=== PATIENT | female | born 1980 | race American Indian/Alaskan Native ===

== ENCOUNTER 2016-09-18 23:09 | Emergency (ER) | payer SELFPAY ==
[2016-09-18 23:27] VITALS: BP 120/79
[2016-09-19 00:17] LABS: Basophils % (Auto) 0.5 % (0.0-1.8); Eosinophils % (Auto) 2.7 % (0.0-4.3); Mean Corpuscular HGB Conc 29 % (30-34); Platelet Count 272 K/mm3 (140-440); Red Blood Count 4.44 M/mm3 (3.65-5.03); White Blood Count 8.2 K/mm3 (4.5-11.0)
[2016-09-19 00:38] LABS: Alanine Aminotransferase 6 units/L (7-56); Albumin 3.7 g/dL (3.9-5); Albumin/Globulin Ratio 0.9 %; Alkaline Phosphatase 82 units/L (35-129); Anion Gap 20 mmol/L; Bilirubin,Total 0.4 mg/dL (0.1-1.2); Blood Urea Nitrogen 6 mg/dL (7-17); Calcium 8.6 mg/dL (8.4-10.2); Carbon Dioxide 20 mmol/L (22-30); Chloride 103.7 mmol/L (98-107); Glucose 98 mg/dL (65-100); Lipase 44 units/L (13-60); Potassium 4.2 mmol/L (3.6-5.0); Sodium 139 mmol/L (137-145); Total Protein 7.6 g/dL (6.3-8.2)
[2016-09-19 00:52] LABS: Hematocrit 29.8 % (30.3-42.9); Hemoglobin 8.8 gm/dl (10.1-14.3); Mean Corpuscular Hemoglobin 20 pg (28-32); Mean Corpuscular Volume 67 fl (79-97)
--- NOTE | 2016-09-19 15:09 | ED Elopement Review ---
ED Pt Elopement review - Results review Lab results: Laboratory Tests 09/18/16 09/18/16 23:51 23:51 WBC 8.2 RBC 4.44 Hgb 8.8 L Hct 29.8 L MCV 67 L MCH 20 L MCHC 29 L RDW 22.0 H Plt Count 272 Lymph % (Auto) 22.0 [place] % (Auto) 5.9 Eos % (Auto) 2.7 Baso % (Auto) 0.5 Lymph # 1.8 [place] # 0.5 Eos # 0.2 Baso # 0.0 Seg Neutrophils % 68.9 Seg Neutrophils # 5.6 Sodium 139 Potassium 4.2 Chloride 103.7 Carbon Dioxide 20 L Anion Gap 20 BUN 6 L Creatinine 0.5 L Estimated GFR > 60 BUN/Creatinine Ratio 12.00 Glucose 98 Calcium 8.6 Total Bilirubin 0.4 AST 14 ALT 6 L Alkaline Phosphatase 82 Total Protein 7.6 Albumin 3.7 L Albumin/Globulin Ratio 0.9 Lipase 44 - Call Back decision Pt Call Back Decision: No action required
== END 2016-09-19 01:58 | disposition left against medical advice (07) ==
LOC: ED 23:09
DX: R10.11 Right upper quadrant pain (principal); R11.0 Nausea; Z53.21 Procedure and treatment not carried out due to patient leaving prior to being seen by health care provider
CPT/HCPCS: 36415; 80053; 83690; 85025

== ENCOUNTER 2016-12-12 06:14 | Emergency (ER) | payer SELFPAY ==
[2016-12-12 07:08] LABS: Alanine Aminotransferase 7 units/L (7-56); Albumin 4.1 g/dL (3.9-5); Albumin/Globulin Ratio 1.2 %; Alkaline Phosphatase 69 units/L (35-129); Anion Gap 17 mmol/L; Blood Urea Nitrogen 5 mg/dL (7-17); Calcium 8.7 mg/dL (8.4-10.2); Carbon Dioxide 22 mmol/L (22-30); Chloride 103.3 mmol/L (98-107); Glucose 126 mg/dL (65-100); Potassium 3.8 mmol/L (3.6-5.0); Sodium 138 mmol/L (137-145); Total Protein 7.4 g/dL (6.3-8.2)
[2016-12-12 07:18] LABS: Basophils % (Auto) 0.2 % (0.0-1.8); Eosinophils % (Auto) 4.2 % (0.0-4.3); Hematocrit 27.7 % (30.3-42.9); Hemoglobin 8.3 gm/dl (10.1-14.3); Mean Corpuscular HGB Conc 30 % (30-34); Platelet Count 232 K/mm3 (140-440); Red Blood Count 4.28 M/mm3 (3.65-5.03); Red Cell Distribution Width 19.2 % (13.2-15.2); White Blood Count 8.5 K/mm3 (4.5-11.0)
[2016-12-12 07:20] LABS: Mean Corpuscular Hemoglobin 20 pg (28-32); Mean Corpuscular Volume 65 fl (79-97)
[2016-12-12 07:57] LABS: Lipase 580 units/L (13-60)
[2016-12-12 08:30] LABS: Bacteria,Urine 1+ /HPF (Negative); Bilirubin,Urine NEG (Negative); Blood,Urine LG (Negative); Ketones,Urine NEG (Negative); Leukocyte Esterase,Urine SM (Negative); Mucus,Urine FEW /HPF; Nitrite,Urine NEG (Negative); Urobilinogen,Urine < 2.0 mg/dL (<2.0)
[2016-12-12 12:16] VITALS: BP 142/82
[2016-12-12] MEDS ORDERED: ZOFRAN IV ONE (13:43)
[2016-12-12] MEDS ORDERED: DILAUDID IV ONE (13:43)
[2016-12-12] MEDS ORDERED: PEPCID IV ONE (13:43)
[2016-12-12] MEDS ORDERED: BENTYL IM ONE (13:43)
--- NOTE | 2016-12-12 13:44 | Emergency Department Report ---
ED Abdominal Pain HPI - General Chief Complaint: Abdominal Pain Stated Complaint: ABD PAIN Time Seen by Provider: 12/12/16 13:34 Source: patient, RN notes reviewed Mode of arrival: Stretcher Limitations: No Limitations - History of Present Illness Initial Comments: This is a 36-year-old female. She is previously unknown to me. She reports a medical history of pancreatitis. Nursing documentation indicates that patient' s pancreatitis is secondary to alcohol use. The patient denies alcohol use to me. She presents to the ER with epigastric pain that radiates around to the back. She reports mild nausea. She reports this is similar to prior episodes of pancreatitis. No fevers. No chills. No chest pain. Shortness of breath. Irritative or obstructive urinary symptoms. Patient reports her symptoms typically are associated with her menstruation. Pain typically improves with pain medication such as morphine or hydromorphone. MD Complaint: abdominal pain -: Gradual Location: RUQ, epigastric Radiation: back Severity scale (0 -10): 10 Quality: cramping, aching Consistency: constant Improves With: medication Worsens With: movement Associated Symptoms: nausea, vomiting, anorexia. denies: dysuria - Related Data Allergies Allergy/AdvReac Type Severity Reaction Status Date / Time No Known Allergies Allergy Unverified 09/18/16 23:27 ED Review of Systems ROS: Stated complaint: ABD PAIN Other details as noted in HPI Constitutional: malaise. denies: fever Eyes: denies: vision change ENT: denies: epistaxis Respiratory: denies: cough Cardiovascular: denies: chest pain Gastrointestinal: abdominal pain Genitourinary: denies: urgency, dysuria Musculoskeletal: back pain Skin: denies: lesions Neurological: weakness ED Past Medical Hx - Past Medical History Previous Medical History?: Yes Additional medical history: PANCREATITIS (ETOH) - Surgical History Past Surgical History?: No - Social History Smoking Status: Current Every Day Smoker Substance Use Type: None ED Physical Exam - General Limitations: No Limitations General appearance: alert, in no apparent distress - Head Head exam: Present: atraumatic, normocephalic - Eye Eye exam: Present: normal appearance, EOMI. Absent: nystagmus - ENT ENT exam: Present: normal exam, normal orophraynx, mucous membranes moist, normal external ear exam - Neck Neck exam: Present: normal inspection, full ROM. Absent: tenderness, meningismus - Respiratory Respiratory exam: Present: normal lung sounds bilaterally. Absent: respiratory distress, wheezes, rales, rhonchi, stridor, chest wall tenderness, accessory muscle use, decreased breath sounds - Cardiovascular Cardiovascular Exam: Present: regular rate, normal rhythm, normal heart sounds. Absent: bradycardia, tachycardia, irregular rhythm, systolic murmur, diastolic murmur, rubs, gallop - GI/Abdominal GI/Abdominal exam: Present: soft, tenderness, normal bowel sounds. Absent: distended, pulsatile mass - Extremities Exam Extremities exam: Present: normal inspection, full ROM, normal capillary refill. Absent: pedal edema, joint swelling, calf tenderness - Back Exam Back exam: Present: normal inspection, full ROM. Absent: tenderness, CVA tenderness (R), CVA tenderness (L), muscle spasm, paraspinal tenderness, vertebral tenderness - Neurological Exam Neurological exam: Present: alert, oriented X3, other (Extraocular movements intact. Tongue midline. No facial droop. Facial sensation intact to light touch in the V1, V2, V3 distribution bilaterally. 5 and 5 strength in 4 extremities.. Sensation is intact to light touch in 4 extremities.). Absent: motor sensory deficit - Psychiatric Psychiatric exam: Present: normal affect, normal mood - Skin Skin exam: Present: warm, dry, intact, normal color. Absent: rash ED Course Vital Signs 12/12/16 12/12/16 06:20 12:15 Temperature 98.4 F Pulse Rate 76 68 Respiratory 18 18 Rate Blood Pressure 118/80 Blood Pressure 142/82 [Left] O2 Sat by Pulse 100 100 Oximetry ED Medical Decision Making - Lab Data Result diagrams: 12/12/16 06:36 12/12/16 06:36 Vital Signs 12/12/16 12/12/16 06:20 12:15 Temperature 98.4 F Pulse Rate 76 68 Respiratory 18 18 Rate Blood Pressure 118/80 Blood Pressure 142/82 [Left] O2 Sat by Pulse 100 100 Oximetry Lab Results 12/12/16 12/12/16 12/12/16 Range/Units 06:36 06:36 06:36 WBC 8.5 (4.5-11.0) K/mm3 RBC 4.28 (3.65-5.03) M/mm3 Hgb 8.3 L (10.1-14.3) gm/dl Hct 27.7 L (30.3-42.9) % MCV 65 L (79-97) fl MCH 20 L (28-32) pg MCHC 30 (30-34) % RDW 19.2 H (13.2-15.2) % Plt Count 232 (140-440) K/mm3 Lymph % (Auto) 10.0 L (13.4-35.0) % [place] % (Auto) 4.3 (0.0-7.3) % Eos % (Auto) 4.2 (0.0-4.3) % Baso % (Auto) 0.2 (0.0-1.8) % Lymph # 0.9 L (1.2-5.4) K/mm3 [place] # 0.4 (0.0-0.8) K/mm3 Eos # 0.4 (0.0-0.4) K/mm3 Baso # 0.0 (0.0-0.1) K/mm3 Seg Neutrophils % 81.3 H (40.0-70.0) % Seg Neutrophils # 6.9 (1.8-7.7) K/mm3 Potassium 3.8 (3.6-5.0) mmol/L Chloride 103.3 (98-107) mmol/L Carbon Dioxide 22 (22-30) mmol/L Anion Gap 17 mmol/L BUN 5 L (7-17) mg/dL Creatinine 0.5 L (0.7-1.2) mg/dL Estimated GFR > 60 ml/min BUN/Creatinine Ratio 10.00 % Glucose 126 H (65-100) mg/dL Calcium 8.7 (8.4-10.2) mg/dL Total Bilirubin 0.70 (0.1-1.2) mg/dL AST 13 (5-40) units/L ALT 7 (7-56) units/L Alkaline Phosphatase 69 (35-129) units/L Total Protein 7.4 (6.3-8.2) g/dL Albumin 4.1 (3.9-5) g/dL Albumin/Globulin Ratio 1.2 % Lipase 580 H (13-60) units/L HCG, Qual Negative (Negative) Urine Color (Yellow) Urine Turbidity (Clear) Urine pH (5.0-7.0) Ur Specific [place] (1.003-1.030) Urine Protein (Negative) mg/dL Urine Glucose (UA) (Negative) mg/dL Urine Ketones (Negative) mg/dL Urine Blood (Negative) Urine Nitrite (Negative) Urine Bilirubin (Negative) Urine Urobilinogen (<2.0) mg/dL Ur Leukocyte Esterase (Negative) Urine WBC (Auto) (0.0-6.0) /HPF Urine RBC (Auto) (0.0-6.0) /HPF U Epithel Cells (Auto) (0-13.0) /HPF Urine Bacteria (Auto) (Negative) /HPF Urine Mucus /HPF 12/12/16 Range/Units 08:06 WBC (4.5-11.0) K/mm3 RBC (3.65-5.03) M/mm3 Hgb (10.1-14.3) gm/dl Hct (30.3-42.9) % MCV (79-97) fl MCH (28-32) pg MCHC (30-34) % RDW (13.2-15.2) % Plt Count (140-440) K/mm3 Lymph % (Auto) (13.4-35.0) % [place] % (Auto) (0.0-7.3) % Eos % (Auto) (0.0-4.3) % Baso % (Auto) (0.0-1.8) % Lymph # (1.2-5.4) K/mm3 [place] # (0.0-0.8) K/mm3 Eos # (0.0-0.4) K/mm3 Baso # (0.0-0.1) K/mm3 Seg Neutrophils % (40.0-70.0) % Seg Neutrophils # (1.8-7.7) K/mm3 Potassium (3.6-5.0) mmol/L Chloride (98-107) mmol/L Carbon Dioxide (22-30) mmol/L Anion Gap mmol/L BUN (7-17) mg/dL Creatinine (0.7-1.2) mg/dL Estimated GFR ml/min BUN/Creatinine Ratio % Glucose (65-100) mg/dL Calcium (8.4-10.2) mg/dL Total Bilirubin (0.1-1.2) mg/dL AST (5-40) units/L ALT (7-56) units/L Alkaline Phosphatase (35-129) units/L Total Protein (6.3-8.2) g/dL Albumin (3.9-5) g/dL Albumin/Globulin Ratio % Lipase (13-60) units/L HCG, Qual (Negative) Urine Color Yellow (Yellow) Urine Turbidity Slightly-cloudy (Clear) Urine pH 5.0 (5.0-7.0) Ur Specific [place] 1.024 (1.003-1.030) Urine Protein 30 mg/dl (Negative) mg/dL Urine Glucose (UA) Neg (Negative) mg/dL Urine Ketones Neg (Negative) mg/dL Urine Blood Lg (Negative) Urine Nitrite Neg (Negative) Urine Bilirubin Neg (Negative) Urine Urobilinogen < 2.0 (<2.0) mg/dL Ur Leukocyte Esterase Sm (Negative) Urine WBC (Auto) 9.0 H (0.0-6.0) /HPF Urine RBC (Auto) 8.0 (0.0-6.0) /HPF U Epithel Cells (Auto) 8.0 (0-13.0) /HPF Urine Bacteria (Auto) 1+ (Negative) /HPF Urine Mucus Few /HPF - Medical Decision Making Differential diagnosis: GERD, gastritis, pancreatitis Assessment and plan: 36-year-old female with reported history of multiple episodes of pancreatitis, with a clinical history and laboratory studies that suggest pancreatitis. She is afebrile, with epigastric tenderness. She is given pain medication, nausea medication and IV fluids. She is clinically sober at this time, with a GCS of 15, NIH score of 0, does not require 1013. Given her elevated lipase, abdominal pain, the patient will be admitted for presumed pancreatitis. Given her young age, and reported history of multiple CT scans in the past, I do not believe it is in the patient's best interest to exposure to additional ionizing radiation, given the increased risk of cancer. The case is presented to the Hospital physician, Dr. Doty, who graciously accept the patient to his service for pancreatitis. Critical care attestation.: If time is entered above; I have spent that time in minutes in the direct care of this critically ill patient, excluding procedure time. ED Disposition Clinical Impression: Pancreatitis Disposition: OP ADMIT IP TO THIS HOSP Is pt being admited?: Yes Condition: Good Instructions: Abdominal Pain (ED) Referrals: PRIMARY CARE, [Primary Care Provider] - 3-5 Days
[2016-12-12] MEDS ORDERED: NACL 0.9% 1000 ML 2,000 ML IV ONE (13:47)
--- NOTE | 2016-12-12 13:55 | Admit Criteria Form ---
Admission Criteria Documentation: PANCREATITIS Clinical Indications for Admission to Inpatient Care (Place 'X' for any and all applicable criteria): Admission is indicated for 1 or more of the following (1)(2)(3)(4): [X]I. Acute pancreatitis[A] as indicated by 2 or MORE of the following: [X]a) Abdominal pain (eg, epigastric, left upper quadrant) [X]b) Serum amylase or serum lipase greater than 3 times the upper limit of normal [ ]c) Characteristic findings from abdominal imaging (eg, pancreatic inflammation, pancreatic necrosis, peripancreatic fluid collection)[B] [ ]II. Pancreatitis (acute or chronic ) requiring inpatient care as indicated by 1 or more of the following [ ]a) Inability to maintain oral hydration Hypoxemia [ ]b) Evidence of infection (eg, fever, peripancreatic abscess) [ ]c) Severe pain requiring acute inpatient management [ ]d) Hemodynamic instability [ ]e) Hypoxemia [ ]f) Acute renal failure [ ]g) Severe electrolyte abnormalities Extended stay beyond goal length of stay may be needed for (1)(11) [ ]a) Severe acute pancreatitis (10)(19) [ ]b) Persistent symptoms, ascites, or pleural effusion [ ]c) Abdominal compartment syndrome (10) [ ]d) Late complications [ ]e) Gallstones in gallbladder [ ]f) Acute renal failure (27) The original [employer] content created by [employer] has been revised. The portions of the content which have been revised are identified through the use of italic text or in bold,and [facility] has neither reviewed nor approved the modified material.All other unmodified content is copyright [employer] [facility]. Please see references footnoted in the original [employer] [facility] edition 2016 Admission Criteria Met: Yes
[2016-12-12] MEDS ORDERED: D5/0.45NS 1,000 ML IV SCH (14:00)
[2016-12-12] MEDS ORDERED: PERCOCET 5/325 ONE (18:52)
[2016-12-12] MEDS ORDERED: PERCOCET 5/325 PO ONE (18:56)
== END 2016-12-12 19:06 | disposition admitted as inpatient to this hospital (09) ==
LOC: ED 06:14
DX: K85.90 Acute pancreatitis without necrosis or infection, unspecified (principal); F17.200 Nicotine dependence, unspecified, uncomplicated
CPT/HCPCS: 36415; 80053; 81001; 83690; 84703; 85025; 96361; 96372; 96374; 96375; 99285; G0480; J0500; J1170; J2405; J7030; 80320

== ENCOUNTER 2019-07-15 10:32 | Emergency (ER) | payer SELFPAY ==
--- NOTE | 2019-07-15 11:35 | Emergency Department Report ---
ED Abdominal Pain HPI - General Chief Complaint: Abdominal Pain Stated Complaint: CHEST PAIN, SOB ABD PAIN Time Seen by Provider: 07/15/19 11:32 Source: patient Mode of arrival: Ambulatory Limitations: No Limitations - History of Present Illness Initial Comments: This is a 39-year-old female with a history of recurrent pancreatitis. She denies recent alcohol use. She states that she has been having right upper quadrant epigastric abdominal pain which radiates to the back and worsens on the supine position. Despite this being fairly typical for pancreatitis she states it feels different than her prior episodes of pancreatitis but cannot really el aborate why. She's had some discomfort in her chest as well. She denies fever or chills signs of GI bleeding or recent vomiting. She states that she has been moving her bowels. As per her last hospitalization for pancreatitis: Hospitalization Condition: Stable Hospital course: 39-year-old woman Presents to the hospital right-sided abdominal pain radiating to her lower back. The patient has a history of chronic pancreatitis, from a alcohol abuser. She also has a history of pancreatic insufficiency and used to be on Creon. The patient also complained of nausea or vomiting. CT abdomen and pelvis; diffuse pancreatitis with moderate adjacent fluid/inflammation, fatty liver Acute on chronic pancreatitis Continue pain medications IV fluids. Clear liquid diet, advanced as tolerated. Patient was seen by gastroenterology who agreed with the plan of care. She was advised on alcohol cessation/avoidance. Advised to advance her diet at home as slowly as tolerated Type 2 diabetes Optimize insulins MD Complaint: abdominal pain -: Gradual, days(s) Location: periumbilical, RUQ, epigastric Radiation: back Migration to: no migration Severity: moderate Quality: aching Consistency: constant Improves With: nothing Worsens With: nothing Associated Symptoms: denies other symptoms - Related Data Home Medications Medication Instructions Recorded Confirmed Last Taken Ferrous Sulfate [Feosol 325 MG tab] 325 mg PO TID 12/12/16 03/10/19 Unknown Folic Acid [Folvite] 1 mg PO QDAY 12/12/16 03/10/19 Unknown Lipase/Protease/Amylase [Creon Dr 1 cap PO QAC 12/12/16 03/10/19 Unknown 12,000 Units] Previous Rx's Medication Instructions Recorded Last Taken Type Oxycodone HCl/Acetaminophen 1 each PO Q6HR PRN #30 tablet 03/11/19 Unknown Rx [Percocet 10/325 mg] Allergies Allergy/AdvReac Type Severity Reaction Status Date / Time No Known Allergies Allergy Unverified 09/18/16 23:27 ED Review of Systems ROS: Stated complaint: CHEST PAIN, SOB ABD PAIN Other details as noted in HPI Constitutional: denies: chills, fever Eyes: denies: eye pain, eye discharge, vision change ENT: denies: ear pain, throat pain Respiratory: denies: cough, shortness of breath, wheezing Cardiovascular: denies: chest pain, palpitations Endocrine: no symptoms reported Gastrointestinal: abdominal pain. denies: nausea, vomiting, diarrhea Genitourinary: denies: urgency, dysuria, discharge Musculoskeletal: denies: back pain, joint swelling, arthralgia Skin: denies: rash, lesions Neurological: denies: headache, weakness, paresthesias Psychiatric: denies: anxiety, depression Hematological/Lymphatic: denies: easy bleeding, easy bruising ED Past Medical Hx - Past Medical History Previous Medical History?: Yes Hx Congestive Heart Failure: No Hx Diabetes: No Hx Asthma: No Hx COPD: No Hx HIV: No Additional medical history: PANCREATITIS (ETOH) - Surgical History Past Surgical History?: No - Social History Smoking Status: Never Smoker Substance Use Type: None - Medications Home Medications: Home Medications Medication Instructions Recorded Confirmed Last Taken Type Ferrous Sulfate [Feosol 325 MG tab] 325 mg PO TID 12/12/16 03/10/19 Unknown History Folic Acid [Folvite] 1 mg PO QDAY 12/12/16 03/10/19 Unknown History Lipase/Protease/Amylase [Robinson Arndt 1 cap PO QAC 12/12/16 03/10/19 Unknown History 12,000 Units] Oxycodone HCl/Acetaminophen 1 each PO Q6HR PRN #30 tablet 03/11/19 Unknown Rx [Percocet 10/325 mg] ED Physical Exam - General Limitations: No Limitations General appearance: alert, in no apparent distress - Head Head exam: Present: atraumatic, normocephalic - Eye Eye exam: Present: normal appearance. Absent: scleral icterus - ENT ENT exam: Present: mucous membranes moist - Neck Neck exam: Present: normal inspection - Respiratory Respiratory exam: Present: normal lung sounds bilaterally. Absent: respiratory distress - Cardiovascular Cardiovascular Exam: Present: regular rate, normal rhythm. Absent: systolic murmur, diastolic murmur, rubs, gallop - GI/Abdominal GI/Abdominal exam: Present: soft, tenderness (some epigastric discomfort to palp ation), normal bowel sounds. Absent: distended, guarding, rebound, rigid, organomegaly, mass, bruit, pulsatile mass, hernia - Extremities Exam Extremities exam: Present: normal inspection - Back Exam Back exam: Present: normal inspection - Neurological Exam Neurological exam: Present: alert, oriented X3, CN II-XII intact. Absent: motor sensory deficit - Psychiatric Psychiatric exam: Present: normal affect, normal mood - Skin Skin exam: Present: warm, dry, intact, normal color. Absent: rash ED Course Vital Signs 07/15/19 07/15/19 07/15/19 10:57 11:48 11:50 Temperature 98.1 F Pulse Rate 124 H 92 H 96 H Respiratory 16 16 18 Rate Blood Pressure 143/92 Blood Pressure 129/87 [Left] O2 Sat by Pulse 100 100 Oximetry 07/15/19 07/15/19 07/15/19 11:53 12:00 12:15 Temperature Pulse Rate 92 H 94 H Respiratory 18 18 14 Rate Blood Pressure 129/87 146/98 Blood Pressure [Left] O2 Sat by Pulse 100 100 98 Oximetry 07/15/19 07/15/19 12:30 12:45 Temperature Pulse Rate 79 82 Respiratory 13 13 Rate Blood Pressure 122/81 127/79 Blood Pressure [Left] O2 Sat by Pulse 100 Oximetry - Reevaluation(s) Reevaluation #1: Please refer to the hospitalist for consideration of admission. 07/15/19 13:51 ED Medical Decision Making - Lab Data Result diagrams: 07/15/19 11:43 07/15/19 11:43 Laboratory Results - last 24 hr 07/15/19 07/15/19 07/15/19 11:43 11:43 Unknown WBC 7.9 RBC 5.08 H Hgb 10.1 Hct 33.8 MCV 67 L MCH 20 L MCHC 30 RDW 19.8 H Plt Count 211 Lymph % (Auto) 15.0 [place] % (Auto) 7.1 Eos % (Auto) 0.5 Baso % (Auto) 0.1 Lymph # 1.2 [place] # 0.6 Eos # 0.0 Baso # 0.0 Seg Neutrophils % 77.3 H Seg Neutrophils # 6.1 Sodium 137 Potassium 4.0 Chloride 96.2 L Carbon Dioxide 22 Anion Gap 23 BUN 5 L Creatinine 0.5 L Estimated GFR > 60 BUN/Creatinine Ratio 10 Glucose 307 H Calcium 9.6 Total Bilirubin 0.80 AST 20 ALT 23 Alkaline Phosphatase 97 Troponin T < 0.010 Total Protein 8.1 Albumin 4.4 Albumin/Globulin Ratio 1.2 Urine Color Yellow Urine Turbidity Slightly-cloudy Urine pH 5.0 Ur Specific [place] 1.023 Urine Protein 30 mg/dl Urine Glucose (UA) >=500 Urine Ketones 80 Urine Blood Neg Urine Nitrite Neg Urine Bilirubin Neg Urine Urobilinogen 4.0 Ur Leukocyte Esterase Mod Urine WBC (Auto) 34.0 H Urine RBC (Auto) 6.0 U Epithel Cells (Auto) 19.0 H Urine Bacteria (Auto) 1+ Urine Mucus 3+ Laboratory Results - last 24 hr 07/15/19 07/15/19 07/15/19 11:43 11:43 11:49 WBC 7.9 RBC 5.08 H Hgb 10.1 Hct 33.8 MCV 67 L MCH 20 L MCHC 30 RDW 19.8 H Plt Count 211 Lymph % (Auto) 15.0 [place] % (Auto) 7.1 Eos % (Auto) 0.5 Baso % (Auto) 0.1 Lymph # 1.2 [place] # 0.6 Eos # 0.0 Baso # 0.0 Seg Neutrophils % 77.3 H Seg Neutrophils # 6.1 Sodium 137 Potassium 4.0 Chloride 96.2 L Carbon Dioxide 22 Anion Gap 23 BUN 5 L Creatinine 0.5 L Estimated GFR > 60 BUN/Creatinine Ratio 10 Glucose 307 H Calcium 9.6 Total Bilirubin 0.80 AST 20 ALT 23 Alkaline Phosphatase 97 Troponin T < 0.010 Total Protein 8.1 Albumin 4.4 Albumin/Globulin Ratio 1.2 HCG, Qual Negative Urine Color Urine Turbidity Urine pH Ur Specific [place] Urine Protein Urine Glucose (UA) Urine Ketones Urine Blood Urine Nitrite Urine Bilirubin Urine Urobilinogen Ur Leukocyte Esterase Urine WBC (Auto) Urine RBC (Auto) U Epithel Cells (Auto) Urine Bacteria (Auto) Urine Mucus 07/15/19 Unknown WBC RBC Hgb Hct MCV MCH MCHC RDW Plt Count Lymph % (Auto) [place] % (Auto) Eos % (Auto) Baso % (Auto) Lymph # [place] # Eos # Baso # Seg Neutrophils % Seg Neutrophils # Sodium Potassium Chloride Carbon Dioxide Anion Gap BUN Creatinine Estimated GFR BUN/Creatinine Ratio Glucose Calcium Total Bilirubin AST ALT Alkaline Phosphatase Troponin T Total Protein Albumin Albumin/Globulin Ratio HCG, Qual Urine Color Yellow Urine Turbidity Slightly-cloudy Urine pH 5.0 Ur Specific [place] 1.023 Urine Protein 30 mg/dl Urine Glucose (UA) >=500 Urine Ketones 80 Urine Blood Neg Urine Nitrite Neg Urine Bilirubin Neg Urine Urobilinogen 4.0 Ur Leukocyte Esterase Mod Urine WBC (Auto) 34.0 H Urine RBC (Auto) 6.0 U Epithel Cells (Auto) 19.0 H Urine Bacteria (Auto) 1+ Urine Mucus 3+ Laboratory Results - last 24 hr 07/15/19 07/15/19 07/15/19 11:43 11:43 11:49 WBC 7.9 RBC 5.08 H Hgb 10.1 Hct 33.8 MCV 67 L MCH 20 L MCHC 30 RDW 19.8 H Plt Count 211 Lymph % (Auto) 15.0 [place] % (Auto) 7.1 Eos % (Auto) 0.5 Baso % (Auto) 0.1 Lymph # 1.2 [place] # 0.6 Eos # 0.0 Baso # 0.0 Seg Neutrophils % 77.3 H Seg Neutrophils # 6.1 Sodium 137 Potassium 4.0 Chloride 96.2 L Carbon Dioxide 22 Anion Gap 23 BUN 5 L Creatinine 0.5 L Estimated GFR > 60 BUN/Creatinine Ratio 10 Glucose 307 H Calcium 9.6 Total Bilirubin 0.80 AST 20 ALT 23 Alkaline Phosphatase 97 Troponin T < 0.010 Total Protein 8.1 Albumin 4.4 Albumin/Globulin Ratio 1.2 Lipase 470 H HCG, Qual Negative Urine Color Urine Turbidity Urine pH Ur Specific [place] Urine Protein Urine Glucose (UA) Urine Ketones Urine Blood Urine Nitrite Urine Bilirubin Urine Urobilinogen Ur Leukocyte Esterase Urine WBC (Auto) Urine RBC (Auto) U Epithel Cells (Auto) Urine Bacteria (Auto) Urine Mucus 07/15/19 Unknown WBC RBC Hgb Hct MCV MCH MCHC RDW Plt Count Lymph % (Auto) [place] % (Auto) Eos % (Auto) Baso % (Auto) Lymph # [place] # Eos # Baso # Seg Neutrophils % Seg Neutrophils # Sodium Potassium Chloride Carbon Dioxide Anion Gap BUN Creatinine Estimated GFR BUN/Creatinine Ratio Glucose Calcium Total Bilirubin AST ALT Alkaline Phosphatase Troponin T Total Protein Albumin Albumin/Globulin Ratio Lipase HCG, Qual Urine Color Yellow Urine Turbidity Slightly-cloudy Urine pH 5.0 Ur Specific [place] 1.023 Urine Protein 30 mg/dl Urine Glucose (UA) >=500 Urine Ketones 80 Urine Blood Neg Urine Nitrite Neg Urine Bilirubin Neg Urine Urobilinogen 4.0 Ur Leukocyte Esterase Mod Urine WBC (Auto) 34.0 H Urine RBC (Auto) 6.0 U Epithel Cells (Auto) 19.0 H Urine Bacteria (Auto) 1+ Urine Mucus 3+ - EKG Data -: EKG Interpreted by Ne EKG shows normal: sinus rhythm, axis, intervals, QRS complexes, ST-T waves Rate: normal - EKG Data Interpretation: no acute changes - Radiology Data Radiology results: report reviewed (normal chest per radiologist) Critical care attestation.: If time is entered above; I have spent that time in minutes in the direct care of this critically ill patient, excluding procedure time. ED Disposition Clinical Impression: Acute pancreatitis Qualifiers: Pancreatitis type: unspecified pancreatitis type Acute pancreatitis complication: unspecified Qualified Code(s): K85.90 - Acute pancreatitis without necrosis or infection, unspecified UTI (urinary tract infection) Qualifiers: Urinary tract infection type: site unspecified Hematuria presence: without hematuria Qualified Code(s): N39.0 - Urinary tract infection, site not specified Disposition: 09 OP ADMIT IP TO THIS HOSP Is pt being admited?: Yes Does the pt Need Aspirin: No Condition: Stable Instructions: Abdominal Pain (ED) Referrals: PRIMARY CARE, [Primary Care Provider] - 3-5 Days Time of Disposition: 13:51
[2019-07-15] MEDS ORDERED: HYDROmorphone 1 MG/1 ML INJ IV ONE ×2 (11:40→15:08)
[2019-07-15] MEDS ORDERED: SODIUM CHLORIDE 0.9% 1000 ML 1,000 ML IV ONE (11:40)
[2019-07-15] MEDS ORDERED: diphenhydrAMINE 50 MG/ML VIAL IV ONE (11:40)
[2019-07-15] MEDS ORDERED: ONDANSETRON 4 MG/2 ML INJ IV ONE ×2 (11:40→14:06)
[2019-07-15] MEDS ORDERED: PANTOPRAZOLE 40 MG INJ IV ONE (11:40)
--- NOTE | 2019-07-15 11:40 | XRay Report ---
CHEST 1 VIEW INDICATION: Chest Pain. COMPARISON: None. FINDINGS: Support devices: None. Heart: Within normal limits. Pulmonary vasculature: Normal. Lungs/Pleura: No acute air space or interstitial disease. Additional findings: None. IMPRESSION: 1. Normal chest. Signer Name: Ronnie Brown MD Signed: 07/15/2019 11:35 AM Workstation Name: [id number]
[2019-07-15 11:57] LABS: Bacteria,Urine 1+ /HPF (Negative); Bilirubin,Urine NEG (Negative); Blood,Urine NEG (Negative); Color,Urine Yellow (Yellow); Mucus,Urine 3+ /HPF
[2019-07-15 12:05] LABS: Basophils % (Auto) 0.1 % (0.0-1.8); Eosinophils % (Auto) 0.5 % (0.0-4.3); Hematocrit 33.8 % (30.3-42.9); Hemoglobin 10.1 gm/dl (10.1-14.3); Lymphocytes # (Auto) 1.2 K/mm3 (1.2-5.4); Mean Corpuscular HGB Conc 30 % (30-34); Monocytes # (Auto) 0.6 K/mm3 (0.0-0.8); Monocytes % (Auto) 7.1 % (0.0-7.3); Platelet Count 211 K/mm3 (140-440); Red Blood Count 5.08 M/mm3 (3.65-5.03); Red Cell Distribution Width 19.8 % (13.2-15.2)
[2019-07-15 12:06] LABS: Mean Corpuscular Volume 67 fl (79-97)
[2019-07-15 12:43] LABS: Alanine Aminotransferase 23 units/L (7-56); Albumin 4.4 g/dL (3.9-5); BUN/Creatinine Ratio 10; Blood Urea Nitrogen 5 mg/dL (7-17); Calcium 9.6 mg/dL (8.4-10.2); Hemolysis Index 0
[2019-07-15] MEDS ORDERED: cefTRIAXone/NS 1 GM/50 ML 1 GM/50 ML BAG IV ONE (13:04)
[2019-07-15] MEDS ORDERED: INSULIN REGULAR, HUMAN 100 UNITS/1 ML IV ONE (13:41)
[2019-07-15] MEDS ORDERED: SODIUM CHLORIDE 0.9% 1000 ML 1,000 ML IV SCH (14:15)
--- NOTE | 2019-07-15 15:48 | Event Note ---
Date: 07/15/19 39-year-old female with chronic pancreatitis, EtOH dependence, medication noncompliance presents to ED for evaluation. Patient states that she has experienced abdominal pain over the past 1 week. Patient seen and evaluated in the emergency department and found to have chronic alcoholic pancreatitis secondary to noncompliance and continued alcohol use as well as UTI. Patient treated with IV fluid resuscitation therapy and supportive care. Patient medically optimized tolerating diet and subsequently discharged home. Patient instructed to follow-up with primary care physician within 3 to 5 days, as well as GI PRN. Patient also instructed to follow-up with Alcoholics Anonymous upon discharge. Patient counseled regarding alcohol cessation. ED Physical Exam - General Limitations: No Limitations General appearance: alert, in no apparent distress - Head Head exam: Present: atraumatic, normocephalic - Eye Eye exam: Present: normal appearance. Absent: scleral icterus - ENT ENT exam: Present: mucous membranes moist - Neck Neck exam: Present: normal inspection - Respiratory Respiratory exam: Present: normal lung sounds bilaterally. Absent: respiratory distress - Cardiovascular Cardiovascular Exam: Present: regular rate, normal rhythm. Absent: systolic murmur, diastolic murmur, rubs, gallop - GI/Abdominal GI/Abdominal exam: Present: soft, nondistended, nontender, no rebound, no guarding, no flank discoloration. Absent: distended, guarding, rebound, rigid, organomegaly, mass, bruit, pulsatile mass, hernia - Extremities Exam Extremities exam: Present: normal inspection - Back Exam Back exam: Present: normal inspection - Neurological Exam Neurological exam: Present: alert, oriented X3, CN II-XII intact. Absent: motor sensory deficit - Psychiatric Psychiatric exam: Present: normal affect, normal mood - Skin Skin exam: Present: warm, dry, intact, normal color. Absent: rash
[2019-07-15 19:51] VITALS: BP 140/84
== END 2019-07-15 19:51 | disposition admitted as inpatient to this hospital (09) ==
LOC: ED 10:32
DX: K85.90 Acute pancreatitis without necrosis or infection, unspecified (principal); N39.0 Urinary tract infection, site not specified; Z79.899 Other long term (current) drug therapy
CPT/HCPCS: 36415; 71045; 80053; 81001; 83690; 84484; 84703; 85025; 87076; 87086; 87186; 93005; 93010; 96361; 96365; 96375; 96376; 99284; C9113; J0696; J1170; J1200; J2405; J7030; J1815

== ENCOUNTER 2019-07-16 07:12 | Emergency (ER) | payer SELFPAY ==
[2019-07-16] MEDS ORDERED: FAMOTIDINE 20 MG/2 ML INJ IV ONE (08:15)
[2019-07-16] MEDS ORDERED: METOCLOPRAMIDE 10 MG/2 ML INJ IV ONE (08:15)
[2019-07-16] MEDS ORDERED: MORPHINE 2 MG/1 ML INJ IV ONE ×2 (08:15→11:16)
--- NOTE | 2019-07-16 08:20 | Emergency Department Report ---
ED Abdominal Pain HPI - General Chief Complaint: Abdominal Pain Stated Complaint: ABD PAIN Time Seen by Provider: 07/16/19 07:47 Source: patient Mode of arrival: Ambulatory Limitations: No Limitations - History of Present Illness Initial Comments: Is a 39-year-old female with a history of chronic pancreatitis who returns to the ED after being evaluated here and discharged. Patient states that she is having worsening abdominal pain with no relief. Patient states that she has not had any alcohol ingestion. Patient describes pain as colicky which is radiating from right upper quadrant to left and generalized. - Related Data Home Medications Medication Instructions Recorded Confirmed Last Taken Ferrous Sulfate [Feosol 325 MG tab] 325 mg PO TID 12/12/16 07/16/19 Unknown Folic Acid [Folvite] 1 mg PO QDAY 12/12/16 07/16/19 Unknown Previous Rx's Medication Instructions Recorded Last Taken Type Ciprofloxacin HCl [Ciprofloxacin 500 mg PO Q12HR #12 tab 07/15/19 Unknown Rx TAB] Lipase/Protease/Amylase [Creon Dr 1 cap PO QAC #60 cap 07/15/19 Unknown Rx 12,000 Units] Ondansetron [Zofran Odt] 4 mg PO Q8HR #15 tab.rapdis 07/15/19 Unknown Rx Apixaban [Eliquis starter pack] 5 mg PO BID #60 tab.ds.pk 07/16/19 Unknown Rx Oxycodone HCl/Acetaminophen 1 each PO Q6HR PRN #15 tablet 07/16/19 Unknown Rx [Percocet 10/325 mg] Allergies Allergy/AdvReac Type Severity Reaction Status Date / Time No Known Allergies Allergy Unverified 09/18/16 23:27 ED Review of Systems ROS: Stated complaint: ABD PAIN Other details as noted in HPI Comment: All other systems reviewed and negative ED Past Medical Hx - Past Medical History Hx Congestive Heart Failure: No Hx Diabetes: No Hx Asthma: No Hx COPD: No Hx HIV: No Additional medical history: PANCREATITIS (ETOH) - Social History Smoking Status: Current Every Day Smoker - Medications Home Medications: Home Medications Medication Instructions Recorded Confirmed Last Taken Type Ferrous Sulfate [Feosol 325 MG tab] 325 mg PO TID 12/12/16 07/16/19 Unknown History Folic Acid [Folvite] 1 mg PO QDAY 12/12/16 07/16/19 Unknown History Ciprofloxacin HCl [Ciprofloxacin 500 mg PO Q12HR #12 tab 07/15/19 07/16/19 Unknown Rx TAB] Lipase/Protease/Amylase [Robinson Dr 1 cap PO QAC #60 cap 07/15/19 07/16/19 Unknown Rx 12,000 Units] Ondansetron [Zofran Odt] 4 mg PO Q8HR #15 tab.rapdis 07/15/19 07/16/19 Unknown Rx Apixaban [Eliquis starter pack] 5 mg PO BID #60 tab.ds.pk 07/16/19 Unknown Rx Oxycodone HCl/Acetaminophen 1 each PO Q6HR PRN #15 tablet 07/16/19 Unknown Rx [Percocet 10/325 mg] ED Physical Exam - General Limitations: No Limitations General appearance: alert, in no apparent distress - Head Head exam: Present: atraumatic, normocephalic - Eye Eye exam: Present: normal appearance - ENT ENT exam: Present: mucous membranes moist - Neck Neck exam: Present: normal inspection - Respiratory Respiratory exam: Present: normal lung sounds bilaterally. Absent: respiratory distress - Cardiovascular Cardiovascular Exam: Present: regular rate, normal rhythm. Absent: systolic murmur, diastolic murmur, rubs, gallop - GI/Abdominal GI/Abdominal exam: Present: soft, tenderness, guarding, rebound, normal bowel sounds. Absent: mass - Extremities Exam Extremities exam: Present: normal inspection - Back Exam Back exam: Present: normal inspection - Neurological Exam Neurological exam: Present: alert, oriented X3 - Psychiatric Psychiatric exam: Present: normal affect, normal mood - Skin Skin exam: Present: warm, dry, intact, normal color. Absent: rash ED Course Vital Signs 07/16/19 07/16/19 07/16/19 07:16 11:20 15:34 Temperature 98.4 F 98.4 F 98.2 F Pulse Rate 105 H 88 90 Respiratory 16 16 16 Rate Blood Pressure 127/89 132/84 Blood Pressure 140/82 [Left] O2 Sat by Pulse 100 100 100 Oximetry - Reevaluation(s) Reevaluation #1: 07/16/19 12:06 Patient is still complaining of abdominal pain. 2 mg of morphine ordered. Patient stated that the vascular surgeon Dr. AREVALO just came in to evaluate her. [place] still awaiting Reevaluation #2: Vascular surgeon order was placed for Doppler study at [facility]. Pending results, pending return of page from vascular surgeon 07/16/19 12:21 - Consultations Consultation #1: Doctor Akash vascular surgeon paged. 07/16/19 12:21 Consultation #2: 07/16/19 14:[address] Lombardi attending physician who recommended for a free to evaluate patient and for admit to observation. Dr. Doty will calm and evaluated the patient and Dispo ED Medical Decision Making - Lab Data Result diagrams: 07/16/19 08:30 07/16/19 08:30 Laboratory Results - last 24 hr 07/16/19 07/16/19 08:30 08:30 WBC 6.1 RBC 5.08 H Hgb 10.2 Hct 34.3 MCV 68 L MCH 20 L MCHC 30 RDW 19.8 H Plt Count 198 Lymph % (Auto) 18.9 [place] % (Auto) 6.6 Eos % (Auto) 1.8 Baso % (Auto) 0.5 Lymph # 1.2 [place] # 0.4 Eos # 0.1 Baso # 0.0 Seg Neutrophils % 72.2 H Seg Neutrophils # 4.4 Sodium 139 Potassium 4.5 Chloride 102.6 Carbon Dioxide 22 Anion Gap 19 BUN 3 L Creatinine 0.4 L Estimated GFR > 60 BUN/Creatinine Ratio 8 Glucose 263 H Calcium 9.6 Total Bilirubin 0.60 AST 31 ALT 22 Alkaline Phosphatase 88 Total Protein 8.2 Albumin 4.1 Albumin/Globulin Ratio 1.0 Amylase 91 Lipase 230 H - Radiology Data Radiology results: report reviewed, image reviewed CT abdomen pelvis w con INDICATION: abd pain x 2 weeks. TECHNIQUE: All CT scans at this location are performed using the following dose modulation technique: Automated exposure control. CONTRAST: Omnipaque 350, 100 cc IV injection. COMPARISON: CT abdomen and pelvis 03/08/2019. CT ABDOMEN: Evaluation the parenchymal organs demonstrates moderate tic containing of the pancreas with mild adjacent inflammation. The remaining parenchymal organs are unremarkable other than fatty infiltration of the liver. Negative for abdominal mass, fluid or inflammation. A small amount of thrombus is seen within the inferior aspect of the IVC extending into the right common iliac vein. This is best seen on series #601, image 48 CT PELVIS: Negative for pelvic mass, fluid collection or inflammation. The endometrial stripe is prominent. The appendix is normal. IMPRESSION: 1. Mild/moderate acute pancreatitis. 2. Thrombus within the inferior aspect of the IVC extending into the right common iliac vein. This is new from the February study but has a more chronic appearance. 3. Thickened endometrial stripe. This is a new finding and may be cycle related. Signer Name: Enrique Matta MD Signed: 07/16/2019 10:10 AM Workstation Name: [id number] Transcribed By: SALOME Dictated By: Enrique Matta MD Electronically Authenticated By: Enrique Matta MD Signed Date/Time: 07/16/19 1010 DUPLEX DOPPLER LOWER EXTREMITY VEINS, BILATERAL INDICATION: IVC thrombus. TECHNIQUE: Duplex doppler imaging was performed through the veins of both lower extremities using venous compression and other maneuvers. COMPARISON: None available. FINDINGS: Right Common femoral vein: Negative. Right Superficial femoral vein: Negative. Right Popliteal vein: Negative. Right Calf veins: Negative. Left Common femoral vein: Negative. Left Superficial femoral vein: Negative. Left Popliteal vein: Negative. Left Calf veins: Negative. Additional findings: None. IMPRESSION: Negative for DVT. Signer Name: Enrique Matta MD Signed: 07/16/2019 1:45 PM Workstation Name: [id number] Transcribed By: SALOME Dictated By: Enrique Matta MD Electronically Authenticated By: Enrique Matta MD Signed Date/Time: 07/16/19 1345 - Medical Decision Making 39-year-old female with a history of pancreatitis presents with abdominal pain Patient was evaluated by Dr. Lombardi and recommended admission. Per Hospitalist note Soren after evaluating the patient was sent home with medication. Patient returned today and abdominal pain stating that it is worse Due to patient's level of discomfort, CT scan was ordered. CT scan shows acute pancreatitis as well as a thrombolysis in the IVC extending to the iliac vein. All labs are within normal limits no signs of leukocytosis, BUN/creatinine were little depleted and lipase elevated consistent with a history of pancreatitis. Patient received medication in ed, IV fluid resuscitation . Vascular consult was placed after CT scan was resulted. Vascular attending evaluated the patient. Discussed this with Dr. Lombardi who recommended admission for observation. Hospitalist made aware of the patient. Hospitalist will evaluate the patient and decide on Dispo. Patient is still having moderate abdominal pain. 2 mg of morphine ordered. [place] resting comfortably ED bed awaiting. Discussed the patient liquid diet for the next 2 days for pancreatitis. Patient awaiting a hospitalist evaluation. She was discharged after hospitalist evaluation by hospitalist Critical care attestation.: If time is entered above; I have spent that time in minutes in the direct care of this critically ill patient, excluding procedure time. ED Disposition Clinical Impression: Acute pancreatitis, Inferior vena cava thromboembolism Disposition: - TO HOME OR SELFCARE Is pt being admited?: No Does the pt Need Aspirin: No Condition: Stable Instructions: Pancreatitis (ED), Abdominal Pain (ED) Additional Instructions: Make sure to follow up with the primary care physician as discussed. Take all your medications as you've been prescribed. If you have any worsening symptoms or develop new symptoms please return to ED immediately. Prescriptions: Apixaban [Eliquis starter pack] 5 mg PO BID #60 tab.ds.pk Oxycodone HCl/Acetaminophen [Percocet 10/325 mg] 1 each PO Q6HR PRN #15 tablet PRN Reason: Pain Referrals: [facility] [Provider Group] - 3-5 Days [facility] [Outside] - 3-5 Days [facility] [Outside] - 3-5 Days [facility] [Outside] - 3-5 Days PRIMARY CARE, [Primary Care Provider] - 3-5 Days [facility] [Provider Group] - 3-5 Days Forms: Work/School Release Form(ED) Time of Disposition: 14:55
[2019-07-16] MEDS ORDERED: SODIUM CHLORIDE 0.9% 1000 ML 1,000 ML ONE (08:32)
[2019-07-16] MEDS ORDERED: SODIUM CHLORIDE 0.9% 1000 ML 1,000 ML IV ONE (08:36)
[2019-07-16 08:44] LABS: Basophils % (Auto) 0.5 % (0.0-1.8); Eosinophils # (Auto) 0.1 K/mm3 (0.0-0.4); Eosinophils % (Auto) 1.8 % (0.0-4.3); Lymphocytes # (Auto) 1.2 K/mm3 (1.2-5.4); Lymphocytes % (Auto) 18.9 % (13.4-35.0); Mean Corpuscular HGB Conc 30 % (30-34); Monocytes # (Auto) 0.4 K/mm3 (0.0-0.8); Monocytes % (Auto) 6.6 % (0.0-7.3); Platelet Count 198 K/mm3 (140-440); Red Blood Count 5.08 M/mm3 (3.65-5.03); Red Cell Distribution Width 19.8 % (13.2-15.2)
[2019-07-16 08:45] LABS: Hematocrit 34.3 % (30.3-42.9); Hemoglobin 10.2 gm/dl (10.1-14.3)
[2019-07-16 08:46] LABS: Mean Corpuscular Volume 68 fl (79-97)
[2019-07-16 09:00] LABS: Alanine Aminotransferase 22 units/L (7-56); Albumin 4.1 g/dL (3.9-5); BUN/Creatinine Ratio 8; Blood Urea Nitrogen 3 mg/dL (7-17); Calcium 9.6 mg/dL (8.4-10.2); Hemolysis Index 1
--- NOTE | 2019-07-16 10:14 | Cat Scan Report ---
CT abdomen pelvis w con INDICATION: abd pain x 2 weeks. TECHNIQUE: All CT scans at this location are performed using the following dose modulation technique: Automated exposure control. CONTRAST: Omnipaque 350, 100 cc IV injection. COMPARISON: CT abdomen and pelvis 03/08/2019. CT ABDOMEN: Evaluation the parenchymal organs demonstrates moderate tic containing of the pancreas wi th mild adjacent inflammation. The remaining parenchymal organs are unremarkable other than fatty inf iltration of the liver. Negative for abdominal mass, fluid or inflammation. A small amount of thrombus is seen within the inferior aspect of the IVC extending into the right com mon iliac vein. This is best seen on series #601, image 48 CT PELVIS: Negative for pelvic mass, fluid collection or inflammation. The endometrial stripe is prom inent. The appendix is normal. IMPRESSION: 1. Mild/moderate acute pancreatitis. 2. Thrombus within the inferior aspect of the IVC extending into the right common iliac vein. This is new from the February study but has a more chronic appearance. 3. Thickened endometrial stripe. This is a new finding and may be cycle related. Signer Name: Enrique Matta MD Signed: 07/16/2019 10:10 AM Workstation Name: [id number]
--- NOTE | 2019-07-16 12:02 | Consultation ---
History of Present Illness - Reason for Consult Consult date: 07/16/19 IVC thrombus - History of Present Illness HPI: 39yo female with history of chronic pancreatitis 2/2 to ETOH abuse presents to the ED with acute abdominal pain. The patient had a CT scan performed which demonstrated an incidental finding of an non-occluding IVS thrombus extending into the right common iliac vein. The patient states last week she had an episode of pain and swelling in the right foot that lasted less than 24 hours. She denies prior history of lower extremity DVT. She smokes 1 pack per week since the age of 23. Patient denies chest pain or shortness of breath. ROS: as per HPI Plan: NAD, A&Ox3 non-labored respirations RRR trace edema to the right foot palpable pedal pulses bilat CT scan reviewed Plan: Patient with incidental finding of IVC thrombus extending into the right iliac vein thrombus could be related to pancreatitis flare-up Patient with no symptoms related to DVT no surgical intervention required patient to require oral anticoagulation for 3 to 6 months and work-up by Andrés liriano as an outpatient will obtain lower extremity venous duplex Medications and Allergies Allergies Allergy/AdvReac Type Severity Reaction Status Date / Time No Known Allergies Allergy Unverified 09/18/16 23:27 Home Medications Medication Instructions Recorded Confirmed Last Taken Type Ferrous Sulfate [Feosol 325 MG tab] 325 mg PO TID 12/12/16 03/10/19 Unknown History Folic Acid [Folvite] 1 mg PO QDAY 12/12/16 03/10/19 Unknown History Oxycodone HCl/Acetaminophen 1 each PO Q6HR PRN #30 tablet 03/11/19 Unknown Rx [Percocet 10/325 mg] Ciprofloxacin HCl [Ciprofloxacin 500 mg PO Q12HR #12 tab 07/15/19 Unknown Rx TAB] Lipase/Protease/Amylase [Robinson Dr 1 cap PO QAC #60 cap 07/15/19 Unknown Rx 12,000 Units] Ondansetron [Zofran Odt] 4 mg PO Q8HR #15 tab.rapdis 07/15/19 Unknown Rx Famotidine [Pepcid] 20 mg PO BID #40 tablet 07/16/19 Unknown Rx HYDROcodone/APAP 5-325 [[place] 1 each PO Q6HR PRN #12 tablet 07/16/19 Unknown Rx 5/325] Exam - Constitutional Vitals: Temp Pulse Resp BP Pulse Ox 98.4 F 105 H 16 127/89 100 07/16/19 07:16 07/16/19 07:16 07/16/19 07:16 07/16/19 07:16 07/16/19 07:16 Results - Labs CBC & Chem 7: 07/16/19 08:30 07/16/19 08:30 Labs: Abnormal lab results 07/16/19 07/16/19 Range/Units 08:30 08:30 RBC 5.08 H (3.65-5.03) M/mm3 MCV 68 L (79-97) fl MCH 20 L (28-32) pg RDW 19.8 H (13.2-15.2) % Seg Neutrophils % 72.2 H (40.0-70.0) % BUN 3 L (7-17) mg/dL Creatinine 0.4 L (0.7-1.2) mg/dL Glucose 263 H (65-100) mg/dL Lipase 230 H (13-60) units/L
--- NOTE | 2019-07-16 13:49 | Vascular Lab Report ---
DUPLEX DOPPLER LOWER EXTREMITY VEINS, BILATERAL INDICATION: IVC thrombus. TECHNIQUE: Duplex doppler imaging was performed through the veins of both lower extremities using venous zunilda annie and other maneuvers. COMPARISON: None available. FINDINGS: Right Common femoral vein: Negative. Right Superficial femoral vein: Negative. Right Popliteal vein: Negative. Right Calf veins: Negative. Left Common femoral vein: Negative. Left Superficial femoral vein: Negative. Left Popliteal vein: Negative. Left Calf veins: Negative. Additional findings: None. IMPRESSION: Negative for DVT. Signer Name: Enrique Matta MD Signed: 07/16/2019 1:45 PM Workstation Name: [id number]
[2019-07-16] MEDS ORDERED: APIXABAN 5 MG TAB PO SCH (14:34)
[2019-07-16] MEDS ORDERED: oxyCODONE /ACETAMINOPHEN 5-325MG TAB PO ONE (15:29)
[2019-07-16 15:38] VITALS: BP 140/82
== END 2019-07-16 17:46 | disposition home or self-care (01) ==
LOC: ED 07:12
DX: K85.90 Acute pancreatitis without necrosis or infection, unspecified (principal); I82.211 Chronic embolism and thrombosis of superior vena cava; F17.200 Nicotine dependence, unspecified, uncomplicated
CPT/HCPCS: 36415; 74177; 80053; 82140; 82150; 83690; 85025; 93970; 96374; 96375; 96376; 99284; J2270; J2765; J7030; Q9967

== ENCOUNTER 2019-07-16 21:29 | Inpatient (IN) | payer OTHER ==
--- NOTE | 2019-07-16 21:32 | History and Physical Report ---
History of Present Illness Chief complaint: My stomach hurts History of present illness: 39-year-old female with alcoholic pancreatitis who presents to the ED for evaluation of abdominal pain. Patient seen and evaluated and discharged home with conservative management however patient was found by interventional radio logy to have an arterial thrombus. Patient was called by me on her personal cellular phone and instructed to return to the hospital for direct admission for further care and evaluation. Patient denies fever, chills, chest pain, palpitations, bright red blood per rectum, skin rash, recent ill contacts, individual/family history of DVT/PE/bleeding/blood clotting disorders. Patient admitted to telemetry for further care and evaluation due to high risk for decompensation. Interventional radiology consulted. Cardiology team consulted. Patient initiated on therapeutic anticoagulation therapy. Past History Past Medical History: other (See HPI) Past Surgical History: No surgical history, Other (Reviewed) Social history: single, lives with family. denies: smoking, alcohol abuse Family history: hypertension Medications and Allergies Allergies Allergy/AdvReac Type Severity Reaction Status Date / Time No Known Allergies Allergy Unverified 09/18/16 23:27 Home Medications Medication Instructions Recorded Confirmed Last Taken Type Ferrous Sulfate [Feosol 325 MG tab] 325 mg PO TID 12/12/16 07/16/19 Unknown History Folic Acid [Folvite] 1 mg PO QDAY 12/12/16 07/16/19 Unknown History Ciprofloxacin HCl [Ciprofloxacin 500 mg PO Q12HR #12 tab 07/15/19 07/16/19 Unknown Rx TAB] Lipase/Protease/Amylase [Creon Dr 1 cap PO QAC #60 cap 07/15/19 07/16/19 Unknown Rx 12,000 Units] Ondansetron [Zofran Odt] 4 mg PO Q8HR #15 tab.rapdis 07/15/19 07/16/19 Unknown Rx Apixaban [Eliquis starter pack] 5 mg PO BID #60 tab.ds.pk 07/16/19 Unknown Rx Oxycodone HCl/Acetaminophen 1 each PO Q6HR PRN #15 tablet 07/16/19 Unknown Rx [Percocet 10/325 mg] Review of Systems Constitutional: no weight loss, no weight gain, no fever, no chills Ears, nose, mouth and throat: no ear pain, no ear discharge, no tinnitis, no decreased hearing, no nasal congestion Breasts: no change in shape, no swelling, no mass Cardiovascular: no chest pain, no orthopnea, no palpitations Respiratory: no cough, no cough with sputum, no excessive sputum, no shortness of breath Gastrointestinal: abdominal pain, nausea, no vomiting, no diarrhea, no constipation, no hematemesis Genitourinary Female: no pelvic pain, no flank pain, no menorrhagia, no urinary frequency, no stress incontinence Rectal: no pain, no incontinence Musculoskeletal: no neck stiffness, no neck pain, no shooting arm pain, no arm numbness/tingling Integumentary: no rash, no pruritis, no redness, no sores, no wounds Neurological: no head injury, no transient paralysis, no weakness, no numbness, no seizures, no syncope, no ataxia Psychiatric: no anxiety, no memory loss, no sleep disturbances, no insomnia, no change in appetite, no disorientation Endocrine: no cold intolerance, no heat intolerance, no polyphagia, no excessive thirst, no nocturia, no weight change Hematologic/Lymphatic: no easy bruising, no easy bleeding, no lymphadenopathy Allergic/Immunologic: no urticaria, no angioedema Exam - Constitutional General appearance: Present: no acute distress, well-nourished - EENT Eyes: Present: PERRL ENT: hearing intact, clear oral mucosa - Neck Neck: Present: supple, normal ROM - Respiratory Respiratory effort: normal Respiratory: bilateral: CTA - Cardiovascular Heart Sounds: Present: S1 & S2. Absent: rub, click - Extremities Extremities: pulses symmetrical, No edema Peripheral Pulses: within normal limits - Abdominal General gastrointestinal: Present: soft, non-tender, non-distended, normal bowel sounds Female genitourinary: Present: normal - Integumentary Integumentary: Present: clear, warm, dry - Musculoskeletal Musculoskeletal: gait normal, strength equal bilaterally - Psychiatric Psychiatric: appropriate mood/affect, intact judgment & insight - Neurologic Neurologic: CNII-XII intact, moves all extremities Assessment and Plan - Patient Problems (1) Arterial thrombosis Status: Acute Plan to address problem: Therapeutic anticoagulation, telemetry monitoring, interventional radiology consulted, cardiology consulted, echo, angiogram as per interventional radiology. (2) Chronic alcoholic pancreatitis Status: Acute Plan to address problem: IV fluid resuscitation therapy, CIWA protocol, lipase in a.m., Pancrease, supportive care. (3) DVT prophylaxis Status: Acute Plan to address problem: SCD to bilateral lower extremities while in bed, supportive care.
[2019-07-16] MEDS ORDERED: ACETAMINOPHEN 325 MG TAB PO PRN (21:33)
[2019-07-16] MEDS ORDERED: ONDANSETRON 4 MG/2 ML INJ IV PRN (21:33)
--- NOTE | 2019-07-16 21:46 | Event Note ---
Date: 07/16/[address] scan. There is a focal thrombus (embolic) in the distal aorta extending into the right common iliac artery. According to Dr. Bustos's note, no significant symptomatology of the legs with intact motor and sensory function. Recommend anticoagulation (heparin drip). Recommend cardiology consult to assess for cardiac source of thrombus/emboli, will need echo, possibly holter monitor based on cardiology recommendations. Recommend CT angiogram of the chest to assess for atherosclerotic origin from the aortic arch. May get over the next few days given recent contrast bolus. Recommend hematology/oncology consult for hyper-coagulopathy workup. Recommend arterial duplex of the lower extremities.
[2019-07-16] MEDS ORDERED: APIXABAN 5 MG TAB PO SCH (23:00)
[2019-07-17] MEDS: HEPARIN/ 0.45% NACL DRIP 25,000 UNIT/500 ML BAG IV SCH ×3 (00:32→22:07)
[2019-07-17] MEDS: ONDANSETRON 4 MG ODT TAB PO SCH ×5 (00:47→20:39)
[2019-07-17] MEDS: oxyCODONE /ACETAMINOPHEN 5-325MG TAB PO PRN ×4 (00:48→20:38)
[2019-07-17 01:16] LABS: Hematocrit 30.8 % (30.3-42.9); Hemoglobin 9.3 gm/dl (10.1-14.3)
[2019-07-17 01:24] LABS: INR 1.24 (0.87-1.13); Partial Thromboplastin Time 30.4 Sec. (24.2-36.6)
[2019-07-17 07:35] LABS: Basophils % (Auto) 0.6 % (0.0-1.8); Eosinophils # (Auto) 0.1 K/mm3 (0.0-0.4); Eosinophils % (Auto) 1.8 % (0.0-4.3); Hematocrit 28.6 % (30.3-42.9); Hemoglobin 8.7 gm/dl (10.1-14.3); Lymphocytes # (Auto) 1.4 K/mm3 (1.2-5.4); Mean Corpuscular HGB Conc 30 % (30-34); Monocytes # (Auto) 0.5 K/mm3 (0.0-0.8); Monocytes % (Auto) 7.8 % (0.0-7.3); Platelet Count 185 K/mm3 (140-440); Red Blood Count 4.26 M/mm3 (3.65-5.03)
[2019-07-17 07:39] LABS: Mean Corpuscular Volume 67 fl (79-97); Red Cell Distribution Width 20.1 % (13.2-15.2)
[2019-07-17 07:48] LABS: BUN/Creatinine Ratio 7; Blood Urea Nitrogen 2 mg/dL (7-17); Calcium 8.8 mg/dL (8.4-10.2); Hemolysis Index 48
[2019-07-17] MEDS: LIPASE 12,000/PROTEASE 38,000/AMYLASE 60,000 (UNITS) DR CAP PO SCH ×3 (08:00→17:04)
--- NOTE | 2019-07-17 10:25 | Progress Note ---
Assessment and Plan Assessment and plan: 39-year-old woman with history of alcoholic pancreatitis who presented to the ER with abdominal pain. She was discharged home with conservative management. However she was later called back into the hospital by interventional radiologist for arterial thrombus., She was therefore directly admitted. -She had no symptoms in her lower extremities with intact motor and sensory function. Focal arterial thrombosis in the distal aorta extending into the right common iliac artery IR input appreciated, heparin drip, cardiology consult to assess for cardiac source of thrombus/emboli, echo, possible Holter monitor -Hematology consult for hypercoagulability work-up Arterial duplex of lower extremities. Chronic alcoholic pancreatitis -Avoid hepatotoxins Counseled on continued alcohol abstinence Preventative health counseling performed for 17 minutes DVT prophylaxis; fully anticoagulated History Interval history: Review of systems Constitutional: No fevers, no malaise, no joint pains CVS: No chest pain, no orthopnea, no pedal edema GI: No abdominal pain, no diarrhea, no vomiting, no constipation Respiratory: , no wheezing, no coughing Hospitalist Physical - Physical exam Narrative exam: General.: Appears well, no distress, nontoxic HEENT: Moist mucous membranes, extraocular muscles intact, no lymphadenopathy Neck: supple Cardiac: S1-S2 heard Lungs: clear to auscultation bilaterally Abdomen: soft , nontender, nondistended, bowel sounds positive Extremities: no edema clubbing or cyanosis Skin: no rash or lesions Neurologic: no gross focal deficits Psych: calm, and cooperative - Constitutional Vitals: Temp Pulse Resp BP Pulse Ox 98.5 F 87 18 125/84 99 07/17/19 08:07 07/17/19 08:07 07/17/19 08:07 07/17/19 08:07 07/17/19 08:07 General appearance: Present: no acute distress, well-nourished Results - Labs CBC & Chem 7: 07/17/19 07:16 07/17/19 07:16 Labs: Laboratory Last Values WBC 6.1 K/mm3 (4.5-11.0) 07/17/19 07:16 RBC 4.26 M/mm3 (3.65-5.03) 07/17/19 07:16 Hgb 8.7 gm/dl (10.1-14.3) L 07/17/19 07:16 Hct 28.6 % (30.3-42.9) L 07/17/19 07:16 MCV 67 fl (79-97) L 07/17/19 07:16 MCH 20 pg (28-32) L 07/17/19 07:16 MCHC 30 % (30-34) 07/17/19 07:16 RDW 20.1 % (13.2-15.2) H 07/17/19 07:16 Plt Count 185 K/mm3 (140-440) 07/17/19 07:16 Lymph % (Auto) 23.0 % (13.4-35.0) 07/17/19 07:16 [place] % (Auto) 7.8 % (0.0-7.3) H 07/17/19 07:16 Eos % (Auto) 1.8 % (0.0-4.3) 07/17/19 07:16 Baso % (Auto) 0.6 % (0.0-1.8) 07/17/19 07:16 Lymph # 1.4 K/mm3 (1.2-5.4) 07/17/19 07:16 [place] # 0.5 K/mm3 (0.0-0.8) 07/17/19 07:16 Eos # 0.1 K/mm3 (0.0-0.4) 07/17/19 07:16 Baso # 0.0 K/mm3 (0.0-0.1) 07/17/19 07:16 Seg Neutrophils % 66.8 % (40.0-70.0) 07/17/19 07:16 Seg Neutrophils # 4.0 K/mm3 (1.8-7.7) 07/17/19 07:16 PT 15.8 Sec. (12.2-14.9) H 07/17/19 01:01 INR 1.24 (0.87-1.13) H 07/17/19 01:01 APTT 30.4 Sec. (24.2-36.6) 07/17/19 01:01 Heparin Anti-Xa Level 0.77 U.I./ml (0.3-0.7) H 07/17/19 07:16 Sodium 134 mmol/L (137-145) L 07/17/19 07:16 Potassium 3.9 mmol/L (3.6-5.0) 07/17/19 07:16 Chloride 98.0 mmol/L (98-107) 07/17/19 07:16 Carbon Dioxide 24 mmol/L (22-30) 07/17/19 07:16 Anion Gap 16 mmol/L 07/17/19 07:16 BUN 2 mg/dL (7-17) L 07/17/19 07:16 Creatinine 0.3 mg/dL (0.7-1.2) L 07/17/19 07:16 Estimated GFR > 60 ml/min 07/17/19 07:16 BUN/Creatinine Ratio 7 % 07/17/19 07:16 Glucose 250 mg/dL (65-100) H 07/17/19 07:16 Calcium 8.8 mg/dL (8.4-10.2) 07/17/19 07:16 Active Medications - Current Medications Current Medications: Generic Name Dose Route Start Last Admin Trade Name Freq PRN Reason Stop Dose Admin Acetaminophen 650 mg 07/16/19 21:33 Tylenol PO Q4H PRN Pain MILD(1-3)/Fever >100.5/TORRE Lipase/Protease/Amylase 1 each 07/17/19 07:[address] 12,000 Units PO QAC FARHAN Folic Acid 1 mg 07/17/19 10:00 Folvite PO QDAY FARHAN Heparin Sodium/Sodium Chloride 25,000 unit in 500 mls @ 24 mls/hr 07/16/19 23:45 07/17/19 00:32 Heparin/ 0.45% Nacl-25,000 Unit/500 Ml IV 1,200 units/hr TITR FARHAN 24 mls/hr Administration Protocol 1,200 UNITS/HR Ondansetron HCl 4 mg 07/16/19 21:33 Zofran IV Q8H PRN Nausea And Vomiting Ondansetron HCl 4 mg 07/16/19 22:00 07/17/19 06:06 Zofran Odt PO 4 mg Q8H FARHAN Administration Oxycodone HCl 5 mg 07/16/19 22:28 Roxicodone PO Q6H PRN Pain, Moderate (4-6) Oxycodone/Acetaminophen 1 tab 07/16/19 21:33 07/17/19 06:06 Percocet 5/325 PO 1 tab Q6H PRN Administration Pain, Moderate (4-6) Sodium Chloride 10 ml 07/16/19 22:00 07/17/19 00:48 Sodium Chloride Flush Syringe 10 Ml IV 10 ml BID FARHAN Administration Sodium Chloride 10 ml 07/16/19 21:33 Sodium Chloride Flush Syringe 10 Ml IV PRN PRN LINE FLUSH
[2019-07-17] MEDS: FOLIC ACID 1 MG TAB PO SCH (11:21)
--- NOTE | 2019-07-17 11:22 | Consultation ---
History of Present Illness Consult date: 07/17/19 Consult reason: other History of present illness: 39-year-old woman with history of alcoholic pancreatitis who presented to the ER with abdominal pain. She was found to have focal thrombus (embolic) in the distal aorta extending into the right common iliac artery based on CT. Cardiology has been consulted to evaluate for possible cardiac source for thrombo-embolic origin. ECG reveals sinus rhythm with left atrial enlargement. Past History Past Medical History: other (See HPI) Past Surgical History: No surgical history, Other (Reviewed) Social history: single, lives with family. denies: smoking, alcohol abuse Family history: hypertension Medications and Allergies Allergies Allergy/AdvReac Type Severity Reaction Status Date / Time No Known Allergies Allergy Unverified 09/18/16 23:27 Home Medications Medication Instructions Recorded Confirmed Last Taken Type Ferrous Sulfate [Feosol 325 MG tab] 325 mg PO TID 12/12/16 07/17/19 1 Day Ago History ~07/16/19 Folic Acid [Folvite] 1 mg PO QDAY 12/12/16 07/17/19 1 Day Ago History ~07/16/19 Ciprofloxacin HCl [Ciprofloxacin 500 mg PO Q12HR #12 tab 07/15/19 07/17/19 1 Day Ago Rx TAB] ~07/16/19 Lipase/Protease/Amylase [Robinson Arndt 1 cap PO QAC #60 cap 07/15/19 07/17/19 1 Day Ago Rx 12,000 Units] ~07/16/19 Ondansetron [Zofran Odt] 4 mg PO Q8HR #15 tab.rapdis 07/15/19 07/17/19 1 Day Ago Rx ~07/16/19 Apixaban [Eliquis starter pack] 5 mg PO BID #60 tab.ds.pk 07/16/19 07/17/19 1 Day Ago Rx ~07/16/19 Oxycodone HCl/Acetaminophen 1 each PO Q6HR PRN #15 tablet 07/16/19 07/17/19 1 Day Ago Rx [Percocet 10/325 mg] ~07/16/19 Active Meds: Active Medications Acetaminophen (Tylenol) 650 mg PO Q4H PRN PRN Reason: Pain MILD(1-3)/Fever >100.5/TORRE Lipase/Protease/Amylase (Robinson Arndt 12,000 Units) 1 each PO QAC FARHAN Folic Acid (Folvite) 1 mg PO QDAY [facility] Heparin Sodium/Sodium Chloride (Heparin/ 0.45% Nacl-25,000 Unit/500 Ml) 25,000 unit in 500 mls @ 24 mls/hr IV TITR [facility]; Protocol Last Admin: 07/17/19 00:32 Dose: 1,200 units/hr, 24 mls/hr Documented by: Ondansetron HCl (Zofran) 4 mg IV Q8H PRN PRN Reason: Nausea And Vomiting Ondansetron HCl (Zofran Odt) 4 mg PO Q8H [facility] Last Admin: 07/17/19 06:06 Dose: 4 mg Documented by: Oxycodone HCl (Roxicodone) 5 mg PO Q6H PRN PRN Reason: Pain, Moderate (4-6) Oxycodone/Acetaminophen (Percocet 5/325) 1 tab PO Q6H PRN PRN Reason: Pain, Moderate (4-6) Last Admin: 07/17/19 06:06 Dose: 1 tab Documented by: Sodium Chloride (Sodium Chloride Flush Syringe 10 Ml) 10 ml IV BID [facility] Last Admin: 07/17/19 00:48 Dose: 10 ml Documented by: Sodium Chloride (Sodium Chloride Flush Syringe 10 Ml) 10 ml IV PRN PRN PRN Reason: LINE FLUSH Review of Systems All systems: negative (per hpi) Physical Examination Vital Signs Temp Pulse Resp BP Pulse Ox 97.9 F 89 20 118/75 100 07/16/19 23:01 07/16/19 23:01 07/16/19 23:01 07/16/19 23:01 07/16/19 23:01 General appearance: no acute distress HEENT: Positive: PERRL, Pallor Neck: Positive: neck supple Cardiac: Positive: Reg Rate and Rhythm. Negative: Audible Murmur Lungs: Positive: clear to auscultation Abdomen: Positive: Soft, Active Bowel Sounds Extremities: Absent: edema Results 07/17/19 07:16 07/17/19 07:16 Coagulation 07/17/19 Range/Units 01: PT 15.8 H (12.2-14.9) Sec. INR 1.24 H (0.87-1.13) APTT 30.4 (24.2-36.6) Sec. CBC 07/17/19 07/17/19 Range/Units 01:01 07:16 WBC 6.1 (4.5-11.0) K/mm3 RBC 4.26 (3.65-5.03) M/mm3 Hgb 9.3 L 8.7 L (10.1-14.3) gm/dl Hct 30.8 28.6 L (30.3-42.9) % Plt Count 190 185 (140-440) K/mm3 Lymph # 1.4 (1.2-5.4) K/mm3 [place] # 0.5 (0.0-0.8) K/mm3 Eos # 0.1 (0.0-0.4) K/mm3 Baso # 0.0 (0.0-0.1) K/mm3 Comprehensive Metabolic Panel 07/17/19 Range/Units 07:16 Sodium 134 L (137-145) mmol/L Potassium 3.9 (3.6-5.0) mmol/L Chloride 98.0 (98-107) mmol/L Carbon Dioxide 24 (22-30) mmol/L BUN 2 L (7-17) mg/dL Creatinine 0.3 L (0.7-1.2) mg/dL Glucose 250 H (65-100) mg/dL Calcium 8.8 (8.4-10.2) mg/dL Assessment and Plan Arterial thrombus Pancreatitis Recommend: 1. Check Echocardiogram 2. Outpatient event monitor to screen for atrial fibrillation 3. continue systemic anticoagulation
[2019-07-17] MEDS: oxyCODONE 5 MG TAB PO PRN ×2 (12:52→20:38)
--- NOTE | 2019-07-17 15:39 | Progress Note ---
Assessment and Plan 39-year-old female with thromboembolic embolization to the right distal aorta and into the right common iliac artery. Patient's right lower extremity is warm and well-perfused. No indication for thrombectomy at this time. Recommend anticoagulation (heparin drip). Recommend warfarin. Since etiology is unclear and may be due to antiphospholipid antibody syndrome, will need to use Coumadin/warfarin this time. If excluded, then may be converted to Eliquis in the future. Recommend cardiology consult to assess for cardiac source of thrombus/emboli, will need echo, possibly holter monitor based on cardiology recommendations. Recommend CT angiogram of the chest,abdomen, and pelvis to assess for atherosclerotic origin from the aortic arch. Recommend hematology/oncology consult for hyper-coagulopathy workup. Recommend arterial duplex of the lower extremities. Pancreatitis management per hospitalist service. Subjective Date of service: 07/17/19 Principal diagnosis: arterial embolism the right lower extremity Interval history: Nonpalpable right pedal pulses with palpable left pedal pulses. Patient is obese and her femoral pulses are not easily palpable in either groin. Intact motor and sensory function. No complaints of claudication. No rest pain. No foot discoloration or mottling. Objective - Constitutional Vitals: Vital Signs - 12hr 07/17/19 07/17/19 07/17/19 04:47 08:00 08:01 Temperature 98.3 F Pulse Rate 86 93 H Respiratory 20 Rate Blood Pressure 114/75 O2 Sat by Pulse 100 100 Oximetry 07/17/19 07/17/19 08:07 11:22 Temperature 98.5 F 98.6 F Pulse Rate 87 91 H Respiratory 18 18 Rate Blood Pressure 125/84 123/83 O2 Sat by Pulse 99 100 Oximetry General appearance: Present: no acute distress - EENT Eyes: EOM intact ENT: hearing intact - Respiratory Respiratory effort: normal Extremities: normal temperature, normal color - Psychiatric Psychiatric: appropriate mood/affect, cooperative - Labs CBC & Chem 7: 07/17/19 07:16 07/17/19 07:16 Labs: Abnormal lab results 07/17/19 07/17/19 07/17/19 Range/Units 01:01 01:01 07:16 Hgb 9.3 L 8.7 L (10.1-14.3) gm/dl Hct 28.6 L (30.3-42.9) % MCV 67 L (79-97) fl MCH 20 L (28-32) pg RDW 20.1 H (13.2-15.2) % [place] % (Auto) 7.8 H (0.0-7.3) % PT 15.8 H (12.2-14.9) Sec. INR 1.24 H (0.87-1.13) Heparin Anti-Xa Level (0.3-0.7) U.I./ml Sodium (137-145) mmol/L BUN (7-17) mg/dL Creatinine (0.7-1.2) mg/dL Glucose (65-100) mg/dL 07/17/19 07/17/19 Range/Units 07:16 07:16 Hgb (10.1-14.3) gm/dl Hct (30.3-42.9) % MCV (79-97) fl MCH (28-32) pg RDW (13.2-15.2) % [place] % (Auto) (0.0-7.3) % PT (12.2-14.9) Sec. INR (0.87-1.13) Heparin Anti-Xa Level 0.77 H (0.3-0.7) U.I./ml Sodium 134 L (137-145) mmol/L BUN 2 L (7-17) mg/dL Creatinine 0.3 L (0.7-1.2) mg/dL Glucose 250 H (65-100) mg/dL Medications & Allergies - Medications Allergies/Adverse Reactions: Allergies No Known Allergies Allergy (Unverified 09/18/16 23:27) Home Medications: Home Medications Medication Instructions Recorded Confirmed Last Taken Type Ferrous Sulfate [Feosol 325 MG tab] 325 mg PO TID 12/12/16 07/17/19 1 Day Ago History ~07/16/19 Folic Acid [Folvite] 1 mg PO QDAY 12/12/16 07/17/19 1 Day Ago History ~07/16/19 Ciprofloxacin HCl [Ciprofloxacin 500 mg PO Q12HR #12 tab 07/15/19 07/17/19 1 Day Ago Rx TAB] ~07/16/19 Lipase/Protease/Amylase [Robinson Arndt 1 cap PO QAC #60 cap 07/15/19 07/17/19 1 Day Ago Rx 12,000 Units] ~07/16/19 Ondansetron [Zofran Odt] 4 mg PO Q8HR #15 tab.rapdis 07/15/19 07/17/19 1 Day Ago Rx ~07/16/19 Apixaban [Eliquis starter pack] 5 mg PO BID #60 tab.ds.pk 07/16/19 07/17/19 1 Day Ago Rx ~07/16/19 Oxycodone HCl/Acetaminophen 1 each PO Q6HR PRN #15 tablet 07/16/19 07/17/19 1 Day Ago Rx [Percocet 10/325 mg] ~07/16/19 Active Medications: Generic Name Dose Route Start Last Admin Trade Name Freq PRN Reason Stop Dose Admin Acetaminophen 650 mg 07/16/19 21:33 Tylenol PO Q4H PRN Pain MILD(1-3)/Fever >100.5/TORRE Lipase/Protease/Amylase 1 each 07/17/19 07:30 07/17/19 11:[address] 12,000 Units PO 1 each QA FARHAN Administration Folic Acid 1 mg 07/17/19 10:00 07/17/19 11:21 Folvite PO 1 mg QDAY FARHAN Administration Heparin Sodium/Sodium Chloride 25,000 unit in 500 mls @ 24 mls/hr 07/16/19 23:45 07/17/19 00:32 Heparin/ 0.45% Nacl-25,000 Unit/500 Ml IV 1,200 units/hr TITR FARHAN 24 mls/hr Administration Protocol 1,200 UNITS/HR Ondansetron HCl 4 mg 07/16/19 21:33 Zofran IV Q8H PRN Nausea And Vomiting Ondansetron HCl 4 mg 07/16/19 22:00 07/17/19 13:50 Zofran Odt PO 4 mg Q8H FARHAN Administration Oxycodone HCl 5 mg 07/16/19 22:28 07/17/19 12:52 Roxicodone PO 5 mg Q6H PRN Administration Pain, Moderate (4-6) Oxycodone/Acetaminophen 1 tab 07/16/19 21:33 07/17/19 12:52 Percocet 5/325 PO 1 tab Q6H PRN Administration Pain, Moderate (4-6) Sodium Chloride 10 ml 07/16/19 22:00 07/17/19 11:22 Sodium Chloride Flush Syringe 10 Ml IV 10 ml BID FARHAN Administration Sodium Chloride 10 ml 07/16/19 21:33 Sodium Chloride Flush Syringe 10 Ml IV PRN PRN LINE FLUSH Warfarin Sodium 7.5 mg 07/17/19 17:00 Coumadin PO DAILY@1700 [facility]
[2019-07-17] MEDS: WARFARIN 7.5 MG TAB PO SCH (17:03)
--- NOTE | 2019-07-17 17:34 | Cat Scan Report ---
CTA CHEST, ABDOMEN, AND PELVIS WITH IV CONTRAST INDICATION: Pancreatitis, inferior vena cava and right common iliac vein thrombosis, possible aortic embolus CONTRAST: 100 cc Omnipaque 350 IV COMPARISON: CT abdomen and pelvis 07/16/2019 Three-plane MIP reconstructions were produced. All CT scans at this location are performed using CT d ose reduction for ALARA by means of automated exposure control. FINDINGS: No significant axillary or chest wall abnormalities are seen. No mediastinal or hilar sky s are noted. No pleural effusions are seen. Minimal bibasilar atelectatic changes are noted. No areas of consolidation are seen. No pulmonary nodules or masses are noted. No obvious endobronchial lesion s are seen. No pneumothorax or pneumomediastinum are noted. The thoracic aorta and major branches show no abnormalities. No evidence of thrombosis, dissection, s tenosis, or aneurysmal dilatation. Pulmonary arterial system was not the target of this examination but is moderately well opacified wit h no obvious evidence of pulmonary thromboembolism. No significant abdominal wall herniation is seen with only a minimal fatty umbilical hernia. No pneum operitoneum is noted. Fatty infiltration of the liver is again seen without definite focal mass. Slud ge is seen in the gallbladder without obvious calculi or wall thickening. No biliary dilatation is se en. The pancreatic inflammation seen on study yesterday appears improved. There is continued mild pro minence of the pancreatic duct without change. No pancreatic mass is noted. No calculi are seen. No u rinary obstructive changes are noted. Tiny cortical right renal cyst is seen. Patchy appearance of th e spleen is thought due to the phase of contrast. No evidence of bowel obstruction is noted. A small collapsed left ovarian cyst is again seen. No free fluid is noted. Appendix appears within normal alas its. The abdominal aorta shows no abnormalities. No thrombosis, dissection, stenosis, or aneurysmal dilata tion are seen. Major branches opacify well with no obvious proximal stenoses seen. Dual bilateral talia al arteries are noted. Beginning in the origin of the right common iliac artery, a short segment thrombus is seen within the lumen with a length of 1.3 cm. No other arterial thrombosis is noted. This is unchanged from yesterd ay study. Good opacification of the remainder of the iliac arterial system is seen without abnormalit y. The venous thrombosis reported yesterday in the lower inferior vena cava and right common iliac vein cannot be evaluated due to lack of opacification on current arterial study. IMPRESSION: 1. A small area of intraluminal thrombosis is seen in the proximal portion of the right common iliac artery. No other arterial thrombosis is noted. No obstructive change is seen with good flow distally. No other significant arterial abnormality is noted. 2. The venous thrombosis reported yesterday is not evaluated on this study 3. Improvement in appearance of the acute pancreatitis Signer Name: Jose Simmons MD Signed: 07/17/2019 5:30 PM Workstation Name: [id number]
[2019-07-18] MEDS: oxyCODONE /ACETAMINOPHEN 5-325MG TAB PO PRN ×4 (03:05→18:18)
[2019-07-18] MEDS: oxyCODONE 5 MG TAB PO PRN ×4 (03:06→18:19)
[2019-07-18] MEDS: ONDANSETRON 4 MG ODT TAB PO SCH ×4 (03:12→21:16)
--- NOTE | 2019-07-18 08:14 | Event Note ---
Date: 07/18/19 arterial thrombus ? venous ?? iv heparin will follow [id number]
[2019-07-18 08:39] LABS: INR 1.04 (0.87-1.13)
[2019-07-18 08:48] LABS: Hematocrit 28.2 % (30.3-42.9); Hemoglobin 8.4 gm/dl (10.1-14.3)
[2019-07-18] MEDS: LIPASE 12,000/PROTEASE 38,000/AMYLASE 60,000 (UNITS) DR CAP PO SCH ×3 (09:07→16:26)
[2019-07-18] MEDS: FOLIC ACID 1 MG TAB PO SCH (10:49)
--- NOTE | 2019-07-18 11:42 | Progress Note ---
Assessment and Plan Arterial thrombus Pancreatitis Recommend: 1. Check Echocardiogram 2. Outpatient event monitor to screen for atrial fibrillation 3. continue systemic anticoagulation Subjective Date of service: 07/18/19 Principal diagnosis: arterial embolism the right lower extremity Interval history: No cardiac complaints Objective Vital Signs Temp Pulse Resp BP Pulse Ox 07/18/19 09:19 100 07/18/19 08:09 83 07/18/19 08:07 98.9 F 83 18 115/78 100 07/18/19 06:02 98.3 F 78 20 102/61 100 07/18/19 00:17 98.9 F 80 20 100/55 98 07/17/19 20:38 98.6 F 85 20 116/72 99 07/17/19 16:44 85 18 131/83 100 - Physical Examination HEENT: Positive: PERRL, Pallor Neck: Positive: neck supple, thyromegaly Lungs: Positive: clear to auscultation Abdomen: Positive: Soft, Active Bowel Sounds Extremities: Absent: edema - Labs and Meds Coagulation 07/18/19 Range/Units 07:38 PT 13.7 (12.2-14.9) Sec. INR 1.04 (0.87-1.13) CBC 07/18/19 Range/Units 07:38 Hgb 8.4 L (10.1-14.3) gm/dl Hct 28.2 L (30.3-42.9) % Plt Count 183 (140-440) K/mm3
[2019-07-18] MEDS: HYDROmorphone 1 MG/1 ML INJ IV PRN ×2 (12:19→15:34)
--- NOTE | 2019-07-18 14:03 | Vascular Lab Report ---
DUPLEX DOPPLER UPPER EXTREMITY ARTERIAL, BILATERAL INDICATION / CLINICAL INFORMATION: UE pain, and swelling. TECHNIQUE: Arterial duplex examination of both upper extremities performed using B-mode, color flow and spectral Doppler assessment. FINDINGS: RIGHT: Axillary: PSV 78 cm/sec. Triphasic waveform. Brachial: PSV 94 cm/sec. Triphasic waveform. Radial: PSV 47 cm/sec. Triphasic waveform. Ulnar: PSV 60 cm/sec. Triphasic waveform. LEFT: Axillary: PSV 57 cm/sec. Triphasic waveform. Brachial: PSV 93 cm/sec. Triphasic waveform. Radial: PSV 54 cm/sec. Triphasic waveform. Ulnar: PSV 54 cm/sec. Triphasic waveform. Complex fluid collection with internal debris/hemorrhage within the left distal arm measures 3.1 x 4. 7 x 2.4 cm without increased color Doppler flow to suggest pseudoaneurysm or soft tissue mass is anay acteristic for hematoma. Right VERA: Not performed. Left VERA: Not performed. IMPRESSION: 1. No significant upper extremity peripheral artery disease. 2. 4.7 cm hematoma left distal arm. Ankle-Brachial Index (VERA): - Calcified arteries > 1.4 - Normal = 0.9-1.4 - Mild PAD = 0.7-0.89 - Moderate PAD = 0.51-0.69 - Severe PAD < 0.5 Doppler Waveform: - Triphasic is normal. - Biphasic is abnormal if clear transition from triphasic signal along vascular tree. - Monophasic is abnormal. Signer Name: Roni Champion MD Signed: 07/18/2019 1:58 PM Workstation Name: [email or web address]
--- NOTE | 2019-07-18 14:04 | Vascular Lab Report ---
DUPLEX DOPPLER UPPER EXTREMITY VENOUS, BILATERAL INDICATION: UE pain, and swelling. TECHNIQUE: Duplex doppler imaging was performed through the veins of the right and left upper extremity using ve nous compression and other maneuvers. COMPARISON: None available. FINDINGS: Right Internal Jugular vein: Negative. Right Subclavian vein: Negative. Right Axillary vein: Negative. Right Brachial vein: Negative. Right Forearm veins: Negative. Right Basilic vein (superficial): Negative. Left Internal Jugular vein: Negative. Left Subclavian vein: Negative. Left Axillary vein: Negative. Left Brachial vein: Negative. Left Forearm veins: Negative. Left Basilic vein (superficial): Negative. Additional findings: Soft tissue hematoma with dependent hemorrhage/fluid level measures 2.7 x 2.6 x 4.9 cm within the left distal arm. No increased color Doppler flow to suggest pseudoaneurysm or mass. IMPRESSION: 1. No sonographic evidence for DVT in the right or left upper extremity. 2. 4.9 cm hematoma left distal arm Signer Name: Roni Champion MD Signed: 07/18/2019 2:00 PM Workstation Name: [id number]
--- NOTE | 2019-07-18 14:31 | Progress Note ---
Assessment and Plan Assessment and plan: 39-year-old woman with history of alcoholic pancreatitis who presented to the ER with abdominal pain. She was discharged home with conservative management. However she was later called back into the hospital by interventional radiologist for arterial thrombus., She was therefore directly admitted. -She had no symptoms in her lower extremities with intact motor and sensory function. CTA chest; A small area of intraluminal thrombosis is seen in the proximal portion of the right common iliac artery. No other arterial thrombosis is noted. No obstructive change is seen with good flow distally. No other significant arterial abnormality is noted. 2. The venous thrombosis reported yesterday is not evaluated on this study. 3. Improvement in appearance of the acute pancreatitis VL US UE 4.7 cm hematoma in distal left arm Focal arterial thrombosis in the distal aorta extending into the right common iliac artery IR input appreciated, heparin drip, cardiology consult to assess for cardiac source of thrombus/emboli, echo, possible Holter monitor -Hematology consult for hypercoagulability work-up Arterial duplex of lower extremities still pending Distal Left UE hematoma was likely due in heparin from IV infiltrating into her forearm supportive care, ice packs, elevate UE, expected to resolve Chronic alcoholic pancreatitis -Avoid hepatotoxins Counseled on continued alcohol abstinence Preventative health counseling performed for 17 minutes DVT prophylaxis; fully anticoagulated History Interval history: c/o pain and swelling in L forearm Review of systems Constitutional: No fevers, no malaise, no joint pains CVS: No chest pain, no orthopnea, no pedal edema GI: No abdominal pain, no diarrhea, no vomiting, no constipation Respiratory: , no wheezing, no coughing Hospitalist Physical - Physical exam Narrative exam: General.: Appears well, no distress, nontoxic HEENT: Moist mucous membranes, extraocular muscles intact, no lymphadenopathy Neck: supple Cardiac: S1-S2 heard Lungs: clear to auscultation bilaterally Abdomen: soft , nontender, nondistended, bowel sounds positive Extremities: LUE swelling and tenderness in forearm Skin: no rash or lesions Neurologic: no gross focal deficits Psych: calm, and cooperative - Constitutional Vitals: Temp Pulse Resp BP Pulse Ox 98.2 F 96 H 18 127/84 99 07/18/19 11:42 07/18/19 11:42 07/18/19 11:42 07/18/19 11:42 07/18/19 11:42 General appearance: Present: no acute distress, well-nourished Results - Labs CBC & Chem 7: 07/18/19 07:38 07/17/19 07:16 Labs: Laboratory Last Values WBC 6.1 K/mm3 (4.5-11.0) 07/17/19 07:16 RBC 4.26 M/mm3 (3.65-5.03) 07/17/19 07:16 Hgb 8.4 gm/dl (10.1-14.3) L 07/18/19 07:38 Hct 28.2 % (30.3-42.9) L 07/18/19 07:38 MCV 67 fl (79-97) L 07/17/19 07:16 MCH 20 pg (28-32) L 07/17/19 07:16 MCHC 30 % (30-34) 07/17/19 07:16 RDW 20.1 % (13.2-15.2) H 07/17/19 07:16 Plt Count 183 K/mm3 (140-440) 07/18/19 07:38 Lymph % (Auto) 23.0 % (13.4-35.0) 07/17/19 07:16 [place] % (Auto) 7.8 % (0.0-7.3) H 07/17/19 07:16 Eos % (Auto) 1.8 % (0.0-4.3) 07/17/19 07:16 Baso % (Auto) 0.6 % (0.0-1.8) 07/17/19 07:16 Lymph # 1.4 K/mm3 (1.2-5.4) 07/17/19 07:16 [place] # 0.5 K/mm3 (0.0-0.8) 07/17/19 07:16 Eos # 0.1 K/mm3 (0.0-0.4) 07/17/19 07:16 Baso # 0.0 K/mm3 (0.0-0.1) 07/17/19 07:16 Seg Neutrophils % 66.8 % (40.0-70.0) 07/17/19 07:16 Seg Neutrophils # 4.0 K/mm3 (1.8-7.7) 07/17/19 07:16 PT 13.7 Sec. (12.2-14.9) 07/18/19 07:38 INR 1.04 (0.87-1.13) 07/18/19 07:38 APTT 30.4 Sec. (24.2-36.6) 07/17/19 01:01 Heparin Anti-Xa Level 0.65 U.I./ml (0.3-0.7) 07/17/19 14:30 Sodium 134 mmol/L (137-145) L 07/17/19 07:16 Potassium 3.9 mmol/L (3.6-5.0) 07/17/19 07:16 Chloride 98.0 mmol/L (98-107) 07/17/19 07:16 Carbon Dioxide 24 mmol/L (22-30) 07/17/19 07:16 Anion Gap 16 mmol/L 07/17/19 07:16 BUN 2 mg/dL (7-17) L 07/17/19 07:16 Creatinine 0.3 mg/dL (0.7-1.2) L 07/17/19 07:16 Estimated GFR > 60 ml/min 07/17/19 07:16 BUN/Creatinine Ratio 7 % 07/17/19 07:16 Glucose 250 mg/dL (65-100) H 07/17/19 07:16 Calcium 8.8 mg/dL (8.4-10.2) 07/17/19 07:16 Active Medications - Current Medications Current Medications: Generic Name Dose Route Start Last Admin Trade Name Freq PRN Reason Stop Dose Admin Acetaminophen 650 mg 07/16/19 21:33 Tylenol PO Q4H PRN Pain MILD(1-3)/Fever >100.5/TORRE Lipase/Protease/Amylase 1 each 07/17/19 07:30 07/18/19 12:20 Robinson Arndt 12,000 Units PO 1 each QAC FARHAN Administration Folic Acid 1 mg 07/17/19 10:00 07/18/19 10:49 Folvite PO 1 mg QDAY FARHAN Administration Hydromorphone HCl 0.5 mg 07/18/19 11:58 07/18/19 12:19 Dilaudid IV 0.5 mg Q3H PRN Administration Pain , Severe (7-10) Heparin Sodium/Sodium Chloride 25,000 unit in 500 mls @ 24 mls/hr 07/16/19 23:45 07/17/19 22:07 Heparin/ 0.45% Nacl-25,000 Unit/500 Ml IV 1,100 units/hr TITR FARHAN 22 mls/hr Administration Protocol 1,200 UNITS/HR Ondansetron HCl 4 mg 07/16/19 21:33 Zofran IV Q8H PRN Nausea And Vomiting Ondansetron HCl 4 mg 07/16/19 22:00 07/18/19 06:51 Zofran Odt PO 4 mg Q8H FARHAN Administration Oxycodone HCl 5 mg 07/16/19 22:28 07/18/19 09:08 Roxicodone PO 5 mg Q6H PRN Administration Pain, Moderate (4-6) Oxycodone/Acetaminophen 1 tab 07/16/19 21:33 07/18/19 09:07 Percocet 5/325 PO 1 tab Q6H PRN Administration Pain, Moderate (4-6) Sodium Chloride 10 ml 07/16/19 22:00 07/18/19 10:49 Sodium Chloride Flush Syringe 10 Ml IV 10 ml BID FARHAN Administration Sodium Chloride 10 ml 07/16/19 21:33 Sodium Chloride Flush Syringe 10 Ml IV PRN PRN LINE FLUSH Warfarin Sodium 7.5 mg 07/17/19 17:00 07/17/19 17:03 Coumadin PO 7.5 mg DAILY@1700 [facility] Administration
[2019-07-18] MEDS: WARFARIN 7.5 MG TAB PO SCH (16:26)
--- NOTE | 2019-07-18 18:20 | Progress Note ---
Assessment and Plan 39-year-old female with thromboembolic embolization to the right distal aorta and into the right common iliac artery. Patient's right lower extremity is warm and well-perfused. No indication for thrombectomy at this time. Recommend anticoagulation (heparin drip). Recommend warfarin. Since etiology is unclear and may be due to antiphospholipid antibody syndrome, will need to use Coumadin/warfarin this time. If excluded, then may be converted to Eliquis in the future. Agree with cardiology. Event monitor as an outpatient to follow heart rhythm and echocardiogram was performed which was negative. CT scan demonstrates no evidence of further thromboembolic or atherosclerotic disease. Agree with hematology/oncology consult for hyper-coagulopathy workup. Awaiting arterial duplex of the lower extremities. The upper extremity hematoma. Recommend conservative care with warm or cold compresses, 15 minutes on, 15 minutes off, as needed for pain relief. Intact sensory and motor function of the left upper extremity. Pancreatitis management per hospitalist service. Subjective Date of service: 07/18/19 Principal diagnosis: arterial embolism the right lower extremity Interval history: Nonpalpable right pedal pulses with palpable left pedal pulses. Patient is obese and her femoral pulses are not easily palpable in either groin. Intact motor and sensory function. No complaints of claudication. No rest pain. No foot discoloration or mottling. Complaining of left antecubital fossa pain. Ultrasound demonstrated hematoma without pseudoaneurysm with palpable left radial and ulnar pulse. Left upper extremity motor and sensory function is intact. Objective - Constitutional Vitals: Vital Signs - 12hr 07/18/19 07/18/19 07/18/19 08:07 08:09 09:19 Temperature 98.9 F Pulse Rate 83 83 Respiratory 18 Rate Blood Pressure 115/78 O2 Sat by Pulse 100 100 Oximetry 07/18/19 11:42 Temperature 98.2 F Pulse Rate 96 H Respiratory 18 Rate Blood Pressure 127/84 O2 Sat by Pulse 99 Oximetry General appearance: Present: no acute distress - EENT Eyes: EOM intact ENT: hearing intact Extremities: normal temperature, normal color, abnormal (see subjective) - Psychiatric Psychiatric: appropriate mood/affect, cooperative - Labs CBC & Chem 7: 07/18/19 07:38 07/17/19 07:16 Labs: Abnormal lab results 07/18/19 Range/Units 07:38 Hgb 8.4 L (10.1-14.3) gm/dl Hct 28.2 L (30.3-42.9) % Medications & Allergies - Medications Allergies/Adverse Reactions: Allergies No Known Allergies Allergy (Unverified 09/18/16 23:27) Home Medications: Home Medications Medication Instructions Recorded Confirmed Last Taken Type Ferrous Sulfate [Feosol 325 MG tab] 325 mg PO TID 12/12/16 07/17/19 1 Day Ago History ~07/16/19 Folic Acid [Folvite] 1 mg PO QDAY 12/12/16 07/17/19 1 Day Ago History ~07/16/19 Ciprofloxacin HCl [Ciprofloxacin 500 mg PO Q12HR #12 tab 07/15/19 07/17/19 1 Day Ago Rx TAB] ~07/16/19 Lipase/Protease/Amylase [Robinson Arndt 1 cap PO QAC #60 cap 07/15/19 07/17/19 1 Day Ago Rx 12,000 Units] ~07/16/19 Ondansetron [Zofran Odt] 4 mg PO Q8HR #15 tab.rapdis 07/15/19 07/17/19 1 Day Ago Rx ~07/16/19 Apixaban [Eliquis starter pack] 5 mg PO BID #60 tab.ds.pk 07/16/19 07/17/19 1 Day Ago Rx ~07/16/19 Oxycodone HCl/Acetaminophen 1 each PO Q6HR PRN #15 tablet 07/16/19 07/17/19 1 Day Ago Rx [Percocet 10/325 mg] ~07/16/19 Active Medications: Generic Name Dose Route Start Last Admin Trade Name Freq PRN Reason Stop Dose Admin Acetaminophen 650 mg 07/16/19 21:33 Tylenol PO Q4H PRN Pain MILD(1-3)/Fever >100.5/TORRE Lipase/Protease/Amylase 1 each 07/17/19 07:30 07/18/19 16:26 Robinson Arndt 12,000 Units PO 1 each QAC FARHAN Administration Folic Acid 1 mg 07/17/19 10:00 07/18/19 10:49 Folvite PO 1 mg QDAY FARHAN Administration Hydromorphone HCl 0.5 mg 07/18/19 11:58 07/18/19 15:34 Dilaudid IV 0.5 mg Q3H PRN Administration Pain , Severe (7-10) Heparin Sodium/Sodium Chloride 25,000 unit in 500 mls @ 24 mls/hr 07/16/19 23:45 07/18/19 17:32 Heparin/ 0.45% Nacl-25,000 Unit/500 Ml IV 1,100 units/hr TITR FARHAN 22 mls/hr Titration Protocol 1,200 UNITS/HR Ondansetron HCl 4 mg 07/16/19 21:33 Zofran IV Q8H PRN Nausea And Vomiting Ondansetron HCl 4 mg 07/16/19 22:00 07/18/19 15:34 Zofran Odt PO 4 mg Q8H FARHAN Administration Oxycodone HCl 5 mg 07/16/19 22:28 07/18/19 13:30 Roxicodone PO 5 mg Q6H PRN Administration Pain, Moderate (4-6) Oxycodone/Acetaminophen 1 tab 07/16/19 21:33 07/18/19 13:30 Percocet 5/325 PO 1 tab Q6H PRN Administration Pain, Moderate (4-6) Sodium Chloride 10 ml 07/16/19 22:00 07/18/19 10:49 Sodium Chloride Flush Syringe 10 Ml IV 10 ml BID FARHAN Administration Sodium Chloride 10 ml 07/16/19 21:33 Sodium Chloride Flush Syringe 10 Ml IV PRN PRN LINE FLUSH Warfarin Sodium 7.5 mg 07/17/19 17:00 07/18/19 16:26 Coumadin PO 7.5 mg DAILY@1700 [facility] Administration
[2019-07-18] MEDS: HEPARIN/ 0.45% NACL DRIP 25,000 UNIT/500 ML BAG IV SCH (21:18)
[2019-07-19] MEDS: oxyCODONE /ACETAMINOPHEN 5-325MG TAB PO PRN ×4 (01:12→19:53)
[2019-07-19] MEDS: oxyCODONE 5 MG TAB PO PRN ×4 (01:13→19:54)
[2019-07-19] MEDS: ONDANSETRON 4 MG ODT TAB PO SCH ×3 (07:02→22:31)
[2019-07-19 08:22] LABS: INR 1.22 (0.87-1.13)
--- NOTE | 2019-07-19 08:22 | Hem/Onc Progress Note ---
Assessment and Plan 1. Right common iliac artery thrombus, [place] is being looked into, Interventional Radiology has been consulted. Her pancreas inflammation has a role in the thrombosis. pt is asymptomatic. 2. History of alcoholic pancreatitis, on supportive care. adv to quit 3. Left upper extremity hematoma, ? due to heparin. Ice pack is being given. I will follow the patient during inpatient stay and then in the clinic setting d/w pt reg insurance issues - she said - she will get the same from her work - Patient Problems (1) Arterial thrombosis Current Visit: No Status: Acute Subjective Date of service: 07/19/19 Principal diagnosis: arterial thrombus lower leg artery Interval history: no abdo or leg pain Objective - Exam Narrative Exam: Pain - left arm General appearance - no acute distress Performance status dependent Eyes - no icterus ENT - no bleeding LNs cervical not palpable Neck - no LN Respiratory Normal - on o2 Breath sounds - CTA CVS S1 S2 + Extremities no leg edema General GI Soft Rectal deferred female - deferred Skin warm Musculoskeletal - moves limbs Neurologically awake - Constitutional Vitals: Last Vital Signs Temp 98.1 F 07/19/19 03:51 Pulse 82 07/19/19 03:51 Resp 16 07/19/19 03:51 BP 112/76 07/19/19 03:51 Pulse Ox 100 07/19/19 03:51 - Labs Lab Results: Laboratory Results - last 24 hr 07/18/19 07/18/19 07/18/19 07:38 07:38 16:33 Hgb 8.4 L Hct 28.2 L Plt Count 183 PT 13.7 INR 1.04 Heparin Anti-Xa Level 0.62 Medications & Allergies - Medications Allergies/Adverse Reactions: Allergies No Known Allergies Allergy (Unverified 09/18/16 23:27) Home Medications: Home Medications Medication Instructions Recorded Confirmed Last Taken Type Ferrous Sulfate [Feosol 325 MG tab] 325 mg PO TID 12/12/16 07/17/19 1 Day Ago History ~07/16/19 Folic Acid [Folvite] 1 mg PO QDAY 12/12/16 07/17/19 1 Day Ago History ~07/16/19 Ciprofloxacin HCl [Ciprofloxacin 500 mg PO Q12HR #12 tab 07/15/19 07/17/19 1 Day Ago Rx TAB] ~07/16/19 Lipase/Protease/Amylase [Robinson Dr 1 cap PO QAC #60 cap 07/15/19 07/17/19 1 Day Ago Rx 12,000 Units] ~07/16/19 Ondansetron [Zofran Odt] 4 mg PO Q8HR #15 tab.rapdis 07/15/19 07/17/19 1 Day Ago Rx ~07/16/19 Apixaban [Eliquis starter pack] 5 mg PO BID #60 tab.ds.pk 07/16/19 07/17/19 1 Day Ago Rx ~07/16/19 Oxycodone HCl/Acetaminophen 1 each PO Q6HR PRN #15 tablet 07/16/19 07/17/19 1 Day Ago Rx [Percocet 10/325 mg] ~07/16/19 Active Medications: Generic Name Dose Route Start Last Admin Trade Name Freq PRN Reason Stop Dose Admin Acetaminophen 650 mg 07/16/19 21:33 Tylenol PO Q4H PRN Pain MILD(1-3)/Fever >100.5/TORRE Lipase/Protease/Amylase 1 each 07/17/19 07:30 07/18/19 16:26 Robinson Arndt 12,000 Units PO 1 each QAC FARHAN Administration Folic Acid 1 mg 07/17/19 10:00 07/18/19 10:49 Folvite PO 1 mg QDAY FARHAN Administration Hydromorphone HCl 0.5 mg 07/18/19 11:58 07/18/19 15:34 Dilaudid IV 0.5 mg Q3H PRN Administration Pain , Severe (7-10) Heparin Sodium/Sodium Chloride 25,000 unit in 500 mls @ 24 mls/hr 07/16/19 23:45 07/18/19 21:18 Heparin/ 0.45% Nacl-25,000 Unit/500 Ml IV 1,100 units/hr TITR FARHAN 22 mls/hr Administration Protocol 1,200 UNITS/HR Ondansetron HCl 4 mg 07/16/19 21:33 Zofran IV Q8H PRN Nausea And Vomiting Ondansetron HCl 4 mg 07/16/19 22:00 07/19/19 07:02 Zofran Odt PO 4 mg Q8H FARHAN Administration Oxycodone HCl 5 mg 07/16/19 22:28 07/19/19 07:02 Roxicodone PO 5 mg Q6H PRN Administration Pain, Moderate (4-6) Oxycodone/Acetaminophen 1 tab 07/16/19 21:33 07/19/19 07:01 Percocet 5/325 PO 1 tab Q6H PRN Administration Pain, Moderate (4-6) Sodium Chloride 10 ml 07/16/19 22:00 07/18/19 21:17 Sodium Chloride Flush Syringe 10 Ml IV 10 ml BID FARHAN Administration Sodium Chloride 10 ml 07/16/19 21:33 Sodium Chloride Flush Syringe 10 Ml IV PRN PRN LINE FLUSH Warfarin Sodium 7.5 mg 07/17/19 17:00 07/18/19 16:26 Coumadin PO 7.5 mg DAILY@1700 [facility] Administration
[2019-07-19 08:30] LABS: BUN/Creatinine Ratio 5; Blood Urea Nitrogen 2 mg/dL (7-17); Calcium 8.9 mg/dL (8.4-10.2); Hemolysis Index 2
--- NOTE | 2019-07-19 08:30 | Consultation ---
REFERRED BY: Dr. Simmons. REASON FOR CONSULTATION: Arterial thrombus. HISTORY OF PRESENT ILLNESS: I saw the patient, a 39-year-old female in the medical floor. The patient has history of alcoholic pancreatitis. She came to the hospital because of abdominal pain. She came to the ED recently for abdominal pain and was discharged. She was called back because Radiology showed an arterial thrombus. No fever, no chills, no chest pain, no palpitations. No history of rectal bleed. No previous history or family history of DVT, PE. No other bleeding issues. Radiology team was consulted. Anticoagulation was started. PAST MEDICAL HISTORY: As above. PAST SURGICAL HISTORY: Nil. SOCIAL HISTORY: She lives with family members. No history of tobacco usage, history of alcohol usage in the past. FAMILY HISTORY: Hypertension. ALLERGIES: None. HOME MEDICATIONS: Include ferrous sulfate, folic acid. During this admission, Eliquis has been started. PHYSICAL EXAMINATION: VITAL SIGNS: Temperature 98, pulse 89, respirations 18, BP 100/69. HEENT: Mild pallor, no icterus. NECK: No neck lymph nodes. HEART: S1, S2. LUNGS: Clear to auscultation. ABDOMEN: Soft. EXTREMITIES: No calf tenderness. LABORATORY DATA: White cell 6, hemoglobin 8.4, MCV 67, platelet 183, potassium 3.9, creatinine 0.3, calcium 8.8, bilirubin 0.6. RADIOLOGY: No DVT in the upper extremity, hematoma in the left arm, lower extremity studies. Then after that CTA chest was done, intraluminal thrombus in the right common iliac artery. ASSESSMENT: 1. Right common iliac artery thrombus, Eliquis is being looked into, Interventional Radiology has been consulted. Her pancreas inflammation has a role in the thrombosis. 2. History of alcoholic pancreatitis, on supportive care. 3. Left upper extremity hematoma, likely due to heparin. Ice pack is being given. I will follow the patient during inpatient stay and then in the clinic setting. JOB# [id number] ALBERTINA/BARBARA
[2019-07-19] MEDS: LIPASE 12,000/PROTEASE 38,000/AMYLASE 60,000 (UNITS) DR CAP PO SCH ×3 (10:48→16:45)
[2019-07-19] MEDS: FOLIC ACID 1 MG TAB PO SCH (10:48)
--- NOTE | 2019-07-19 14:00 | Progress Note ---
Assessment and Plan Arterial thrombus initiated on warfarin for oral anticoagulation. Hx of Pancreatitis Recommend: Outpatient event monitor to screen for atrial fibrillation. Once discharged, patient will follow up with [facility] Jul.28 at 320 pm. Subjective Date of service: 07/19/19 Principal diagnosis: arterial embolism the right lower extremity Interval history: Patient is sitting up in bed. She has no cardiac complaints. No reported events on telemetry. Objective Vital Signs Temp Pulse Resp BP Pulse Ox 07/19/19 10:00 100 07/19/19 08:14 98.4 F 85 18 115/71 100 07/19/19 03:51 98.1 F 82 16 112/76 100 07/18/19 23:16 98.8 F 84 16 109/70 99 07/18/19 21:00 74 07/18/19 20:01 98.6 F 89 18 100/69 99 - Physical Examination HEENT: Positive: PERRL Neck: Positive: trachea midline Cardiac: Positive: Reg Rate and Rhythm Lungs: Positive: Decreased Breath Sounds Neuro: Positive: Grossly Intact Abdomen: Positive: Soft, Active Bowel Sounds Extremities: Absent: edema - Labs and Meds Coagulation 07/19/19 Range/Units 06:41 PT 15.6 H (12.2-14.9) Sec. INR 1.22 H (0.87-1.13) Comprehensive Metabolic Panel 07/19/19 Range/Units 06:41 Sodium 138 (137-145) mmol/L Potassium 3.7 (3.6-5.0) mmol/L Chloride 102.9 (98-107) mmol/L Carbon Dioxide 21 L (22-30) mmol/L BUN 2 L (7-17) mg/dL Creatinine 0.4 L (0.7-1.2) mg/dL Glucose 169 H (65-100) mg/dL Calcium 8.9 (8.4-10.2) mg/dL
--- NOTE | 2019-07-19 14:28 | Progress Note ---
Assessment and Plan 39-year-old female with thromboembolic embolization to the right distal aorta and into the right common iliac artery. Patient's right lower extremity is warm and well-perfused. No indication for thrombectomy at this time. Recommend anticoagulation (heparin drip). Recommend warfarin. Since etiology is unclear and may be due to antiphospholipid antibody syndrome, will need to use Coumadin/warfarin this time. If excluded, then may be converted to Eliquis in the future. Agree with cardiology. Event monitor as an outpatient to follow heart rhythm and echocardiogram was performed which was negative. CT scan demonstrates no evidence of further thromboembolic or atherosclerotic disease. Agree with hematology/oncology consult for hyper-coagulopathy workup. Arterial duplex demonstrates bilateral triphasic flow and ABIs preserved. Suspect exercise VERA would demonstrate the iliac nonocclusive lesion better, but is unnecessary. The upper extremity hematoma. Recommend conservative care with warm or cold compresses, 15 minutes on, 15 minutes off, as needed for pain relief. Intact sensory and motor function of the left upper extremity. Pancreatitis management per hospitalist service. Subjective Date of service: 07/19/19 Principal diagnosis: arterial embolism the right lower extremity Interval history: Nonpalpable right pedal pulses with palpable left pedal pulses. Patient is obese and her femoral pulses are not easily palpable in either groin. Intact motor and sensory function. No complaints of claudication. No rest pain. No foot discoloration or mottling. Complaining of left antecubital fossa pain. Ultrasound demonstrated hematoma without pseudoaneurysm with palpable left radial and ulnar pulse. Left upper extremity motor and sensory function is intact. Having pain at site of hematoma. May reimage hematoma tomorrow if there is still pain. Objective - Constitutional Vitals: Vital Signs - 12hr 07/19/19 07/19/19 07/19/19 03:51 08:14 10:00 Temperature 98.1 F 98.4 F Pulse Rate 82 85 Respiratory 16 18 Rate Blood Pressure 112/76 115/71 O2 Sat by Pulse 100 100 100 Oximetry - Labs CBC & Chem 7: 07/18/19 07:38 07/19/19 06:41 Labs: Abnormal lab results 07/19/19 07/19/19 Range/Units 06:41 06:41 PT 15.6 H (12.2-14.9) Sec. INR 1.22 H (0.87-1.13) Carbon Dioxide 21 L (22-30) mmol/L BUN 2 L (7-17) mg/dL Creatinine 0.4 L (0.7-1.2) mg/dL Glucose 169 H (65-100) mg/dL Medications & Allergies - Medications Allergies/Adverse Reactions: Allergies No Known Allergies Allergy (Unverified 09/18/16 23:27) Home Medications: Home Medications Medication Instructions Recorded Confirmed Last Taken Type Ferrous Sulfate [Feosol 325 MG tab] 325 mg PO TID 12/12/16 07/17/19 1 Day Ago History ~07/16/19 Folic Acid [Folvite] 1 mg PO QDAY 12/12/16 07/17/19 1 Day Ago History ~07/16/19 Ciprofloxacin HCl [Ciprofloxacin 500 mg PO Q12HR #12 tab 07/15/19 07/17/19 1 Day Ago Rx TAB] ~07/16/19 Lipase/Protease/Amylase [Robinson Arndt 1 cap PO QAC #60 cap 07/15/19 07/17/19 1 Day Ago Rx 12,000 Units] ~07/16/19 Ondansetron [Zofran Odt] 4 mg PO Q8HR #15 tab.rapdis 07/15/19 07/17/19 1 Day Ago Rx ~07/16/19 Apixaban [Eliquis starter pack] 5 mg PO BID #60 tab.ds.pk 07/16/19 07/17/19 1 Day Ago Rx ~07/16/19 Oxycodone HCl/Acetaminophen 1 each PO Q6HR PRN #15 tablet 07/16/19 07/17/19 1 Day Ago Rx [Percocet 10/325 mg] ~07/16/19 Active Medications: Generic Name Dose Route Start Last Admin Trade Name Freq PRN Reason Stop Dose Admin Acetaminophen 650 mg 07/16/19 21:33 Tylenol PO Q4H PRN Pain MILD(1-3)/Fever >100.5/TORRE Lipase/Protease/Amylase 1 each 07/17/19 07:30 07/19/19 10:48 Robinson Arndt 12,000 Units PO 1 each QAC FARHAN Administration Folic Acid 1 mg 07/17/19 10:00 07/19/19 10:48 Folvite PO 1 mg QDAY FARHAN Administration Hydromorphone HCl 0.5 mg 07/18/19 11:58 07/18/19 15:34 Dilaudid IV 0.5 mg Q3H PRN Administration Pain , Severe (7-10) Heparin Sodium/Sodium Chloride 25,000 unit in 500 mls @ 24 mls/hr 07/16/19 23:45 07/19/19 10:50 Heparin/ 0.45% Nacl-25,000 Unit/500 Ml IV 1,100 units/hr TITR FARHAN 22 mls/hr Titration Protocol 1,200 UNITS/HR Ondansetron HCl 4 mg 07/16/19 21:33 Zofran IV Q8H PRN Nausea And Vomiting Ondansetron HCl 4 mg 07/16/19 22:00 07/19/19 13:16 Zofran Odt PO Not Given Q8H [facility] Oxycodone HCl 5 mg 07/16/19 22:28 07/19/19 13:15 Roxicodone PO 5 mg Q6H PRN Administration Pain, Moderate (4-6) Oxycodone/Acetaminophen 1 tab 07/16/19 21:33 07/19/19 13:15 Percocet 5/325 PO 1 tab Q6H PRN Administration Pain, Moderate (4-6) Sodium Chloride 10 ml 07/16/19 22:00 07/19/19 10:49 Sodium Chloride Flush Syringe 10 Ml IV 10 ml BID FARHAN Administration Sodium Chloride 10 ml 07/16/19 21:33 Sodium Chloride Flush Syringe 10 Ml IV PRN PRN LINE FLUSH Warfarin Sodium 7.5 mg 07/17/19 17:00 07/18/19 16:26 Coumadin PO 7.5 mg DAILY@1700 [facility] Administration
--- NOTE | 2019-07-19 14:44 | Progress Note ---
Assessment and Plan Assessment and plan: 39-year-old woman with history of alcoholic pancreatitis who presented to the ER with abdominal pain. She was discharged home with conservative management. However she was later called back into the hospital by interventional radiologist for arterial thrombus., She was therefore directly admitted. -She had no symptoms in her lower extremities with intact motor and sensory function. CTA chest; A small area of intraluminal thrombosis is seen in the proximal portion of the right common iliac artery. No other arterial thrombosis is noted. No obstructive change is seen with good flow distally. No other significant arterial abnormality is noted. 2. The venous thrombosis reported yesterday is not evaluated on this study. 3. Improvement in appearance of the acute pancreatitis VL US UE 4.7 cm hematoma in distal left arm Focal arterial thrombosis in the distal aorta extending into the right common iliac artery IR input appreciated, heparin drip, echo unremarkable, outpatient Holter monitor -Hematology consult for hypercoagulability work-up, to be done as op Arterial duplex of lower extremities unremarkable per Dr. Pelayo -On Heparin drip, warfarin is yet to be therapeutic Distal Left UE hematoma was likely due in heparin from IV infiltrating into her forearm supportive care, ice packs, elevate UE, expected to resolve Chronic alcoholic pancreatitis -Avoid hepatotoxins Counseled on continued alcohol abstinence Preventative health counseling performed for 17 minutes DVT prophylaxis; fully anticoagulated Disposition; home when INR therapeutic History Interval history: c/o pain and swelling in L forearm Review of systems Constitutional: No fevers, no malaise, no joint pains CVS: No chest pain, no orthopnea, no pedal edema GI: No abdominal pain, no diarrhea, no vomiting, no constipation Respiratory: , no wheezing, no coughing Hospitalist Physical - Physical exam Narrative exam: General.: Appears well, no distress, nontoxic HEENT: Moist mucous membranes, extraocular muscles intact, no lymphadenopathy Neck: supple Cardiac: S1-S2 heard Lungs: clear to auscultation bilaterally Abdomen: soft , nontender, nondistended, bowel sounds positive Extremities: LUE swelling and tenderness in forearm Skin: no rash or lesions Neurologic: no gross focal deficits Psych: calm, and cooperative - Constitutional Vitals: Temp Pulse Resp BP Pulse Ox 98.4 F 85 18 115/71 100 07/19/19 08:14 07/19/19 08:14 07/19/19 08:14 07/19/19 08:14 07/19/19 10:00 General appearance: Present: no acute distress Results - Labs CBC & Chem 7: 07/18/19 07:38 07/19/19 06:41 Labs: Laboratory Last Values WBC 6.1 K/mm3 (4.5-11.0) 07/17/19 07:16 RBC 4.26 M/mm3 (3.65-5.03) 07/17/19 07:16 Hgb 8.4 gm/dl (10.1-14.3) L 07/18/19 07:38 Hct 28.2 % (30.3-42.9) L 07/18/19 07:38 MCV 67 fl (79-97) L 07/17/19 07:16 MCH 20 pg (28-32) L 07/17/19 07:16 MCHC 30 % (30-34) 07/17/19 07:16 RDW 20.1 % (13.2-15.2) H 07/17/19 07:16 Plt Count 183 K/mm3 (140-440) 07/18/19 07:38 Lymph % (Auto) 23.0 % (13.4-35.0) 07/17/19 07:16 [place] % (Auto) 7.8 % (0.0-7.3) H 07/17/19 07:16 Eos % (Auto) 1.8 % (0.0-4.3) 07/17/19 07:16 Baso % (Auto) 0.6 % (0.0-1.8) 07/17/19 07:16 Lymph # 1.4 K/mm3 (1.2-5.4) 07/17/19 07:16 [place] # 0.5 K/mm3 (0.0-0.8) 07/17/19 07:16 Eos # 0.1 K/mm3 (0.0-0.4) 07/17/19 07:16 Baso # 0.0 K/mm3 (0.0-0.1) 07/17/19 07:16 Seg Neutrophils % 66.8 % (40.0-70.0) 07/17/19 07:16 Seg Neutrophils # 4.0 K/mm3 (1.8-7.7) 07/17/19 07:16 PT 15.6 Sec. (12.2-14.9) H 07/19/19 06:41 INR 1.22 (0.87-1.13) H 07/19/19 06:41 APTT 30.4 Sec. (24.2-36.6) 07/17/19 01:01 Heparin Anti-Xa Level 0.62 U.I./ml (0.3-0.7) 07/19/19 06:41 Sodium 138 mmol/L (137-145) 07/19/19 06:41 Potassium 3.7 mmol/L (3.6-5.0) 07/19/19 06:41 Chloride 102.9 mmol/L (98-107) 07/19/19 06:41 Carbon Dioxide 21 mmol/L (22-30) L 07/19/19 06:41 Anion Gap 18 mmol/L 07/19/19 06:41 BUN 2 mg/dL (7-17) L 07/19/19 06:41 Creatinine 0.4 mg/dL (0.7-1.2) L 07/19/19 06:41 Estimated GFR > 60 ml/min 07/19/19 06:41 BUN/Creatinine Ratio 5 % 07/19/19 06:41 Glucose 169 mg/dL (65-100) H 07/19/19 06:41 Calcium 8.9 mg/dL (8.4-10.2) 07/19/19 06:41 Active Medications - Current Medications Current Medications: Generic Name Dose Route Start Last Admin Trade Name Freq PRN Reason Stop Dose Admin Acetaminophen 650 mg 07/16/19 21:33 Tylenol PO Q4H PRN Pain MILD(1-3)/Fever >100.5/TORRE Lipase/Protease/Amylase 1 each 07/17/19 07:30 07/19/19 10:[address] 12,000 Units PO 1 each QAC FARHAN Administration Folic Acid 1 mg 07/17/19 10:00 07/19/19 10:48 Folvite PO 1 mg QDAY FARHAN Administration Hydromorphone HCl 0.5 mg 07/18/19 11:58 07/18/19 15:34 Dilaudid IV 0.5 mg Q3H PRN Administration Pain , Severe (7-10) Heparin Sodium/Sodium Chloride 25,000 unit in 500 mls @ 24 mls/hr 07/16/19 23 :45 07/19/19 10:50 Heparin/ 0.45% Nacl-25,000 Unit/500 Ml IV 1,100 units/hr TITR FARHAN 22 mls/hr Titration Protocol 1,200 UNITS/HR Ondansetron HCl 4 mg 07/16/19 21:33 Zofran IV Q8H PRN Nausea And Vomiting Ondansetron HCl 4 mg 07/16/19 22:00 07/19/19 13:16 Zofran Odt PO Not Given Q8H [facility] Oxycodone HCl 5 mg 07/16/19 22:28 07/19/19 13:15 Roxicodone PO 5 mg Q6H PRN Administration Pain, Moderate (4-6) Oxycodone/Acetaminophen 1 tab 07/16/19 21:33 07/19/19 13:15 Percocet 5/325 PO 1 tab Q6H PRN Administration Pain, Moderate (4-6) Sodium Chloride 10 ml 07/16/19 22:00 07/19/19 10:49 Sodium Chloride Flush Syringe 10 Ml IV 10 ml BID FARHAN Administration Sodium Chloride 10 ml 07/16/19 21:33 Sodium Chloride Flush Syringe 10 Ml IV PRN PRN LINE FLUSH Warfarin Sodium 7.5 mg 07/17/19 17:00 07/18/19 16:26 Coumadin PO 7.5 mg DAILY@1700 FARHAN Administration
--- NOTE | 2019-07-19 15:07 | Vascular Lab Report ---
DUPLEX DOPPLER LOWER EXTREMITY ARTERIAL, BILATERAL INDICATION: R iliac artery embolism. TECHNIQUE: Arterial duplex examination of both lower extremities performed using B-mode, color flow and spectral Doppler assessment. FINDINGS: RIGHT: Common Femoral Artery: PSV 164 cm/sec. Triphasic waveform. Proximal SFA: PSV 89 cm/sec. Triphasic waveform. Mid SFA: PSV 118 cm/sec. Triphasic waveform. Distal SFA: PSV 90 cm/sec. Triphasic waveform. Popliteal artery: PSV 67 cm/sec. Triphasic waveform. Posterior tibial artery: PSV 72 cm/sec. Triphasic waveform. Dorsalis Pedis Artery: PSV 25 cm/sec. Biphasic waveform. LEFT: Common Femoral Artery: PSV 140 cm/sec. Triphasic waveform. Proximal SFA: PSV 107 cm/sec. Triphasic waveform. Mid SFA: PSV 109 cm/sec. Triphasic waveform. Distal SFA: PSV 104 cm/sec. Triphasic waveform. Popliteal artery: PSV 78 cm/sec. Triphasic waveform. Posterior tibial artery: PSV 80 cm/sec. Triphasic waveform. Dorsalis Pedis Artery: PSV 72 cm/sec. Triphasic waveform. Right VERA: 1.1. Left VERA: 1.1. IMPRESSION: 1. Biphasic waveform in the right DPA suggesting upstream stenosis. Otherwise unremarkable exam. Ankle-Brachial Index (VERA): * Calcified arteries > 1.4 * Normal = 0.9-1.4 * Mild PAD = 0.7-0.89 * Moderate PAD = 0.51-0.69 * Severe PAD < 0.5 Doppler Waveform: * Triphasic is normal. * Biphasic is abnormal if clear transition from triphasic signal along vascular tree. * Monophasic is abnormal. Signer Name: Oscar Jones MD Signed: 07/19/2019 3:03 PM Workstation Name: [id number]
[2019-07-19] MEDS: WARFARIN 7.5 MG TAB PO SCH (16:45)
[2019-07-19] MEDS: HEPARIN/ 0.45% NACL DRIP 25,000 UNIT/500 ML BAG IV SCH (16:46)
[2019-07-19] MEDS: HYDROmorphone 1 MG/1 ML INJ IV PRN (18:09)
[2019-07-20] MEDS: oxyCODONE /ACETAMINOPHEN 5-325MG TAB PO PRN ×4 (02:24→21:25)
[2019-07-20] MEDS: oxyCODONE 5 MG TAB PO PRN ×4 (02:26→21:25)
[2019-07-20] MEDS: ONDANSETRON 4 MG ODT TAB PO SCH ×3 (06:57→22:57)
[2019-07-20 07:47] LABS: Hematocrit 26.3 % (30.3-42.9); Hemoglobin 7.8 gm/dl (10.1-14.3)
[2019-07-20 07:58] LABS: BUN/Creatinine Ratio 10; Blood Urea Nitrogen 3 mg/dL (7-17); Calcium 8.8 mg/dL (8.4-10.2); Hemolysis Index 1
[2019-07-20 07:59] LABS: INR 1.47 (0.87-1.13)
--- NOTE | 2019-07-20 08:09 | Hem/Onc Progress Note ---
Assessment and Plan 1. Right common iliac artery thrombus, [place] is being looked into, Interventional Radiology has been consulted. Her pancreas inflammation has a role in the thrombosis. pt is asymptomatic. 2. History of alcoholic pancreatitis, on supportive care. adv to quit 3. Left upper extremity hematoma, ? due to heparin. Ice pack is being given. I will follow the patient during inpatient stay and then in the clinic setting d/w pt reg insurance issues - she said - she will get the same from her work - Patient Problems (1) Arterial thrombosis Current Visit: No Status: Acute Subjective Date of service: 07/20/19 Principal diagnosis: arterial thrombus Interval history: no bleeding Objective - Exam Narrative Exam: Pain - left arm General appearance - no acute distress Performance status dependent Eyes - no icterus ENT - no bleeding LNs cervical not palpable Neck - no LN Respiratory Normal - on o2 Breath sounds - CTA CVS S1 S2 + Extremities no leg edema General GI Soft Rectal deferred female - deferred Skin warm Musculoskeletal - moves limbs Neurologically awake - Constitutional Vitals: Last Vital Signs Temp 98.8 F 07/20/19 03:29 Pulse 80 07/20/19 03:29 Resp 16 07/20/19 03:29 BP 112/64 07/20/19 03:29 Pulse Ox 100 07/20/19 03:29 - Labs Lab Results: Laboratory Results - last 24 hr 07/19/19 07/19/19 07/20/19 06:41 06:41 07:04 Hgb 7.8 L Hct 26.3 L Plt Count 192 PT 15.6 H INR 1.22 H Heparin Anti-Xa Level 0.62 Sodium 138 Potassium 3.7 Chloride 102.9 Carbon Dioxide 21 L Anion Gap 18 BUN 2 L Creatinine 0.4 L Estimated GFR > 60 BUN/Creatinine Ratio 5 Glucose 169 H Calcium 8.9 07/20/19 07/20/19 07:04 07:04 Hgb Hct Plt Count PT 18.1 H INR 1.47 H Heparin Anti-Xa Level 0.54 Sodium 136 L Potassium 3.7 Chloride 102.5 Carbon Dioxide 21 L Anion Gap 16 BUN 3 L Creatinine 0.3 L Estimated GFR > 60 BUN/Creatinine Ratio 10 Glucose 228 H Calcium 8.8 Medications & Allergies - Medications Allergies/Adverse Reactions: Allergies No Known Allergies Allergy (Unverified 09/18/16 23:27) Home Medications: Home Medications Medication Instructions Recorded Confirmed Last Taken Type Ferrous Sulfate [Feosol 325 MG tab] 325 mg PO TID 12/12/16 07/17/19 1 Day Ago History ~07/16/19 Folic Acid [Folvite] 1 mg PO QDAY 12/12/16 07/17/19 1 Day Ago History ~07/16/19 Ciprofloxacin HCl [Ciprofloxacin 500 mg PO Q12HR #12 tab 07/15/19 07/17/19 1 Day Ago Rx TAB] ~07/16/19 Lipase/Protease/Amylase [Robinson Arndt 1 cap PO QAC #60 cap 07/15/19 07/17/19 1 Day Ago Rx 12,000 Units] ~07/16/19 Ondansetron [Zofran Odt] 4 mg PO Q8HR #15 tab.rapdis 07/15/19 07/17/19 1 Day Ago Rx ~07/16/19 Apixaban [Eliquis starter pack] 5 mg PO BID #60 tab.ds.pk 07/16/19 07/17/19 1 Day Ago Rx ~07/16/19 Oxycodone HCl/Acetaminophen 1 each PO Q6HR PRN #15 tablet 07/16/19 07/17/19 1 Day Ago Rx [Percocet 10/325 mg] ~07/16/19 Active Medications: Generic Name Dose Route Start Last Admin Trade Name Freq PRN Reason Stop Dose Admin Acetaminophen 650 mg 07/16/19 21:33 Tylenol PO Q4H PRN Pain MILD(1-3)/Fever >100.5/TORRE Lipase/Protease/Amylase 1 each 07/17/19 07:30 07/19/19 16:45 Robinson Arndt 12,000 Units PO 1 each QAC FARHAN Administration Folic Acid 1 mg 07/17/19 10:00 07/19/19 10:48 Folvite PO 1 mg QDAY FARHAN Administration Hydromorphone HCl 0.5 mg 07/18/19 11:58 07/19/19 18:09 Dilaudid IV 0.5 mg Q3H PRN Administration Pain , Severe (7-10) Heparin Sodium/Sodium Chloride 25,000 unit in 500 mls @ 24 mls/hr 07/16/19 23:45 07/19/19 16:46 Heparin/ 0.45% Nacl-25,000 Unit/500 Ml IV 1,100 units/hr TITR FARHAN 22 mls/hr Administration Protocol 1,200 UNITS/HR Ondansetron HCl 4 mg 07/16/19 21:33 07/19/19 22:28 Zofran IV 4 mg Q8H PRN Administration Nausea And Vomiting Ondansetron HCl 4 mg 07/16/19 22:00 07/20/19 06:57 Zofran Odt PO 4 mg Q8H FARHAN Administration Oxycodone HCl 5 mg 07/16/19 22:28 07/20/19 02:26 Roxicodone PO 5 mg Q6H PRN Administration Pain, Moderate (4-6) Oxycodone/Acetaminophen 1 tab 07/16/19 21:33 07/20/19 02:24 Percocet 5/325 PO 1 tab Q6H PRN Administration Pain, Moderate (4-6) Sodium Chloride 10 ml 07/16/19 22:00 07/19/19 22:29 Sodium Chloride Flush Syringe 10 Ml IV 10 ml BID FARHAN Administration Sodium Chloride 10 ml 07/16/19 21:33 Sodium Chloride Flush Syringe 10 Ml IV PRN PRN LINE FLUSH Warfarin Sodium 7.5 mg 07/17/19 17:00 07/19/19 16:45 Coumadin PO 7.5 mg DAILY@1700 FARHAN Administration
[2019-07-20] MEDS: LIPASE 12,000/PROTEASE 38,000/AMYLASE 60,000 (UNITS) DR CAP PO SCH ×3 (08:49→18:19)
[2019-07-20] MEDS: FOLIC ACID 1 MG TAB PO SCH (09:35)
[2019-07-20] MEDS: HEPARIN/ 0.45% NACL DRIP 25,000 UNIT/500 ML BAG IV SCH ×2 (09:35→15:01)
--- NOTE | 2019-07-20 11:19 | Progress Note ---
Assessment and Plan Arterial thrombus initiated on warfarin for oral anticoagulation. Hx of Pancreatitis Recommend: We will follow intermittently. Outpatient event monitor to screen for atrial fibrillation. Once discharged, patient will follow up with [facility] Jul.28 at 320 pm. Subjective Date of service: 07/20/19 Principal diagnosis: arterial thrombus lower leg artery Interval history: No events on telemetry. Awaits therapeutic INR. Today's INR is 1.47. Objective Vital Signs Temp Pulse Resp BP Pulse Ox 07/20/19 09:00 81 07/20/19 08:29 98.9 F 82 20 116/81 100 07/20/19 08:19 100 07/20/19 03:29 98.8 F 80 16 112/64 100 07/19/19 23:17 98.6 F 82 18 109/71 99 07/19/19 22:56 100 07/19/19 19:19 98.8 F 86 16 108/71 98 07/19/19 18:25 85 115/73 100 - Physical Examination General: No Apparent Distress HEENT: Positive: PERRL Neck: Positive: trachea midline Cardiac: Positive: Reg Rate and Rhythm Lungs: Positive: Decreased Breath Sounds Neuro: Positive: Grossly Intact Abdomen: Positive: Soft, Active Bowel Sounds Extremities: Absent: edema - Labs and Meds Coagulation 07/20/19 Range/Units 07:04 PT 18.1 H (12.2-14.9) Sec. INR 1.47 H (0.87-1.13) CBC 07/20/19 Range/Units 07:04 Hgb 7.8 L (10.1-14.3) gm/dl Hct 26.3 L (30.3-42.9) % Plt Count 192 (140-440) K/mm3 Comprehensive Metabolic Panel 07/20/19 Range/Units 07:04 Sodium 136 L (137-145) mmol/L Potassium 3.7 (3.6-5.0) mmol/L Chloride 102.5 (98-107) mmol/L Carbon Dioxide 21 L (22-30) mmol/L BUN 3 L (7-17) mg/dL Creatinine 0.3 L (0.7-1.2) mg/dL Glucose 228 H (65-100) mg/dL Calcium 8.8 (8.4-10.2) mg/dL
[2019-07-20] MEDS: HYDROmorphone 1 MG/1 ML INJ IV PRN (12:00)
--- NOTE | 2019-07-20 14:10 | Progress Note ---
Assessment and Plan 39-year-old female with thromboembolic embolization to the right distal aorta and into the right common iliac artery. Patient's right lower extremity is warm and well-perfused. No indication for thrombectomy at this time. Recommend anticoagulation. Since etiology is unclear and may be due to antiphospholipid antibody syndrome, will need to use Coumadin/warfarin this time. If excluded, then may be converted to Eliquis in the future. Agree with cardiology. Event monitor as an outpatient to follow heart rhythm and echocardiogram was performed which was negative. The left upper extremity hematoma from IV team. Intact sensory and motor function of the left hand. Having some local pain and some paresthesias now ra diating to the shoulder and hand. Repeated ultrasound which showed no pseudoaneurysm. If no improvement by tomorrow, may consult general surgery for I&D. Pancreatitis management per hospitalist service. Subjective Date of service: 07/20/19 Principal diagnosis: arterial thrombus lower leg artery Interval history: Nonpalpable right pedal pulses with palpable left pedal pulses. Patient is obes e and her femoral pulses are not easily palpable in either groin. Intact motor and sensory function. No complaints of claudication. No rest pain. No foot discoloration or mottling. Still having left antecubital fossa pain. Ultrasound demonstrated hematoma without pseudoaneurysm with palpable left radial and ulnar pulse. Left upper extremity hand motor and sensory function is intact. Having pain at site of hematoma. Starting to complain of surrounding paresthesias. May need decompression if no improvement tomorrow. Objective - Constitutional Vitals: Vital Signs - 12hr 07/20/19 07/20/19 07/20/19 03:29 08:19 08:29 Temperature 98.8 F 98.9 F Pulse Rate 80 82 Respiratory 16 20 Rate Blood Pressure 112/64 116/81 O2 Sat by Pulse 100 100 100 Oximetry 07/20/19 07/20/19 09:00 13:12 Temperature 98.6 F Pulse Rate 81 81 Respiratory 20 Rate Blood Pressure 116/79 O2 Sat by Pulse 100 Oximetry General appearance: Present: mild distress (LUE pain) - EENT Eyes: EOM intact ENT: hearing intact - Respiratory Respiratory effort: normal Extremities: abnormal (see subjective) - Gastrointestinal General gastrointestinal: Present: soft, non-tender - Psychiatric Psychiatric: appropriate mood/affect, cooperative - Labs CBC & Chem 7: 07/20/19 07:04 07/20/19 07:04 Labs: Abnormal lab results 07/20/19 07/20/19 07/20/19 Range/Units 07:04 07:04 07:04 Hgb 7.8 L (10.1-14.3) gm/dl Hct 26.3 L (30.3-42.9) % PT 18.1 H (12.2-14.9) Sec. INR 1.47 H (0.87-1.13) Sodium 136 L (137-145) mmol/L Carbon Dioxide 21 L (22-30) mmol/L BUN 3 L (7-17) mg/dL Creatinine 0.3 L (0.7-1.2) mg/dL Glucose 228 H (65-100) mg/dL Medications & Allergies - Medications Allergies/Adverse Reactions: Allergies No Known Allergies Allergy (Unverified 09/18/16 23:27) Home Medications: Home Medications Medication Instructions Recorded Confirmed Last Taken Type Ferrous Sulfate [Feosol 325 MG tab] 325 mg PO TID 12/12/16 07/17/19 1 Day Ago History ~07/16/19 Folic Acid [Folvite] 1 mg PO QDAY 12/12/16 07/17/19 1 Day Ago History ~07/16/19 Ciprofloxacin HCl [Ciprofloxacin 500 mg PO Q12HR #12 tab 07/15/19 07/17/19 1 Day Ago Rx TAB] ~07/16/19 Lipase/Protease/Amylase [Robinson Dr 1 cap PO QAC #60 cap 07/15/19 07/17/19 1 Day Ago Rx 12,000 Units] ~07/16/19 Ondansetron [Zofran Odt] 4 mg PO Q8HR #15 tab.rapdis 07/15/19 07/17/19 1 Day Ago Rx ~07/16/19 Apixaban [Eliquis starter pack] 5 mg PO BID #60 tab.ds.pk 07/16/19 07/17/19 1 Day Ago Rx ~07/16/19 Oxycodone HCl/Acetaminophen 1 each PO Q6HR PRN #15 tablet 07/16/19 07/17/19 1 Day Ago Rx [Percocet 10/325 mg] ~07/16/19 Active Medications: Generic Name Dose Route Start Last Admin Trade Name Freq PRN Reason Stop Dose Admin Acetaminophen 650 mg 07/16/19 21:33 Tylenol PO Q4H PRN Pain MILD(1-3)/Fever >100.5/TORRE Lipase/Protease/Amylase 1 each 07/17/19 07:30 07/20/19 13:[address] 12,000 Units PO 1 each QAC FARHAN Administration Folic Acid 1 mg 07/17/19 10:00 07/20/19 09:35 Folvite PO 1 mg QDAY FARHAN Administration Hydromorphone HCl 0.5 mg 07/18/19 11:58 07/20/19 12:00 Dilaudid IV 0.5 mg Q3H PRN Administration Pain , Severe (7-10) Heparin Sodium/Sodium Chloride 25,000 unit in 500 mls @ 24 mls/hr 07/16/19 23:45 07/20/19 09:35 Heparin/ 0.45% Nacl-25,000 Unit/500 Ml IV 1,100 units/hr TITR FARHAN 22 mls/hr Administration Protocol 1,200 UNITS/HR Ondansetron HCl 4 mg 07/16/19 21:33 07/19/19 22:28 Zofran IV 4 mg Q8H PRN Administration Nausea And Vomiting Ondansetron HCl 4 mg 07/16/19 22:00 07/20/19 13:15 Zofran Odt PO 4 mg Q8H FARHAN Administration Oxycodone HCl 5 mg 07/16/19 22:28 07/20/19 08:48 Roxicodone PO 5 mg Q6H PRN Administration Pain, Moderate (4-6) Oxycodone/Acetaminophen 1 tab 07/16/19 21:33 07/20/19 08:48 Percocet 5/325 PO 1 tab Q6H PRN Administration Pain, Moderate (4-6) Sodium Chloride 10 ml 07/16/19 22:00 07/20/19 09:35 Sodium Chloride Flush Syringe 10 Ml IV 10 ml BID FARHAN Administration Sodium Chloride 10 ml 07/16/19 21:33 Sodium Chloride Flush Syringe 10 Ml IV PRN PRN LINE FLUSH Warfarin Sodium 7.5 mg 07/17/19 17:00 07/19/19 16:45 Coumadin PO 7.5 mg DAILY@1700 FARHAN Administration
--- NOTE | 2019-07-20 14:34 | Vascular Lab Report ---
Limited left upper extremity arterial Ultrasound HISTORY: exclude pseudo in hematoma. TECHNIQUE: Grayscale and color Doppler imaging performed. COMPARISON: Left upper extremity arterial ultrasound from 2 days prior. FINDINGS: Proximal subclavian artery: PSV 91 cm/s, triphasic waveform Distal subclavian artery: PSV 99 cm/s, triphasic waveform Axillary artery: PSV 71 cm/s, triphasic waveform Proximal brachial artery: PSV 95 cm/s, triphasic waveform MID brachial artery: PSV 102 cm/s, triphasic waveform Distal brachial artery: PSV 78 cm/s, triphasic waveform Ulnar artery: PSV 69 cm/s, triphasic waveform Radial artery: PSV 80 cm/s, triphasic waveform There is a complex collection with fluid fluid level measuring 4.3 cm in maximal dimension likely rep resenting a hematoma with layering blood products. No evidence of active hemorrhage to suggest a pseu doaneurysm. A couple linear echogenic foci are seen within the region of the hematoma along the dista l biceps. IMPRESSION: 1. No evidence of pseudoaneurysm within the hematoma in the region of the distal biceps. 2 linear ech ogenic foci as above are indeterminate. Correlate for any potential foreign body in this region. 2. Normal artery waveforms. Signer Name: Oscar Jones MD Signed: 07/20/2019 2:29 PM Workstation Name: [id number]
--- NOTE | 2019-07-20 15:24 | XRay Report ---
LEFT ELBOW INDICATION / CLINICAL INFORMATION: foreign body COMPARISON: None available. FINDINGS: BONES / JOINT(S): No acute fracture or subluxation. No significant arthritis. SOFT TISSUES: No significant abnormality. No radiopaque foreign body. ADDITIONAL FINDINGS: None. IMPRESSION: Unremarkable radiographs of the left elbow without evidence of acute osseous injury or radiopaque for eign body. Signer Name: Aram Anderson MD Signed: 07/20/2019 3:20 PM Workstation Name: [id number]
--- NOTE | 2019-07-20 15:42 | XRay Report ---
LEFT HUMERUS INDICATION / CLINICAL INFORMATION: foreign body COMPARISON: None available. FINDINGS: BONES / JOINT(S): No acute fracture or subluxation. No significant arthritis. SOFT TISSUES: No significant abnormality. A radiopaque foreign body. ADDITIONAL FINDINGS: None. IMPRESSION: No acute osseous injury. No evidence of radiopaque foreign body. Signer Name: Aram Anderson MD Signed: 07/20/2019 3:37 PM Workstation Name: [id number]
[2019-07-20] MEDS: WARFARIN 7.5 MG TAB PO SCH (18:18)
--- NOTE | 2019-07-20 20:51 | Progress Note ---
Assessment and Plan Assessment and plan: 39-year-old woman with history of alcoholic pancreatitis who presented to the ER with abdominal pain. She was discharged home with conservative management. However she was later called back into the hospital by interventional radiologist for arterial thrombus., She was therefore directly admitted. -She had no symptoms in her lower extremities with intact motor and sensory function. CTA chest; A small area of intraluminal thrombosis is seen in the proximal portion of the right common iliac artery. No other arterial thrombosis is noted. No obstructive change is seen with good flow distally. No other significant arterial abnormality is noted. 2. The venous thrombosis reported yesterday is not evaluated on this study. 3. 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 Pelayo -On Heparin drip, warfarin is yet to be therapeutic Distal Left UE hematoma was likely due in heparin from IV infiltrating into her forearm supportive care, ice packs, elevate UE, expected to resolve Chronic alcoholic pancreatitis -Avoid hepatotoxins Counseled on continued alcohol abstinence Preventative health counseling performed for 17 minutes DVT prophylaxis; fully anticoagulated Disposition; home when INR therapeutic History Interval history: Patient seen and examined medical records reviewed Patient feels slightly better vital signs stable Hospitalist Physical - Constitutional Vitals: Temp Pulse Resp BP Pulse Ox 97.8 F 80 16 111/72 100 07/20/19 19:38 07/20/19 19:38 07/20/19 19:38 07/20/19 19:38 07/20/19 19:38 General appearance: Present: mild distress (LUE pain), well-nourished, obese - EENT Eyes: Present: PERRL - Neck Neck: Present: supple, normal ROM - Respiratory Respiratory effort: normal Respiratory: bilateral: diminished, negative: rales, rhonchi, wheezing - Cardiovascular Rhythm: regular Heart Sounds: Present: S1 & S2 - Extremities Extremities: no ischemia, No edema - Abdominal General gastrointestinal: soft, non-tender, non-distended, normal bowel sounds - Integumentary Integumentary: Present: clear, warm - Psychiatric Psychiatric: appropriate mood/affect, cooperative - Neurologic Neurologic: CNII-XII intact, moves all extremities Results - Labs CBC & Chem 7: 07/25/19 07:22 07/25/19 07:22 Labs: Laboratory Last Values WBC 6.1 K/mm3 (4.5-11.0) 07/17/19 07:16 RBC 4.26 M/mm3 (3.65-5.03) 07/17/19 07:16 Hgb 7.8 gm/dl (10.1-14.3) L 07/20/19 07:04 Hct 26.3 % (30.3-42.9) L 07/20/19 07:04 MCV 67 fl (79-97) L 07/17/19 07:16 MCH 20 pg (28-32) L 07/17/19 07:16 MCHC 30 % (30-34) 07/17/19 07:16 RDW 20.1 % (13.2-15.2) H 07/17/19 07:16 Plt Count 192 K/mm3 (140-440) 07/20/19 07:04 Lymph % (Auto) 23.0 % (13.4-35.0) 07/17/19 07:16 [place] % (Auto) 7.8 % (0.0-7.3) H 07/17/19 07:16 Eos % (Auto) 1.8 % (0.0-4.3) 07/17/19 07:16 Baso % (Auto) 0.6 % (0.0-1.8) 07/17/19 07:16 Lymph # 1.4 K/mm3 (1.2-5.4) 07/17/19 07:16 [place] # 0.5 K/mm3 (0.0-0.8) 07/17/19 07:16 Eos # 0.1 K/mm3 (0.0-0.4) 07/17/19 07:16 Baso # 0.0 K/mm3 (0.0-0.1) 07/17/19 07:16 Seg Neutrophils % 66.8 % (40.0-70.0) 07/17/19 07:16 Seg Neutrophils # 4.0 K/mm3 (1.8-7.7) 07/17/19 07:16 PT 18.1 Sec. (12.2-14.9) H 07/20/19 07:04 INR 1.47 (0.87-1.13) H 07/20/19 07:04 APTT 30.4 Sec. (24.2-36.6) 07/17/19 01:01 Heparin Anti-Xa Level 0.54 U.I./ml (0.3-0.7) 07/20/19 07:04 Sodium 136 mmol/L (137-145) L 07/20/19 07:04 Potassium 3.7 mmol/L (3.6-5.0) 07/20/19 07:04 Chloride 102.5 mmol/L (98-107) 07/20/19 07:04 Carbon Dioxide 21 mmol/L (22-30) L 07/20/19 07:04 Anion Gap 16 mmol/L 07/20/19 07:04 BUN 3 mg/dL (7-17) L 07/20/19 07:04 Creatinine 0.3 mg/dL (0.7-1.2) L 07/20/19 07:04 Estimated GFR > 60 ml/min 07/20/19 07:04 BUN/Creatinine Ratio 10 % 07/20/19 07:04 Glucose 228 mg/dL (65-100) H 07/20/19 07:04 Calcium 8.8 mg/dL (8.4-10.2) 07/20/19 07:04 Active Medications - Current Medications Current Medications: Generic Name Dose Route Start Last Admin Trade Name Freq PRN Reason Stop Dose Admin Acetaminophen 650 mg 07/16/19 21:33 Tylenol PO Q4H PRN Pain MILD(1-3)/Fever >100.5/TORRE Lipase/Protease/Amylase 1 each 07/17/19 07:30 07/20/19 18:19 Creraymond Arndt 12,000 Units PO 1 each QAC FARHAN Administration Folic Acid 1 mg 07/17/19 10:00 07/20/19 09:35 Folvite PO 1 mg QDAY FARHAN Administration Hydromorphone HCl 0.5 mg 07/18/19 11:58 07/20/19 12:00 Dilaudid IV 0.5 mg Q3H PRN Administration Pain , Severe (7-10) Heparin Sodium/Sodium Chloride 25,000 unit in 500 mls @ 24 mls/hr 07/16/19 23:45 07/20/19 15:01 Heparin/ 0.45% Nacl-25,000 Unit/500 Ml IV 1,100 units/hr TITR FARHAN 22 mls/hr Administration Protocol 1,200 UNITS/HR Ondansetron HCl 4 mg 07/16/19 21:33 07/19/19 22:28 Zofran IV 4 mg Q8H PRN Administration Nausea And Vomiting Ondansetron HCl 4 mg 07/16/19 22:00 07/20/19 13:15 Zofran Odt PO 4 mg Q8H FARHAN Administration Oxycodone HCl 5 mg 07/16/19 22:28 07/20/19 15:00 Roxicodone PO 5 mg Q6H PRN Administration Pain, Moderate (4-6) Oxycodone/Acetaminophen 1 tab 07/16/19 21:33 07/20/19 15:01 Percocet 5/325 PO 1 tab Q6H PRN Administration Pain, Moderate (4-6) Sodium Chloride 10 ml 07/16/19 22:00 07/20/19 09:35 Sodium Chloride Flush Syringe 10 Ml IV 10 ml BID FARHAN Administration Sodium Chloride 10 ml 07/16/19 21:33 Sodium Chloride Flush Syringe 10 Ml IV PRN PRN LINE FLUSH Warfarin Sodium 7.5 mg 07/17/19 17:00 07/20/19 18:18 Coumadin PO 7.5 mg DAILY@1700 FARHAN Administration
[2019-07-21] MEDS: oxyCODONE /ACETAMINOPHEN 5-325MG TAB PO PRN ×4 (05:17→23:13)
[2019-07-21] MEDS: oxyCODONE 5 MG TAB PO PRN ×4 (05:18→23:14)
[2019-07-21] MEDS: ONDANSETRON 4 MG ODT TAB PO SCH ×3 (05:18→23:13)
--- NOTE | 2019-07-21 07:35 | Hem/Onc Progress Note ---
Assessment and Plan 1. Right common iliac artery thrombus, [place] is being looked into, Interventional Radiology has been consulted. Her pancreas inflammation has a role in the thrombosis. pt is asymptomatic. 2. History of alcoholic pancreatitis, on supportive care. adv to quit 3. Left upper extremity hematoma, ? due to heparin. Ice pack is being given. I will follow the patient during inpatient stay and then in the clinic setting d/w pt reg insurance issues - she said - she will get the same from her work doppler - left arm - no DVT - Patient Problems (1) Arterial thrombosis Current Visit: No Status: Acute Subjective Date of service: 07/21/19 Principal diagnosis: arterial thrombus Interval history: left arm pain Objective - Exam Narrative Exam: Pain - left arm General appearance - no acute distress Performance status dependent Eyes - no icterus ENT - no bleeding LNs cervical not palpable Neck - no LN Respiratory Normal - on o2 Breath sounds - CTA CVS S1 S2 + Extremities no leg edema General GI Soft Rectal deferred female - deferred Skin warm Musculoskeletal - moves limbs Neurologically awake - Constitutional Vitals: Last Vital Signs Temp 98.6 F 07/21/19 03:52 Pulse 82 07/21/19 03:52 Resp 16 07/21/19 03:52 BP 91/61 07/21/19 03:52 Pulse Ox 100 07/21/19 03:52 - Labs Lab Results: Laboratory Results - last 24 hr 07/20/19 07/20/19 07/20/19 07:04 07:04 07:04 Hgb 7.8 L Hct 26.3 L Plt Count 192 PT 18.1 H INR 1.47 H Heparin Anti-Xa Level 0.54 Sodium 136 L Potassium 3.7 Chloride 102.5 Carbon Dioxide 21 L Anion Gap 16 BUN 3 L Creatinine 0.3 L Estimated GFR > 60 BUN/Creatinine Ratio 10 Glucose 228 H Calcium 8.8 Medications & Allergies - Medications Allergies/Adverse Reactions: Allergies No Known Allergies Allergy (Unverified 09/18/16 23:27) Home Medications: Home Medications Medication Instructions Recorded Confirmed Last Taken Type Ferrous Sulfate [Feosol 325 MG tab] 325 mg PO TID 12/12/16 07/17/19 1 Day Ago History ~07/16/19 Folic Acid [Folvite] 1 mg PO QDAY 12/12/16 07/17/19 1 Day Ago History ~07/16/19 Ciprofloxacin HCl [Ciprofloxacin 500 mg PO Q12HR #12 tab 07/15/19 07/17/19 1 Day Ago Rx TAB] ~07/16/19 Lipase/Protease/Amylase [Robinson Arndt 1 cap PO QAC #60 cap 07/15/19 07/17/19 1 Day Ago Rx 12,000 Units] ~07/16/19 Ondansetron [Zofran Odt] 4 mg PO Q8HR #15 tab.rapdis 07/15/19 07/17/19 1 Day Ago Rx ~07/16/19 Apixaban [Eliquis starter pack] 5 mg PO BID #60 tab.ds.pk 07/16/19 07/17/19 1 Day Ago Rx ~07/16/19 Oxycodone HCl/Acetaminophen 1 each PO Q6HR PRN #15 tablet 07/16/19 07/17/19 1 Day Ago Rx [Percocet 10/325 mg] ~07/16/19 Active Medications: Generic Name Dose Route Start Last Admin Trade Name Freq PRN Reason Stop Dose Admin Acetaminophen 650 mg 07/16/19 21:33 Tylenol PO Q4H PRN Pain MILD(1-3)/Fever >100.5/TORRE Lipase/Protease/Amylase 1 each 07/17/19 07:30 07/20/19 18:19 Robinson Arndt 12,000 Units PO 1 each QAC FARHAN Administration Folic Acid 1 mg 07/17/19 10:00 07/20/19 09:35 Folvite PO 1 mg QDAY FARHAN Administration Hydromorphone HCl 0.5 mg 07/18/19 11:58 07/20/19 12:00 Dilaudid IV 0.5 mg Q3H PRN Administration Pain , Severe (7-10) Heparin Sodium/Sodium Chloride 25,000 unit in 500 mls @ 24 mls/hr 07/16/19 23:45 07/20/19 15:01 Heparin/ 0.45% Nacl-25,000 Unit/500 Ml IV 1,100 units/hr TITR FARHAN 22 mls/hr Administration Protocol 1,200 UNITS/HR Ondansetron HCl 4 mg 07/16/19 21:33 07/19/19 22:28 Zofran IV 4 mg Q8H PRN Administration Nausea And Vomiting Ondansetron HCl 4 mg 07/16/19 22:00 07/21/19 05:18 Zofran Odt PO 4 mg Q8H FARHAN Administration Oxycodone HCl 5 mg 07/16/19 22:28 07/21/19 05:18 Roxicodone PO 5 mg Q6H PRN Administration Pain, Moderate (4-6) Oxycodone/Acetaminophen 1 tab 07/16/19 21:33 07/21/19 05:17 Percocet 5/325 PO 1 tab Q6H PRN Administration Pain, Moderate (4-6) Sodium Chloride 10 ml 07/16/19 22:00 07/20/19 22:57 Sodium Chloride Flush Syringe 10 Ml IV 10 ml BID FARHAN Administration Sodium Chloride 10 ml 07/16/19 21:33 Sodium Chloride Flush Syringe 10 Ml IV PRN PRN LINE FLUSH Warfarin Sodium 7.5 mg 07/17/19 17:00 07/20/19 18:18 Coumadin PO 7.5 mg DAILY@1700 FARHAN Administration
[2019-07-21] MEDS: LIPASE 12,000/PROTEASE 38,000/AMYLASE 60,000 (UNITS) DR CAP PO SCH ×3 (08:27→17:10)
[2019-07-21 08:42] LABS: INR 1.62 (0.87-1.13)
[2019-07-21 08:50] LABS: BUN/Creatinine Ratio 5; Blood Urea Nitrogen 2 mg/dL (7-17); Hemolysis Index 3
[2019-07-21] MEDS: FOLIC ACID 1 MG TAB PO SCH (10:04)
[2019-07-21] MEDS: HYDROmorphone 1 MG/1 ML INJ IV PRN ×3 (12:39→19:50)
[2019-07-21] MEDS: HEPARIN/ 0.45% NACL DRIP 25,000 UNIT/500 ML BAG IV SCH (13:32)
[2019-07-21] MEDS: WARFARIN 7.5 MG TAB PO SCH (17:10)
--- NOTE | 2019-07-21 17:58 | Progress Note ---
Assessment and Plan Right foot well perfused Left arm with likely infiltration from i.v. after CT scan Would continue to use warm compress and pain control. No surgical intervention recommended. Subjective Date of service: 07/21/19 Principal diagnosis: arterial thrombus Interval history: Patient complaining of left arm pain. No additional complaints. Objective - Constitutional Vitals: Vital Signs - 12hr 07/21/19 07/21/19 07/21/19 08:11 08:51 12:33 Temperature 98.1 F 97.5 F L Pulse Rate 85 Respiratory 18 18 Rate Blood Pressure 116/77 135/99 Extremities: no ischemia, pulses intact (left radial artery), normal temperature (right foot) - Labs CBC & Chem 7: 07/20/19 07:04 07/21/19 07:55 Labs: Abnormal lab results 07/21/19 07/21/19 Range/Units 07:55 07:55 PT 19.5 H (12.2-14.9) Sec. INR 1.62 H (0.87-1.13) Sodium 134 L (137-145) mmol/L Carbon Dioxide 21 L (22-30) mmol/L BUN 2 L (7-17) mg/dL Creatinine 0.4 L (0.7-1.2) mg/dL Glucose 204 H (65-100) mg/dL Medications & Allergies - Medications Allergies/Adverse Reactions: Allergies No Known Allergies Allergy (Unverified 09/18/16 23:27) Home Medications: Home Medications Medication Instructions Recorded Confirmed Last Taken Type Ferrous Sulfate [Feosol 325 MG tab] 325 mg PO TID 12/12/16 07/17/19 1 Day Ago History ~07/16/19 Folic Acid [Folvite] 1 mg PO QDAY 12/12/16 07/17/19 1 Day Ago History ~07/16/19 Ciprofloxacin HCl [Ciprofloxacin 500 mg PO Q12HR #12 tab 07/15/19 07/17/19 1 Day Ago Rx TAB] ~07/16/19 Lipase/Protease/Amylase [Robinson Arndt 1 cap PO QAC #60 cap 07/15/19 07/17/19 1 Day Ago Rx 12,000 Units] ~07/16/19 Ondansetron [Zofran Odt] 4 mg PO Q8HR #15 tab.rapdis 07/15/19 07/17/19 1 Day Ago Rx ~07/16/19 Apixaban [Eliquis starter pack] 5 mg PO BID #60 tab.ds.pk 07/16/19 07/17/19 1 Day Ago Rx ~07/16/19 Oxycodone HCl/Acetaminophen 1 each PO Q6HR PRN #15 tablet 07/16/19 07/17/19 1 Day Ago Rx [Percocet 10/325 mg] ~07/16/19 Active Medications: Generic Name Dose Route Start Last Admin Trade Name Freq PRN Reason Stop Dose Admin Acetaminophen 650 mg 07/16/19 21:33 Tylenol PO Q4H PRN Pain MILD(1-3)/Fever >100.5/TORRE Lipase/Protease/Amylase 1 each 07/17/19 07:30 07/21/19 17:10 Robinson Arndt 12,000 Units PO 1 each QAC FARHAN Administration Folic Acid 1 mg 07/17/19 10:00 07/21/19 10:04 Folvite PO 1 mg QDAY FARHAN Administration Hydromorphone HCl 0.5 mg 07/18/19 11:58 07/21/19 14:59 Dilaudid IV 0.5 mg Q3H PRN Administration Pain , Severe (7-10) Heparin Sodium/Sodium Chloride 25,000 unit in 500 mls @ 24 mls/hr 07/16/19 23:45 07/21/19 13:32 Heparin/ 0.45% Nacl-25,000 Unit/500 Ml IV 1,100 units/hr TITR FARHAN 22 mls/hr Administration Protocol 1,200 UNITS/HR Ondansetron HCl 4 mg 07/16/19 21:33 07/19/19 22:28 Zofran IV 4 mg Q8H PRN Administration Nausea And Vomiting Ondansetron HCl 4 mg 07/16/19 22:00 07/21/19 14:17 Zofran Odt PO 4 mg Q8H FARHAN Administration Oxycodone HCl 5 mg 07/16/19 22:28 07/21/19 17:10 Roxicodone PO 5 mg Q6H PRN Administration Pain, Moderate (4-6) Oxycodone/Acetaminophen 1 tab 07/16/19 21:33 07/21/19 11:07 Percocet 5/325 PO 1 tab Q6H PRN Administration Pain, Moderate (4-6) Sodium Chloride 10 ml 07/16/19 22:00 07/21/19 10:05 Sodium Chloride Flush Syringe 10 Ml IV 10 ml BID FARHAN Administration Sodium Chloride 10 ml 07/16/19 21:33 Sodium Chloride Flush Syringe 10 Ml IV PRN PRN LINE FLUSH Warfarin Sodium 7.5 mg 07/17/19 17:00 07/21/19 17:10 Coumadin PO 7.5 mg DAILY@1700 FARHAN Administration
--- NOTE | 2019-07-21 20:48 | Progress Note ---
Assessment and Plan Assessment and plan: 39-year-old woman with history of alcoholic pancreatitis who presented to the ER with abdominal pain. She was discharged home with conservative management. However she was later called back into the hospital by interventional radiologist for arterial thrombus., She was therefore directly admitted. -She had no symptoms in her lower extremities with intact motor and sensory function. 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 Pelayo -On Heparin drip, warfarin i, INR 1.7 today Distal Left UE hematoma; Mild improvement ,was likely due in heparin from IV infiltrating into her forearm supportive care, ice packs, elevate UE, expected to resolve Vascular status and hematology following Chronic alcoholic pancreatitis -Avoid hepatotoxins Counseled on continued alcohol abstinence Preventative health counseling performed for 17 minutes Obesity; BMI 31.2 Weight reduction when medically stable DVT prophylaxis; on heparin drip Disposition; home when INR therapeutic Consults and recommendations noted and appreciated Plan of care reviewed with the patient and her nurse Also discussed with casing running machine tender Dr. Bernal History Interval history: Patient seen and examined this morning medical records reviewed Complaints of left arm swelling and tenderness Patient is on heparin drip Denies chest pain or shortness of breath Denies headache or dizziness Vital signs reviewed Hospitalist Physical - Constitutional Vitals: Temp Pulse Resp BP Pulse Ox 98.2 F 87 18 109/73 100 07/21/19 20:04 07/21/19 20:04 07/21/19 20:04 07/21/19 20:04 07/21/19 20:04 General appearance: Present: mild distress (LUE pain), well-nourished, obese - EENT Eyes: Present: PERRL, EOM intact - Neck Neck: Present: supple, normal ROM - Respiratory Respiratory effort: normal Respiratory: bilateral: diminished, negative: rales, rhonchi, wheezing - Cardiovascular Rhythm: regular Heart Sounds: Present: S1 & S2 - Extremities Extremities: abnormal (left upper extremity swelling and tenderness) - Abdominal General gastrointestinal: soft, non-tender, non-distended, normal bowel sounds - Integumentary Integumentary: Present: clear, warm - Psychiatric Psychiatric: appropriate mood/affect, cooperative - Neurologic Neurologic: CNII-XII intact, moves all extremities Results - Labs CBC & Chem 7: 07/22/19 05:10 07/22/19 05:10 Labs: Laboratory Last Values WBC 6.1 K/mm3 (4.5-11.0) 07/17/19 07:16 RBC 4.26 M/mm3 (3.65-5.03) 07/17/19 07:16 Hgb 7.8 gm/dl (10.1-14.3) L 07/20/19 07:04 Hct 26.3 % (30.3-42.9) L 07/20/19 07:04 MCV 67 fl (79-97) L 07/17/19 07:16 MCH 20 pg (28-32) L 07/17/19 07:16 MCHC 30 % (30-34) 07/17/19 07:16 RDW 20.1 % (13.2-15.2) H 07/17/19 07:16 Plt Count 192 K/mm3 (140-440) 07/20/19 07:04 Lymph % (Auto) 23.0 % (13.4-35.0) 07/17/19 07:16 [place] % (Auto) 7.8 % (0.0-7.3) H 07/17/19 07:16 Eos % (Auto) 1.8 % (0.0-4.3) 07/17/19 07:16 Baso % (Auto) 0.6 % (0.0-1.8) 07/17/19 07:16 Lymph # 1.4 K/mm3 (1.2-5.4) 07/17/19 07:16 [place] # 0.5 K/mm3 (0.0-0.8) 07/17/19 07:16 Eos # 0.1 K/mm3 (0.0-0.4) 07/17/19 07:16 Baso # 0.0 K/mm3 (0.0-0.1) 07/17/19 07:16 Seg Neutrophils % 66.8 % (40.0-70.0) 07/17/19 07:16 Seg Neutrophils # 4.0 K/mm3 (1.8-7.7) 07/17/19 07:16 PT 19.5 Sec. (12.2-14.9) H 07/21/19 07:55 INR 1.62 (0.87-1.13) H 07/21/19 07:55 APTT 30.4 Sec. (24.2-36.6) 07/17/19 01:01 Heparin Anti-Xa Level 0.43 U.I./ml (0.3-0.7) 07/21/19 07:55 Sodium 134 mmol/L (137-145) L 07/21/19 07:55 Potassium 3.9 mmol/L (3.6-5.0) 07/21/19 07:55 Chloride 101.0 mmol/L (98-107) 07/21/19 07:55 Carbon Dioxide 21 mmol/L (22-30) L 07/21/19 07:55 Anion Gap 16 mmol/L 07/21/19 07:55 BUN 2 mg/dL (7-17) L 07/21/19 07:55 Creatinine 0.4 mg/dL (0.7-1.2) L 07/21/19 07:55 Estimated GFR > 60 ml/min 07/21/19 07:55 BUN/Creatinine Ratio 5 % 07/21/19 07:55 Glucose 204 mg/dL (65-100) H 07/21/19 07:55 Calcium 9.0 mg/dL (8.4-10.2) 07/21/19 07:55 Active Medications - Current Medications Current Medications: Generic Name Dose Route Start Last Admin Trade Name Freq PRN Reason Stop Dose Admin Acetaminophen 650 mg 07/16/19 21:33 Tylenol PO Q4H PRN Pain MILD(1-3)/Fever >100.5/TORER Lipase/Protease/Amylase 1 each 07/17/19 07:30 07/21/19 17:10 Robinson Arndt 12,000 Units PO 1 each QAC FARHAN Administration Folic Acid 1 mg 07/17/19 10:00 07/21/19 10:04 Folvite PO 1 mg QDAY FARHAN Administration Hydromorphone HCl 0.5 mg 07/18/19 11:58 07/21/19 19:50 Dilaudid IV 0.5 mg Q3H PRN Administration Pain , Severe (7-10) Heparin Sodium/Sodium Chloride 25,000 unit in 500 mls @ 24 mls/hr 07/16/19 23:45 07/21/19 13:32 Heparin/ 0.45% Nacl-25,000 Unit/500 Ml IV 1,100 units/hr TITR FARHAN 22 mls/hr Administration Protocol 1,200 UNITS/HR Ondansetron HCl 4 mg 07/16/19 21:33 07/19/19 22:28 Zofran IV 4 mg Q8H PRN Administration Nausea And Vomiting Ondansetron HCl 4 mg 07/16/19 22:00 07/21/19 14:17 Zofran Odt PO 4 mg Q8H FARHAN Administration Oxycodone HCl 5 mg 07/16/19 22:28 07/21/19 17:10 Roxicodone PO 5 mg Q6H PRN Administration Pain, Moderate (4-6) Oxycodone/Acetaminophen 1 tab 07/16/19 21:33 07/21/19 17:10 Percocet 5/325 PO 1 tab Q6H PRN Administration Pain, Moderate (4-6) Sodium Chloride 10 ml 07/16/19 22:00 07/21/19 10:05 Sodium Chloride Flush Syringe 10 Ml IV 10 ml BID FARHAN Administration Sodium Chloride 10 ml 07/16/19 21:33 Sodium Chloride Flush Syringe 10 Ml IV PRN PRN LINE FLUSH Warfarin Sodium 7.5 mg 07/17/19 17:00 07/21/19 17:10 Coumadin PO 7.5 mg DAILY@1700 FARHAN Administration
[2019-07-22] MEDS: ONDANSETRON 4 MG ODT TAB PO SCH ×3 (05:17→23:05)
[2019-07-22] MEDS: oxyCODONE /ACETAMINOPHEN 5-325MG TAB PO PRN ×3 (05:17→21:40)
[2019-07-22] MEDS: oxyCODONE 5 MG TAB PO PRN ×3 (05:18→21:42)
[2019-07-22 05:29] LABS: Hematocrit 26.4 % (30.3-42.9); Hemoglobin 8.1 gm/dl (10.1-14.3)
[2019-07-22 05:38] LABS: INR 1.7 (0.87-1.13)
[2019-07-22 05:50] LABS: BUN/Creatinine Ratio 6; Blood Urea Nitrogen 3 mg/dL (7-17); Calcium 9.2 mg/dL (8.4-10.2); Hemolysis Index 0
--- NOTE | 2019-07-22 07:45 | Hem/Onc Progress Note ---
Assessment and Plan 1. Right common iliac artery thrombus, Eliquis was being looked into, Interventional Radiology has been consulted. Her pancreas inflammation has a role in the thrombosis. pt is asymptomatic. 2. History of alcoholic pancreatitis, on supportive care. adv to quit 3. Left upper extremity hematoma, Ice pack is being used -adv elevation. I will follow the patient during inpatient stay and then in the clinic setting d/w pt reg insurance issues - she said - she will get the same from her work doppler - left arm - no DVT pt on heparin - coumadin eliquis an option her main issue now is left arm pain and edema - elevation suggested 07/22- d/w dr brantley - Patient Problems (1) Arterial thrombosis Current Visit: No Status: Acute Subjective Date of service: 07/22/19 Principal diagnosis: arterial thrombus Interval history: left arm edema pt has been adv elevation of left arm - but it was not elevated - d/w pt reg same Objective - Exam Narrative Exam: Pain - left arm General appearance - no acute distress Performance status dependent Eyes - no icterus ENT - no bleeding LNs cervical not palpable Neck - no LN Respiratory Normal - on o2 Breath sounds - CTA CVS S1 S2 + Extremities no leg edema - left arm edema+ General GI Soft Rectal deferred female - deferred Skin warm Musculoskeletal - moves limbs Neurologically awake - Constitutional Vitals: Last Vital Signs Temp 98.5 F 07/21/19 23:37 Pulse 94 H 07/21/19 23:37 Resp 18 07/21/19 23:37 BP 112/73 07/21/19 23:37 Pulse Ox 100 07/21/19 23:37 - Labs Lab Results: Laboratory Results - last 24 hr 07/21/19 07/21/19 07/22/19 07:55 07:55 05:10 Hgb 8.1 L Hct 26.4 L Plt Count 262 PT 19.5 H INR 1.62 H Heparin Anti-Xa Level 0.43 Sodium 134 L Potassium 3.9 Chloride 101.0 Carbon Dioxide 21 L Anion Gap 16 BUN 2 L Creatinine 0.4 L Estimated GFR > 60 BUN/Creatinine Ratio 5 Glucose 204 H Calcium 9.0 07/22/19 07/22/19 05:10 05:10 Hgb Hct Plt Count PT 20.3 H INR 1.70 H Heparin Anti-Xa Level Sodium 139 Potassium 4.0 Chloride 102.7 Carbon Dioxide 25 Anion Gap 15 BUN 3 L Creatinine 0.5 L Estimated GFR > 60 BUN/Creatinine Ratio 6 Glucose 237 H Calcium 9.2 Medications & Allergies - Medications Allergies/Adverse Reactions: Allergies No Known Allergies Allergy (Unverified 09/18/16 23:27) Home Medications: Home Medications Medication Instructions Recorded Confirmed Last Taken Type Ferrous Sulfate [Feosol 325 MG tab] 325 mg PO TID 12/12/16 07/17/19 1 Day Ago History ~07/16/19 Folic Acid [Folvite] 1 mg PO QDAY 12/12/16 07/17/19 1 Day Ago History ~07/16/19 Ciprofloxacin HCl [Ciprofloxacin 500 mg PO Q12HR #12 tab 07/15/19 07/17/19 1 Day Ago Rx TAB] ~07/16/19 Lipase/Protease/Amylase [Robinson Arndt 1 cap PO QAC #60 cap 07/15/19 07/17/19 1 Day Ago Rx 12,000 Units] ~07/16/19 Ondansetron [Zofran Odt] 4 mg PO Q8HR #15 tab.rapdis 07/15/19 07/17/19 1 Day Ago Rx ~07/16/19 Apixaban [Eliquis starter pack] 5 mg PO BID #60 tab.ds.pk 07/16/19 07/17/19 1 Day Ago Rx ~07/16/19 Oxycodone HCl/Acetaminophen 1 each PO Q6HR PRN #15 tablet 07/16/19 07/17/19 1 Day Ago Rx [Percocet 10/325 mg] ~07/16/19 Active Medications: Generic Name Dose Route Start Last Admin Trade Name Freq PRN Reason Stop Dose Admin Acetaminophen 650 mg 07/16/19 21:33 Tylenol PO Q4H PRN Pain MILD(1-3)/Fever >100.5/TORRE Lipase/Protease/Amylase 1 each 07/17/19 07:30 07/21/19 17:10 Robinson Arndt 12,000 Units PO 1 each QAC FARHAN Administration Folic Acid 1 mg 07/17/19 10:00 07/21/19 10:04 Folvite PO 1 mg QDAY FARHAN Administration Hydromorphone HCl 0.5 mg 07/18/19 11:58 07/21/19 19:50 Dilaudid IV 0.5 mg Q3H PRN Administration Pain , Severe (7-10) Heparin Sodium/Sodium Chloride 25,000 unit in 500 mls @ 24 mls/hr 07/16/19 23:45 07/21/19 13:32 Heparin/ 0.45% Nacl-25,000 Unit/500 Ml IV 1,100 units/hr TITR FARHAN 22 mls/hr Administration Protocol 1,200 UNITS/HR Ondansetron HCl 4 mg 07/16/19 21:33 07/19/19 22:28 Zofran IV 4 mg Q8H PRN Administration Nausea And Vomiting Ondansetron HCl 4 mg 07/16/19 22:00 07/22/19 05:17 Zofran Odt PO 4 mg Q8H FARHAN Administration Oxycodone HCl 5 mg 07/16/19 22:28 07/22/19 05:18 Roxicodone PO 5 mg Q6H PRN Administration Pain, Moderate (4-6) Oxycodone/Acetaminophen 1 tab 07/16/19 21:33 07/22/19 05:17 Percocet 5/325 PO 1 tab Q6H PRN Administration Pain, Moderate (4-6) Sodium Chloride 10 ml 07/16/19 22:00 07/21/19 23:12 Sodium Chloride Flush Syringe 10 Ml IV 10 ml BID FARHAN Administration Sodium Chloride 10 ml 07/16/19 21:33 Sodium Chloride Flush Syringe 10 Ml IV PRN PRN LINE FLUSH Warfarin Sodium 7.5 mg 07/17/19 17:00 07/21/19 17:10 Coumadin PO 7.5 mg DAILY@1700 FARHAN Administration
[2019-07-22] MEDS: FOLIC ACID 1 MG TAB PO SCH (09:02)
[2019-07-22] MEDS: LIPASE 12,000/PROTEASE 38,000/AMYLASE 60,000 (UNITS) DR CAP PO SCH ×3 (09:04→17:35)
[2019-07-22] MEDS: HYDROmorphone 1 MG/1 ML INJ IV PRN ×2 (11:02→17:32)
[2019-07-22] MEDS: HEPARIN/ 0.45% NACL DRIP 25,000 UNIT/500 ML BAG IV SCH (12:43)
[2019-07-22] MEDS: WARFARIN 10 MG TAB PO SCH (17:31)
--- NOTE | 2019-07-22 20:19 | Progress Note ---
Assessment and Plan Assessment and plan: 39-year-old woman with history of alcoholic pancreatitis who presented to the ER with abdominal pain. She was discharged home with conservative management. However she was later called back into the hospital by interventional radiologist for arterial thrombus. Patient was therefore directly admitted. She had no symptoms in her lower extremities with intact motor and sensory function. 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 Pelayo -On Heparin drip, warfarin i, INR 1.7 today Left UE hematoma; Mild improvement ,was likely due in heparin from IV infiltrating into her forearm supportive care, ice packs, elevate UE, expected to resolve Management per vascular ,hematology following Chronic alcoholic pancreatitis -Avoid hepatotoxins Counseled on continued alcohol abstinence Preventative health counseling performed for 17 minutes Obesity; BMI 31.2 Weight reduction when medically stable DVT prophylaxis; on heparin drip Physical therapy Plan of care reviewed with the patient and her nurse Also discussed with sound effects person Dr. Barney Disposition; home when INR therapeutic Consults and recommendations noted and appreciated History Interval history: Patient seen and examined this morning Patient's left upper extremity swelling slightly improved however patient complains of severe pain and discomfort Alert and awake and responding appropriately Vital signs reviewed Hospitalist Physical - Constitutional Vitals: Temp Pulse Resp BP Pulse Ox 98.2 F 99 H 18 117/79 100 07/22/19 04:38 07/22/19 09:01 07/22/19 09:01 07/22/19 09:01 07/22/19 09:01 General appearance: Present: mild distress (LUE pain), well-nourished, obese - EENT Eyes: Present: PERRL, EOM intact - Neck Neck: Present: supple, normal ROM - Respiratory Respiratory effort: normal Respiratory: bilateral: diminished, negative: rales, rhonchi, wheezing - Cardiovascular Rhythm: regular Heart Sounds: Present: S1 & S2 - Extremities Extremities: no ischemia, No edema, abnormal (left upper extremity swelling tenderness) - Abdominal General gastrointestinal: soft, non-tender, non-distended, normal bowel sounds - Integumentary Integumentary: Present: clear, warm - Psychiatric Psychiatric: appropriate mood/affect, cooperative - Neurologic Neurologic: CNII-XII intact, moves all extremities Results - Labs CBC & Chem 7: 07/22/19 05:10 07/23/19 05:25 Labs: Laboratory Last Values WBC 6.1 K/mm3 (4.5-11.0) 07/17/19 07:16 RBC 4.26 M/mm3 (3.65-5.03) 07/17/19 07:16 Hgb 8.1 gm/dl (10.1-14.3) L 07/22/19 05:10 Hct 26.4 % (30.3-42.9) L 07/22/19 05:10 MCV 67 fl (79-97) L 07/17/19 07:16 MCH 20 pg (28-32) L 07/17/19 07:16 MCHC 30 % (30-34) 07/17/19 07:16 RDW 20.1 % (13.2-15.2) H 07/17/19 07:16 Plt Count 262 K/mm3 (140-440) 07/22/19 05:10 Lymph % (Auto) 23.0 % (13.4-35.0) 07/17/19 07:16 [place] % (Auto) 7.8 % (0.0-7.3) H 07/17/19 07:16 Eos % (Auto) 1.8 % (0.0-4.3) 07/17/19 07:16 Baso % (Auto) 0.6 % (0.0-1.8) 07/17/19 07:16 Lymph # 1.4 K/mm3 (1.2-5.4) 07/17/19 07:16 [place] # 0.5 K/mm3 (0.0-0.8) 07/17/19 07:16 Eos # 0.1 K/mm3 (0.0-0.4) 07/17/19 07:16 Baso # 0.0 K/mm3 (0.0-0.1) 07/17/19 07:16 Seg Neutrophils % 66.8 % (40.0-70.0) 07/17/19 07:16 Seg Neutrophils # 4.0 K/mm3 (1.8-7.7) 07/17/19 07:16 PT 20.3 Sec. (12.2-14.9) H 07/22/19 05:10 INR 1.70 (0.87-1.13) H 07/22/19 05:10 APTT 30.4 Sec. (24.2-36.6) 07/17/19 01:01 Heparin Anti-Xa Level 0.31 U.I./ml (0.3-0.7) 07/22/19 08:42 Sodium 139 mmol/L (137-145) 07/22/19 05:10 Potassium 4.0 mmol/L (3.6-5.0) 07/22/19 05:10 Chloride 102.7 mmol/L (98-107) 07/22/19 05:10 Carbon Dioxide 25 mmol/L (22-30) 07/22/19 05:10 Anion Gap 15 mmol/L 07/22/19 05:10 BUN 3 mg/dL (7-17) L 07/22/19 05:10 Creatinine 0.5 mg/dL (0.7-1.2) L 07/22/19 05:10 Estimated GFR > 60 ml/min 07/22/19 05:10 BUN/Creatinine Ratio 6 % 07/22/19 05:10 Glucose 237 mg/dL (65-100) H 07/22/19 05:10 Calcium 9.2 mg/dL (8.4-10.2) 07/22/19 05:10 Active Medications - Current Medications Current Medications: Generic Name Dose Route Start Last Admin Trade Name Freq PRN Reason Stop Dose Admin Acetaminophen 650 mg 07/16/19 21:33 Tylenol PO Q4H PRN Pain MILD(1-3)/Fever >100.5/TORRE Lipase/Protease/Amylase 1 each 07/17/19 07:30 07/22/19 17:35 Robinson Arndt 12,000 Units PO Not Given QAC FARHAN Folic Acid 1 mg 07/17/19 10:00 07/22/19 09:02 Folvite PO 1 mg QDAY FARHAN Administration Hydromorphone HCl 0.5 mg 07/18/19 11:58 07/22/19 17:32 Dilaudid IV 0.5 mg Q3H PRN Administration Pain , Severe (7-10) Heparin Sodium/Sodium Chloride 25,000 unit in 500 mls @ 24 mls/hr 07/16/19 23:45 07/22/19 12:43 Heparin/ 0.45% Nacl-25,000 Unit/500 Ml IV 1,100 units/hr TITR FARHAN 22 mls/hr Administration Protocol 1,200 UNITS/HR Ondansetron HCl 4 mg 07/16/19 21:33 07/19/19 22:28 Zofran IV 4 mg Q8H PRN Administration Nausea And Vomiting Ondansetron HCl 4 mg 07/16/19 22:00 07/22/19 13:42 Zofran Odt PO 4 mg Q8H FARHAN Administration Oxycodone HCl 5 mg 07/16/19 22:28 07/22/19 12:43 Roxicodone PO 5 mg Q6H PRN Administration Pain, Moderate (4-6) Oxycodone/Acetaminophen 1 tab 07/16/19 21:33 07/22/19 12:44 Percocet 5/325 PO 1 tab Q6H PRN Administration Pain, Moderate (4-6) Sodium Chloride 10 ml 07/16/19 22:00 07/22/19 09:04 Sodium Chloride Flush Syringe 10 Ml IV 10 ml BID FARHAN Administration Sodium Chloride 10 ml 07/16/19 21:33 Sodium Chloride Flush Syringe 10 Ml IV PRN PRN LINE FLUSH Warfarin Sodium 10 mg 07/22/19 17:00 07/22/19 17:31 Coumadin PO 10 mg DAILY@1700 FARHAN Administration
[2019-07-23] MEDS: ONDANSETRON 4 MG ODT TAB PO SCH ×3 (05:35→21:19)
[2019-07-23] MEDS: oxyCODONE /ACETAMINOPHEN 5-325MG TAB PO PRN ×3 (05:35→19:12)
[2019-07-23] MEDS: oxyCODONE 5 MG TAB PO PRN ×3 (05:42→19:12)
[2019-07-23 06:39] LABS: INR 2.02 (0.87-1.13)
[2019-07-23 06:58] LABS: BUN/Creatinine Ratio 8; Blood Urea Nitrogen 3 mg/dL (7-17); Calcium 9.3 mg/dL (8.4-10.2); Hemolysis Index 0
--- NOTE | 2019-07-23 07:08 | Hem/Onc Progress Note ---
Assessment and Plan 1. Right common iliac artery thrombus, Eliquis was being looked into, Interventional Radiology has been consulted. Her pancreas inflammation has a role in the thrombosis. pt is asymptomatic. 2. History of alcoholic pancreatitis, on supportive care. adv to quit 3. Left upper extremity hematoma, Ice pack is being used -adv elevation. I will follow the patient during inpatient stay and then in the clinic setting d/w pt reg insurance issues - she said - she will get the same from her work doppler - left arm - no DVT pt on heparin - coumadin eliquis an option her main issue now is left arm pain and edema - elevation suggested 07/23 - d/w dr brantley as pt had arterial thrombus - vascular is waiting for LA testing OP IX for other causes - Patient Problems (1) Arterial thrombosis Current Visit: No Status: Acute Subjective Date of service: 07/23/19 Principal diagnosis: arterial thrombus Interval history: wants to go home Objective - Exam Narrative Exam: Pain - left arm General appearance - no acute distress Performance status dependent Eyes - no icterus ENT - no bleeding LNs cervical not palpable Neck - no LN Respiratory Normal - on o2 Breath sounds - CTA CVS S1 S2 + Extremities no leg edema - left arm edema+ General GI Soft Rectal deferred female - deferred Skin warm Musculoskeletal - moves limbs Neurologically awake - Constitutional Vitals: Last Vital Signs Temp 98.2 F 07/22/19 23:46 Pulse 87 07/22/19 23:46 Resp 18 07/22/19 23:46 BP 122/73 07/22/19 23:46 Pulse Ox 99 07/22/19 23:46 - Labs Lab Results: Laboratory Results - last 24 hr 07/22/19 07/23/19 07/23/19 08:42 05:25 05:25 PT 23.2 H INR 2.02 H Heparin Anti-Xa Level 0.31 Sodium 139 Potassium 4.0 Chloride 102.2 Carbon Dioxide 26 Anion Gap 15 BUN 3 L Creatinine 0.4 L Estimated GFR > 60 BUN/Creatinine Ratio 8 Glucose 210 H Calcium 9.3 Medications & Allergies - Medications Allergies/Adverse Reactions: Allergies No Known Allergies Allergy (Unverified 09/18/16 23:27) Home Medications: Home Medications Medication Instructions Recorded Confirmed Last Taken Type Ferrous Sulfate [Feosol 325 MG tab] 325 mg PO TID 12/12/16 07/17/19 1 Day Ago History ~07/16/19 Folic Acid [Folvite] 1 mg PO QDAY 12/12/16 07/17/19 1 Day Ago History ~07/16/19 Ciprofloxacin HCl [Ciprofloxacin 500 mg PO Q12HR #12 tab 07/15/19 07/17/19 1 Day Ago Rx TAB] ~07/16/19 Lipase/Protease/Amylase [Robinson Arndt 1 cap PO QAC #60 cap 07/15/19 07/17/19 1 Day Ago Rx 12,000 Units] ~07/16/19 Ondansetron [Zofran Odt] 4 mg PO Q8HR #15 tab.rapdis 07/15/19 07/17/19 1 Day Ago Rx ~07/16/19 Apixaban [Eliquis starter pack] 5 mg PO BID #60 tab.ds.pk 07/16/19 07/17/19 1 Day Ago Rx ~07/16/19 Oxycodone HCl/Acetaminophen 1 each PO Q6HR PRN #15 tablet 07/16/19 07/17/19 1 Day Ago Rx [Percocet 10/325 mg] ~07/16/19 Active Medications: Generic Name Dose Route Start Last Admin Trade Name Freq PRN Reason Stop Dose Admin Acetaminophen 650 mg 07/16/19 21:33 Tylenol PO Q4H PRN Pain MILD(1-3)/Fever >100.5/TORRE Lipase/Protease/Amylase 1 each 07/17/19 07:30 07/22/19 17:35 Robinson Arndt 12,000 Units PO Not Given QA FARHAN Folic Acid 1 mg 07/17/19 10:00 07/22/19 09:02 Folvite PO 1 mg QDAY FARHAN Administration Hydromorphone HCl 0.5 mg 07/18/19 11:58 07/22/19 17:32 Dilaudid IV 0.5 mg Q3H PRN Administration Pain , Severe (7-10) Heparin Sodium/Sodium Chloride 25,000 unit in 500 mls @ 24 mls/hr 07/16/19 23:45 07/22/19 12:43 Heparin/ 0.45% Nacl-25,000 Unit/500 Ml IV 1,100 units/hr TITR FARHAN 22 mls/hr Administration Protocol 1,200 UNITS/HR Ondansetron HCl 4 mg 07/16/19 21:33 07/19/19 22:28 Zofran IV 4 mg Q8H PRN Administration Nausea And Vomiting Ondansetron HCl 4 mg 07/16/19 22:00 07/23/19 05:35 Zofran Odt PO 4 mg Q8H FARHAN Administration Oxycodone HCl 5 mg 07/16/19 22:28 07/23/19 05:42 Roxicodone PO 5 mg Q6H PRN Administration Pain, Moderate (4-6) Oxycodone/Acetaminophen 1 tab 07/16/19 21:33 07/23/19 05:35 Percocet 5/325 PO 1 tab Q6H PRN Administration Pain, Moderate (4-6) Sodium Chloride 10 ml 07/16/19 22:00 07/22/19 23:05 Sodium Chloride Flush Syringe 10 Ml IV 10 ml BID FARHAN Administration Sodium Chloride 10 ml 07/16/19 21:33 Sodium Chloride Flush Syringe 10 Ml IV PRN PRN LINE FLUSH Warfarin Sodium 10 mg 07/22/19 17:00 07/22/19 17:31 Coumadin PO 10 mg DAILY@1700 FARHAN Administration
--- NOTE | 2019-07-23 08:57 | Progress Note ---
Assessment and Plan The patient will need to be discharged on oral anticoagulation given her arterial thrombus. She will need repeat arterial imaging which can be arranged as an outpatient. She will need to follow up in our clinic in 2 weeks following her discharge. We'll order an ultrasound of her left upper arm to ensure that there is no vascular involvement with her infiltration. If her ultrasound appears unremarkable, okay to discharge the patient home today from a vascular standpoint. Subjective Date of service: 07/23/19 Principal diagnosis: arterial thrombus Interval history: Patient is doing well. She has palpable pulses in the right leg and her right leg is warm and well-perfused. Patient has persistent swelling in her left upper arm secondary to IV infiltration with extensive bruising on both upper and lower arm. Very tender to palpation. Objective - Constitutional Vitals: Vital Signs - 12hr 07/22/19 07/22/19 07/22/19 21:40 21:42 23:00 Temperature Pulse Rate 90 Respiratory 22 22 Rate Blood Pressure O2 Sat by Pulse Oximetry 07/22/19 07/23/19 23:46 08:48 Temperature 98.2 F 97.9 F Pulse Rate 87 104 H Respiratory 18 18 Rate Blood Pressure 122/73 113/69 O2 Sat by Pulse 99 99 Oximetry General appearance: Present: no acute distress - EENT Eyes: EOM intact ENT: hearing intact - Neck Neck: supple, normal ROM - Respiratory Respiratory effort: normal - Breasts Breasts: deferred Extremities: abnormal Extremity abnormal: edema, erythema - Gastrointestinal General gastrointestinal: Present: deferred Rectal Exam: deferred - Genitourinary Female genitourinary: deferred - Psychiatric Psychiatric: appropriate mood/affect, cooperative - Labs CBC & Chem 7: 07/22/19 05:10 07/23/19 05:25 Labs: Abnormal lab results 07/23/19 07/23/19 Range/Units 05:25 05:25 PT 23.2 H (12.2-14.9) Sec. INR 2.02 H (0.87-1.13) BUN 3 L (7-17) mg/dL Creatinine 0.4 L (0.7-1.2) mg/dL Glucose 210 H (65-100) mg/dL Medications & Allergies - Medications Allergies/Adverse Reactions: Allergies No Known Allergies Allergy (Unverified 09/18/16 23:27) Home Medications: Home Medications Medication Instructions Recorded Confirmed Last Taken Type Ferrous Sulfate [Feosol 325 MG tab] 325 mg PO TID 12/12/16 07/17/19 1 Day Ago History ~07/16/19 Folic Acid [Folvite] 1 mg PO QDAY 12/12/16 07/17/19 1 Day Ago History ~07/16/19 Ciprofloxacin HCl [Ciprofloxacin 500 mg PO Q12HR #12 tab 07/15/19 07/17/19 1 Day Ago Rx TAB] ~07/16/19 Lipase/Protease/Amylase [Robinson Arndt 1 cap PO QAC #60 cap 07/15/19 07/17/19 1 Day Ago Rx 12,000 Units] ~07/16/19 Ondansetron [Zofran Odt] 4 mg PO Q8HR #15 tab.rapdis 07/15/19 07/17/19 1 Day Ago Rx ~07/16/19 Apixaban [Eliquis starter pack] 5 mg PO BID #60 tab.ds.pk 07/16/19 07/17/19 1 Day Ago Rx ~07/16/19 Oxycodone HCl/Acetaminophen 1 each PO Q6HR PRN #15 tablet 07/16/19 07/17/19 1 Day Ago Rx [Percocet 10/325 mg] ~07/16/19 Active Medications: Generic Name Dose Route Start Last Admin Trade Name Freq PRN Reason Stop Dose Admin Acetaminophen 650 mg 07/16/19 21:33 Tylenol PO Q4H PRN Pain MILD(1-3)/Fever >100.5/TORRE Lipase/Protease/Amylase 1 each 07/17/19 07:30 07/22/19 17:35 Robinson Arndt 12,000 Units PO Not Given QAC FARHAN Folic Acid 1 mg 07/17/19 10:00 07/22/19 09:02 Folvite PO 1 mg QDAY FARHAN Administration Hydromorphone HCl 0.5 mg 07/18/19 11:58 07/22/19 17:32 Dilaudid IV 0.5 mg Q3H PRN Administration Pain , Severe (7-10) Heparin Sodium/Sodium Chloride 25,000 unit in 500 mls @ 24 mls/hr 07/16/19 23:45 07/22/19 12:43 Heparin/ 0.45% Nacl-25,000 Unit/500 Ml IV 1,100 units/hr TITR FARHAN 22 mls/hr Administration Protocol 1,200 UNITS/HR Ondansetron HCl 4 mg 07/16/19 21:33 07/19/19 22:28 Zofran IV 4 mg Q8H PRN Administration Nausea And Vomiting Ondansetron HCl 4 mg 07/16/19 22:00 07/23/19 05:35 Zofran Odt PO 4 mg Q8H FARHAN Administration Oxycodone HCl 5 mg 07/16/19 22:28 07/23/19 05:42 Roxicodone PO 5 mg Q6H PRN Administration Pain, Moderate (4-6) Oxycodone/Acetaminophen 1 tab 07/16/19 21:33 07/23/19 05:35 Percocet 5/325 PO 1 tab Q6H PRN Administration Pain, Moderate (4-6) Sodium Chloride 10 ml 07/16/19 22:00 07/22/19 23:05 Sodium Chloride Flush Syringe 10 Ml IV 10 ml BID FARHAN Administration Sodium Chloride 10 ml 07/16/19 21:33 Sodium Chloride Flush Syringe 10 Ml IV PRN PRN LINE FLUSH Warfarin Sodium 10 mg 07/22/19 17:00 07/22/19 17:31 Coumadin PO 10 mg DAILY@1700 FARHAN Administration
[2019-07-23] MEDS: LIPASE 12,000/PROTEASE 38,000/AMYLASE 60,000 (UNITS) DR CAP PO SCH ×3 (09:56→19:12)
[2019-07-23] MEDS: FOLIC ACID 1 MG TAB PO SCH (09:56)
[2019-07-23] MEDS: HEPARIN/ 0.45% NACL DRIP 25,000 UNIT/500 ML BAG IV SCH (14:46)
[2019-07-23] MEDS: HYDROmorphone 1 MG/1 ML INJ IV PRN ×2 (15:29→23:19)
--- NOTE | 2019-07-23 17:42 | Progress Note ---
Assessment and Plan Assessment and plan: Arterial thrombosis in the distal aorta extending into the right common iliac artery IR input appreciated, heparin drip, echo unremarkable, outpatient Holter monitor Hematology following. Hypercoagulability work-up, to be done as op Arterial duplex of lower extremities unremarkable per Dr. Pelayo -On Heparin drip, warfarin INR therapeutic 2.02 Continue heparin, follow INR tomorrow if remains therapeutic DC heparin Discharge on Coumadin Left UE hematoma; Mild improvement ,was likely due to IV infiltrating into her arm supportive care, ice packs, elevate UE, mild improvement Patient has significant discomfort and pain Follow arterial Doppler per vascular H/O Chronic alcoholic pancreatitis -Avoid hepatotoxins Counseled on continued alcohol abstinence Preventative health counseling performed Obesity; BMI 31.2 Weight reduction when medically stable DVT prophylaxis; on heparin drip Physical therapy Plan of care reviewed with the patient and her nurse Also discussed with supervisor laboratory animal facility Dr. Barney Disposition; home tomorrow if INR therapeutic Plan to discharge on Coumadin, follow up with vascular and hematology Plan of care reviewed with the patient and her nurse I also discussed with supervisor laboratory animal facility and vascular History Interval history: Patient seen and examined , the patient's chart and medications reviewed Patient continues to have left upper arm swelling Mild improvement, complaints of severe pain left upper extremity On heparin and Coumadin, INR is therapeutic today Vital signs reviewed Hospitalist Physical - Constitutional Vitals: Temp Pulse Resp BP Pulse Ox 99.0 F 88 18 107/76 100 07/23/19 17:22 07/23/19 17:22 07/23/19 17:22 07/23/19 17:22 07/23/19 17:22 General appearance: Present: mild distress (LUE pain), well-nourished, obese - EENT Eyes: Present: PERRL, EOM intact - Neck Neck: Present: supple, normal ROM - Respiratory Respiratory effort: normal Respiratory: negative: rales, rhonchi, wheezing - Cardiovascular Rhythm: regular Heart Sounds: Present: S1 & S2 - Extremities Extremities: abnormal (left) Results - Labs CBC & Chem 7: 07/25/19 07:22 07/25/19 07:22 Labs: Laboratory Last Values WBC 6.1 K/mm3 (4.5-11.0) 07/17/19 07:16 RBC 4.26 M/mm3 (3.65-5.03) 07/17/19 07:16 Hgb 8.1 gm/dl (10.1-14.3) L 07/22/19 05:10 Hct 26.4 % (30.3-42.9) L 07/22/19 05:10 MCV 67 fl (79-97) L 07/17/19 07:16 MCH 20 pg (28-32) L 07/17/19 07:16 MCHC 30 % (30-34) 07/17/19 07:16 RDW 20.1 % (13.2-15.2) H 07/17/19 07:16 Plt Count 262 K/mm3 (140-440) 07/22/19 05:10 Lymph % (Auto) 23.0 % (13.4-35.0) 07/17/19 07:16 [place] % (Auto) 7.8 % (0.0-7.3) H 07/17/19 07:16 Eos % (Auto) 1.8 % (0.0-4.3) 07/17/19 07:16 Baso % (Auto) 0.6 % (0.0-1.8) 07/17/19 07:16 Lymph # 1.4 K/mm3 (1.2-5.4) 07/17/19 07:16 [place] # 0.5 K/mm3 (0.0-0.8) 07/17/19 07:16 Eos # 0.1 K/mm3 (0.0-0.4) 07/17/19 07:16 Baso # 0.0 K/mm3 (0.0-0.1) 07/17/19 07:16 Seg Neutrophils % 66.8 % (40.0-70.0) 07/17/19 07:16 Seg Neutrophils # 4.0 K/mm3 (1.8-7.7) 07/17/19 07:16 PT 23.2 Sec. (12.2-14.9) H 07/23/19 05:25 INR 2.02 (0.87-1.13) H 07/23/19 05:25 APTT 30.4 Sec. (24.2-36.6) 07/17/19 01:01 Heparin Anti-Xa Level 0.46 U.I./ml (0.3-0.7) 07/23/19 08:38 Sodium 139 mmol/L (137-145) 07/23/19 05:25 Potassium 4.0 mmol/L (3.6-5.0) 07/23/19 05:25 Chloride 102.2 mmol/L (98-107) 07/23/19 05:25 Carbon Dioxide 26 mmol/L (22-30) 07/23/19 05:25 Anion Gap 15 mmol/L 07/23/19 05:25 BUN 3 mg/dL (7-17) L 07/23/19 05:25 Creatinine 0.4 mg/dL (0.7-1.2) L 07/23/19 05:25 Estimated GFR > 60 ml/min 07/23/19 05:25 BUN/Creatinine Ratio 8 % 07/23/19 05:25 Glucose 210 mg/dL (65-100) H 07/23/19 05:25 Calcium 9.3 mg/dL (8.4-10.2) 07/23/19 05:25 Active Medications - Current Medications Current Medications: Generic Name Dose Route Start Last Admin Trade Name Freq PRN Reason Stop Dose Admin Acetaminophen 650 mg 07/16/19 21:33 Tylenol PO Q4H PRN Pain MILD(1-3)/Fever >100.5/TORRE Lipase/Protease/Amylase 1 each 07/17/19 07:30 07/23/19 14:43 Robinson Arndt 12,000 Units PO Not Given [facility] Folic Acid 1 mg 07/17/19 10:00 07/23/19 09:56 Folvite PO 1 mg QDAY FARHAN Administration Hydromorphone HCl 0.5 mg 07/18/19 11:58 07/23/19 15:29 Dilaudid IV 0.5 mg Q3H PRN Administration Pain , Severe (7-10) Heparin Sodium/Sodium Chloride 25,000 unit in 500 mls @ 24 mls/hr 07/16/19 23:45 07/23/19 14:46 Heparin/ 0.45% Nacl-25,000 Unit/500 Ml IV 1,100 units/hr TITR FARHAN 22 mls/hr Administration Protocol 1,200 UNITS/HR Ondansetron HCl 4 mg 07/16/19 21:33 07/19/19 22:28 Zofran IV 4 mg Q8H PRN Administration Nausea And Vomiting Ondansetron HCl 4 mg 07/16/19 22:00 07/23/19 14:46 Zofran Odt PO 4 mg Q8H FARHAN Administration Oxycodone HCl 5 mg 07/16/19 22:28 07/23/19 09:56 Roxicodone PO 5 mg Q6H PRN Administration Pain, Moderate (4-6) Oxycodone/Acetaminophen 1 tab 07/16/19 21:33 07/23/19 09:56 Percocet 5/325 PO 1 tab Q6H PRN Administration Pain, Moderate (4-6) Sodium Chloride 10 ml 07/16/19 22:00 07/23/19 09:57 Sodium Chloride Flush Syringe 10 Ml IV 10 ml BID FARHAN Administration Sodium Chloride 10 ml 07/16/19 21:33 Sodium Chloride Flush Syringe 10 Ml IV PRN PRN LINE FLUSH Warfarin Sodium 10 mg 07/22/19 17:00 07/22/19 17:31 Coumadin PO 10 mg DAILY@1700 FARHAN Administration Nutrition/Malnutrition Assess - Dietary Evaluation Nutrition/Malnutrition Findings: Nutrition Notes Start: 07/23/19 11:36 Freq: Status: Active Protocol: Document 07/23/19 11:36 AP (Rec: 07/23/19 11:53 AP [id number]) Co-Sign 07/23/19 11:36 LP Nutrition Notes Need for Assessment generated from: LOS,Education Initial or Follow up Assessment Other Pertinent Diagnosis ETOH pancreatitis, rectal bleeding, arterial thrombosis Current Diet Regular Labs/Tests BG 210 Pertinent Medications Oxycodone Dilaudid Coumadin Height 5 ft 5 in Weight 85 kg Usual Body Weight 86 kg [place] Body Weight (kg) 56.81 BMI 31.1 Intake Prior to Admission Fair Weight change and time frame 10% in on month per pt statement Weight Status Obese Subjective/Other Information LOS. Pt states she used to weigh 86 kg but has lost 9 kg in a month. However pt EHR states pt weighs 85kg. Pt is in a lot of pain and on multiple narcotics, this could be the reason for irregularities in her weight recollection. No wasting noted . Pt consumed 75% of bfast. States poor appetite at home r /t pt boyfriend got locked up so she is under a lot of stress. Also discussed Vitamin K and coumadin DNI. Burn Absent Trauma Absent GI Symptoms None Current % PO Fair (50-74%) Minimum of two criteria No physical signs of malnutrition #2 Nutrition Diagnosis Food-medication interacti Etiology Vit K and medicines interaction As Evidenced by Signs and Symptoms Pt on coumadin #1 Nutrition Diagnosis Predicted suboptimal energy intake Etiology stressful conditions at home As Evidenced by Signs and Symptoms pt reports not eating much at home and having a poor appetite Is patient on ventilator? No Is Patient Ambulatory and/or Out of Bed Yes REE-([place]-St. Jeor-ambulatory/OOB) [ 1970.644 [id number]] Kcal/Kg value to use for calculation 20 Approximate Energy Requirements Using 1700 kcal/Kg Calculation Used for Recommendations Kcal/kg Additional Notes PRO: 56-70g/day (0.8-1g/kg 70 kg AdBW) Fluid: 1ml/kcal or per MD Nutrition Intervention Change Diet Order: Continue Regular Teaching Recipient Patient Learning Readiness Fair Teaching Methods Discussion,Handout Response to Teaching Verbalize understanding Education Handouts Provided Vit K and medicine interactions Barriers to Learning No Barriers Patient aware of follow up options Yes Goal #1 Pt meet >80% kcal/PRO needs Anticipated Discharge Needs: Regular diet Follow-Up By: 07/30/19 Additional Comments F/U for stable PO intakes
--- NOTE | 2019-07-23 19:49 | Vascular Lab Report ---
Limited left upper extremity arterial Doppler ultrasound INDICATION / CLINICAL INFORMATION: left arm swelling. TECHNIQUE: Arterial duplex examination of both upper extremities performed using B-mode, color flow and spectral Doppler assessment. COMPARISON: Left upper shoulder any arterial Doppler from 07/20/2019 FINDINGS: RIGHT: Axillary: PSV 109 cm/sec. Triphasic waveform. Brachial: PSV 106 cm/sec. Triphasic waveform. Radial: PSV 90 cm/sec. Triphasic waveform. Again seen, complex fluid collection at the level of the mid upper arm in the vicinity of the biceps currently measures 4.6 x 5.6 cm compared to 4.3 x 4.1 cm when measured in similar fashion on the prev ious scan, slightly increased in size. Its contents demonstrate increased complexity, and an internal fluid fluid level is again seen. Color Doppler images show areas suggestive of moving blood within t he collection. . IMPRESSION: Small increase in size and complexity of the hematoma. Although there is some color flow within the c ollection, significant active extravasation is felt unlikely given the relatively modest increase in size over the intervening 3 days. Serial physical examination is recommended to monitor for rapid exp ansion. Signer Name: Tavares Jaime MD Signed: 07/23/2019 7:44 PM Workstation Name: [id number]
[2019-07-24] MEDS: oxyCODONE 5 MG TAB PO PRN ×4 (01:44→21:26)
[2019-07-24] MEDS: oxyCODONE /ACETAMINOPHEN 5-325MG TAB PO PRN ×4 (01:45→21:28)
[2019-07-24] MEDS: ONDANSETRON 4 MG ODT TAB PO SCH ×3 (06:09→21:29)
[2019-07-24 07:04] LABS: Hematocrit 25.3 % (30.3-42.9); Hemoglobin 7.5 gm/dl (10.1-14.3)
[2019-07-24 07:07] LABS: INR 1.84 (0.87-1.13)
[2019-07-24 07:15] LABS: BUN/Creatinine Ratio 10; Blood Urea Nitrogen 5 mg/dL (7-17); Calcium 9.2 mg/dL (8.4-10.2); Hemolysis Index 0
[2019-07-24] MEDS: LIPASE 12,000/PROTEASE 38,000/AMYLASE 60,000 (UNITS) DR CAP PO SCH ×3 (08:19→16:30)
[2019-07-24] MEDS: HYDROmorphone 1 MG/1 ML INJ IV PRN ×2 (08:20→19:58)
[2019-07-24] MEDS: FOLIC ACID 1 MG TAB PO SCH (09:08)
--- NOTE | 2019-07-24 10:54 | Progress Note ---
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 Hypercoagulability work-up, to be done as op Arterial duplex of lower extremities unremarkable per Dr. Pelayo -On Heparin drip, warfarin INR therapeutic 2.02 , today 1.84 Continue heparin, adjust Coumadin dose[pharmacy] Left UE hematoma; Probably due to IV infiltrating into her arm Follow Left upper extremity arterial Doppler; Small increase in size and complexity of the hematoma. Management per vascular supportive care, ice packs, elevate UE, mild improvement Patient has significant discomfort and pain H/O Chronic alcoholic pancreatitis -Supportive care Obesity; BMI 31.2 Weight reduction when medically stable DVT prophylaxis; on heparin drip Physical therapy Plan of care reviewed with the patient and her nurse Also discussed with small engine specialist Dr. Barney Disposition; follow vascular recommendations regarding left upper extremity hematoma Possible discharge when medically stable History Interval history: Since seen and examined medical records reviewed Patient continues to have pain left upper extremity Swelling slightly increased since yesterday, noted hard and tender INR remained subtherapeutic Patient is really concerned Vital signs noted Hospitalist Physical - Constitutional Vitals: Temp Pulse Resp BP Pulse Ox 98.7 F 88 18 106/68 100 07/24/19 09:01 07/24/19 09:01 07/24/19 09:01 07/24/19 09:01 07/24/19 09:01 General appearance: Present: mild distress (LUE pain), well-nourished, obese - EENT Eyes: Present: PERRL, EOM intact - Neck Neck: Present: supple, normal ROM - Respiratory Respiratory effort: normal Respiratory: bilateral: diminished, negative: rales, rhonchi, wheezing - Cardiovascular Rhythm: regular Heart Sounds: Present: S1 & S2 - Extremities Extremities: abnormal (swelling erythema tenderness) Extremity abnormal: edema - Abdominal General gastrointestinal: soft, non-tender, non-distended, normal bowel sounds - Integumentary Integumentary: Present: clear, warm - Psychiatric Psychiatric: appropriate mood/affect, cooperative - Neurologic Neurologic: moves all extremities Results - Labs CBC & Chem 7: 07/25/19 07:22 07/25/19 07:22 Labs: Laboratory Last Values WBC 6.1 K/mm3 (4.5-11.0) 07/17/19 07:16 RBC 4.26 M/mm3 (3.65-5.03) 07/17/19 07:16 Hgb 7.5 gm/dl (10.1-14.3) L 07/24/19 06:06 Hct 25.3 % (30.3-42.9) L 07/24/19 06:06 MCV 67 fl (79-97) L 07/17/19 07:16 MCH 20 pg (28-32) L 07/17/19 07:16 MCHC 30 % (30-34) 07/17/19 07:16 RDW 20.1 % (13.2-15.2) H 07/17/19 07:16 Plt Count 293 K/mm3 (140-440) 07/24/19 06:06 Lymph % (Auto) 23.0 % (13.4-35.0) 07/17/19 07:16 Power % (Auto) 7.8 % (0.0-7.3) H 07/17/19 07:16 Eos % (Auto) 1.8 % (0.0-4.3) 07/17/19 07:16 Baso % (Auto) 0.6 % (0.0-1.8) 07/17/19 07:16 Lymph # 1.4 K/mm3 (1.2-5.4) 07/17/19 07:16 Power # 0.5 K/mm3 (0.0-0.8) 07/17/19 07:16 Eos # 0.1 K/mm3 (0.0-0.4) 07/17/19 07:16 Baso # 0.0 K/mm3 (0.0-0.1) 07/17/19 07:16 Seg Neutrophils % 66.8 % (40.0-70.0) 07/17/19 07:16 Seg Neutrophils # 4.0 K/mm3 (1.8-7.7) 07/17/19 07:16 PT 21.6 Sec. (12.2-14.9) H 07/24/19 06:06 INR 1.84 (0.87-1.13) H 07/24/19 06:06 APTT 30.4 Sec. (24.2-36.6) 07/17/19 01:01 Heparin Anti-Xa Level 0.46 U.I./ml (0.3-0.7) 07/23/19 08:38 Sodium 136 mmol/L (137-145) L 07/24/19 06:06 Potassium 4.3 mmol/L (3.6-5.0) 07/24/19 06:06 Chloride 100.4 mmol/L (98-107) 07/24/19 06:06 Carbon Dioxide 24 mmol/L (22-30) 07/24/19 06:06 Anion Gap 16 mmol/L 07/24/19 06:06 BUN 5 mg/dL (7-17) L 07/24/19 06:06 Creatinine 0.5 mg/dL (0.7-1.2) L 07/24/19 06:06 Estimated GFR > 60 ml/min 07/24/19 06:06 BUN/Creatinine Ratio 10 % 07/24/19 06:06 Glucose 255 mg/dL (65-100) H 07/24/19 06:06 Calcium 9.2 mg/dL (8.4-10.2) 07/24/19 06:06 Active Medications - Current Medications Current Medications: Generic Name Dose Route Start Last Admin Trade Name Freq PRN Reason Stop Dose Admin Acetaminophen 650 mg 07/16/19 21:33 Tylenol PO Q4H PRN Pain MILD(1-3)/Fever >100.5/TORRE Lipase/Protease/Amylase 1 each 07/17/19 07:30 07/24/19 08:19 Robinson Arndt 12,000 Units PO 1 each [facility] Administration Folic Acid 1 mg 07/17/19 10:00 07/24/19 09:08 Folvite PO 1 mg QDAY [facility] Administration Hydromorphone HCl 0.5 mg 07/18/19 11:58 07/23/19 23:19 Dilaudid IV 0.5 mg Q3H PRN Administration Pain , Severe (7-10) Heparin Sodium/Sodium Chloride 25,000 unit in 500 mls @ 24 mls/hr 07/16/19 23:45 07/23/19 14:46 Heparin/ 0.45% Nacl-25,000 Unit/500 Ml IV 1,100 units/hr TITR FARHAN 22 mls/hr Administration Protocol 1,200 UNITS/HR Ondansetron HCl 4 mg 07/16/19 21:33 07/19/19 22:28 Zofran IV 4 mg Q8H PRN Administration Nausea And Vomiting Ondansetron HCl 4 mg 07/16/19 22:00 07/24/19 06:09 Zofran Odt PO Not Given Q8H [facility] Oxycodone HCl 5 mg 07/16/19 22:28 07/24/19 08:27 Roxicodone PO 5 mg Q6H PRN Administration Pain, Moderate (4-6) Oxycodone/Acetaminophen 1 tab 07/16/19 21:33 07/24/19 08:28 Percocet 5/325 PO 1 tab Q6H PRN Administration Pain, Moderate (4-6) Sodium Chloride 10 ml 07/16/19 22:00 07/23/19 21:19 Sodium Chloride Flush Syringe 10 Ml IV Not Given BID FAR[facility]AN Sodium Chloride 10 ml 07/16/19 21:33 Sodium Chloride Flush Syringe 10 Ml IV PRN PRN LINE FLUSH Warfarin Sodium 10 mg 07/22/19 17:00 07/22/19 17:31 Coumadin PO 10 mg DAILY@1700 [facility] Administration Nutrition/Malnutrition Assess - Dietary Evaluation Nutrition/Malnutrition Findings: Nutrition Notes Start: 07/23/19 11:36 Freq: Status: Active Protocol: Document 07/23/19 11:36 AP (Rec: 07/23/19 11:53 AP [id number]) Co-Sign 07/23/19 11:36 LP Nutrition Notes Need for Assessment generated from: LOS,Education Initial or Follow up Assessment Other Pertinent Diagnosis ETOH pancreatitis, rectal bleeding, arterial thrombosis Current Diet Regular Labs/Tests BG 210 Pertinent Medications Oxycodone Dilaudid Coumadin Height 5 ft 5 in Weight 85 kg Usual Body Weight 86 kg [place] Body Weight (kg) 56.81 BMI 31.1 Intake Prior to Admission Fair Weight change and time frame 10% in on month per pt statement Weight Status Obese Subjective/Other Information LOS. Pt states she used to weigh 86 kg but has lost 9 kg in a month. However pt EHR states pt weighs 85kg. Pt is in a lot of pain and on multiple narcotics, this could be the reason for irregularities in her weight recollection. No wasting noted . Pt consumed 75% of bfast. States poor appetite at home r /t pt boyfriend got locked up so she is under a lot of stress. Also discussed Vitamin K and coumadin DNI. Burn Absent Trauma Absent GI Symptoms None Current % PO Fair (50-74%) Minimum of two criteria No physical signs of malnutrition #2 Nutrition Diagnosis Food-medication interacti Etiology Vit K and medicines interaction As Evidenced by Signs and Symptoms Pt on coumadin #1 Nutrition Diagnosis Predicted suboptimal energy intake Etiology stressful conditions at home As Evidenced by Signs and Symptoms pt reports not eating much at home and having a poor appetite Is patient on ventilator? No Is Patient Ambulatory and/or Out of Bed Yes REE-([place] or-ambulatory/OOB) [ 1970.644 NUTR.[id number]] Kcal/Kg value to use for calculation 20 Approximate Energy Requirements Using 1700 kcal/Kg Calculation Used for Recommendations Kcal/kg Additional Notes PRO: 56-70g/day (0.8-1g/kg 70 kg AdBW) Fluid: 1ml/kcal or per MD Nutrition Intervention Change Diet Order: Continue Regular Teaching Recipient Patient Learning Readiness Fair Teaching Methods Discussion,Handout Response to Teaching Verbalize understanding Education Handouts Provided Vit K and medicine interactions Barriers to Learning No Barriers Patient aware of follow up options Yes Goal #1 Pt meet >80% kcal/PRO needs Anticipated Discharge Needs: Regular diet Follow-Up By: 07/30/19 Additional Comments F/U for stable PO intakes
--- NOTE | 2019-07-24 13:51 | Progress Note ---
Assessment and Plan The patient stated that the i.v. insertion was painful and that the i.v. hurt while it was in. She stated that she asked fir it to be removed immediately after the CT scan was performed. After the i.v. was removed she describes her arm beginning to swell rapidly and having and increasing amount of pain. Her arterial duplex reveals an increase in the size of the mass with flow within the mass. 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 Given the continued expansion and the significant amount of discomfort the patient is having, i have offered her an exploration of the artery with excision of the pseudoaneursym and repair of the brachial artery. I explained the risk, benefits, and alternative procedures. The patient expressed having some anxiety about surgery however she stated she understood and wishes to proceed. Will plan for tomorrow morning at 08:00 because the patient at lunch today. Subjective Date of service: 07/24/19 Principal diagnosis: arterial thrombus Interval history: Patient with continued complaints of pain in her left arm and spasm of the hand. No additional complaints. Objective - Constitutional Vitals: Vital Signs - 12hr 07/24/19 07/24/19 07/24/19 06:01 08:00 08:27 Temperature 98.1 F Pulse Rate 89 85 Respiratory 20 20 Rate Blood Pressure Blood Pressure 90/58 [Right] O2 Sat by Pulse 99 Oximetry 07/24/19 07/24/19 07/24/19 08:28 09:01 10:00 Temperature 98.7 F Pulse Rate 88 Respiratory 20 18 20 Rate Blood Pressure 106/68 Blood Pressure [Right] O2 Sat by Pulse 100 100 Oximetry 07/24/19 11:22 Temperature 98.4 F Pulse Rate 82 Respiratory 18 Rate Blood Pressure 104/65 Blood Pressure [Right] O2 Sat by Pulse 99 Oximetry General appearance: Present: no acute distress Extremities: abnormal (Left radial pulse intact. Palpable mass left medial bicep, tender to palpation. Unable to determine if its pulsatile) - Labs CBC & Chem 7: 07/24/19 06:06 07/24/19 06:06 Labs: Abnormal lab results 07/24/19 07/24/19 07/24/19 Range/Units 06:06 06:06 06:06 Hgb 7.5 L (10.1-14.3) gm/dl Hct 25.3 L (30.3-42.9) % PT 21.6 H (12.2-14.9) Sec. INR 1.84 H (0.87-1.13) Sodium 136 L (137-145) mmol/L BUN 5 L (7-17) mg/dL Creatinine 0.5 L (0.7-1.2) mg/dL Glucose 255 H (65-100) mg/dL Medications & Allergies - Medications Allergies/Adverse Reactions: Allergies No Known Allergies Allergy (Unverified 09/18/16 23:27) Home Medications: Home Medications Medication Instructions Recorded Confirmed Last Taken Type Ferrous Sulfate [Feosol 325 MG tab] 325 mg PO TID 12/12/16 07/17/19 1 Day Ago History ~07/16/19 Folic Acid [Folvite] 1 mg PO QDAY 12/12/16 07/17/19 1 Day Ago History ~07/16/19 Ciprofloxacin HCl [Ciprofloxacin 500 mg PO Q12HR #12 tab 07/15/19 07/17/19 1 Day Ago Rx TAB] ~07/16/19 Lipase/Protease/Amylase [Robinson Arndt 1 cap PO QAC #60 cap 07/15/19 07/17/19 1 Day Ago Rx 12,000 Units] ~07/16/19 Ondansetron [Zofran Odt] 4 mg PO Q8HR #15 tab.rapdis 07/15/19 07/17/19 1 Day Ago Rx ~07/16/19 Apixaban [Eliquis starter pack] 5 mg PO BID #60 tab.ds.pk 07/16/19 07/17/19 1 Day Ago Rx ~07/16/19 Oxycodone HCl/Acetaminophen 1 each PO Q6HR PRN #15 tablet 07/16/19 07/17/19 1 Day Ago Rx [Percocet 10/325 mg] ~07/16/19 Active Medications: Generic Name Dose Route Start Last Admin Trade Name Freq PRN Reason Stop Dose Admin Acetaminophen 650 mg 07/16/19 21:33 Tylenol PO Q4H PRN Pain MILD(1-3)/Fever >100.5/TORRE Lipase/Protease/Amylase 1 each 07/17/19 07:30 07/24/19 12:53 Robinson Arndt 12,000 Units PO 1 each QAC [facility] Administration Folic Acid 1 mg 07/17/19 10:00 07/24/19 09:08 Folvite PO 1 mg QDAY [facility] Administration Hydromorphone HCl 0.5 mg 07/18/19 11:58 07/23/19 23:19 Dilaudid IV 0.5 mg Q3H PRN Administration Pain , Severe (7-10) Heparin Sodium/Sodium Chloride 25,000 unit in 500 mls @ 24 mls/hr 07/16/19 23:45 07/24/19 12:18 Heparin/ 0.45% Nacl-25,000 Unit/500 Ml IV 1,100 units/hr TITR FARHAN 22 mls/hr Titration Protocol 1,200 UNITS/HR Ondansetron HCl 4 mg 07/16/19 21:33 07/19/19 22:28 Zofran IV 4 mg Q8H PRN Administration Nausea And Vomiting Ondansetron HCl 4 mg 07/16/19 22:00 07/24/19 06:09 Zofran Odt PO Not Given Q8H [facility] Oxycodone HCl 5 mg 07/16/19 22:28 07/24/19 08:27 Roxicodone PO 5 mg Q6H PRN Administration Pain, Moderate (4-6) Oxycodone/Acetaminophen 1 tab 07/16/19 21:33 07/24/19 08:28 Percocet 5/325 PO 1 tab Q6H PRN Administration Pain, Moderate (4-6) Sodium Chloride 10 ml 07/16/19 22:00 07/24/19 10:00 Sodium Chloride Flush Syringe 10 Ml IV 10 ml BID [facility] Administration Sodium Chloride 10 ml 07/16/19 21:33 Sodium Chloride Flush Syringe 10 Ml IV PRN PRN LINE FLUSH Warfarin Sodium 10 mg 07/22/19 17:00 07/22/19 17:31 Coumadin PO 10 mg DAILY@1700 [facility] Administration
--- NOTE | 2019-07-24 13:57 | Anesthesia Consultation ---
Anesthesia Consult and Med Hx Date of service: 07/24/19 - Airway Anesthetic Teeth Evaluation: Poor, Chipped (top incisor) ROM Head & Neck: Adequate Mental/Hyoid Distance: Adequate Mallampati Class: Class III Intubation Access Assessment: Possibly Difficult - Pulmonary Exam CTA: Yes - Cardiac Exam Cardiac Exam: RRR - Pre-Operative Health Status ASA Pre-Surgery Classification: ASA3 Proposed Anesthetic Plan: General - Pulmonary Hx Smoking: Yes (<1/2PPD) Hx Respiratory Symptoms: No - Cardiovascular System Hx Hypertension: No Hx Heart Attack/AMI: No Hx Percutaneous Transluminal Coronary Angioplasty (PTCA): No Hx Cardia Arrhythmia: No (enlarged atrium on TTE; cardiology recs outpatient a- fib screening) - Central Nervous System Hx Seizures: No CVA: No Hx Psychiatric Problems: No - Gastrointestinal Hx Gastroesophageal Reflux Disease: No - Endocrine Hx Renal Disease: No Hx Liver Disease: No Hx Insulin Dependent Diabetes: No Hx Non-Insulin Dependent Diabetes: No Hx Thyroid Disease: No - Hematic Hx Anemia: Yes - Other Systems Hx Alcohol Use: Yes (chronic EtOH pancreatitis; last drink 3 wks ago. No hx withdrawal symptoms) Hx Obesity: Yes (BMI 32) - Additional Comments Anesthesia Medical History Comments: No hx anesthetic complications. PMH smoking, chronic EtOH pancreatitis, distal aortic thrombus on heparin gtt and coumadin scheduled for left brachial artery pseudoanuerysm repair. Current cardiology notes and studies reviewed. Gave verbal consent for blood transfusion if required.
[2019-07-24] MEDS ORDERED: SODIUM CHLORIDE 0.9% 500 ML 500 ML IV ONE ×2 (14:00→22:30)
[2019-07-24] MEDS: WARFARIN 10 MG TAB PO SCH ×2 (17:10→17:12)
[2019-07-25] MEDS: HYDROmorphone 1 MG/1 ML INJ IV PRN ×3 (00:50→23:43)
[2019-07-25] MEDS ORDERED: SODIUM CHLORIDE 0.9% 500 ML 500 ML ONE ×2 (03:49→08:13)
[2019-07-25] MEDS: oxyCODONE 5 MG TAB PO PRN ×2 (04:03→16:58)
[2019-07-25] MEDS: oxyCODONE /ACETAMINOPHEN 5-325MG TAB PO PRN ×2 (04:04→16:58)
[2019-07-25] MEDS: ONDANSETRON 4 MG ODT TAB PO SCH ×3 (05:52→23:45)
[2019-07-25] MEDS: LIPASE 12,000/PROTEASE 38,000/AMYLASE 60,000 (UNITS) DR CAP PO SCH ×3 (07:30→16:57)
[2019-07-25 07:48] LABS: Hematocrit 30.7 % (30.3-42.9); Hemoglobin 9.6 gm/dl (10.1-14.3); Mean Corpuscular HGB Conc 31 % (30-34); Mean Corpuscular Volume 72 fl (79-97); Platelet Count 314 K/mm3 (140-440); Red Blood Count 4.27 M/mm3 (3.65-5.03)
[2019-07-25 07:51] LABS: Red Cell Distribution Width 23.5 % (13.2-15.2)
[2019-07-25 07:52] LABS: INR 1.77 (0.87-1.13)
[2019-07-25 07:53] LABS: Partial Thromboplastin Time 33.2 Sec. (24.2-36.6)
[2019-07-25] MEDS ORDERED: LIDOCAINE MPF (2%) 20 MG/1 ML VIAL 5 ML ONE (07:59)
[2019-07-25] MEDS ORDERED: PROPOFOL 200 MG/20 ML VIAL IV ONE (07:59)
[2019-07-25] MEDS ORDERED: fentaNYL 100 MCG/2 ML INJ ONE ×2 (07:59→09:05)
[2019-07-25] MEDS ORDERED: ceFAZolin/Water 2 GM/20 ML 2 GM/20 ML SYRINGE IV NR (08:00)
[2019-07-25 08:04] LABS: BUN/Creatinine Ratio 13; Blood Urea Nitrogen 5 mg/dL (7-17); Calcium 10.1 mg/dL (8.4-10.2); Hemolysis Index 3
[2019-07-25] MEDS ORDERED: HEPARIN 10,000 UNITS/10 ML VIAL ONE (08:13)
[2019-07-25] MEDS ORDERED: rifAMPin 600 MG VIAL ONE (08:13)
[2019-07-25] MEDS ORDERED: PROTAMINE SULFATE 50 MG/5 ML INJ ONE (08:13)
[2019-07-25] MEDS ORDERED: BUPIVACAINE/PF (0.5%) 5 MG/1 ML 30 ML VIAL INFILTRATI ONE ×3 (08:13→09:50)
[2019-07-25] MEDS ORDERED: SODIUM CHLORIDE P/F VIAL 10 ML 0 ML ONE (08:14)
[2019-07-25] MEDS ORDERED: MIDAZOLAM 2 MG/2 ML INJ ONE ×2 (08:35→08:36)
[2019-07-25] MEDS ORDERED: HYDROmorphone 1 MG/1 ML INJ IV PRN (09:03)
--- NOTE | 2019-07-25 09:03 | Anesthesia Day of Surgery ---
Anesthesia Day of Surgery - Day of Surgery Patient Examined: Yes Patient H&P Reviewed: Yes Patient is NPO: Yes
[2019-07-25] MEDS ORDERED: KETOROLAC 30 MG/1 ML INJ ONE (09:16)
[2019-07-25] MEDS ORDERED: ONDANSETRON 4 MG/2 ML INJ ONE (09:16)
[2019-07-25] MEDS ORDERED: dexAMETHasone 20 MG/5 ML VIAL ONE (09:16)
[2019-07-25] MEDS ORDERED: HEPARIN 10,000 UNITS/10 ML VIAL IR ONE (09:33)
[2019-07-25] MEDS ORDERED: SODIUM CHLORIDE 0.9% 500 ML IVPB IRRIGATION ONE (09:33)
[2019-07-25] MEDS ORDERED: METOPROLOL TARTRATE 5 MG/5 ML INJ IV ONE (09:35)
--- NOTE | 2019-07-25 10:31 | Operative Report ---
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 Excision of Left Arm Pseudoaneurysm with Exploration of Left Brachial Artery Surgeon: Chad Brunson M.D. Radio Intelligence Operator: Bernabe Anesthesia: Gen. Endotracheal Anesthesia EBL: Minimal Counts: Correct Complications: None Condition: Stable Findings: Large pseudoaneurysm contained within the left bicep extending throughout the entire bicep. The pseudoaneurysm was thrombosed by the time of the operation and I was unable to identify the connection with the brachial artery. Specimen: None Indication: The patient is a 39-year-old female who presented with a history of alcoholic pancreatitis and a thrombus within the right iliac artery. She had a IV place for a CTA of her chest. There was some difficulty with the IV placement and she states that there was some pain involved with the IV placement. Shortly after the CT scan asked for the IV to be removed secondary to the pain and after removal of the IV she noted significant swelling of the arm and increase in the pain. An ultrasound performed after removal demonstrated a large fluid collection and serial ultrasounds revealed enlargement of the collection as well as flow within the mass suggestive of a pseudoaneurysm. Given the increasing size of the mass as well as the suspicion for pseudoaneurysm and the patient's inability to straighten arm secondary to the mass was felt that she required exploration with excision of the possible pseudoaneurysm. She was given the risk, benefits, and alternative procedures and consented to the procedure. Description of Procedure: The patient was brought to the operating room and laid in supine position. After timeout was performed to left arm was prepped and draped in normal sterile fashion. A longitudinal incision was created on the medial aspect of the arm and carried down to the proximal brachial artery using sharp dissection. The brachial artery was dissected circumferentially controlled vessel loops to control him follow prior to addressing the pseudoaneurysm. I then dissected out the artery distal to the pseudoaneurysm and controlled this with vessels. I tried to identify any connection with the pseudoaneurysm on the brachial artery however I was unable to identify a defect in the artery so I opened the pseudoaneurysm to see if I could retract the pseudoaneurysm down to the artery and upon open pseudoaneurysm I encountered a significant amount of liquefied hematoma which I aspirated with a Yankauer suction. I copiously irrigated the pseudoaneurysm which extended throughout the entire bicep and continued irri gation until I was able to remove all hematoma from the cavity. Upon removing all hematoma I did not note any bright red blood. I explored the entire brachial artery within the incision and found no connection with the pseudoaneurysm so I suspected that the pseudoaneurysm was due to an injury to a branch of the brachial artery. I observed the pseudoaneurysm cavity for possibly 5 minutes to see if any bright red blood began to well up in the cavity however that did not occur indicating that the tract had likely thrombosed. At this point I achieve hemostasis within the wound with a combination of direct pressure, cautery, and Rohan. Once hemostasis was achieved anesthetized the wound was 0.5% Marcaine and then closed the wound with 3-0 Vicryl in running fashion in the deep dermal layer and 4-0 Monocryl in a running fashion subcuticular and then the mole was dressed with Dermabond. The patient tolerated the procedure well. All sponge, needle, and instrument counts were correct. The patient was taken to the recovery area in stable condition.
[2019-07-25] MEDS ORDERED: HYDROmorphone 1 MG/1 ML INJ ONE (10:42)
--- NOTE | 2019-07-25 11:07 | Post Anesthesia Evaluation ---
- Post Anesthesia Evaluation Patient Participated: Yes Airway Patent: Yes Stable Respiratory Function: Yes Nausea/Vomiting: No Temp > 96.8F: Yes Pain Manageable: Yes Adequeate Hydration: Yes Anesthesia Complications: No
[2019-07-25] MEDS: FOLIC ACID 1 MG TAB PO SCH (13:20)
[2019-07-25] MEDS: WARFARIN 10 MG TAB PO SCH (16:57)
[2019-07-25] MEDS ORDERED: WARFARIN 2.5 MG TAB PO SCH (17:00)
--- NOTE | 2019-07-25 19:29 | Progress Note ---
Assessment and Plan Assessment and plan: --Rt lower extremity thromboembolic embolization to the right distal aorta and into the right common iliac artery, Evaluated by vascular surgeon, Right foot well perfused, No indication for thrombectomy, Recommended anticoagulation with heparin and Coumadin, Goal of INR between 2-3.. --Left upper arm swelling /hematoma due to possible IV infiltration Patient had vascular procedure : Excision of the left arm pseudoaneurysm with exploration of left brachial artery Postop care per vascular, IV fluids, pain management --History of chronic pancreatitis; supportive care --Obesity; BMI 32.8 Recommend weight reduction when medically stable --DVT prophylaxis; patient is on heparin Monitor closely and adjust management as needed Plan of care reviewed with the patient's family members and her nurse Patient was sedated and sleeping History Interval history: Patient seen at the bedside, multiple family members and the nurse present Patient underwent a vascular procedure, now sedated Sleeping Vital signs noted Hospitalist Physical - Constitutional Vitals: Temp Pulse Resp BP Pulse Ox 98.6 F 100 H 20 121/77 99 07/25/19 10:50 07/25/19 16:20 07/25/19 16:58 07/25/19 16:20 07/25/19 16:20 General appearance: Present: mild distress (LUE pain), well-nourished, obese, other (sedated sleeping) - EENT Eyes: Present: PERRL, EOM intact - Neck Neck: Present: supple, normal ROM - Respiratory Respiratory effort: normal Respiratory: bilateral: diminished, negative: rales, rhonchi, wheezing - Cardiovascular Rhythm: regular Heart Sounds: Present: S1 & S2 - Extremities Extremities: abnormal (surgical dressing in the left upper arm) - Abdominal General gastrointestinal: soft, non-tender, non-distended, normal bowel sounds - Integumentary Integumentary: Present: clear, warm - Psychiatric Psychiatric: other (sleeping) - Neurologic Neurologic: other (sedated sleeping) Results - Labs CBC & Chem 7: 07/25/19 07:22 07/25/19 07:22 Labs: Laboratory Last Values WBC 8.9 K/mm3 (4.5-11.0) 07/25/19 07:22 RBC 4.27 M/mm3 (3.65-5.03) 07/25/19 07:22 Hgb 9.6 gm/dl (10.1-14.3) L 07/25/19 07:22 Hct 30.7 % (30.3-42.9) 07/25/19 07:22 MCV 72 fl (79-97) L 07/25/19 07:22 MCH 22 pg (28-32) L 07/25/19 07:22 MCHC 31 % (30-34) 07/25/19 07:22 RDW 23.5 % (13.2-15.2) H 07/25/19 07:22 Plt Count 314 K/mm3 (140-440) 07/25/19 07:22 Lymph % (Auto) 23.0 % (13.4-35.0) 07/17/19 07:16 [place] % (Auto) 7.8 % (0.0-7.3) H 07/17/19 07:16 Eos % (Auto) 1.8 % (0.0-4.3) 07/17/19 07:16 Baso % (Auto) 0.6 % (0.0-1.8) 07/17/19 07:16 Lymph # 1.4 K/mm3 (1.2-5.4) 07/17/19 07:16 [place] # 0.5 K/mm3 (0.0-0.8) 07/17/19 07:16 Eos # 0.1 K/mm3 (0.0-0.4) 07/17/19 07:16 Baso # 0.0 K/mm3 (0.0-0.1) 07/17/19 07:16 Seg Neutrophils % 66.8 % (40.0-70.0) 07/17/19 07:16 Seg Neutrophils # 4.0 K/mm3 (1.8-7.7) 07/17/19 07:16 PT 20.9 Sec. (12.2-14.9) H 07/25/19 07:33 INR 1.77 (0.87-1.13) H 07/25/19 07:33 APTT 33.2 Sec. (24.2-36.6) 07/25/19 07:33 Heparin Anti-Xa Level 0.10 U.I./ml (0.3-0.7) L 07/25/19 16:13 Sodium 136 mmol/L (137-145) L 07/25/19 07:22 Potassium 4.2 mmol/L (3.6-5.0) 07/25/19 07:22 Chloride 101.6 mmol/L (98-107) 07/25/19 07:22 Carbon Dioxide 19 mmol/L (22-30) L 07/25/19 07:22 Anion Gap 20 mmol/L 07/25/19 07:22 BUN 5 mg/dL (7-17) L 07/25/19 07:22 Creatinine 0.4 mg/dL (0.7-1.2) L 07/25/19 07:22 Estimated GFR > 60 ml/min 07/25/19 07:22 BUN/Creatinine Ratio 13 % 07/25/19 07:22 Glucose 217 mg/dL (65-100) H 07/25/19 07:22 POC Glucose 209 (70-105) H 07/25/19 10:47 Calcium 10.1 mg/dL (8.4-10.2) 07/25/19 07:22 Blood Type A POSITIVE 07/24/19 15:30 Antibody Screen Negative 07/24/19 15:30 Crossmatch See Detail 07/24/19 15:30 Active Medications - Current Medications Current Medications: Generic Name Dose Route Start Last Admin Trade Name Freq PRN Reason Stop Dose Admin Acetaminophen 650 mg 07/16/19 21:33 Tylenol PO Q4H PRN Pain MILD(1-3)/Fever >100.5/TORRE Lipase/Protease/Amylase 1 each 07/17/19 07:30 07/25/19 16:[address] 12,000 Units PO 1 each QA FARHAN Administration Folic Acid 1 mg 07/17/19 10:00 07/25/19 13:20 Folvite PO 1 mg QDAY FARHAN Administration Hydromorphone HCl 0.5 mg 07/18/19 11:58 07/25/19 10:51 Dilaudid IV 0.5 mg Q3H PRN Administration Pain , Severe (7-10) Hydromorphone HCl 0.5 mg 07/25/19 09:03 07/25/19 10:30 Dilaudid IV 07/25/19 23:59 0.5 mg Q10MIN PRN Administration Pain , Severe (7-10) Heparin Sodium/Sodium Chloride 25,000 unit in 500 mls @ 24 mls/hr 07/16/19 23:45 07/25/19 17:18 Heparin/ 0.45% Nacl-25,000 Unit/500 Ml IV Infused TITR FARHAN Titration Protocol 1,200 UNITS/HR Ondansetron HCl 4 mg 07/16/19 21:33 07/19/19 22:28 Zofran IV 4 mg Q8H PRN Administration Nausea And Vomiting Ondansetron HCl 4 mg 07/16/19 22:00 07/25/19 15:18 Zofran Odt PO 4 mg Q8H FARHAN Administration Oxycodone HCl 5 mg 07/16/19 22:28 07/25/19 16:58 Roxicodone PO 5 mg Q6H PRN Administration Pain, Moderate (4-6) Oxycodone/Acetaminophen 1 tab 07/16/19 21:33 07/25/19 16:58 Percocet 5/325 PO 1 tab Q6H PRN Administration Pain, Moderate (4-6) Sodium Chloride 10 ml 07/16/19 22:00 07/25/19 13:21 Sodium Chloride Flush Syringe 10 Ml IV 10 ml BID FARHAN Administration Sodium Chloride 10 ml 07/16/19 21:33 Sodium Chloride Flush Syringe 10 Ml IV PRN PRN LINE FLUSH Warfarin Sodium 10 mg 07/22/19 17:00 07/25/19 16:57 Coumadin PO 10 mg DAILY@1700 FARHAN Administration Warfarin Sodium 2.5 mg 07/25/19 17:00 07/25/19 16:57 Coumadin PO 2.5 mg DAILY@1700 FARHAN Administration Nutrition/Malnutrition Assess - Dietary Evaluation Nutrition/Malnutrition Findings: Nutrition Notes Start: 07/23/19 11:36 Freq: Status: Active Protocol: Document 07/23/19 11:36 AP (Rec: 07/23/19 11:53 AP [id number]) Co-Sign 07/23/19 11:36 LP Nutrition Notes Need for Assessment generated from: LOS,Education Initial or Follow up Assessment Other Pertinent Diagnosis ETOH pancreatitis, rectal bleeding, arterial thrombosis Current Diet Regular Labs/Tests BG 210 Pertinent Medications Oxycodone Dilaudid Coumadin Height 5 ft 5 in Weight 85 kg Usual Body Weight 86 kg [place] Body Weight (kg) 56.81 BMI 31.1 Intake Prior to Admission Fair Weight change and time frame 10% in on month per pt statement Weight Status Obese Subjective/Other Information LOS. Pt states she used to weigh 86 kg but has lost 9 kg in a month. However pt EHR states pt weighs 85kg. Pt is in a lot of pain and on multiple narcotics, this could be the reason for irregularities in her weight recollection. No wasting noted . Pt consumed 75% of bfast. States poor appetite at home r /t pt boyfriend got locked up so she is under a lot of stress. Also discussed Vitamin K and coumadin DNI. Burn Absent Trauma Absent GI Symptoms None Current % PO Fair (50-74%) Minimum of two criteria No physical signs of malnutrition #2 Nutrition Diagnosis Food-medication interacti Etiology Vit K and medicines interaction As Evidenced by Signs and Symptoms Pt on coumadin #1 Nutrition Diagnosis Predicted suboptimal energy intake Etiology stressful conditions at home As Evidenced by Signs and Symptoms pt reports not eating much at home and having a poor appetite Is patient on ventilator? No Is Patient Ambulatory and/or Out of Bed Yes REE-([place]-ambulatory/OOB) [ 1970.644 [id number]] Kcal/Kg value to use for calculation 20 Approximate Energy Requirements Using 1700 kcal/Kg Calculation Used for Recommendations Kcal/kg Additional Notes PRO: 56-70g/day (0.8-1g/kg 70 kg AdBW) Fluid: 1ml/kcal or per MD Nutrition Intervention Change Diet Order: Continue Regular Teaching Recipient Patient Learning Readiness Fair Teaching Methods Discussion,Handout Response to Teaching Verbalize understanding Education Handouts Provided Vit K and medicine interactions Barriers to Learning No Barriers Patient aware of follow up options Yes Goal #1 Pt meet >80% kcal/PRO needs Anticipated Discharge Needs: Regular diet Follow-Up By: 07/30/19 Additional Comments F/U for stable PO intakes
[2019-07-26] MEDS: oxyCODONE 5 MG TAB PO PRN ×3 (05:41→20:07)
[2019-07-26] MEDS: HEPARIN/ 0.45% NACL DRIP 25,000 UNIT/500 ML BAG IV SCH (05:42)
[2019-07-26] MEDS: oxyCODONE /ACETAMINOPHEN 5-325MG TAB PO PRN ×3 (05:43→20:06)
[2019-07-26 06:41] LABS: INR 2.35 (0.87-1.13)
--- NOTE | 2019-07-26 07:13 | Hem/Onc Progress Note ---
Assessment and Plan 1. Right common iliac artery thrombus, Eliquis was being looked into, Interventional Radiology has been consulted. Her pancreas inflammation has a role in the thrombosis. pt is asymptomatic. 2. History of alcoholic pancreatitis, on supportive care. adv to quit 3. Left upper extremity hematoma, adv elevation. 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 - left arm - no DVT pt on heparin - coumadin eliquis an option her main issue now is left arm pain - she had sx for this pseudoaneurysm 2/3 as pt had arterial thrombus - vascular has ordered for LA testing OP IX for other causes - Patient Problems (1) Arterial thrombosis Current Visit: No Status: Acute Subjective Date of service: 07/26/19 Principal diagnosis: arterial thrombus Interval history: s/p left arm - sx Objective - Exam Narrative Exam: Pain - left arm General appearance - no acute distress Performance status dependent Eyes - no icterus ENT - no bleeding LNs cervical not palpable Neck - no LN Respiratory Normal - on o2 Breath sounds - CTA CVS S1 S2 + Extremities no leg edema - left arm edema+ - s/p sx General GI Soft Rectal deferred female - deferred Skin warm Musculoskeletal - moves limbs Neurologically awake - Constitutional Vitals: Last Vital Signs Temp 97.9 F 07/26/19 03:46 Pulse 90 07/26/19 03:46 Resp 20 07/26/19 05:43 BP 105/67 07/26/19 03:46 Pulse Ox 97 07/26/19 03:46 - Labs Lab Results: Laboratory Results - last 24 hr 07/25/19 07/25/19 07/25/19 07:22 07:22 07:33 WBC 8.9 RBC 4.27 Hgb 9.6 L Hct 30.7 MCV 72 L MCH 22 L MCHC 31 RDW 23.5 H Plt Count 314 PT 20.9 H INR 1.77 H APTT 33.2 Heparin Anti-Xa Level < 0.10 L Sodium 136 L Potassium 4.2 Chloride 101.6 Carbon Dioxide 19 L Anion Gap 20 BUN 5 L Creatinine 0.4 L Estimated GFR > 60 BUN/Creatinine Ratio 13 Glucose 217 H POC Glucose Calcium 10.1 07/25/19 07/25/19 07/25/19 10:47 16:13 23:58 WBC RBC Hgb Hct MCV MCH MCHC RDW Plt Count PT INR APTT Heparin Anti-Xa Level 0.10 L 0.43 Sodium Potassium Chloride Carbon Dioxide Anion Gap BUN Creatinine Estimated GFR BUN/Creatinine Ratio Glucose POC Glucose 209 H Calcium 07/26/19 06:11 WBC RBC Hgb Hct MCV MCH MCHC RDW Plt Count PT 26.2 H INR 2.35 H APTT Heparin Anti-Xa Level Sodium Potassium Chloride Carbon Dioxide Anion Gap BUN Creatinine Estimated GFR BUN/Creatinine Ratio Glucose POC Glucose Calcium Medications & Allergies - Medications Allergies/Adverse Reactions: Allergies No Known Allergies Allergy (Unverified 09/18/16 23:27) Home Medications: Home Medications Medication Instructions Recorded Confirmed Last Taken Type Ferrous Sulfate [Feosol 325 MG tab] 325 mg PO TID 12/12/16 07/17/19 1 Day Ago History ~07/16/19 Folic Acid [Folvite] 1 mg PO QDAY 12/12/16 07/17/19 1 Day Ago History ~07/16/19 Ciprofloxacin HCl [Ciprofloxacin 500 mg PO Q12HR #12 tab 07/15/19 07/17/19 1 Day Ago Rx TAB] ~07/16/19 Lipase/Protease/Amylase [Creon Dr 1 cap PO QAC #60 cap 07/15/19 07/17/19 1 Day Ago Rx 12,000 Units] ~07/16/19 Ondansetron [Zofran Odt] 4 mg PO Q8HR #15 tab.rapdis 07/15/19 07/17/19 1 Day Ago Rx ~07/16/19 Apixaban [Eliquis starter pack] 5 mg PO BID #60 tab.ds.pk 07/16/19 07/17/19 1 Day Ago Rx ~07/16/19 Oxycodone HCl/Acetaminophen 1 each PO Q6HR PRN #15 tablet 07/16/19 07/17/19 1 Day Ago Rx [Percocet 10/325 mg] ~07/16/19 Active Medications: Generic Name Dose Route Start Last Admin Trade Name Freq PRN Reason Stop Dose Admin Acetaminophen 650 mg 07/16/19 21:33 Tylenol PO Q4H PRN Pain MILD(1-3)/Fever >100.5/TORRE Lipase/Protease/Amylase 1 each 07/17/19 07:30 07/25/19 16:57 Robinson Arndt 12,000 Units PO 1 each QAC FARHAN Administration Folic Acid 1 mg 07/17/19 10:00 07/25/19 13:20 Folvite PO 1 mg QDAY FARHAN Administration Hydromorphone HCl 0.5 mg 07/18/19 11:58 07/25/19 23:43 Dilaudid IV 0.5 mg Q3H PRN Administration Pain , Severe (7-10) Heparin Sodium/Sodium Chloride 25,000 unit in 500 mls @ 24 mls/hr 07/16/19 23:45 07/26/19 05:42 Heparin/ 0.45% Nacl-25,000 Unit/500 Ml IV 1,250 units/hr TITR FARHAN 25 mls/hr Administration Protocol 1,200 UNITS/HR Ondansetron HCl 4 mg 07/16/19 21:33 07/19/19 22:28 Zofran IV 4 mg Q8H PRN Administration Nausea And Vomiting Ondansetron HCl 4 mg 07/16/19 22:00 07/25/19 23:45 Zofran Odt PO 4 mg Q8H FARHAN Administration Oxycodone HCl 5 mg 07/16/19 22:28 07/26/19 05:41 Roxicodone PO 5 mg Q6H PRN Administration Pain, Moderate (4-6) Oxycodone/Acetaminophen 1 tab 07/16/19 21:33 07/26/19 05:43 Percocet 5/325 PO 1 tab Q6H PRN Administration Pain, Moderate (4-6) Sodium Chloride 10 ml 07/16/19 22:00 07/25/19 23:48 Sodium Chloride Flush Syringe 10 Ml IV 10 ml BID FARHAN Administration Sodium Chloride 10 ml 07/16/19 21:33 Sodium Chloride Flush Syringe 10 Ml IV PRN PRN LINE FLUSH Warfarin Sodium 10 mg 07/22/19 17:00 07/25/19 16:57 Coumadin PO 10 mg DAILY@1700 FARHAN Administration Warfarin Sodium 2.5 mg 07/25/19 17:00 07/25/19 16:57 Coumadin PO 2.5 mg DAILY@1700 FARHAN Administration
[2019-07-26] MEDS: ONDANSETRON 4 MG ODT TAB PO SCH ×3 (08:20→22:00)
[2019-07-26] MEDS: LIPASE 12,000/PROTEASE 38,000/AMYLASE 60,000 (UNITS) DR CAP PO SCH ×3 (10:06→19:09)
[2019-07-26] MEDS: FOLIC ACID 1 MG TAB PO SCH (10:07)
--- NOTE | 2019-07-26 12:04 | Progress Note ---
Assessment and Plan 39-year-old female with thromboembolic embolization to the right distal aorta and into the right common iliac artery. Patient's right lower extremity is warm and well-perfused. No indication for thrombectomy at this time. Recommend anticoagulation. Since etiology is unclear and may be due to antiphospholipid antibody syndrome, will need to use Coumadin/warfarin this time. If excluded, then may be converted to Eliquis in the future. Agree with cardiology. Event monitor as an outpatient to follow heart rhythm and echocardiogram was performed which was negative. Status post incision and drainage, and removal of left upper extremity thrombosed pseudoaneurysm. Patient has some decreased ROM of the elbow due to pain. Has some mild paresthesias of the hand. Although 5/5 strength of the left hand on exam, has some subjective weakness. I hope most of these issues are due to stretching of the nerves which should improve over time. Recommended OT to evaluate patient. Can probably be discharged tomorrow or today after OT evaluates patient and sets up treatment plan. Pancreatitis management per hospitalist service. Subjective Date of service: 07/26/19 Principal diagnosis: arterial thrombus Interval history: Status post incision and drainage with removal of left upper extremity thrombosed pseudoaneurysm. Patient's arm feels much better. Still having some limited range of motion due to elbow pain. Has a few paresthesias of her left fingers and some minimal subjective weakness, but 5 out of 5 strength on exam. Objective - Constitutional Vitals: Vital Signs - 12hr 07/26/19 07/26/19 07/26/19 03:46 05:41 05:43 Temperature 97.9 F Pulse Rate 90 Respiratory 18 20 20 Rate Blood Pressure 105/67 O2 Sat by Pulse 97 Oximetry 07/26/19 09:19 Temperature 98.5 F Pulse Rate 92 H Respiratory 18 Rate Blood Pressure 110/75 O2 Sat by Pulse 100 Oximetry General appearance: Present: no acute distress - EENT Eyes: EOM intact ENT: hearing intact - Respiratory Respiratory effort: normal Extremities: abnormal (see subjective, incision c/d/i) - Psychiatric Psychiatric: appropriate mood/affect, cooperative - Labs CBC & Chem 7: 07/25/19 07:22 07/25/19 07:22 Labs: Abnormal lab results 07/25/19 07/26/19 Range/Units 16:13 06:11 PT 26.2 H (12.2-14.9) Sec. INR 2.35 H (0.87-1.13) Heparin Anti-Xa Level 0.10 L (0.3-0.7) U.I./ml Medications & Allergies - Medications Allergies/Adverse Reactions: Allergies No Known Allergies Allergy (Unverified 09/18/16 23:27) Home Medications: Home Medications Medication Instructions Recorded Confirmed Last Taken Type Ferrous Sulfate [Feosol 325 MG tab] 325 mg PO TID 12/12/16 07/17/19 1 Day Ago History ~07/16/19 Folic Acid [Folvite] 1 mg PO QDAY 12/12/16 07/17/19 1 Day Ago History ~07/16/19 Ciprofloxacin HCl [Ciprofloxacin 500 mg PO Q12HR #12 tab 07/15/19 07/17/19 1 Day Ago Rx TAB] ~07/16/19 Lipase/Protease/Amylase [Robinson Arndt 1 cap PO QAC #60 cap 07/15/19 07/17/19 1 Day Ago Rx 12,000 Units] ~07/16/19 Ondansetron [Zofran Odt] 4 mg PO Q8HR #15 tab.rapdis 07/15/19 07/17/19 1 Day Ago Rx ~07/16/19 Apixaban [Eliquis starter pack] 5 mg PO BID #60 tab.ds.pk 07/16/19 07/17/19 1 Day Ago Rx ~07/16/19 Oxycodone HCl/Acetaminophen 1 each PO Q6HR PRN #15 tablet 07/16/19 07/17/19 1 Day Ago Rx [Percocet 10/325 mg] ~07/16/19 Active Medications: Generic Name Dose Route Start Last Admin Trade Name Freq PRN Reason Stop Dose Admin Acetaminophen 650 mg 07/16/19 21:33 Tylenol PO Q4H PRN Pain MILD(1-3)/Fever >100.5/TORRE Lipase/Protease/Amylase 1 each 07/17/19 07:30 07/26/19 10:06 Robinson Arndt 12,000 Units PO 1 each QAC FARHAN Administration Folic Acid 1 mg 07/17/19 10:00 07/26/19 10:07 Folvite PO 1 mg QDAY FARHAN Administration Hydromorphone HCl 0.5 mg 07/18/19 11:58 07/25/19 23:43 Dilaudid IV 0.5 mg Q3H PRN Administration Pain , Severe (7-10) Heparin Sodium/Sodium Chloride 25,000 unit in 500 mls @ 24 mls/hr 07/16/19 23:45 07/26/19 05:42 Heparin/ 0.45% Nacl-25,000 Unit/500 Ml IV 1,250 units/hr TITR FARHAN 25 mls/hr Administration Protocol 1,200 UNITS/HR Ondansetron HCl 4 mg 07/16/19 21:33 07/19/19 22:28 Zofran IV 4 mg Q8H PRN Administration Nausea And Vomiting Ondansetron HCl 4 mg 07/16/19 22:00 07/26/19 08:20 Zofran Odt PO 4 mg Q8H FARHAN Administration Oxycodone HCl 5 mg 07/16/19 22:28 07/26/19 05:41 Roxicodone PO 5 mg Q6H PRN Administration Pain, Moderate (4-6) Oxycodone/Acetaminophen 1 tab 07/16/19 21:33 07/26/19 05:43 Percocet 5/325 PO 1 tab Q6H PRN Administration Pain, Moderate (4-6) Sodium Chloride 10 ml 07/16/19 22:00 07/26/19 10:07 Sodium Chloride Flush Syringe 10 Ml IV 10 ml BID FARHAN Administration Sodium Chloride 10 ml 07/16/19 21:33 Sodium Chloride Flush Syringe 10 Ml IV PRN PRN LINE FLUSH Warfarin Sodium 10 mg 07/26/19 17:00 Coumadin PO DAILY@1700 [facility]
--- NOTE | 2019-07-26 12:17 | Progress Note ---
Assessment and Plan Arterial thrombus initiated on warfarin for oral anticoagulation. Left arm pseudoaneurysm Hx of Pancreatitis Recommend: We will follow intermittently. Outpatient event monitor to screen for atrial fibrillation. Once discharged, patient will follow up with [facility] Jul.28 at 320 pm. Subjective Date of service: 07/26/19 Principal diagnosis: arterial thrombus Interval history: No cardiac events on telemetry. Therapeutic INR of 2.35 today. Objective Vital Signs Temp Pulse Resp Resp BP Pulse Ox 07/26/19 09:19 98.5 F 92 H 18 110/75 100 07/26/19 05:43 20 07/26/19 05:41 20 07/26/19 03:46 97.9 F 90 18 105/67 97 07/26/19 00:02 98.5 F 80 18 106/63 97 07/25/19 23:00 131 H 07/25/19 22:00 18 07/25/19 20:21 98.2 F 101 H 18 113/74 99 07/25/19 16:58 20 07/25/19 16:20 100 H 121/77 99 07/25/19 16:00 87 - Physical Examination General: No Apparent Distress HEENT: Positive: PERRL Neck: Positive: trachea midline Cardiac: Positive: Reg Rate and Rhythm Lungs: Positive: Decreased Breath Sounds Neuro: Positive: Grossly Intact Abdomen: Positive: Soft, Active Bowel Sounds Extremities: Absent: edema - Labs and Meds Coagulation 07/26/19 Range/Units 06:11 PT 26.2 H (12.2-14.9) Sec. INR 2.35 H (0.87-1.13)
--- NOTE | 2019-07-26 15:02 | Progress Note ---
Assessment and Plan Assessment and plan: --Left upper arm swelling /hematoma due to possible IV infiltration Patient had vascular procedure : Excision of the left arm pseudoaneurysm with exploration of left brachial artery Postop care per vascular, IV fluids, pain management --Rt lower extremity thromboembolic embolization to the right distal aorta and into the right common iliac artery, Evaluated by vascular surgeon, Right foot well perfused, No indication for thrombectomy, Recommended anticoagulation with heparin and Coumadin, Goal of INR between 2-3.. --History of chronic pancreatitis; supportive care --Obesity; BMI 32.8 Recommend weight reduction when medically stable --DVT prophylaxis; patient is on heparin Monitor closely and adjust management as needed Disposition; per vascular Discharged in medically stable History Interval history: Patient seen and examined medical records reviewed Patient feels slightly better, mild pain in the left arm Alert awake oriented Vital signs reviewed Hospitalist Physical - Constitutional Vitals: Temp Pulse Resp BP Pulse Ox 98.2 F 86 18 102/70 100 07/26/19 13:25 07/26/19 13:25 07/26/19 13:25 07/26/19 13:25 07/26/19 13:25 General appearance: Present: no acute distress, well-nourished, obese - EENT Eyes: Present: PERRL, EOM intact - Neck Neck: Present: supple, normal ROM - Respiratory Respiratory effort: normal Respiratory: bilateral: diminished, negative: rales, rhonchi, wheezing - Cardiovascular Rhythm: regular Heart Sounds: Present: S1 & S2 - Extremities Extremities: abnormal (left upper arm mild swelling, redness, surgical scar clean) - Abdominal General gastrointestinal: soft, non-tender, non-distended, normal bowel sounds - Integumentary Integumentary: Present: clear, warm - Psychiatric Psychiatric: appropriate mood/affect - Neurologic Neurologic: CNII-XII intact, moves all extremities Results - Labs CBC & Chem 7: 07/25/19 07:22 07/25/19 07:22 Labs: Laboratory Last Values WBC 8.9 K/mm3 (4.5-11.0) 07/25/19 07:22 RBC 4.27 M/mm3 (3.65-5.03) 07/25/19 07:22 Hgb 9.6 gm/dl (10.1-14.3) L 07/25/19 07:22 Hct 30.7 % (30.3-42.9) 07/25/19 07:22 MCV 72 fl (79-97) L 07/25/19 07:22 MCH 22 pg (28-32) L 07/25/19 07:22 MCHC 31 % (30-34) 07/25/19 07:22 RDW 23.5 % (13.2-15.2) H 07/25/19 07:22 Plt Count 314 K/mm3 (140-440) 07/25/19 07:22 Lymph % (Auto) 23.0 % (13.4-35.0) 07/17/19 07:16 [place]inger % (Auto) 7.8 % (0.0-7.3) H 07/17/19 07:16 Eos % (Auto) 1.8 % (0.0-4.3) 07/17/19 07:16 Baso % (Auto) 0.6 % (0.0-1.8) 07/17/19 07:16 Lymph # 1.4 K/mm3 (1.2-5.4) 07/17/19 07:16 [place]inger # 0.5 K/mm3 (0.0-0.8) 07/17/19 07:16 Eos # 0.1 K/mm3 (0.0-0.4) 07/17/19 07:16 Baso # 0.0 K/mm3 (0.0-0.1) 07/17/19 07:16 Seg Neutrophils % 66.8 % (40.0-70.0) 07/17/19 07:16 Seg Neutrophils # 4.0 K/mm3 (1.8-7.7) 07/17/19 07:16 PT 26.2 Sec. (12.2-14.9) H 07/26/19 06:11 INR 2.35 (0.87-1.13) H 07/26/19 06:11 APTT 33.2 Sec. (24.2-36.6) 07/25/19 07:33 Heparin Anti-Xa Level 0.43 U.I./ml (0.3-0.7) 07/25/19 23:58 Sodium 136 mmol/L (137-145) L 07/25/19 07:22 Potassium 4.2 mmol/L (3.6-5.0) 07/25/19 07:22 Chloride 101.6 mmol/L (98-107) 07/25/19 07:22 Carbon Dioxide 19 mmol/L (22-30) L 07/25/19 07:22 Anion Gap 20 mmol/L 07/25/19 07:22 BUN 5 mg/dL (7-17) L 07/25/19 07:22 Creatinine 0.4 mg/dL (0.7-1.2) L 07/25/19 07:22 Estimated GFR > 60 ml/min 07/25/19 07:22 BUN/Creatinine Ratio 13 % 07/25/19 07:22 Glucose 217 mg/dL (65-100) H 07/25/19 07:22 POC Glucose 209 (70-105) H 07/25/19 10:47 Calcium 10.1 mg/dL (8.4-10.2) 07/25/19 07:22 Blood Type A POSITIVE 07/24/19 15:30 Antibody Screen Negative 07/24/19 15:30 Crossmatch See Detail 07/24/19 15:30 Active Medications - Current Medications Current Medications: Generic Name Dose Route Start Last Admin Trade Name Freq PRN Reason Stop Dose Admin Acetaminophen 650 mg 07/16/19 21:33 Tylenol PO Q4H PRN Pain MILD(1-3)/Fever >100.5/TORRE Lipase/Protease/Amylase 1 each 07/17/19 07:30 07/26/19 12:55 Creraymond Arndt 12,000 Units PO 1 each QAC FARHAN Administration Folic Acid 1 mg 07/17/19 10:00 07/26/19 10:07 Folvite PO 1 mg QDAY FARHAN Administration Hydromorphone HCl 0.5 mg 07/18/19 11:58 07/25/19 23:43 Dilaudid IV 0.5 mg Q3H PRN Administration Pain , Severe (7-10) Heparin Sodium/Sodium Chloride 25,000 unit in 500 mls @ 24 mls/hr 07/16/19 23:45 07/26/19 05:42 Heparin/ 0.45% Nacl-25,000 Unit/500 Ml IV 1,250 units/hr TITR FARHAN 25 mls/hr Administration Protocol 1,200 UNITS/HR Ondansetron HCl 4 mg 07/16/19 21:33 07/19/19 22:28 Zofran IV 4 mg Q8H PRN Administration Nausea And Vomiting Ondansetron HCl 4 mg 07/16/19 22:00 07/26/19 08:20 Zofran Odt PO 4 mg Q8H FARHAN Administration Oxycodone HCl 5 mg 07/16/19 22:28 07/26/19 12:58 Roxicodone PO 5 mg Q6H PRN Administration Pain, Moderate (4-6) Oxycodone/Acetaminophen 1 tab 07/16/19 21:33 07/26/19 12:54 Percocet 5/325 PO 1 tab Q6H PRN Administration Pain, Moderate (4-6) Sodium Chloride 10 ml 07/16/19 22:00 07/26/19 10:07 Sodium Chloride Flush Syringe 10 Ml IV 10 ml BID FARHAN Administration Sodium Chloride 10 ml 07/16/19 21:33 Sodium Chloride Flush Syringe 10 Ml IV PRN PRN LINE FLUSH Warfarin Sodium 10 mg 07/26/19 17:00 Coumadin PO DAILY@1700 [facility] Nutrition/Malnutrition Assess - Dietary Evaluation Nutrition/Malnutrition Findings: Nutrition Notes Start: 07/23/19 11:36 Freq: Status: Active Protocol: Document 07/23/19 11:36 AP (Rec: 07/23/19 11:53 AP [id number]) Co-Sign 07/23/19 11:36 LP Nutrition Notes Need for Assessment generated from: LOS,Education Initial or Follow up Assessment Other Pertinent Diagnosis ETOH pancreatitis, rectal bleeding, arterial thrombosis Current Diet Regular Labs/Tests BG 210 Pertinent Medications Oxycodone Dilaudid Coumadin Height 5 ft 5 in Weight 85 kg Usual Body Weight 86 kg [place] Body Weight (kg) 56.81 BMI 31.1 Intake Prior to Admission Fair Weight change and time frame 10% in on month per pt statement Weight Status Obese Subjective/Other Information LOS. Pt states she used to weigh 86 kg but has lost 9 kg in a month. However pt EHR states pt weighs 85kg. Pt is in a lot of pain and on multiple narcotics, this could be the reason for irregularities in her weight recollection. No wasting noted . Pt consumed 75% of bfast. States poor appetite at home r /t pt boyfriend got locked up so she is under a lot of stress. Also discussed Vitamin K and coumadin DNI. Burn Absent Trauma Absent GI Symptoms None Current % PO Fair (50-74%) Minimum of two criteria No physical signs of malnutrition #2 Nutrition Diagnosis Food-medication interacti Etiology Vit K and medicines interaction As Evidenced by Signs and Symptoms Pt on coumadin #1 Nutrition Diagnosis Predicted suboptimal energy intake Etiology stressful conditions at home As Evidenced by Signs and Symptoms pt reports not eating much at home and having a poor appetite Is patient on ventilator? No Is Patient Ambulatory and/or Out of Bed Yes REE-([place] or-ambulatory/OOB) [ 1970.644 NUTR.MSJOOB] Kcal/Kg value to use for calculation 20 Approximate Energy Requirements Using 1700 kcal/Kg Calculation Used for Recommendations Kcal/kg Additional Notes PRO: 56-70g/day (0.8-1g/kg 70 kg AdBW) Fluid: 1ml/kcal or per MD Nutrition Intervention Change Diet Order: Continue Regular Teaching Recipient Patient Learning Readiness Fair Teaching Methods Discussion,Handout Response to Teaching Verbalize understanding Education Handouts Provided Vit K and medicine interactions Barriers to Learning No Barriers Patient aware of follow up options Yes Goal #1 Pt meet >80% kcal/PRO needs Anticipated Discharge Needs: Regular diet Follow-Up By: 07/30/19 Additional Comments F/U for stable PO intakes
[2019-07-26] MEDS ORDERED: WARFARIN 10 MG TAB PO SCH (17:00)
[2019-07-27] MEDS: oxyCODONE /ACETAMINOPHEN 5-325MG TAB PO PRN ×3 (02:49→18:05)
[2019-07-27] MEDS: oxyCODONE 5 MG TAB PO PRN ×3 (02:50→18:05)
[2019-07-27] MEDS: HEPARIN/ 0.45% NACL DRIP 25,000 UNIT/500 ML BAG IV SCH (02:52)
[2019-07-27] MEDS: ONDANSETRON 4 MG ODT TAB PO SCH ×2 (06:09→13:46)
[2019-07-27 06:36] LABS: INR 2.57 (0.87-1.13)
--- NOTE | 2019-07-27 07:18 | Hem/Onc Progress Note ---
Assessment and Plan 1. Right common iliac artery thrombus, [place] was being looked into, Interventional Radiology consulted. Her pancreas inflammation has a role in the thrombosis. pt is asymptomatic. 2. History of alcoholic pancreatitis, on supportive care. adv to quit 3. Left upper extremity hematoma, adv elevation. 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 - left arm - no DVT pt was on heparin - coumadin eliquis an option her main issue now is left arm pain - she had sx for this pseudoaneurysm 2/ as pt had arterial thrombus - vascular has ordered for LA testing OP IX for other causes - Patient Problems (1) Arterial thrombosis Current Visit: No Status: Acute Subjective Date of service: 07/27/19 Principal diagnosis: rt leg arterial thrombus - left arm pseudo aneuyrsm Interval history: INR > 2 wants to go home no bleeding no leg pain arm pain better Objective - Exam Narrative Exam: Pain - left arm General appearance - no acute distress Performance status dependent Eyes - no icterus ENT - no bleeding LNs cervical not palpable Neck - no LN Respiratory Normal - on o2 Breath sounds - CTA CVS S1 S2 + Extremities no leg edema - left arm edema+ - s/p sx General GI Soft Rectal deferred female - deferred Skin warm Musculoskeletal - moves limbs Neurologically awake - Constitutional Vitals: Last Vital Signs Temp 98.2 F 07/27/19 04:35 Pulse 85 07/27/19 04:35 Resp 20 07/27/19 04:35 BP 94/58 07/27/19 04:35 Pulse Ox 98 07/27/19 04:35 - Labs Lab Results: Laboratory Results - last 24 hr 07/26/19 07/26/19 07/27/19 15:37 23:27 05:54 PT 28.1 H INR 2.57 H Heparin Anti-Xa Level 0.60 0.59 Medications & Allergies - Medications Allergies/Adverse Reactions: Allergies No Known Allergies Allergy (Unverified 09/18/16 23:27) Home Medications: Home Medications Medication Instructions Recorded Confirmed Last Taken Type Ferrous Sulfate [Feosol 325 MG tab] 325 mg PO TID 12/12/16 07/17/19 1 Day Ago History ~07/16/19 Folic Acid [Folvite] 1 mg PO QDAY 12/12/16 07/17/19 1 Day Ago History ~07/16/19 Ciprofloxacin HCl [Ciprofloxacin 500 mg PO Q12HR #12 tab 07/15/19 07/17/19 1 Day Ago Rx TAB] ~07/16/19 Lipase/Protease/Amylase [Robinson Arndt 1 cap PO QAC #60 cap 07/15/19 07/17/19 1 Day Ago Rx 12,000 Units] ~07/16/19 Ondansetron [Zofran Odt] 4 mg PO Q8HR #15 tab.rapdis 07/15/19 07/17/19 1 Day Ago Rx ~07/16/19 Apixaban [Eliquis starter pack] 5 mg PO BID #60 tab.ds.pk 07/16/19 07/17/19 1 Day Ago Rx ~07/16/19 Oxycodone HCl/Acetaminophen 1 each PO Q6HR PRN #15 tablet 07/16/19 07/17/19 1 Day Ago Rx [Percocet 10/325 mg] ~07/16/19 Active Medications: Generic Name Dose Route Start Last Admin Trade Name Freq PRN Reason Stop Dose Admin Acetaminophen 650 mg 07/16/19 21:33 Tylenol PO Q4H PRN Pain MILD(1-3)/Fever >100.5/TORRE Lipase/Protease/Amylase 1 each 07/17/19 07:30 07/26/19 19:09 Robinson Arndt [facility],000 [facility] Folic Acid 1 mg 07/17/19 10:00 07/26/19 10:07 Folvite PO 1 mg QDAY FARHAN Administration Hydromorphone HCl 0.5 mg 07/18/19 11:58 07/25/19 23:43 Dilaudid IV 0.5 mg Q3H PRN Administration Pain , Severe (7-10) Ondansetron HCl 4 mg 07/16/19 21:33 07/19/19 22:28 Zofran IV 4 mg Q8H PRN Administration Nausea And Vomiting Ondansetron HCl 4 mg 07/16/19 22:00 07/27/19 06:09 Zofran Odt PO Not Given Q8H FARHAN Oxycodone HCl 5 mg 07/16/19 22:28 07/27/19 02:50 Roxicodone PO 5 mg Q6H PRN Administration Pain, Moderate (4-6) Oxycodone/Acetaminophen 1 tab 07/16/19 21:33 07/27/19 02:49 Percocet 5/325 PO 1 tab Q6H PRN Administration Pain, Moderate (4-6) Sodium Chloride 10 ml 07/16/19 22:00 07/26/19 10:07 Sodium Chloride Flush Syringe 10 Ml IV 10 ml BID FARHAN Administration Sodium Chloride 10 ml 07/16/19 21:33 Sodium Chloride Flush Syringe 10 Ml IV PRN PRN LINE FLUSH Warfarin Sodium 7.5 mg 07/27/19 17:00 Coumadin PO DAILY@1700 [facility]
[2019-07-27] MEDS: LIPASE 12,000/PROTEASE 38,000/AMYLASE 60,000 (UNITS) DR CAP PO SCH ×3 (07:30→18:04)
[2019-07-27] MEDS: HYDROmorphone 1 MG/1 ML INJ IV PRN (09:25)
[2019-07-27] MEDS: FOLIC ACID 1 MG TAB PO SCH (10:58)
--- NOTE | 2019-07-27 12:11 | Progress Note ---
Assessment and Plan Right leg well perfused, continue anticoagulation Left arm improved pain after evacuation of pseudoaneurysm Continue PT/OT as needed OK to discharge when cleared by PT/OT Subjective Date of service: 07/27/19 Principal diagnosis: arterial thrombus Interval history: Patient states her arm feels much better. Still experiencing some parasthesias in her left fingers. No additional complaints. 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 left e lbow slightly contracted secondary to pain) - Labs CBC & Chem 7: 07/25/19 07:22 07/25/19 07:22 Labs: Abnormal lab results 07/27/19 Range/Units 05:54 PT 28.1 H (12.2-14.9) Sec. INR 2.57 H (0.87-1.13) Medications & Allergies - Medications Allergies/Adverse Reactions: Allergies No Known Allergies Allergy (Unverified 09/18/16 23:27) Home Medications: Home Medications Medication Instructions Recorded Confirmed Last Taken Type Ferrous Sulfate [Feosol 325 MG tab] 325 mg PO TID 12/12/16 07/17/19 1 Day Ago History ~07/16/19 Folic Acid [Folvite] 1 mg PO QDAY 12/12/16 07/17/19 1 Day Ago History ~07/16/19 Ciprofloxacin HCl [Ciprofloxacin 500 mg PO Q12HR #12 tab 07/15/19 07/17/19 1 Day Ago Rx TAB] ~07/16/19 Lipase/Protease/Amylase [Robinson Dr 1 cap PO QAC #60 cap 07/15/19 07/17/19 1 Day Ago Rx 12,000 Units] ~07/16/19 Ondansetron [Zofran Odt] 4 mg PO Q8HR #15 tab.rapdis 07/15/19 07/17/19 1 Day Ago Rx ~07/16/19 Apixaban [Eliquis starter pack] 5 mg PO BID #60 tab.ds.pk 07/16/19 07/17/19 1 Day Ago Rx ~07/16/19 Oxycodone HCl/Acetaminophen 1 each PO Q6HR PRN #15 tablet 07/16/19 07/17/19 1 Day Ago Rx [Percocet 10/325 mg] ~07/16/19 Active Medications: Generic Name Dose Route Start Last Admin Trade Name Freq PRN Reason Stop Dose Admin Acetaminophen 650 mg 07/16/19 21:33 Tylenol PO Q4H PRN Pain MILD(1-3)/Fever >100.5/TORRE Lipase/Protease/Amylase 1 each 07/17/19 07:30 07/27/19 07:30 Creraymond Arndt 12,000 Units PO Not Given QAC FARHAN Folic Acid 1 mg 07/17/19 10:00 07/27/19 10:58 Folvite PO 1 mg QDAY FARHAN Administration Hydromorphone HCl 0.5 mg 07/18/19 11:58 07/27/19 09:25 Dilaudid IV 0.5 mg Q3H PRN Administration Pain , Severe (7-10) Ondansetron HCl 4 mg 07/16/19 21:33 07/19/19 22:28 Zofran IV 4 mg Q8H PRN Administration Nausea And Vomiting Ondansetron HCl 4 mg 07/16/19 22:00 07/27/19 06:09 Zofran Odt PO Not Given Q8H FARHAN Oxycodone HCl 5 mg 07/16/19 22:28 07/27/19 10:45 Roxicodone PO 5 mg Q6H PRN Administration Pain, Moderate (4-6) Oxycodone/Acetaminophen 1 tab 07/16/19 21:33 07/27/19 10:45 Percocet 5/325 PO 1 tab Q6H PRN Administration Pain, Moderate (4-6) Sodium Chloride 10 ml 07/16/19 22:00 07/27/19 11:02 Sodium Chloride Flush Syringe 10 Ml IV Not Given BID FARHAN Sodium Chloride 10 ml 07/16/19 21:33 Sodium Chloride Flush Syringe 10 Ml IV PRN PRN LINE FLUSH Warfarin Sodium 7.5 mg 07/27/19 17:00 Coumadin PO DAILY@1700 FARHAN
[2019-07-27] MEDS: WARFARIN 7.5 MG TAB PO SCH (18:04)
--- NOTE | 2019-07-27 19:10 | Progress Note ---
Assessment and Plan Assessment and plan: --Left upper arm swelling: s/p Excision of the left arm pseudoaneurysm with exploration of left brachial artery Postop care per vascular, patient still has some pain ., PT OT, supportive care --Rt lower extremity thromboembolic embolization to the right distal aorta and into the right common iliac artery, Evaluated by vascular surgeon, Right foot well perfused, No indication for thrombectomy, Recommended anticoagulation with heparin and Coumadin, Goal of INR between 2-3.. INR therapeutic 2.35 - 2.57 --History of chronic pancreatitis; supportive care --Obesity; BMI 32.8 Recommend weight reduction when medically stable --DVT prophylaxis; patient is on heparin Monitor closely and adjust management as needed Disposition; follow PT OT Discharge when cleared by OT Plan of care reviewed with the patient and her nurse I also discussed with vascular surgeon Dr. Pelayo History Interval history: Patient seen and examined at bedside this afternoon Patient's chart, medications, overnight events reviewed Patient feels slightly better, still has pain left upper extremity Anxious to go home. INR is therapeutic Requested occupational therapy as recommended by vascular Vital signs noted Hospitalist Physical - Constitutional Vitals: Temp Pulse Resp BP Pulse Ox 98.3 F 85 18 104/66 98 07/27/19 07:13 07/27/19 16:00 07/27/19 07:13 07/27/19 07:13 07/27/19 04:35 General appearance: Present: no acute distress, well-nourished, obese - EENT Eyes: Present: PERRL, EOM intact - Neck Neck: Present: supple, normal ROM - Respiratory Respiratory effort: normal Respiratory: bilateral: diminished, negative: rales, rhonchi, wheezing - Cardiovascular Rhythm: regular Heart Sounds: Present: S1 & S2 - Extremities Extremities: abnormal (Left upper arm, surgical wound clean, mild swelling erythema and tenderness) - Abdominal General gastrointestinal: soft, non-tender, non-distended, normal bowel sounds - Integumentary Integumentary: Present: clear, warm - Psychiatric Psychiatric: appropriate mood/affect, cooperative - Neurologic Neurologic: CNII-XII intact, moves all extremities Results - Labs CBC & Chem 7: 07/25/19 07:22 07/25/19 07:22 Labs: Laboratory Last Values WBC 8.9 K/mm3 (4.5-11.0) 07/25/19 07:22 RBC 4.27 M/mm3 (3.65-5.03) 07/25/19 07:22 Hgb 9.6 gm/dl (10.1-14.3) L 07/25/19 07:22 Hct 30.7 % (30.3-42.9) 07/25/19 07:22 MCV 72 fl (79-97) L 07/25/19 07:22 MCH 22 pg (28-32) L 07/25/19 07:22 MCHC 31 % (30-34) 07/25/19 07:22 RDW 23.5 % (13.2-15.2) H 07/25/19 07:22 Plt Count 314 K/mm3 (140-440) 07/25/19 07:22 Lymph % (Auto) 23.0 % (13.4-35.0) 07/17/19 07:16 [place] % (Auto) 7.8 % (0.0-7.3) H 07/17/19 07:16 Eos % (Auto) 1.8 % (0.0-4.3) 07/17/19 07:16 Baso % (Auto) 0.6 % (0.0-1.8) 07/17/19 07:16 Lymph # 1.4 K/mm3 (1.2-5.4) 07/17/19 07:16 [place] # 0.5 K/mm3 (0.0-0.8) 07/17/19 07:16 Eos # 0.1 K/mm3 (0.0-0.4) 07/17/19 07:16 Baso # 0.0 K/mm3 (0.0-0.1) 07/17/19 07:16 Seg Neutrophils % 66.8 % (40.0-70.0) 07/17/19 07:16 Seg Neutrophils # 4.0 K/mm3 (1.8-7.7) 07/17/19 07:16 PT 28.1 Sec. (12.2-14.9) H 07/27/19 05:54 INR 2.57 (0.87-1.13) H 07/27/19 05:54 APTT 33.2 Sec. (24.2-36.6) 07/25/19 07:33 Heparin Anti-Xa Level 0.59 U.I./ml (0.3-0.7) 07/26/19 23:27 Sodium 136 mmol/L (137-145) L 07/25/19 07:22 Potassium 4.2 mmol/L (3.6-5.0) 07/25/19 07:22 Chloride 101.6 mmol/L (98-107) 07/25/19 07:22 Carbon Dioxide 19 mmol/L (22-30) L 07/25/19 07:22 Anion Gap 20 mmol/L 07/25/19 07:22 BUN 5 mg/dL (7-17) L 07/25/19 07:22 Creatinine 0.4 mg/dL (0.7-1.2) L 07/25/19 07:22 Estimated GFR > 60 ml/min 07/25/19 07:22 BUN/Creatinine Ratio 13 % 07/25/19 07:22 Glucose 217 mg/dL (65-100) H 07/25/19 07:22 POC Glucose 209 (70-105) H 07/25/19 10:47 Calcium 10.1 mg/dL (8.4-10.2) 07/25/19 07:22 Blood Type A POSITIVE 07/24/19 15:30 Antibody Screen Negative 07/24/19 15:30 Crossmatch See Detail 07/24/19 15:30 Active Medications - Current Medications Current Medications: Generic Name Dose Route Start Last Admin Trade Name Freq PRN Reason Stop Dose Admin Acetaminophen 650 mg 07/16/19 21:33 Tylenol PO Q4H PRN Pain MILD(1-3)/Fever >100.5/OTRRE Lipase/Protease/Amylase 1 each 07/17/19 07:30 07/27/19 18:04 Robinson Arndt 12,000 Units PO 1 each QAC FARHAN Administration Folic Acid 1 mg 07/17/19 10:00 07/27/19 10:58 Folvite PO 1 mg QDAY FARHAN Administration Hydromorphone HCl 0.5 mg 07/18/19 11:58 07/27/19 09:25 Dilaudid IV 0.5 mg Q3H PRN Administration Pain , Severe (7-10) Ondansetron HCl 4 mg 07/16/19 21:33 07/19/19 22:28 Zofran IV 4 mg Q8H PRN Administration Nausea And Vomiting Ondansetron HCl 4 mg 07/16/19 22:00 07/27/19 13:46 Zofran Odt PO 4 mg Q8H FARHAN Administration Oxycodone HCl 5 mg 07/16/19 22:28 07/27/19 18:05 Roxicodone PO 5 mg Q6H PRN Administration Pain, Moderate (4-6) Oxycodone/Acetaminophen 1 tab 07/16/19 21:33 07/27/19 18:05 Percocet 5/325 PO 1 tab Q6H PRN Administration Pain, Moderate (4-6) Sodium Chloride 10 ml 07/16/19 22:00 07/27/19 11:02 Sodium Chloride Flush Syringe 10 Ml IV Not Given BID FARHAN Sodium Chloride 10 ml 07/16/19 21:33 Sodium Chloride Flush Syringe 10 Ml IV PRN PRN LINE FLUSH Warfarin Sodium 7.5 mg 07/27/19 17:00 07/27/19 18:04 Coumadin PO 7.5 mg DAILY@1700 FARHAN Administration Nutrition/Malnutrition Assess - Dietary Evaluation Nutrition/Malnutrition Findings: Nutrition Notes Start: 07/23/19 11:36 Freq: Status: Active Protocol: Document 07/23/19 11:36 AP (Rec: 07/23/19 11:53 AP [id number]) Co-Sign 07/23/19 11:36 LP Nutrition Notes Need for Assessment generated from: LOS,Education Initial or Follow up Assessment Other Pertinent Diagnosis ETOH pancreatitis, rectal bleeding, arterial thrombosis Current Diet Regular Labs/Tests BG 210 Pertinent Medications Oxycodone Dilaudid Coumadin Height 5 ft 5 in Weight 85 kg Usual Body Weight 86 kg [place] Body Weight (kg) 56.81 BMI 31.1 Intake Prior to Admission Fair Weight change and time frame 10% in on month per pt statement Weight Status Obese Subjective/Other Information LOS. Pt states she used to weigh 86 kg but has lost 9 kg in a month. However pt EHR states pt weighs 85kg. Pt is in a lot of pain and on multiple narcotics, this could be the reason for irregularities in her weight recollection. No wasting noted . Pt consumed 75% of bfast. States poor appetite at home r /t pt boyfriend got locked up so she is under a lot of stress. Also discussed Vitamin K and coumadin DNI. Burn Absent Trauma Absent GI Symptoms None Current % PO Fair (50-74%) Minimum of two criteria No physical signs of malnutrition #2 Nutrition Diagnosis Food-medication interacti Etiology Vit K and medicines interaction As Evidenced by Signs and Symptoms Pt on coumadin #1 Nutrition Diagnosis Predicted suboptimal energy intake Etiology stressful conditions at home As Evidenced by Signs and Symptoms pt reports not eating much at home and having a poor appetite Is patient on ventilator? No Is Patient Ambulatory and/or Out of Bed Yes REE-([place]. or-ambulatory/OOB) [ 1970.644 NUTR.MSJOOB] Kcal/Kg value to use for calculation 20 Approximate Energy Requirements Using 1700 kcal/Kg Calculation Used for Recommendations Kcal/kg Additional Notes PRO: 56-70g/day (0.8-1g/kg 70 kg AdBW) Fluid: 1ml/kcal or per MD Nutrition Intervention Change Diet Order: Continue Regular Teaching Recipient Patient Learning Readiness Fair Teaching Methods Discussion,Handout Response to Teaching Verbalize understanding Education Handouts Provided Vit K and medicine interactions Barriers to Learning No Barriers Patient aware of follow up options Yes Goal #1 Pt meet >80% kcal/PRO needs Anticipated Discharge Needs: Regular diet Follow-Up By: 07/30/19 Additional Comments F/U for stable PO intakes
--- NOTE | 2019-07-28 08:04 | Hem/Onc Progress Note ---
Assessment and Plan 1. Right common iliac artery thrombus, Jeanettequrancho was being looked into, Interventional Radiology consulted. Her pancreas inflammation has a role in the thrombosis. pt is asymptomatic. 2. History of alcoholic pancreatitis, on supportive care. adv to quit 3. Left upper extremity hematoma, adv elevation. 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 - left arm - no DVT pt was on heparin - coumadin eliquis an option her main issue now is left arm pain - she had sx for this pseudoaneurysm 2/ as pt had arterial thrombus - vascular has ordered for LA testing - report pending OP IX for other causes INR 2.6 - Patient Problems (1) Arterial thrombosis Current Visit: No Status: Acute Subjective Date of service: 07/28/19 Principal diagnosis: rt leg arterial thrombus Interval history: left arm pain better Objective - Exam Narrative Exam: Pain - left arm General appearance - no acute distress Performance status dependent Eyes - no icterus ENT - no bleeding LNs cervical not palpable Neck - no LN Respiratory Normal - on o2 Breath sounds - CTA CVS S1 S2 + Extremities no leg edema - left arm edema+ - s/p sx General GI Soft Rectal deferred female - deferred Skin warm Musculoskeletal - moves limbs Neurologically awake - Constitutional Vitals: Last Vital Signs Temp 98.3 F 07/28/19 04:10 Pulse 80 07/28/19 04:10 Resp 20 07/28/19 04:10 BP 98/53 07/28/19 04:10 Pulse Ox 98 07/28/19 04:10 Medications & Allergies - Medications Allergies/Adverse Reactions: Allergies No Known Allergies Allergy (Unverified 09/18/16 23:27) Home Medications: Home Medications Medication Instructions Recorded Confirmed Last Taken Type Ferrous Sulfate [Feosol 325 MG tab] 325 mg PO TID 12/12/16 07/17/19 1 Day Ago History ~07/16/19 Folic Acid [Folvite] 1 mg PO QDAY 12/12/16 07/17/19 1 Day Ago History ~07/16/19 Ciprofloxacin HCl [Ciprofloxacin 500 mg PO Q12HR #12 tab 07/15/19 07/17/19 1 Day Ago Rx TAB] ~07/16/19 Lipase/Protease/Amylase [Robinson Arndt 1 cap PO QAC #60 cap 07/15/19 07/17/19 1 Day Ago Rx 12,000 Units] ~07/16/19 Ondansetron [Zofran Odt] 4 mg PO Q8HR #15 tab.rapdis 07/15/19 07/17/19 1 Day Ago Rx ~07/16/19 Apixaban [Eliquis starter pack] 5 mg PO BID #60 tab.ds.pk 07/16/19 07/17/19 1 Day Ago Rx ~07/16/19 Oxycodone HCl/Acetaminophen 1 each PO Q6HR PRN #15 tablet 07/16/19 07/17/19 1 Day Ago Rx [Percocet 10/325 mg] ~07/16/19 Active Medications: Generic Name Dose Route Start Last Admin Trade Name Freq PRN Reason Stop Dose Admin Acetaminophen 650 mg 07/16/19 21:33 Tylenol PO Q4H PRN Pain MILD(1-3)/Fever >100.5/TORRE Lipase/Protease/Amylase 1 each 07/17/19 07:30 07/27/19 18:04 Robinson Arndt 12,000 Units PO 1 each QAC FARHAN Administration Folic Acid 1 mg 07/17/19 10:00 07/27/19 10:58 Folvite PO 1 mg QDAY FARHAN Administration Hydromorphone HCl 0.5 mg 07/18/19 11:58 07/27/19 09:25 Dilaudid IV 0.5 mg Q3H PRN Administration Pain , Severe (7-10) Ondansetron HCl 4 mg 07/16/19 21:33 07/19/19 22:28 Zofran IV 4 mg Q8H PRN Administration Nausea And Vomiting Ondansetron HCl 4 mg 07/16/19 22:00 07/27/19 13:46 Zofran Odt PO 4 mg Q8H FARHAN Administration Oxycodone HCl 5 mg 07/16/19 22:28 07/27/19 18:05 Roxicodone PO 5 mg Q6H PRN Administration Pain, Moderate (4-6) Oxycodone/Acetaminophen 1 tab 07/16/19 21:33 07/27/19 18:05 Percocet 5/325 PO 1 tab Q6H PRN Administration Pain, Moderate (4-6) Sodium Chloride 10 ml 07/16/19 22:00 07/27/19 11:02 Sodium Chloride Flush Syringe 10 Ml IV Not Given BID [facility] Sodium Chloride 10 ml 07/16/19 21:33 Sodium Chloride Flush Syringe 10 Ml IV PRN PRN LINE FLUSH Warfarin Sodium 7.5 mg 07/27/19 17:00 07/27/19 18:04 Coumadin PO 7.5 mg DAILY@1700 [facility] Administration
[2019-07-28 08:19] LABS: INR 2.62 (0.87-1.13)
[2019-07-28] MEDS: ONDANSETRON 4 MG ODT TAB PO SCH ×2 (08:30→14:38)
[2019-07-28] MEDS: FOLIC ACID 1 MG TAB PO SCH (09:08)
[2019-07-28] MEDS: oxyCODONE /ACETAMINOPHEN 5-325MG TAB PO PRN ×2 (09:08→14:35)
[2019-07-28] MEDS: LIPASE 12,000/PROTEASE 38,000/AMYLASE 60,000 (UNITS) DR CAP PO SCH (09:08)
[2019-07-28] MEDS: oxyCODONE 5 MG TAB PO PRN ×2 (09:09→14:36)
--- NOTE | 2019-07-28 13:14 | Discharge Summary ---
Providers - Providers Date of Admission: 07/16/19 22:20 Date of discharge: 07/28/19 Attending physician: RAHEEM VELIZ 07/16/19 21:36 Consult to Cardiology [CONS] Routine Consulting Provider: JOSELIN SANTANA Reason For Exam: arterial thrombus Consult to Interventional Radiology [CONS] Routine Consulting Provider: OMAR SHAW Reason For Exam: arterial thrombus Place consult to:: IR Notified:: Shelli DIAS Comment:: Dr. Shaw is aware of consult per note 07/16/2019 @2139 07/17/19 10:24 Consult to Physician [CONS] Routine Comment: Consulting Provider: ZAKIA BARNEY Physician Instructions: Reason For Exam: arterial thrombus 07/26/19 12:04 Occupational Therapy Evaluate and Treat [CONS] Routine Comment: Reason For Exam: JANE Primary care physician: LARD RENDERER Hospitalization Reason for admission: Abdominal pain/Arterial thrombus Pertinent studies: CT abdomen and pelvis Lower extremity arterial Doppler CT angiogram of the chest CTA abdomen and pelvis with contrast ;small area of intraluminal thrombus in the proximal portion of right common iliac artery Left upper extremity Doppler X-ray left humerus x-ray left elbow Procedures: Vascular procedure; excision of left arm pseudoaneurysm with exploration of left brachial artery Hospital course: 39-year-old female patient with alcoholic pancreatitis presented to the ED for evaluation of abdominal pain. initially Patient was seen and evaluated and discharged home with conservative management however patient was found by interventional radiology to have an arterial thrombus. Patient was called back and was admitted for further evaluation and management of arterial thrombus. Evaluated by Interventional radiology, Cardiology and hematology . Evaluated by vascular surgeon.Rt foot well perfused, no indication for thrombectomy. started on IV heparin and Coumadin with close monitoring of INR, therapeutic goal between 2 and 3 was achieved. Vasc rec OT ,received OT prior to discharge and set up out pt OT . Cleared by vascular,cardiology and hemat.Hypercoag w/u as out patient and patient will f/u with breast surgeon for monitoring of INR goal 2-3. Advised 7 days work excuse and further rec per vascular/PMD Stable at discharge. Discharge diagnosis: --Left upper arm swelling: s/p Excision of the left arm pseudoaneurysm with exploration of left brachial artery Vascular recommended occupational therapy, pain management. Cleared for discharge. Follow-up with vascular per schedule --Rt lower extremity thromboembolic embolization to the right distal aorta and into the right common iliac artery, Evaluated by vascular surgeon, Right foot well perfused, No indication for thrombectomy, On heparin and Coumadin, Goal of INR between 2-3..Therapeutic levels reached 2.35 - 2.57. Patient educated about anticoagulation with Coumadin Patient strongly advised to follow with breast surgeon Dr. Barney In 2 days for the next INR check --History of chronic pancreatitis; stable --Obesity; BMI 32.8 Recommend weight reduction when medically stable Cleared by vascular and hematology Patient is hemodynamically and clinically stable at discharge Disposition: NM-01 TO HOME OR SELFCARE Time spent for discharge: 35 min Core Measure Documentation - Palliative Care Palliative Care/ Comfort Measures: Not Applicable - Core Measures Any of the following diagnoses?: none Exam - Constitutional Vitals: Temp Pulse Resp BP Pulse Ox 98.3 F 80 20 98/53 98 07/28/19 04:10 07/28/19 10:28 07/28/19 04:10 07/28/19 04:10 07/28/19 04:10 General appearance: Present: no acute distress, well-nourished - EENT Eyes: Present: PERRL, EOM intact - Neck Neck: Present: supple, normal ROM - Respiratory Respiratory effort: normal - Extremities Extremities: no ischemia, No edema, abnormal (left upper arm mild swelling, surgical scar clean) - Abdominal General gastrointestinal: Present: soft, non-tender, non-distended, normal bowel sounds - Integumentary Integumentary: Present: clear, warm - Musculoskeletal Musculoskeletal: strength equal bilaterally - Psychiatric Psychiatric: appropriate mood/affect, cooperative - Neurologic Neurologic: moves all extremities Plan Activity: advance as tolerated Diet: regular, other (coumadin diet) Special Instructions: physical therapy, occupational therapy Additional Instructions: Out patient OT. INR check at Dr. Barney's office on 07/30/2019. Frequent INR checks as recommended by his breast surgeon. Target INR 2-3. If you have any severe pain, swelling or bleeding left upper arm. Contact M.D./vascular surgeon or go to emergency room immediately. Advised 7 days work excuse from 07/29/19 - 08/04/19 . Check vascular/breast surgeon for further recommendations of work excuse. Follow up with: JOSELIN SANTANA MD [Staff Physician] - 7 Days PRIMARY CAREMD [Primary Care Provider] - 7 Days ENEDELIA AHUJA MD [Staff Physician] - 7 Days ZAKIA BARNEY MD [Staff Physician] - 7 Days Forms: Warfarin Discharge Instruction, Work/School Release Form Prescriptions: Warfarin [Coumadin] 7.5 mg PO DAILY@1700 #30 tablet oxyCODONE [roxiCODONE] 5 mg PO TID PRN #30 tablet PRN Reason: Pain, Moderate (4-6) Other Discharge Orders: Occupational Therapy (Amb) Location: None Selected
[2019-07-28 15:28] VITALS: BP 101/69
[2019-07-28] MEDS: WARFARIN 7.5 MG TAB PO SCH (17:00)
== END 2019-07-28 17:40 | disposition home or self-care (01) | DRG 253 ==
LOC: 4A 21:29 → UNDOADMIN 21:29 → 4A 22:20
PROVIDERS: ADMIT Internal Medicine; ATTEND Internal Medicine
PROC: 03B80ZZ Excision of Left Brachial Artery, Open Approach (ICD-10-PCS; principal; 2019-07-25)
PROC: 03C80ZZ Extirpation of Matter from Left Brachial Artery, Open Approach (ICD-10-PCS; 2019-07-25)
PROC: 30233N1 Transfusion of Nonautologous Red Blood Cells into Peripheral Vein, Percutaneous Approach (ICD-10-PCS; 2019-07-25)
DX: I74.3 Embolism and thrombosis of arteries of the lower extremities (principal); I74.5 Embolism and thrombosis of iliac artery; K86.0 Alcohol-induced chronic pancreatitis; I74.19 Embolism and thrombosis of other parts of aorta; I72.8 Aneurysm of other specified arteries; F17.200 Nicotine dependence, unspecified, uncomplicated; D64.9 Anemia, unspecified; Z71.6 Tobacco abuse counseling; Z68.32 Body mass index [BMI] 32.0-32.9, adult; Z82.49 Family history of ischemic heart disease and other diseases of the circulatory system; Z71.41 Alcohol abuse counseling and surveillance of alcoholic; Z72.89 Other problems related to lifestyle
CPT/HCPCS: 36415; 71275; 74174; 80048; 82962; 85014; 85018; 85025; 85027; 85049; 85520; 85610; 85730; 86038; 86850; 86900; 86901; 86920; 93306; 93922; 93925; 93930; 93970; 99406; G0378; J1100; J1170; J1644; J1885; J2250; J2405; J2704; J2720; J3010; J3490; J7040; P9016; Q0162; Q9967

== ENCOUNTER 2019-08-07 14:17 | Inpatient (IN) | payer OTHER ==
--- NOTE | 2019-08-07 15:08 | Event Note ---
ED Screening Note ED Screening Note: Ms. Victoria underwent vascular surgery on [employer] surgery has infection and wound dehiscence. This initial assessment/diagnostic orders/clinical plan/treatment(s) is/are subject to change based on patients health status, clinical progression and re- assessment by fellow clinical providers in the ED. Further treatment and workup at subsequent clinical providers discretion. Patient/guardian urged not to elope from the ED as their condition may be serious if not clinically assessed and managed. Initial orders include: needs assessment, patient politely declined lab work
[2019-08-07] MEDS ORDERED: oxyCODONE /ACETAMINOPHEN 5-325MG TAB PO ONE (21:35)
[2019-08-08] MEDS ORDERED: SODIUM CHLORIDE 0.9% 1000 ML 1,000 ML IV ONE ×2 (00:02→03:07)
--- NOTE | 2019-08-08 00:09 | Emergency Department Report ---
Upper Extremity <ABBI FUNEZ III - Last Filed: 08/08/19 00:18> - HPI Upper Extremity: Left Arm (Swelling, tenderness, warmth), Left Forearm (Swelling, tenderness, warmth) Occurred When: >5 Days Severity: severe Symptoms: Yes Pain with Movement, Yes Limited Range of Movement, Yes Swelling, Yes Bruising/Ecchymosis, Yes Laceration or Abrasion (Dehiscence) Other History: 39-year-old -Citizen Of The [place] female presents to the emergency room for left arm swelling pain and dehiscence of wound. Patient states that she had had a left arm IV that was started when she was here at her last admission on 07/28/2019 and vessel was injured. Patient states that she had to have vascular surgery repair. Patient denies any fever but reports pain is 8 out of 10. Patient has no known drug allergies. Patient is currently on warfarin for a clot that was found in her stomach. <LYNDSEY LUONG - Last Filed: 08/08/19 03:29> - HPI Chief Complaint: Extremity Injury, Upper Stated Complaint: POST OP SURGERY/SUTURE DETECTED Time Seen by Provider: 08/07/19 21:30 ED Review of Systems ROS: Stated complaint: POST OP SURGERY/SUTURE DETECTED Other details as noted in HPI <ABBI FUNEZ III - Last Filed: 08/08/19 00:18> ROS: Stated complaint: POST OP SURGERY/SUTURE DETECTED Other details as noted in HPI Comment: All other systems reviewed and negative <LYNDSEY LUONG - Last Filed: 08/08/19 03:29> ED Past Medical Hx <ABBI FUNEZ III - Last Filed: 08/08/19 00:18> - Past Medical History Previous Medical History?: Yes Hx Hypertension: No Hx Heart Attack/AMI: No Hx Congestive Heart Failure: No Hx Diabetes: No Hx Liver Disease: No Hx Renal Disease: No Hx Seizures: No Hx Asthma: No Hx COPD: No Hx HIV: No Additional medical history: PANCREATITIS (ETOH) - Surgical History Past Surgical History?: No - Social History Smoking Status: Never Smoker Substance Use Type: None <LYNDSEY LUONG - Last Filed: 08/08/19 03:29> - Medications Home Medications: Home Medications Medication Instructions Recorded Confirmed Last Taken Type Ferrous Sulfate [Feosol 325 MG tab] 325 mg PO TID 12/12/16 07/17/19 1 Day Ago History ~07/16/19 Folic Acid [Folvite] 1 mg PO QDAY 12/12/16 07/17/19 1 Day Ago History ~07/16/19 Lipase/Protease/Amylase [Robinson Arndt 1 cap PO QAC #60 cap 07/15/19 07/17/19 1 Day Ago Rx 12,000 Units] ~07/16/19 Ondansetron [Zofran ODT TAB] 4 mg PO Q8HR #15 tab.rapdis 07/15/19 07/17/19 1 Day Ago Rx ~07/16/19 Warfarin [Coumadin] 7.5 mg PO DAILY@1700 #30 tablet 07/28/19 Unknown Rx oxyCODONE [roxiCODONE] 5 mg PO TID PRN #30 tablet 07/28/19 Unknown Rx Upper Extremity Exam - Exam General: Vital signs noted. No distress. Alert and acting appropriately. <ABBI FUNEZ III - Last Filed: 08/08/19 00:18> - Exam General: Vital signs noted. No distress. Alert and acting appropriately. Shoulder Exam: Yes Shoulder Tenderness (Left axillary lymphadenopathy) Arm Exam: Yes Arm/Humerus Tenderness (Swelling, tenderness, warmth, dehiscent wound) Elbow: No Elbow Tenderness, No Normal Range of Motion in Elbow (Pain with arm extension) Forearm: Yes Forearm Tenderness, Yes Pain with Pronation, Yes Pain with Supination Hand: Yes Normal ROM in Digit(s), No Hand Tenderness, No Hand Deformity, No Digit Tenderness, No Digit(s) Deformity, No Tendon Dysfunction CMS Exam: No Broken Skin, No Normal Distal Pulses, No Normal Capillary Refill, No Normal Distal Sensation <LYNDSEY LUONG - Last Filed: 08/08/19 03:29> ED Course Vital Signs 08/07/19 14:27 Temperature 98.7 F Pulse Rate 106 H Respiratory 16 Rate Blood Pressure 120/81 O2 Sat by Pulse 99 Oximetry - Reevaluation(s) Reevaluation #1: I examined the patient with the midlevel. I agree with plan of care. Patient h as tenderness to the left upper extremity. Patient has opening to the surgical wound. Patient has purulent discharge from her surgical wound. Patient's left arm is warm to touch. Patient has axillary lymph nodes noted. 08/08/19 00:01 <ABBI FUNEZ III - Last Filed: 08/08/19 00:18> Vital Signs 08/07/19 14:27 Temperature 98.7 F Pulse Rate 106 H Respiratory 16 Rate Blood Pressure 120/81 O2 Sat by Pulse 99 Oximetry <LYNDSEY LUONG - Last Filed: 08/08/19 03:29> ED Medical Decision Making - Lab Data Result diagrams: 08/08/19 00:19 08/08/19 00:19 - Medical Decision Making 39-year-old -Citizen Of [place] female presents to the emergency room for left arm swelling pain and dehiscence of wound. Patient states that she had had a left arm IV that was started when she was here at her last admission on 07/28/2019 and vessel was injured. Patient states that she had to have vascular surgery repair. Patient denies any fever but reports pain is 8 out of 10. Patient has no known drug allergies. Patient is currently on warfarin for a clot that was found in her stomach. <LYNDSEY LUONG - Last Filed: 08/08/19 03:29> Critical care attestation.: If time is entered above; I have spent that time in minutes in the direct care of this critically ill patient, excluding procedure time. <ABBI FUNEZ III - Last Filed: 08/08/19 00:18> Critical care attestation.: If time is entered above; I have spent that time in minutes in the direct care of this critically ill patient, excluding procedure time. <LYNDSEY LUONG - Last Filed: 08/08/19 03:29> ED Disposition <ABBI FUNEZ III - Last Filed: 08/08/19 00:18> Is pt being admited?: Yes Does the pt Need Aspirin: Yes <LYNDSEY LUONG - Last Filed: 08/08/19 03:29> Clinical Impression: Diabetes, Arterial thrombosis, Wound dehiscence Disposition: OP ADMIT IP TO THIS HOSP Condition: Stable Instructions: Diabetes Mellitus Type 2 in Adults (ED) Referrals: PRIMARY CARE,MD [Primary Care Provider] - 3-5 Days
[2019-08-08 00:42] LABS: Basophils # (Auto) 0.1 K/mm3 (0.0-0.1); Basophils % (Auto) 0.6 % (0.0-1.8); Eosinophils # (Auto) 0.1 K/mm3 (0.0-0.4); Eosinophils % (Auto) 1.7 % (0.0-4.3); Hematocrit 31.5 % (30.3-42.9); Hemoglobin 10.3 gm/dl (10.1-14.3); Lymphocytes # (Auto) 2.5 K/mm3 (1.2-5.4); Lymphocytes % (Auto) 27.6 % (13.4-35.0); Mean Corpuscular HGB Conc 33 % (30-34); Mean Corpuscular Volume 72 fl (79-97); Monocytes # (Auto) 0.5 K/mm3 (0.0-0.8); Monocytes % (Auto) 5.6 % (0.0-7.3); Platelet Count 428 K/mm3 (140-440); Red Blood Count 4.41 M/mm3 (3.65-5.03)
[2019-08-08 00:50] LABS: Red Cell Distribution Width 23.7 % (13.2-15.2)
[2019-08-08 01:07] LABS: Erythrocyte Sedimentation Rate 29 mm/Hr (0-20)
[2019-08-08 01:10] LABS: Alanine Aminotransferase 23 units/L (7-56); Albumin 4.4 g/dL (3.9-5); BUN/Creatinine Ratio 10; Blood Urea Nitrogen 5 mg/dL (7-17); Calcium 9.7 mg/dL (8.4-10.2); Hemolysis Index 4
[2019-08-08] MEDS ORDERED: ONDANSETRON 4 MG/2 ML INJ ONE (01:37)
[2019-08-08] MEDS ORDERED: HYDROmorphone 1 MG/1 ML INJ ONE (01:39)
--- NOTE | 2019-08-08 03:13 | Cat Scan Report ---
CT upper extrem LT w con INDICATION: left upper arm swelling with dehiscence of wound. TECHNIQUE: All CT scans at this location are performed using the following dose modulation technique: Automated exposure control. Helical slices were obtained through the left arm. Intravenous contrast is administ ered. COMPARISON: None available. FINDINGS: There is a fluid collection in the medial aspect of the left upper arm medial to the biceps muscle. T he collection measures approximately 4.5 x 3.6 x 12 cm. There is no air within the collection. On review of bone windows, there is no periosteal reaction. There is no definitive CT evidence for os teomyelitis. There is a focal area of increased attenuation along the posterior aspect of the biceps muscle which could represent calcification. This could represent some pooling of contrast either in the vein. This could represent a pseudoaneurysm. This area measures 12 x 3 mm IMPRESSION: 1. There is a large fluid collection along the medial aspect of the left arm. There is a small collection of increased attenuation along the posterior aspect of the biceps muscle, series 4 image 231. This measures 12 x 3 mm. This may represent some pooling of contrast within a ve in. . This could represent a pseudoaneurysm. This does not communicate with the large fluid collecti on. Signer Name: Franky Wu MD Signed: 08/08/2019 3:09 AM Workstation Name: [id number]
[2019-08-08] MEDS ORDERED: ONDANSETRON 4 MG/2 ML INJ IV PRN (04:28)
[2019-08-08] MEDS ORDERED: ACETAMINOPHEN 325 MG TAB PO PRN (04:28)
[2019-08-08] MEDS ORDERED: DEXTROSE 50% IN WATER (25GM) 50 ML SYRINGE IV PRN (04:30)
[2019-08-08] MEDS ORDERED: PIPERACILLIN/TAZOBACTAM 3.375 3.375 GM/50 ML BAG IV SCH (06:00)
[2019-08-08] MEDS ORDERED: PIPERACIL/TAZOBACTA 4.5/NS 100 0 GM/0 ML VIAL IV ONE (06:40)
[2019-08-08] MEDS ORDERED: MORPHINE 2 MG/1 ML INJ ONE (06:41)
[2019-08-08] MEDS: PIPERACIL/TAZOBACTA 4.5/NS 100 4.5 GM/100 ML VIAL IV SCH ×3 (07:03→22:22)
[2019-08-08] MEDS: MORPHINE 2 MG/1 ML INJ IV PRN (07:04)
--- NOTE | 2019-08-08 07:05 | History and Physical Report ---
CHIEF COMPLAINT: Pain and swelling in the left arm. HISTORY OF PRESENTING ILLNESS: The patient is a 39-year-old female who had extravasation of fluid and contrast into the soft tissue of the left arm and was seen on 07/24/2019 by the vascular surgeon that did some procedure in the left arm to remove the extravasated fluid and subsequently the patient started having swelling, pain, and skin excoriation in the left arm area. There is no history of fever and chills and no history of nausea or vomiting. Also, the patient denied history of chest pain or shortness of breath and presented for evaluation. PAST MEDICAL HISTORY: Pertinent for pancreatitis. Past medical history is pertinent for possible hyperglycemia suspicious for diabetes mellitus. PAST SURGICAL HISTORY: Pertinent for recent soft tissue surgery involving the left arm. FAMILY HISTORY: There is no significant family history noted. SOCIAL HISTORY: The patient does not smoke, does not drink alcohol, and does not use illicit drugs. MEDICATIONS: The patient is on ferrous sulfate 325 mg by mouth 3 times daily, folic acid 1 mg by mouth daily, Creon 12,000 units 1 by mouth q.a.c., Zofran under the tongue 4 mg every 8 hours, Coumadin 7.5 mg by mouth daily, oxycodone 5 mg by mouth 3 times daily as needed for pain. ALLERGIES: There are no known drug allergies. REVIEW OF SYSTEMS: CONSTITUTIONAL: There is no fever, no chills, no diaphoresis. HEENT: There is no headache or sore throat. CARDIOVASCULAR SYSTEM: There is no chest pain or orthopnea. RESPIRATORY SYSTEM: There is no shortness of breath or cough. GASTROINTESTINAL SYSTEM: There is no nausea, no vomiting, no abdominal pain, diarrhea, or constipation. NEUROLOGICAL SYSTEM: There is no numbness, no dizziness, no altered mental status. MUSCULOSKELETAL SYSTEM: There is no joint pain or swelling. DERMATOLOGICAL SYSTEM: There is no skin excoriation in the left upper arm with swelling and pain. GENITOURINARY SYSTEM: There is no dysuria, hematuria, or flank pain. Rest of system review is normal. PHYSICAL EXAMINATION: GENERAL: At the time of exam, the patient was found to be alert, oriented x3, and in [id number] distress due to pain. VITAL SIGNS: The patient's vital signs show temperature of 98.7 degrees Fahrenheit, pulse of 106, respirations 16, blood pressure 120/81, and O2 sat of 99% on room air. HEENT: Showed pupils to be equal, round, reactive to light and accommodation. Extraocular muscles are intact. NECK: Supple with no JVD or carotid bruit. CARDIOVASCULAR: Showed normal first and second heart sounds with no gallops or murmurs. RESPIRATORY SYSTEM: Showed good air entry on both sides of the lungs with no abnormal breath sounds. GASTROINTESTINAL SYSTEM: Showed abdomen to be full, soft, nontender, with no organomegaly or rigidity. NEUROLOGIC EXAM: Shows no focal deficit. MUSCULOSKELETAL SYSTEM: Shows swelling in the left arm area with tenderness and with normal range of motion of the joints of both shoulder and elbow joints. DERMATOLOGICAL SYSTEM: Shows excoriation of the skin in the medial aspect of the left arm. GENITOURINARY SYSTEM: Showed no costovertebral angle tenderness. PERTINENT LAB AND IMAGING STUDIES: The patient had CT of the left upper extremity done, which shows a large fluid collection along the medial aspect of the left arm. There is also a small collection of increased attenuation along the posterior aspect of the bicep muscle that measures 12 x 3 mm that may represent some pooling of contrast within the vein. The Radiology said that this could represent a pseudoaneurysm and this does not communicate with a large fluid collection. Lab results: The patient has CBC done with normal white count, normal hemoglobin and normal hematocrit with unremarkable CBC differential. The patient's chemistry was unremarkable except for elevated blood glucose level of 441. DIAGNOSES: 1. Left arm wound breakdown. 2. Left arm cellulitis. 3. Hyperglycemia. PLAN OF CARE: 1. The patient will be placed on observation in the medical/surgical bryan. 2. The patient will have vascular surgical consult with Dr. Brunson who did the patient's surgery was on 07/24/2019. 3. The patient will be on IV morphine 2 mg every 3 hours as needed for pain and IV Zofran 4 mg every 8 hours for nausea and vomiting. 4. The patient will be on IV Zosyn 4.5 grams q. 8 hours. 5. The patient will be on heparin 5000 units subcutaneous q. 12 hours for DVT prophylaxis. 6. The patient will be on Tylenol 650 mg by mouth every 4 hours for fever and headache. 7. The patient will be on Accu-Chek a.c. and at bedtime, followed by low-dose sliding scale coverage using regular insulin. 8. The patient will be on consistent carbohydrate diet. JOB# [id number] OCN/NTS
[2019-08-08] MEDS ORDERED: PIPERACIL/TAZOBACTA 4.5/NS 100 4.5 GM/100 ML VIAL IV ONE (09:32)
--- NOTE | 2019-08-08 09:50 | Consultation ---
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 At that time, the patient underwent exploration of her brachial artery and no areas of extravasation were identified. The arm was decompressed. The patient returned home and was restarted on her anticoagula tion. She noticed increased swelling and tenseness in her left upper arm as well as some breakdown of the wound margins secondary to pressure. The patient return to the ER. CT of her arm demonstrates a focal area of contrast extravasation. Although this is not within the fluid collection, it is adjacent to the fluid collection is likely the etiology of the patient's recurrent bleeding. Patient complains of pain in her arm and tenderness to touch. Medications and Allergies Allergies Allergy/AdvReac Type Severity Reaction Status Date / Time No Known Allergies Allergy Unverified 09/18/16 23:27 Home Medications Medication Instructions Recorded Confirmed Last Taken Type Ferrous Sulfate [Feosol 325 MG tab] 325 mg PO TID 12/12/16 07/17/19 1 Day Ago History ~07/16/19 Folic Acid [Folvite] 1 mg PO QDAY 12/12/16 07/17/19 1 Day Ago History ~07/16/19 Lipase/Protease/Amylase [Creon Dr 1 cap PO QAC #60 cap 07/15/19 07/17/19 1 Day Ago Rx 12,000 Units] ~07/16/19 Ondansetron [Zofran ODT TAB] 4 mg PO Q8HR #15 tab.rapdis 07/15/19 07/17/19 1 Day Ago Rx ~07/16/19 Warfarin [Coumadin] 7.5 mg PO DAILY@1700 #30 tablet 07/28/19 Unknown Rx oxyCODONE [roxiCODONE] 5 mg PO TID PRN #30 tablet 07/28/19 Unknown Rx Active Meds: Active Medications Acetaminophen (Tylenol) 650 mg PO Q4H PRN PRN Reason: Fever >101 Dextrose (D50w (25gm) Syringe) 50 ml IV Q30MIN PRN; Protocol PRN Reason: Hypoglycemia Heparin Sodium (Porcine) (Heparin) 5,000 unit SUB-Q Q12HR FARHAN Piperacillin Sod/Tazobactam Sod (Zosyn/Ns 4.5gm/100ml) 4.5 gm in 100 mls @ 200 mls/hr IV Q8HR FARHAN; Protocol Last Admin: 08/08/19 07:03 Dose: 200 mls/hr Documented by: Insulin Human Regular (Humulin R) 0 units SUB-Q AC FARHAN; Protocol Insulin Human Regular (Humulin R) 0 units SUB-Q QHS FARHAN; Protocol Morphine Sulfate (Morphine) 2 mg IV Q3H PRN PRN Reason: Pain, Moderate (4-6) Last Admin: 08/08/19 07:04 Dose: 2 mg Documented by: Ondansetron HCl (Zofran) 4 mg IV Q8H PRN PRN Reason: Nausea And Vomiting Review of Systems All systems: negative Exam - Constitutional Vitals: Temp Pulse Resp BP Pulse Ox 98.7 F 106 H 16 120/81 99 08/07/19 14:27 08/07/19 14:27 08/07/19 14:27 08/07/19 14:27 08/07/19 14:27 General appearance: Present: no acute distress - EENT Eyes: Present: EOM intact ENT: hearing intact - Neck Neck: Present: supple, normal ROM - Respiratory Respiratory effort: normal - Extremities Extremities: abnormal Extremity abnormal: edema - Abdominal General gastrointestinal: Present: deferred - Rectal Rectal Exam: deferred - Psychiatric Psychiatric: appropriate mood/affect, cooperative Results - Labs CBC & Chem 7: 08/08/19 00:19 08/08/19 00:19 Labs: Abnormal lab results 08/08/19 08/08/19 08/08/19 Range/Units 00:19 00:19 00:19 MCV 72 L (79-97) fl MCH 23 L (28-32) pg RDW 23.7 H (13.2-15.2) % BUN 5 L (7-17) mg/dL Creatinine 0.5 L (0.7-1.2) mg/dL Glucose 441 H (65-100) mg/dL Lactate Dehydrogenase 181 H (91-180) units/L - Imaging and Cardiology CT scan - abdomen: image reviewed (Arm) Assessment and Plan Patient will be scheduled for angiography and possible embolization tomorrow in the [facility] for persistent pseudoaneurysm. It is likely that a small vessel arising from the brachial artery is the source of the patient's recurrent pseudoaneurysms. Following evaluation and treatment, the patient may need surgical decompression of her recurrent hematoma.
[2019-08-08] MEDS ORDERED: INSULIN REGULAR, HUMAN 100 UNITS/1 ML ONE (11:14)
[2019-08-08] MEDS ORDERED: ACETAMINOPHEN 325 MG TAB ONE (11:15)
[2019-08-08] MEDS ORDERED: HEPARIN 5,000 UNIT/1 ML VIAL ONE (11:17)
[2019-08-08] MEDS: INSULIN REGULAR, HUMAN 100 UNITS/1 ML SUB-Q SCH ×4 (11:20→23:58)
[2019-08-08] MEDS: HEPARIN 5,000 UNIT/1 ML VIAL SUB-Q SCH ×2 (11:25→22:22)
--- NOTE | 2019-08-08 13:07 | Event Note ---
Date: 08/08/19 Patient admitted in early hours Patient seen Patient has a right arm pseudoaneurysm with breakdown Patient for angiogram and cath tomorrow in the [facility] by interventional radiology.
[2019-08-08] MEDS: LIPASE 12,000/PROTEASE 38,000/AMYLASE 60,000 (UNITS) DR CAP PO SCH ×2 (18:25→18:35)
[2019-08-08] MEDS: FOLIC ACID 1 MG TAB PO SCH (18:26)
[2019-08-08] MEDS: oxyCODONE 5 MG TAB PO PRN (18:33)
[2019-08-08] MEDS: ONDANSETRON 4 MG ODT TAB PO SCH ×2 (18:34→23:41)
[2019-08-08] MEDS: FERROUS SULFATE 325 MG TAB PO SCH (20:26)
[2019-08-08 20:35] LABS: INR 1.91 (0.87-1.13)
[2019-08-08] MEDS ORDERED: WARFARIN 7.5 MG TAB PO SCH (21:00)
[2019-08-09 05:34] LABS: INR 1.75 (0.87-1.13)
[2019-08-09] MEDS: PIPERACIL/TAZOBACTA 4.5/NS 100 4.5 GM/100 ML VIAL IV SCH ×3 (06:13→21:17)
[2019-08-09] MEDS: ONDANSETRON 4 MG ODT TAB PO SCH ×3 (06:26→21:19)
[2019-08-09] MEDS: LIPASE 12,000/PROTEASE 38,000/AMYLASE 60,000 (UNITS) DR CAP PO SCH ×3 (07:30→16:30)
[2019-08-09] MEDS: FERROUS SULFATE 325 MG TAB PO SCH ×3 (08:00→21:17)
[2019-08-09] MEDS: INSULIN REGULAR, HUMAN 100 UNITS/1 ML SUB-Q SCH ×4 (09:22→22:43)
[2019-08-09] MEDS: SODIUM CHLORIDE 0.9% 1000 ML 1,000 ML IV SCH ×2 (09:24→11:15)
[2019-08-09] MEDS: HEPARIN 5,000 UNIT/1 ML VIAL SUB-Q SCH ×2 (10:00→21:28)
[2019-08-09] MEDS ORDERED: SODIUM CHLORIDE 0.9% 250ML 250 ML ONE (10:47)
[2019-08-09] MEDS ORDERED: HEPARIN 10,000 UNITS/10 ML VIAL ONE ×2 (10:47→11:09)
[2019-08-09] MEDS ORDERED: GELATIN SPONGE SIZE 100 TP ONE (10:47)
[2019-08-09] MEDS ORDERED: BACITRACIN 50,000 UNIT VIAL ONE (10:48)
[2019-08-09] MEDS ORDERED: THROMBIN (RECOMBINANT) 5,000 UNIT VIAL TP ONE (10:48)
[2019-08-09] MEDS ORDERED: HEPARIN/NS 5000 UNIT/500ML 1,000 ML IR ONE (11:08)
[2019-08-09] MEDS ORDERED: LIDOCAINE 1%/EPINEPHRINE 1:100,000 VIAL (20 ML) INFILTRATI ONE (11:09)
--- NOTE | 2019-08-09 11:28 | Progress Note ---
Subjective Date of service: 08/09/19 Interval history: Patient with reaccumulation left arm hematoma following iatrogenic injury Patient undergo left arm diagnostic angiogram with potential coil embolization This morning patient noted to have left arm numbness and mild weakness concerning for nerve compression We will plan for hematoma evacuation in the operating room following diagnostic angiogram Objective - Constitutional Vitals: Vital Signs - 12hr 08/09/19 05:32 Temperature 98.4 F Pulse Rate 79 Respiratory 20 Rate Blood Pressure 94/60 O2 Sat by Pulse 98 Oximetry - Labs CBC & Chem 7: 08/08/19 00:19 08/08/19 00:19 Labs: Abnormal lab results 08/08/19 08/08/19 08/08/19 Range/Units 16:39 19:58 22:21 PT 22.2 H (12.2-14.9) Sec. INR 1.91 H (0.87-1.13) POC Glucose 287 H 330 H (70-105) 08/09/19 08/09/19 Range/Units 04:49 08:21 PT 20.7 H (12.2-14.9) Sec. INR 1.75 H (0.87-1.13) POC Glucose 217 H (70-105) Medications & Allergies - Medications Allergies/Adverse Reactions: Allergies No Known Allergies Allergy (Unverified 09/18/16 23:27) Home Medications: Home Medications Medication Instructions Recorded Confirmed Last Taken Type Ferrous Sulfate [Feosol 325 MG tab] 325 mg PO TID 12/12/16 08/08/19 08/07/19 History Folic Acid [Folvite] 1 mg PO QDAY 12/12/16 08/08/19 08/07/19 History Lipase/Protease/Amylase [Robinson Dr 1 cap PO QAC #60 cap 07/15/19 08/08/19 08/07/19 Rx 12,000 Units] Ondansetron [Zofran ODT TAB] 4 mg PO Q8HR #15 tab.rapdis 07/15/19 08/08/1908/08 Rx Warfarin [Coumadin] 7.5 mg PO DAILY@1700 #30 tablet 07/28/19 08/08/19 08/07/19 Rx oxyCODONE [roxiCODONE] 10 mg PO TID PRN 08/08/19 08/08/19 08/07/19 History Active Medications: Generic Name Dose Route Start Last Admin Trade Name Freq PRN Reason Stop Dose Admin Acetaminophen 650 mg 08/08/19 04:28 Tylenol PO Q4H PRN Fever >101 Lipase/Protease/Amylase 1 each 08/08/19 07:30 08/08/19 18:35 Robinson Arndt 12,000 Units PO Not Given QAC FARHAN Dextrose 50 ml 08/08/19 04:30 D50w (25gm) Syringe IV Q30MIN PRN Hypoglycemia Protocol Ferrous Sulfate 325 mg 08/08/19 20:00 08/08/19 20:26 Feosol PO 325 mg TID FARHAN Administration Folic Acid 1 mg 08/08/19 10:00 08/08/19 18:26 Folvite PO Not Given QDAY [facility] Heparin Sodium (Porcine) 5,000 unit 08/08/19 10:00 08/08/19 22:22 Heparin SUB-Q 5,000 unit Q12HR FARHAN Administration Piperacillin Sod/Tazobactam Sod 4.5 gm in 100 mls @ 200 mls/hr 08/08/19 06:00 08/09/19 06:13 Zosyn/Ns 4.5gm/100ml IV 200 mls/hr Q8HR FARHAN Administration Protocol Sodium Chloride 1,000 mls @ 250 mls/hr 08/09/19 08:45 08/09/19 09:24 Nacl 0.9% 1000 Ml IV 08/10/19 12:44 250 mls/hr DIRECT FARHAN Administration Insulin Human Regular 0 units 08/08/19 07:30 08/09/19 09:22 Humulin R SUB-Q 2 units AC FARHAN Administration Protocol Insulin Human Regular 0 units 08/08/19 22:00 08/08/19 23:58 Humulin R SUB-Q 4 units QHS FARHAN Administration Protocol Morphine Sulfate 2 mg 08/08/19 04:28 08/08/19 07:04 Morphine IV 2 mg Q3H PRN Administration Pain, Moderate (4-6) Ondansetron HCl 4 mg 08/08/19 04:28 Zofran IV Q8H PRN Nausea And Vomiting Ondansetron HCl 4 mg 08/08/19 18:03 08/09/19 06:26 Zofran Odt PO Not Given Q8HR [facility] Oxycodone HCl 10 mg 08/08/19 18:03 08/08/19 18:33 Roxicodone PO 10 mg TID PRN Administration Pain, Moderate (4-6)
[2019-08-09] MEDS: MIDAZOLAM 2 MG/2 ML INJ ONE ×3 (11:39→11:47)
[2019-08-09] MEDS: fentaNYL 100 MCG/2 ML INJ ONE ×4 (11:39→12:05)
--- NOTE | 2019-08-09 11:45 | Anesthesia Consultation ---
Anesthesia Consult and Med Hx Date of service: 08/09/19 - Airway Anesthetic Teeth Evaluation: Poor (multiple chipped and broked teeth including top incisors) ROM Head & Neck: Adequate Mental/Hyoid Distance: Adequate Mallampati Class: Class III Intubation Access Assessment: Probably Good (previous easy LMA) - Pulmonary Exam CTA: Yes - Cardiac Exam Cardiac Exam: RRR - Pre-Operative Health Status ASA Pre-Surgery Classification: ASA3 Proposed Anesthetic Plan: General - Pulmonary Hx Smoking: Yes (<1/2PPD) Hx Respiratory Symptoms: No - Cardiovascular System Hx Hypertension: No Hx Heart Attack/AMI: No Hx Percutaneous Transluminal Coronary Angioplasty (PTCA): No Hx Cardia Arrhythmia: No - Central Nervous System Hx Seizures: No CVA: No Hx Psychiatric Problems: No - Gastrointestinal Hx Gastroesophageal Reflux Disease: No - Endocrine Hx Renal Disease: No Hx Liver Disease: No Hx Non-Insulin Dependent Diabetes: Yes (persistent hyperglycemia concerning for undiagnosed DM) Hx Thyroid Disease: No - Hematic Hx Anemia: Yes - Other Systems Hx Alcohol Use: Yes (chronic EtOH pancreatitis; no hx withdrawal symptoms) Hx Obesity: Yes (BMI 31.6) - Additional Comments Anesthesia Medical History Comments: 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 No hx anesthetic complications. laborer shaft sinking procedure w/ RN administered conscious sedation planned immediately prior to OR.
--- NOTE | 2019-08-09 11:49 | Anesthesia Day of Surgery ---
Anesthesia Day of Surgery - Day of Surgery Patient Examined: Yes Patient H&P Reviewed: Yes Patient is NPO: Yes
[2019-08-09] MEDS ORDERED: fentaNYL 100 MCG/2 ML INJ ONE (11:52)
[2019-08-09] MEDS ORDERED: MIDAZOLAM 2 MG/2 ML INJ ONE (11:52)
--- NOTE | 2019-08-09 12:46 | Post Operative Note ---
Date of procedure: 08/09/19 Pre-op diagnosis: Left upper extremity hematoma with extravasation Post-op diagnosis: other (Left upper extremity hematoma without extravasation) Findings: Sent to OR after negative angiography Procedure: 1. Ultrasound guided access of the left common femoral artery 2. Selection of the left subclavian artery with angiography 3. Selection of the left axillary and brachial artery with angiography 4. Selection of the infrarenal abdominal aorta with angiograpgy 5. Closure of the left common femoral artery with 6 Fr proglide Anesthesia: local (w/ conscious sedation) Surgeon: OMAR SHAW Estimated blood loss: minimal Condition: stable
--- NOTE | 2019-08-09 12:46 | Operative Report ---
Operative Report Operative Report: EXAM: 1. Ultrasound guided access of the left common femoral artery 2. Selection of the left subclavian artery with angiography 3. Selection of the left axillary and brachial artery with angiography 4. Selection of the infrarenal abdominal aorta with angiograpgy 5. Closure of the left common femoral artery with 6 Fr proglide DATE: 08/09/2019 [employer] MACH[employer] OPERATOR: OMAR SHAW MD INDICATION: Recurrent hematoma from IV access of the left upper extremity with CT scan suggesting extravasation. MEDICATIONS: Please see nursing report for full details. DEVICES: None. CONTRAST: 40 mL's of nonionic contrast PROCEDURE: The risks, benefits, and alternatives were discussed with the patient; written informed consent was obtained. The left groin was prepped and draped in a sterile fashion. The left common femoral artery was identified with ultrasound was patent. Under direct ultrasound guidance, the left common femoral artery was accessed with a 21-gauge micropuncture needle. 0.018 inch wire was passed into the aorta. Needle was exchanged for transitional dilator. Wire was exchanged for 0.035 inch wire. Transitional dilator was exchanged for 5 Hebrew sheath. Vertebral catheter was then used to select the left subclavian artery and digital subtraction angiography was performed demonstrating patency of the left subclavian artery, and antegrade flow of the left vertebral artery. The left axillary artery was selected and digital subtraction angiography demonstrated the left axillary artery was patent. The left brachial artery was selected and digital subtraction angiography demonstrated that the left brachial artery was patent. Multiple projections were obtained of the left antecubital fossa all of which demonstrated no extravasation or pseudoaneurysm with a normal branching pattern of the ulnar, interosseous, and radial artery. All of these vessels were patent. The distal portions of the ulnar, interosseous, and radial artery and the hands were not imaged. After determining that there was no extravasation or pseudoaneurysm, the catheter was retracted to the abdominal aorta. Digital subtraction angiography was performed demonstrating patency of the infrarenal abdominal aorta, eccentric thrombus in the right common iliac artery, and patency of the rest of the iliac vessels. After this, all catheters and sheaths were removed over a 0.035 inch wire, and a 6 Hebrew pro glide device was used to close the left common femoral artery arteriotomy achieving immediate hemostasis. Sterile dressing applied. Pressure dressing applied. Patient tolerated the procedure well. No immediate postprocedural complication. FINDINGS: Please see procedure note above. IMPRESSION: No extravasation or pseudoaneurysm from the left brachial artery as described above. Patient was then sent to the operating room for decompression of the recurrent left upper extremity hematoma.
[2019-08-09] MEDS ORDERED: HYDROmorphone 1 MG/1 ML INJ ONE ×3 (13:14→15:57)
[2019-08-09] MEDS ORDERED: propofoL 200 MG/20 ML VIAL IV ONE (13:15)
[2019-08-09] MEDS ORDERED: HEPARIN 10,000 UNITS/10 ML VIAL IV ONE (14:04)
[2019-08-09] MEDS ORDERED: SODIUM CHLORIDE 0.9% 250 ML IVPB IV ONE (14:05)
[2019-08-09] MEDS ORDERED: ceFAZolin 1 GM VIAL ONE ×2 (14:59→15:00)
[2019-08-09] MEDS ORDERED: LIDOCAINE MPF (2%) 20 MG/1 ML VIAL 5 ML ONE (15:00)
[2019-08-09] MEDS ORDERED: ONDANSETRON 4 MG/2 ML INJ ONE (15:00)
[2019-08-09] MEDS ORDERED: LACTATED RINGERS 1,000 ML ONE (15:18)
[2019-08-09] MEDS: HYDROmorphone 1 MG/1 ML INJ IV PRN ×3 (15:30→15:55)
[2019-08-09] MEDS ORDERED: INSULIN REGULAR, HUMAN 100 UNITS/1 ML ONE (15:55)
--- NOTE | 2019-08-09 15:55 | Post Operative Note ---
Pre-op diagnosis: Left Upper Extremity Hematoma Post-op diagnosis: same Procedure: 1. Left upper extremity hematoma evacuation 2. Left upper extremity wound vac placement Anesthesia: GETArtur Surgeon: ALEXANDRO AREVALO Estimated blood loss: other (25ml) Pathology: none Specimen disposition: to lab Condition: stable Disposition: PACU
--- NOTE | 2019-08-09 16:08 | Progress Note ---
Assessment and Plan Assessment and plan: 39-year-old -[place] female presents to the emergency room for left arm swelling pain and dehiscence of wound. Patient states that she had had a left arm IV that was started when she was here at her last admission on 07/28/2019 and vessel was injured. Patient states that she had to have vascular surgery repair. Patient denies any fever but reports pain is 8 out of 10. Patient has no known drug allergies. Patient is currently on warfarin for a clot that was found in her stomach. Per Vascular 08/09 Patient with reaccumulation left arm hematoma following iatrogenic injury Patient undergo left arm diagnostic angiogram with potential coil embolization This morning patient noted to have left arm numbness and mild weakness concerning for nerve compression We will plan for hematoma evacuation in the operating room following diagnostic angiogram Left Arm Hematoma Possible Nerve Compression Diabetes Mellitus With hyperglycemia Secondary Hypercoagulable state Cellulitis Plan Continue plan per vascular Patient underwent angiogram and evacuation today with wound vac placement Obtain wound care consult Pain control Check A1c and continue insulin therapy for now She is non septic, will continue antibiotics and monitor Neuro Checks q2hs DVT/GI History Interval history: Patient seen and examined, going to surgery today Hospitalist Physical - Physical exam Narrative exam: VITAL SIGNS: Reviewed. GENERAL: The patient appears normally developed, very emotional, appears to be in pain vital signs as documented. HEAD: No signs of head trauma. EYES: Pupils are equal. Extraocular motions intact. EARS: Hearing grossly intact. MOUTH: Oropharynx is normal. NECK: No adenopathy, no JVD. CHEST: Chest with clear breath sounds bilaterally. No wheezes, rales, or rhonchi. CARDIAC: Regular rate and rhythm. S1 and S2, without murmurs, gallops, or rubs. VASCULAR: No Edema. Peripheral pulses normal and equal in all extremities. ABDOMEN: Soft, non tender and non distended. No rebound or guarding, and no masses palpated. Bowel Sounds normal. MUSCULOSKELETAL: Good range of motion of all major joints. Extremities without clubbing, cyanosis or edema. Except noted dressing of the left upper extremity with wound VAC. NEUROLOGIC EXAM: Alert and oriented x 3 No focal sensory or strength deficits. Speech normal. Follows commands. PSYCHIATRIC: Mood normal. SKIN: Wound VAC to left upper extremity detail exam as documented in skin assessment - Constitutional Vitals: Temp Pulse Resp BP Pulse Ox 97.7 F 81 14 132/69 100 02/17/20 16:00 08/09/19 16:00 08/09/19 16:00 08/09/19 16:00 08/09/19 16:00 General appearance: Present: no acute distress Results - Labs CBC & Chem 7: 08/08/19 00:19 08/08/19 00:19 Labs: Laboratory Last Values WBC 9.1 K/mm3 (4.5-11.0) 08/08/19 00:19 RBC 4.41 M/mm3 (3.65-5.03) 08/08/19 00:19 Hgb 10.3 gm/dl (10.1-14.3) 08/08/19 00:19 Hct 31.5 % (30.3-42.9) 08/08/19 00:19 MCV 72 fl (79-97) L 08/08/19 00:19 MCH 23 pg (28-32) L 08/08/19 00:19 MCHC 33 % (30-34) 08/08/19 00:19 RDW 23.7 % (13.2-15.2) H 08/08/19 00:19 Plt Count 428 K/mm3 (140-440) 08/08/19 00:19 Lymph % (Auto) 27.6 % (13.4-35.0) 08/08/19 00:19 Henry % (Auto) 5.6 % (0.0-7.3) 08/08/19 00:19 Eos % (Auto) 1.7 % (0.0-4.3) 08/08/19 00: Baso % (Auto) 0.6 % (0.0-1.8) 08/08/19 00:19 Lymph # 2.5 K/mm3 (1.2-5.4) 08/08/19 00:19 Henry # 0.5 K/mm3 (0.0-0.8) 08/08/19 00:19 Eos # 0.1 K/mm3 (0.0-0.4) 08/08/19 00:19 Baso # 0.1 K/mm3 (0.0-0.1) 08/08/19 00:19 Seg Neutrophils % 64.5 % (40.0-70.0) 02/16/20 00:19 Seg Neutrophils # 5.9 K/mm3 (1.8-7.7) 08/08/19 00:19 ESR 29 mm/Hr (0-20) 08/08/19 00:19 PT 20.7 Sec. (12.2-14.9) H 08/09/19 04:49 INR 1.75 (0.87-1.13) H 08/09/19 04:49 Sodium 137 mmol/L (137-145) 08/08/19 00:19 Potassium 4.5 mmol/L (3.6-5.0) 08/08/19 00:19 Chloride 99.6 mmol/L (98-107) 08/08/19 00:19 Carbon Dioxide 23 mmol/L (22-30) 08/08/19 00:19 Anion Gap 19 mmol/L 08/08/19 00:19 BUN 5 mg/dL (7-17) L 08/08/19 00:19 Creatinine 0.5 mg/dL (0.7-1.2) L 08/08/19 00:19 Estimated GFR > 60 ml/min 08/08/19 00:19 BUN/Creatinine Ratio 10 % 08/08/19 00:19 Glucose 441 mg/dL (65-100) H 08/08/19 00:19 POC Glucose 217 (70-105) H 08/09/19 08:21 Lactic Acid 1.40 mmol/L (0.7-2.0) 08/08/19 00:19 Calcium 9.7 mg/dL (8.4-10.2) 08/08/19 00:19 Total Bilirubin 0.20 mg/dL (0.1-1.2) 08/08/19 00:19 AST 24 units/L (5-40) 08/08/19 00:19 ALT 23 units/L (7-56) 08/08/19 00:19 Alkaline Phosphatase 95 units/L (35-129) 08/08/19 00:19 Lactate Dehydrogenase 181 units/L (91-180) H 08/08/19 00:19 Total Protein 8.2 g/dL (6.3-8.2) 08/08/19 00:19 Albumin 4.4 g/dL (3.9-5) 08/08/19 00:19 Albumin/Globulin Ratio 1.2 % 08/08/19 00:19 Active Medications - Current Medications Current Medications: Generic Name Dose Route Start Last Admin Trade Name Freq PRN Reason Stop Dose Admin Acetaminophen 650 mg 08/08/19 04:28 Tylenol PO Q4H PRN Fever >101 Lipase/Protease/Amylase 1 each 08/08/19 07:30 08/08/19 18:35 Robinson Arndt 12,000 Units PO Not Given QAC FARHAN Dextrose 50 ml 08/08/19 04:30 D50w (25gm) Syringe IV Q30MIN PRN Hypoglycemia Protocol Ferrous Sulfate 325 mg 08/08/19 20:00 08/08/19 20:26 Feosol PO 325 mg TID FARHAN Administration Folic Acid 1 mg 08/08/19 10:00 08/08/19 18:26 Folvite PO Not Given QDAY [facility] Heparin Sodium (Porcine) 5,000 unit 08/08/19 10:00 08/08/19 22:22 Heparin SUB-Q 5,000 unit Q12HR FARHAN Administration Hydromorphone HCl 0.5 mg 08/09/19 11:48 08/09/19 15:55 Dilaudid IV 08/09/19 20:00 0.5 mg Q10MIN PRN Administration Pain , Severe (7-10) Piperacillin Sod/Tazobactam Sod 4.5 gm in 100 mls @ 200 mls/hr 08/08/19 06:00 08/09/19 06:13 Zosyn/Ns 4.5gm/100ml IV 200 mls/hr Q8HR FARHAN Administration Protocol Sodium Chloride 1,000 mls @ 250 mls/hr 08/09/19 08:45 08/09/19 11:15 Nacl 0.9% 1000 Ml IV 08/10/19 12:44 250 mls/hr DIRECT FARHAN Administration Insulin Human Regular 0 units 08/08/19 07:30 08/09/19 09:22 Humulin R SUB-Q 2 units AC FARHAN Administration Protocol Insulin Human Regular 0 units 08/08/19 22:00 08/08/19 23:58 Humulin R SUB-Q 4 units QHS FARHAN Administration Protocol Morphine Sulfate 2 mg 08/08/19 04:28 08/08/19 07:04 Morphine IV 2 mg Q3H PRN Administration Pain, Moderate (4-6) Ondansetron HCl 4 mg 08/08/19 04:28 Zofran IV Q8H PRN Nausea And Vomiting Ondansetron HCl 4 mg 08/08/19 18:03 08/09/19 06:26 Zofran Odt PO Not Given Q8HR [facility] Oxycodone HCl 10 mg 08/08/19 18:03 08/08/19 18:33 Roxicodone PO 10 mg TID PRN Administration Pain, Moderate (4-6) Warfarin Sodium 7.5 mg 08/09/19 17:00 Coumadin PO DAILY@1700 [facility] Nutrition/Malnutrition Assess - Dietary Evaluation Nutrition/Malnutrition Findings: Nutrition Notes Start: 08/09/19 14:02 Freq: Status: Active Protocol: Document 08/09/19 14:02 LM (Rec: 08/09/19 14:19 LM [id number]) Nutrition Notes Need for Assessment generated from: supervisor ticket sales,MST,Education Initial or Follow up Assessment Current Diagnosis Diabetes Other Pertinent Diagnosis pancreatitis, L arm cellulitis Current Diet NPO Labs/Tests POC glu 217 Pertinent Medications Humulin Height 5 ft 4.5 in Weight 84.8 kg Usual Body Weight 81.81 kg Seanor Body Weight (kg) 55.68 BMI 31.6 Weight Status Obese Subjective/Other Information RN screen for MST and skin risk; Screen for DNI. Xavier score of 20. Pt NPO for angiogram today. Pt stated that she does not eat much at home. Pt stated she eats a lot of salad and was a vegetarian but will now eat meats. Pt stated she has lost 20 lb due to stress since May but weighs more than her UBW now. Discussed Coumadin and vitamin K foods with pt, especially since pt eats a lot of dark leafy greens, tofu. Burn Absent Trauma Absent GI Symptoms None Current % PO Negligible Energy Intake (non-severe) <75% Estimated Energy Requirement >7 days #2 Nutrition Diagnosis Food and nutrition-related knowledge deficit Etiology No prior Vitamin K and drug interactions education As Evidenced by Signs and Symptoms pt needing education, on Coumadin #1 Nutrition Diagnosis Inadequate oral intake Etiology angiogram procedure As Evidenced by Signs and Symptoms pt NPO, statement of not eating much at home due to stress Is patient on ventilator? No Is Patient Ambulatory and/or Out of Bed Yes REE-([facility]-ambulatory/OOB) [ 1957.722 [id number]] Kcal/Kg value to use for calculation 20 Approximate Energy Requirements Using 1696 kcal/Kg Calculation Used for Recommendations Kcal/kg Additional Notes Protein: 56-70g (0.8-1g/kg AdjBW 70kg) Fluid: 1 ml/kcal Nutrition Intervention Change Diet Order: diet advancement when medically feasible Goal #1 diet advancement Anticipated Discharge Needs: consisntent CHO diet Follow-Up By: 08/11/19 Additional Comments F/U for diet advancement, DM education needs
--- NOTE | 2019-08-09 18:02 | Operative Report ---
STAFF SURGEON: Dr. Josesito Bustos. PREOPERATIVE DIAGNOSIS: Left upper extremity hematoma. POSTOPERATIVE DIAGNOSIS: Left upper extremity hematoma. PROCEDURE PERFORMED: 1. Left upper extremity hematoma evacuation. 2. Left upper extremity wound VAC placement. COMPLICATIONS: None. ESTIMATED BLOOD LOSS: 25 mL. ANESTHESIA: General. INDICATIONS FOR PROCEDURE: This is a 39-year-old female who during a previous hospitalization had an iatrogenic injury after an attempted IV placement and results of the left arm hematoma. The patient was taken to the operating room at that time for a hematoma evacuation, which did not find any source of bleeding. The patient then presented again with increased swelling in the left upper extremity and underwent preoperative imaging, which demonstrated reaccumulation of her hematoma with some evidence of possible extravasation. The patient was then taken for diagnostic angiogram, which did not demonstrate any evidence of bleeding from the brachial artery, but due to neurological symptoms that the patient was developing, it was felt appropriate to take the patient for evacuation. The patient was explained the risks, benefits, alternatives of the procedure, expressed understanding and wished to proceed. DESCRIPTION OF PROCEDURE: After appropriate consent was obtained, the patient was placed on the operating room table in the supine position with the left arm extended. Appropriate medication was given for general anesthesia, had LMA placed without difficulty. The left arm was prepped and draped in the usual sterile fashion. Appropriate timeout was performed indicating the correct patient, procedure, and site of the procedure. We then began the operation by making an incision in the medial upper arm. Upon entering in the cavity, a significant amount of hematoma and seroma was evacuated from the arm under significant amount of pressure. This was cultured and the rest of the incision was opened. There was a cavity. It was felt that there was no evidence of obvious infection. The brachial artery was identified and had a nice pulse. On exploration, there was no obvious source of bleeding from the biceps which was explored and then proceeded to take 3 liters of saline with bacitracin and pulse lavaged the entire cavity. Then, Bovie was then used to obtain hemostasis along the skin edges as well as using hemostatic agents in the wound bed. Once that was complete and satisfied with hemostasis, we then proceeded to close the wound with a deep subcutaneous layer with interrupted 3-0 PDS. Then, the edges of the skin were approximated with 3-0 nylon. The mid portion of the incision was left open to allow for any potential for further reaccumulation of the fluid and wound VAC was placed and placed to negative suction. The patient tolerated the procedure well, emerged from the general anesthesia, had the LMA removed and was sent to recovery in stable condition. All the sponges, instrument and needle counts were correct at completion of the operation. JOB# [id number] VCN/NTS
[2019-08-09] MEDS: MORPHINE 2 MG/1 ML INJ IV PRN (18:38)
[2019-08-09] MEDS: WARFARIN 7.5 MG TAB PO SCH (18:39)
[2019-08-09] MEDS: FOLIC ACID 1 MG TAB PO SCH (18:39)
[2019-08-10] MEDS: oxyCODONE 5 MG TAB PO PRN ×3 (03:18→19:22)
[2019-08-10] MEDS: MORPHINE 2 MG/1 ML INJ IV PRN ×4 (03:18→16:31)
[2019-08-10] MEDS: PIPERACIL/TAZOBACTA 4.5/NS 100 4.5 GM/100 ML VIAL IV SCH ×3 (05:47→21:32)
[2019-08-10 06:28] LABS: Mean Corpuscular HGB Conc 30 % (30-34); Mean Corpuscular Volume 70 fl (79-97); Platelet Count 421 K/mm3 (140-440); Red Blood Count 4.44 M/mm3 (3.65-5.03)
[2019-08-10 06:36] LABS: INR 1.39 (0.87-1.13)
[2019-08-10 06:40] LABS: Hematocrit 31.2 % (30.3-42.9); Hemoglobin 9.3 gm/dl (10.1-14.3); Red Cell Distribution Width 22.6 % (13.2-15.2)
[2019-08-10 07:09] LABS: BUN/Creatinine Ratio 8; Blood Urea Nitrogen 4 mg/dL (7-17); Calcium 9.3 mg/dL (8.4-10.2); Hemolysis Index 3
[2019-08-10] MEDS: FOLIC ACID 1 MG TAB PO SCH (10:29)
[2019-08-10] MEDS: HEPARIN 5,000 UNIT/1 ML VIAL SUB-Q SCH ×2 (10:29→21:33)
[2019-08-10] MEDS: INSULIN REGULAR, HUMAN 100 UNITS/1 ML SUB-Q SCH ×4 (10:30→23:49)
[2019-08-10] MEDS: LIPASE 12,000/PROTEASE 38,000/AMYLASE 60,000 (UNITS) DR CAP PO SCH ×3 (10:31→16:30)
[2019-08-10] MEDS: ONDANSETRON 4 MG ODT TAB PO SCH ×3 (10:33→21:33)
[2019-08-10] MEDS: FERROUS SULFATE 325 MG TAB PO SCH ×3 (12:44→19:26)
--- NOTE | 2019-08-10 13:36 | Progress Note ---
Assessment and Plan Assessment and plan: 39-year-old -Iranian female presents to the emergency room for left arm swelling pain and dehiscence of wound. Patient states that she had had a left arm IV that was started when she was here at her last admission on 07/28/2019 and vessel was injured. Patient states that she had to have vascular surgery repair. Patient denies any fever but reports pain is 8 out of 10. Patient has no known drug allergies. Patient is currently on warfarin for a clot that was found in her stomach. Per Vascular 08/09 Patient with reaccumulation left arm hematoma following iatrogenic injury Patient undergo left arm diagnostic angiogram with potential coil embolization This morning patient noted to have left arm numbness and mild weakness concerning for nerve compression We will plan for hematoma evacuation in the operating room following diagnostic angiogram Discussed with Case management, at this point working on wound vac for discharge and wound care clinic. Left Arm Hematoma Possible Nerve Compression Diabetes Mellitus With hyperglycemia Secondary Hypercoagulable state Cellulitis left arm unable to strengthen at the elbow, ?compression injury. Contract since the last one month. Plan Continue plan per vascular Patient underwent angiogram and evacuation today with wound vac placement Obtain wound care consult Obtain Neurology eval OT CONSULT Pain control Check A1c and continue insulin therapy for now She is non septic, will continue antibiotics and monitor Neuro Checks q2hs DVT/GI History Interval history: Patient seen and examined, wound vac still in place. patient reports to me that she has been having difficulties extending her left upper ext from the elbow since the injury, although had mentioned that it has been going on for a month to the Wound care nurse Hospitalist Physical - Physical exam Narrative exam: VITAL SIGNS: Reviewed. GENERAL: The patient appears normally developed, very emotional, appears to be in pain vital signs as documented. HEAD: No signs of head trauma. EYES: Pupils are equal. Extraocular motions intact. EARS: Hearing grossly intact. MOUTH: Oropharynx is normal. NECK: No adenopathy, no JVD. CHEST: Chest with clear breath sounds bilaterally. No wheezes, rales, or rhonchi. CARDIAC: Regular rate and rhythm. S1 and S2, without murmurs, gallops, or rubs. VASCULAR: No Edema. Peripheral pulses normal and equal in all extremities. ABDOMEN: Soft, non tender and non distended. No rebound or guarding, and no masses palpated. Bowel Sounds normal. MUSCULOSKELETAL: Good range of motion of all major joints although lifted in the left elbow. Extremities without clubbing, cyanosis or edema. Except noted dressing of the left upper extremity with wound VAC. NEUROLOGIC EXAM: Alert and oriented x 3 No focal sensory or strength deficits. Speech normal. Follows commands. PSYCHIATRIC: Mood normal. SKIN: Wound VAC to left upper extremity detail exam as documented in skin assessment - Constitutional Vitals: Temp Pulse Resp BP Pulse Ox 98.0 F 92 H 15 94/70 100 08/10/19 12:00 08/10/19 12:00 08/10/19 12:00 08/10/19 12:00 08/10/19 12:00 General appearance: Present: no acute distress Results - Labs CBC & Chem 7: 08/10/19 05:46 08/10/19 05:46 Labs: Laboratory Last Values WBC 9.4 K/mm3 (4.5-11.0) 08/10/19 05:46 RBC 4.44 M/mm3 (3.65-5.03) 08/10/19 05:46 Hgb 9.3 gm/dl (10.1-14.3) L 08/10/19 05:46 Hct 31.2 % (30.3-42.9) 08/10/19 05:46 MCV 70 fl (79-97) L 08/10/19 05:46 MCH 21 pg (28-32) L 08/10/19 05:46 MCHC 30 % (30-34) 08/10/19 05:46 RDW 22.6 % (13.2-15.2) H 08/10/19 05:46 Plt Count 421 K/mm3 (140-440) 08/10/19 05:46 Lymph % (Auto) 27.6 % (13.4-35.0) 08/08/19 00:19 [place] % (Auto) 5.6 % (0.0-7.3) 08/08/19 00:19 Eos % (Auto) 1.7 % (0.0-4.3) 08/08/19 00:19 Baso % (Auto) 0.6 % (0.0-1.8) 08/08/19 00:19 Lymph # 2.5 K/mm3 (1.2-5.4) 08/08/19 00:19 [place] # 0.5 K/mm3 (0.0-0.8) 08/08/19 00:19 Eos # 0.1 K/mm3 (0.0-0.4) 08/08/19 00:19 Baso # 0.1 K/mm3 (0.0-0.1) 08/08/19 00:19 Seg Neutrophils % 64.5 % (40.0-70.0) 08/08/19 00:19 Seg Neutrophils # 5.9 K/mm3 (1.8-7.7) 08/08/19 00:19 ESR 29 mm/Hr (0-20) 08/08/19 00:19 PT 17.3 Sec. (12.2-14.9) H 08/10/19 05:46 INR 1.39 (0.87-1.13) H 08/10/19 05:46 Sodium 139 mmol/L (137-145) 08/10/19 05:46 Potassium 4.3 mmol/L (3.6-5.0) 08/10/19 05:46 Chloride 103.2 mmol/L (98-107) 08/10/19 05:46 Carbon Dioxide 21 mmol/L (22-30) L 08/10/19 05:46 Anion Gap 19 mmol/L 08/10/19 05:46 BUN 4 mg/dL (7-17) L 08/10/19 05:46 Creatinine 0.5 mg/dL (0.7-1.2) L 08/10/19 05:46 Estimated GFR > 60 ml/min 08/10/19 05:46 BUN/Creatinine Ratio 8 % 08/10/19 05:46 Glucose 211 mg/dL (65-100) H 08/10/19 05:46 POC Glucose 242 (70-105) H 08/10/19 12:08 Hemoglobin A1c 11.2 % (4-6) H 08/09/19 23:24 Lactic Acid 1.40 mmol/L (0.7-2.0) 08/08/19 00:19 Calcium 9.3 mg/dL (8.4-10.2) 08/10/19 05:46 Total Bilirubin 0.20 mg/dL (0.1-1.2) 08/08/19 00:19 AST 24 units/L (5-40) 08/08/19 00:19 ALT 23 units/L (7-56) 08/08/19 00:19 Alkaline Phosphatase 95 units/L (35-129) 08/08/19 00:19 Lactate Dehydrogenase 181 units/L (91-180) H 08/08/19 00:19 Total Protein 8.2 g/dL (6.3-8.2) 08/08/19 00:19 Albumin 4.4 g/dL (3.9-5) 08/08/19 00:19 Albumin/Globulin Ratio 1.2 % 08/08/19 00:19 Active Medications - Current Medications Current Medications: Generic Name Dose Route Start Last Admin Trade Name Freq PRN Reason Stop Dose Admin Acetaminophen 650 mg 08/08/19 04:28 Tylenol PO Q4H PRN Fever >101 Lipase/Protease/Amylase 1 each 08/08/19 07:30 08/10/19 12:44 Creraymond Arndt 12,000 Units PO Not Given QAC FARHAN Dextrose 50 ml 08/08/19 04:30 D50w (25gm) Syringe IV Q30MIN PRN Hypoglycemia Protocol Ferrous Sulfate 325 mg 08/08/19 20:00 08/10/19 12:44 Feosol PO Not Given TID FARHAN Folic Acid 1 mg 08/08/19 10:00 08/10/19 10:29 Folvite PO 1 mg QDAY FARHAN Administration Heparin Sodium (Porcine) 5,000 unit 08/08/19 10:00 08/10/19 10:29 Heparin SUB-Q 5,000 unit Q12HR FARHAN Administration Piperacillin Sod/Tazobactam Sod 4.5 gm in 100 mls @ 200 mls/hr 08/08/19 06:00 08/10/19 05:47 Zosyn/Ns 4.5gm/100ml IV 200 mls/hr Q8HR FARHAN Administration Protocol Insulin Human Regular 0 units 08/08/19 07:30 08/10/19 12:44 Humulin R SUB-Q 2 units AC FARHAN Administration Protocol Insulin Human Regular 0 units 08/08/19 22:00 08/09/19 22:43 Humulin R SUB-Q Not Given QHS [facility] Protocol Morphine Sulfate 2 mg 08/08/19 04:28 08/10/19 12:41 Morphine IV 2 mg Q3H PRN Administration Pain , Severe (7-10) Ondansetron HCl 4 mg 08/08/19 04:28 Zofran IV Q8H PRN Nausea And Vomiting Ondansetron HCl 4 mg 08/08/19 18:03 08/10/19 10:33 Zofran Odt PO Not Given Q8HR [facility] Oxycodone HCl 10 mg 08/08/19 18:03 08/10/19 12:38 Roxicodone PO 10 mg TID PRN Administration Pain, Moderate (4-6) Warfarin Sodium 7.5 mg 08/09/19 17:00 08/09/19 18:39 Coumadin PO 7.5 mg DAILY@1700 [facility] Administration Nutrition/Malnutrition Assess - Dietary Evaluation Nutrition/Malnutrition Findings: Nutrition Notes Start: 08/09/19 14:02 Freq: Status: Active Protocol: Document 08/09/19 14:02 LM (Rec: 08/09/19 14:19 LM [id number]) Nutrition Notes Need for Assessment generated from: bricklayer tender,MST,Education Initial or Follow up Assessment Current Diagnosis Diabetes Other Pertinent Diagnosis pancreatitis, L arm cellulitis Current Diet NPO Labs/Tests POC glu 217 Pertinent Medications Humulin Height 5 ft 4.5 in Weight 84.8 kg Usual Body Weight 81.81 kg [place] Body Weight (kg) 55.68 BMI 31.6 Weight Status Obese Subjective/Other Information RN screen for MST and skin risk; Screen for DNI. Xavier score of 20. Pt NPO for angiogram today. Pt stated that she does not eat much at home. Pt stated she eats a lot of salad and was a vegetarian but will now eat meats. Pt stated she has lost 20 lb due to stress since May but weighs more than her UBW now. Discussed Coumadin and vitamin K foods with pt, especially since pt eats a lot of dark leafy greens, tofu. Burn Absent Trauma Absent GI Symptoms None Current % PO Negligible Energy Intake (non-severe) <75% Estimated Energy Requirement >7 days #2 Nutrition Diagnosis Food and nutrition-related knowledge deficit Etiology No prior Vitamin K and drug interactions education As Evidenced by Signs and Symptoms pt needing education, on Coumadin #1 Nutrition Diagnosis Inadequate oral intake Etiology angiogram procedure As Evidenced by Signs and Symptoms pt NPO, statement of not eating much at home due to stress Is patient on ventilator? No Is Patient Ambulatory and/or Out of Bed Yes REE-([place]. Jeor-ambulatory/OOB) [ 1957.722 NUTR.MSJOOB] Kcal/Kg value to use for calculation 20 Approximate Energy Requirements Using 1696 kcal/Kg Calculation Used for Recommendations Kcal/kg Additional Notes Protein: 56-70g (0.8-1g/kg AdjBW 70kg) Fluid: 1 ml/kcal Nutrition Intervention Change Diet Order: diet advancement when medically feasible Goal #1 diet advancement Anticipated Discharge Needs: consisntent CHO diet Follow-Up By: 08/11/19 Additional Comments F/U for diet advancement, DM education needs
[2019-08-10] MEDS: WARFARIN 7.5 MG TAB PO SCH (16:31)
--- NOTE | 2019-08-10 16:40 | Progress Note ---
Assessment and Plan 39-year-old female with recurrent left upper extremity hematoma from IV placement with resultant nerve strain/decreased range of motion of the left upper extremity. Will need occupational therapy to evaluate left upper extremity to increase range of motion. Wound VAC as outpatient. Cannot be discharged without plan from occupational therapy as previously patient did not see occupational therapy after discharge. 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 On warfarin, subtherapeutic. Initiated Lovenox injections until warfarin therapeutic. Subjective Date of service: 08/10/19 Principal diagnosis: Left arm hematoma Interval history: Left groin feeling better. Palpable left pedal pulses. Nonpalpable right pedal pulses. Palpable left radial pulse. Cannot extend elbow completely, and has some areas of numbness of the forearm. Reports that she cannot extend elbow due to feeling pressure at her proximal forearm. Area is soft. No palpable hematoma at this region. 4 out of 5 strength of the left hand. Objective - Constitutional Vitals: Vital Signs - 12hr 08/10/19 08/10/19 06:42 12:00 Temperature 98.6 F 98.0 F Pulse Rate 95 H 92 H Respiratory 18 15 Rate Blood Pressure 93/56 94/70 O2 Sat by Pulse 98 100 Oximetry General appearance: Present: no acute distress - EENT Eyes: EOM intact ENT: hearing intact - Respiratory Respiratory effort: normal Extremities: abnormal (see subjective) - Psychiatric Psychiatric: appropriate mood/affect, cooperative - Labs CBC & Chem 7: 08/10/19 05:46 08/10/19 05:46 Labs: Abnormal lab results 08/08/19 08/09/19 08/09/19 Range/Units 10:54 12:47 15:54 Hgb (10.1-14.3) gm/dl MCV (79-97) fl MCH (28-32) pg RDW (13.2-15.2) % PT (12.2-14.9) Sec. INR (0.87-1.13) Carbon Dioxide (22-30) mmol/L BUN (7-17) mg/dL Creatinine (0.7-1.2) mg/dL Glucose (65-100) mg/dL POC Glucose 375 H 180 H 204 H (70-105) Hemoglobin A1c (4-6) % 08/09/19 08/09/19 08/09/19 Range/Units 16:44 22:39 23:24 Hgb (10.1-14.3) gm/dl MCV (79-97) fl MCH (28-32) pg RDW (13.2-15.2) % PT (12.2-14.9) Sec. INR (0.87-1.13) Carbon Dioxide (22-30) mmol/L BUN (7-17) mg/dL Creatinine (0.7-1.2) mg/dL Glucose (65-100) mg/dL POC Glucose 199 H 285 H (70-105) Hemoglobin A1c 11.2 H (4-6) % 08/10/19 08/10/19 08/10/19 Range/Units 05:46 05:46 05:46 Hgb 9.3 L (10.1-14.3) gm/dl MCV 70 L (79-97) fl MCH 21 L (28-32) pg RDW 22.6 H (13.2-15.2) % PT 17.3 H (12.2-14.9) Sec. INR 1.39 H (0.87-1.13) Carbon Dioxide 21 L (22-30) mmol/L BUN 4 L (7-17) mg/dL Creatinine 0.5 L (0.7-1.2) mg/dL Glucose 211 H (65-100) mg/dL POC Glucose (70-105) Hemoglobin A1c (4-6) % 08/10/19 08/10/19 Range/Units 08:35 12:08 Hgb (10.1-14.3) gm/dl MCV (79-97) fl MCH (28-32) pg RDW (13.2-15.2) % PT (12.2-14.9) Sec. INR (0.87-1.13) Carbon Dioxide (22-30) mmol/L BUN (7-17) mg/dL Creatinine (0.7-1.2) mg/dL Glucose (65-100) mg/dL POC Glucose 173 H 242 H (70-105) Hemoglobin A1c (4-6) % Medications & Allergies - Medications Allergies/Adverse Reactions: Allergies No Known Allergies Allergy (Unverified 09/18/16 23:27) Home Medications: Home Medications Medication Instructions Recorded Confirmed Last Taken Type Ferrous Sulfate [Feosol 325 MG tab] 325 mg PO TID 12/12/16 08/08/19 08/07/19 History Folic Acid [Folvite] 1 mg PO QDAY 12/12/16 08/08/19 08/07/19 History Lipase/Protease/Amylase [Robinson Arndt 1 cap PO QAC #60 cap 07/15/19 08/08/19 08/07/19 Rx 12,000 Units] Ondansetron [Zofran ODT TAB] 4 mg PO Q8HR #15 tab.rapdis 07/15/19 08/08/19 08/08/19 Rx Warfarin [Coumadin] 7.5 mg PO DAILY@1700 #30 tablet 07/28/19 08/08/19 08/07/19 Rx oxyCODONE [roxiCODONE] 10 mg PO TID PRN 08/08/19 08/08/19 08/07/19 History Active Medications: Generic Name Dose Route Start Last Admin Trade Name Freq PRN Reason Stop Dose Admin Acetaminophen 650 mg 08/08/19 04:28 Tylenol PO Q4H PRN Fever >101 Lipase/Protease/Amylase 1 each 08/08/19 07:30 08/10/19 16:30 Robinson Arndt 12,000 Units PO 1 each QAC FARHAN Administration Dextrose 50 ml 08/08/19 04:30 D50w (25gm) Syringe IV Q30MIN PRN Hypoglycemia Protocol Ferrous Sulfate 325 mg 08/08/19 20:00 08/10/19 16:25 Feosol PO 325 mg TID FARHAN Administration Folic Acid 1 mg 08/08/19 10:00 08/10/19 10:29 Folvite PO 1 mg QDAY FARHAN Administration Heparin Sodium (Porcine) 5,000 unit 08/08/19 10:00 08/10/19 10:29 Heparin SUB-Q 5,000 unit Q12HR FARHAN Administration Piperacillin Sod/Tazobactam Sod 4.5 gm in 100 mls @ 200 mls/hr 08/08/19 06:00 08/10/19 16:24 Zosyn/Ns 4.5gm/100ml IV 200 mls/hr Q8HR FARHAN Administration Protocol Insulin Human Regular 0 units 08/08/19 07:30 08/10/19 12:44 Humulin R SUB-Q 2 units AC FARHAN Administration Protocol Insulin Human Regular 0 units 08/08/19 22:00 08/09/19 22:43 Humulin R SUB-Q Not Given QHS [facility] Protocol Morphine Sulfate 2 mg 08/08/19 04:28 08/10/19 16:31 Morphine IV 2 mg Q3H PRN Administration Pain , Severe (7-10) Ondansetron HCl 4 mg 08/08/19 04:28 Zofran IV Q8H PRN Nausea And Vomiting Ondansetron HCl 4 mg 08/08/19 18:03 08/10/19 16:25 Zofran Odt PO Not Given Q8HR [facility] Oxycodone HCl 10 mg 08/08/19 18:03 08/10/19 12:38 Roxicodone PO 10 mg TID PRN Administration Pain, Moderate (4-6) Warfarin Sodium 7.5 mg 08/09/19 17:00 08/10/19 16:31 Coumadin PO 7.5 mg DAILY@1700 [facility] Administration
[2019-08-10] MEDS: ENOXAPARIN 80 MG/0.8 ML INJ SUB-Q SCH (21:33)
[2019-08-10] MEDS ORDERED: ENOXAPARIN 100 MG/1 ML INJ SUB-Q SCH (22:00)
[2019-08-11 06:09] LABS: INR 1.59 (0.87-1.13)
[2019-08-11] MEDS: ONDANSETRON 4 MG ODT TAB PO SCH ×2 (06:18→12:59)
[2019-08-11] MEDS: PIPERACIL/TAZOBACTA 4.5/NS 100 4.5 GM/100 ML VIAL IV SCH ×2 (06:35→12:59)
[2019-08-11] MEDS: FERROUS SULFATE 325 MG TAB PO SCH ×3 (08:00→20:27)
[2019-08-11] MEDS: LIPASE 12,000/PROTEASE 38,000/AMYLASE 60,000 (UNITS) DR CAP PO SCH ×3 (08:22→16:46)
[2019-08-11] MEDS: INSULIN REGULAR, HUMAN 100 UNITS/1 ML SUB-Q SCH ×3 (08:41→16:47)
[2019-08-11] MEDS: FOLIC ACID 1 MG TAB PO SCH (09:23)
[2019-08-11] MEDS: HEPARIN 5,000 UNIT/1 ML VIAL SUB-Q SCH (09:23)
[2019-08-11] MEDS: oxyCODONE 5 MG TAB PO PRN ×2 (09:30→20:28)
[2019-08-11] MEDS: ENOXAPARIN 80 MG/0.8 ML INJ SUB-Q SCH (12:53)
--- NOTE | 2019-08-11 12:56 | Vascular Lab Report ---
Left upper extremity venous Ultrasound HISTORY: assess forearm for hematoma and dvt. TECHNIQUE: Grayscale and color imaging performed. COMPARISON: Arteriogram of the left upper extremity from 2 days prior FINDINGS: No thrombus identified from the level of the internal jugular vein through the subclavian, axillary, brachial, radial, ulnar, and cephalic veins. Several images have been labeled as pseudoaneurysm necks and possible pseudoaneurysms; however, the a ngiogram which was just performed 2 days prior and is generally considered the gold standard shows no such finding. I also discussed this case with the consulting interventional radiologist Dr. Pelayo at 11:50 AM central time today and he agrees there is no pseudoaneurysm. Instead, the findings likely re flect prominent recurrent radial/ulnar arterial branches and intramuscular hyperemia which can be see n in injured muscles. There is are also small hematomata which measure 2.6 cm in maximal dimension in the mid biceps region and another measuring 1.7 cm in the distal biceps region. IMPRESSION: 1. Negative for DVT. 2. Hematoma formation, intramuscular hyperemia after injury, and prominent recurrent radial/ulnar art erial branches. Signer Name: Oscar Jones MD Signed: 08/11/2019 12:51 PM Workstation Name: [id number]
--- NOTE | 2019-08-11 15:31 | Progress Note ---
Assessment and Plan Assessment and plan: 39-year-old -O[place]i female presents to the emergency room for left arm swelling pain and dehiscence of wound. Patient states that she had had a left arm IV that was started when she was here at her last admission on 07/28/2019 and vessel was injured. Patient states that she had to have vascular surgery repair. Patient denies any fever but reports pain is 8 out of 10. Patient has no known drug allergies. Patient is currently on warfarin for a clot that was found in her stomach. Doppler ultrasound: IMPRESSION: 1. Negative for DVT. 2. Hematoma formation, intramuscular hyperemia after injury, and prominent recurrent radial/ulnar arterial branches. Per Vascular 08/09 Patient with reaccumulation left arm hematoma following iatrogenic injury Patient undergo left arm diagnostic angiogram with potential coil embolization This morning patient noted to have left arm numbness and mild weakness concerning for nerve compression We will plan for hematoma evacuation in the operating room following diagnostic angiogram 08/10 patient continued on warfarin with Lovenox. To obtain therapeutic INR prior to discharge. Evaluation of wound VAC and wound dressing done by wound care. Occupational Therapy consulted to assist as patient does have significant contracture of the left forearm. Discussed with Case management, at this point working on wound vac for discharge and wound care clinic. 08/11/19: Continues with occupational therapy evaluation. Awaiting INR to be therapeutic prior to discharge. Vascular reviewing recent Doppler ultrasound. Left Arm Hematoma status post angiogram and evacuation Possible Nerve Compression Diabetes Mellitus With hyperglycemia Secondary Hypercoagulable state Cellulitis left arm unable to strengthen at the elbow, ?compression injury. Contract since the last one month. Plan Continue plan per vascular Await therapeutic INR Wound care inputs noted Occupational Therapy consult She is non septic, will continue antibiotics and monitor Cultures growing gram-positive cocci ID consult Neuro Checks every shift DVT/GI History Interval history: Patient seen and examined, wound vac still in place. still having difficulties extending her left upper ext from the elbow since the injury, discussed with vascular surgeon this was noted during the initial surgery with recommendation made on discharge also improved some following initial surgery Hospitalist Physical - Physical exam Narrative exam: VITAL SIGNS: Reviewed. GENERAL: The patient appears normally developed, reports better pin control. vital signs as documented. HEAD: No signs of head trauma. EYES: Pupils are equal. Extraocular motions intact. EARS: Hearing grossly intact. MOUTH: Oropharynx is normal. NECK: No adenopathy, no JVD. CHEST: Chest with clear breath sounds bilaterally. No wheezes, rales, or rhonchi. CARDIAC: Regular rate and rhythm. S1 and S2, without murmurs, gallops, or rubs. VASCULAR: No Edema. Peripheral pulses normal and equal in all extremities. ABDOMEN: Soft, non tender and non distended. No rebound or guarding, and no masses palpated. Bowel Sounds normal. MUSCULOSKELETAL: Contracted Left upper ext. Extremities without clubbing, cyanosis or edema. Except noted dressing of the left upper extremity with wound VAC. NEUROLOGIC EXAM: Alert and oriented x 3 No focal sensory or strength deficits. Speech normal. Follows commands. PSYCHIATRIC: Mood normal. SKIN: Wound VAC to left upper extremity detail exam as documented in skin assessment - Constitutional Vitals: Temp Pulse Resp BP Pulse Ox 98.4 F 82 20 91/60 100 08/11/19 03:53 08/11/19 03:53 08/11/19 09:30 08/11/19 03:53 08/11/19 03:53 General appearance: Present: no acute distress Results - Labs CBC & Chem 7: 08/10/19 05:46 08/10/19 05:46 Labs: Laboratory Last Values WBC 9.4 K/mm3 (4.5-11.0) 08/10/19 05:46 RBC 4.44 M/mm3 (3.65-5.03) 08/10/19 05:46 Hgb 9.3 gm/dl (10.1-14.3) L 08/10/19 05:46 Hct 31.2 % (30.3-42.9) 08/10/19 05:46 MCV 70 fl (79-97) L 08/10/19 05:46 MCH 21 pg (28-32) L 08/10/19 05:46 MCHC 30 % (30-34) 08/10/19 05:46 RDW 22.6 % (13.2-15.2) H 08/10/19 05:46 Plt Count 421 K/mm3 (140-440) 08/10/19 05:46 Lymph % (Auto) 27.6 % (13.4-35.0) 08/08/19 00:19 Banner % (Auto) 5.6 % (0.0-7.3) 08/08/19 00:19 Eos % (Auto) 1.7 % (0.0-4.3) 08/08/19 00:19 Baso % (Auto) 0.6 % (0.0-1.8) 08/08/19 00:19 Lymph # 2.5 K/mm3 (1.2-5.4) 08/08/19 00:19 Banner # 0.5 K/mm3 (0.0-0.8) 08/08/19 00:19 Eos # 0.1 K/mm3 (0.0-0.4) 08/08/19 00:19 Baso # 0.1 K/mm3 (0.0-0.1) 08/08/19 00:19 Seg Neutrophils % 64.5 % (40.0-70.0) 08/08/19 00:19 Seg Neutrophils # 5.9 K/mm3 (1.8-7.7) 08/08/19 00:19 ESR 29 mm/Hr (0-20) 08/08/19 00:19 PT 19.2 Sec. (12.2-14.9) H 08/11/19 05:33 INR 1.59 (0.87-1.13) H 08/11/19 05:33 Sodium 139 mmol/L (137-145) 08/10/19 05:46 Potassium 4.3 mmol/L (3.6-5.0) 08/10/19 05:46 Chloride 103.2 mmol/L (98-107) 08/10/19 05:46 Carbon Dioxide 21 mmol/L (22-30) L 08/10/19 05:46 Anion Gap 19 mmol/L 08/10/19 05:46 BUN 4 mg/dL (7-17) L 08/10/19 05:46 Creatinine 0.5 mg/dL (0.7-1.2) L 08/10/19 05:46 Estimated GFR > 60 ml/min 08/10/19 05:46 BUN/Creatinine Ratio 8 % 08/10/19 05:46 Glucose 211 mg/dL (65-100) H 08/10/19 05:46 POC Glucose 169 (70-105) H 08/11/19 12:11 Hemoglobin A1c 11.2 % (4-6) H 08/09/19 23:24 Lactic Acid 1.40 mmol/L (0.7-2.0) 08/08/19 00:19 Calcium 9.3 mg/dL (8.4-10.2) 08/10/19 05:46 Total Bilirubin 0.20 mg/dL (0.1-1.2) 08/08/19 00:19 AST 24 units/L (5-40) 08/08/19 00:19 ALT 23 units/L (7-56) 08/08/19 00:19 Alkaline Phosphatase 95 units/L (35-129) 08/08/19 00:19 Lactate Dehydrogenase 181 units/L (91-180) H 08/08/19 00:19 Total Protein 8.2 g/dL (6.3-8.2) 08/08/19 00:19 Albumin 4.4 g/dL (3.9-5) 08/08/19 00:19 Albumin/Globulin Ratio 1.2 % 08/08/19 00:19 Active Medications - Current Medications Current Medications: Generic Name Dose Route Start Last Admin Trade Name Freq PRN Reason Stop Dose Admin Acetaminophen 650 mg 08/08/19 04:28 Tylenol PO Q4H PRN Fever >101 Lipase/Protease/Amylase 1 each 08/08/19 07:30 08/11/19 12:[address] 12,000 Units PO 1 each QAC FARHAN Administration Dextrose 50 ml 08/08/19 04:30 D50w (25gm) Syringe IV Q30MIN PRN Hypoglycemia Protocol Enoxaparin Sodium 80 mg 08/10/19 22:00 08/11/19 12:53 Enoxaparin SUB-Q 80 mg Q12HR FARHAN Administration Ferrous Sulfate 325 mg 08/08/19 20:00 08/11/19 12:59 Feosol PO 325 mg TID FARHAN Administration Folic Acid 1 mg 08/08/19 10:00 08/11/19 09:23 Folvite PO 1 mg QDAY FARHAN Administration Hydromorphone HCl 0.5 mg 08/11/19 13:58 Dilaudid IV Q3H PRN Pain , Severe (7-10) Piperacillin Sod/Tazobactam Sod 4.5 gm in 100 mls @ 200 mls/hr 08/08/19 06:00 08/11/19 12:59 Zosyn/Ns 4.5gm/100ml IV 200 mls/hr Q8HR FARHAN Administration Protocol Insulin Human Regular 0 units 08/08/19 07:30 08/11/19 14:35 Humulin R SUB-Q 1 units AC FARHAN Administration Protocol Insulin Human Regular 0 units 08/08/19 22:00 08/10/19 23:49 Humulin R SUB-Q 2 units QHS [facility]AR[facility]AN Administration Protocol Morphine Sulfate 2 mg 08/08/19 04:28 08/10/19 16:31 Morphine IV 2 mg Q3H PRN Administration Pain , Severe (7-10) Ondansetron HCl 4 mg 08/08/19 04:28 Zofran IV Q8H PRN Nausea And Vomiting Ondansetron HCl 4 mg 08/08/19 18:03 08/11/19 12:59 Zofran Odt PO 4 mg Q8HR FARHAN Administration Oxycodone HCl 10 mg 08/08/19 18:03 08/11/19 09:30 Roxicodone PO 10 mg TID PRN Administration Pain, Moderate (4-6) Warfarin Sodium 7.5 mg 08/09/19 17:00 08/10/19 16:31 Coumadin PO 7.5 mg DAILY@1700 [facility] Administration Nutrition/Malnutrition Assess - Dietary Evaluation Nutrition/Malnutrition Findings: Nutrition Notes Start: 08/09/19 14:02 Freq: Status: Active Protocol: Document 08/11/19 12:40 LM (Rec: 08/11/19 12:44 LM [email or web address]) Nutrition Notes Initial or Follow up Brief Note Current Diagnosis Diabetes Other Pertinent Diagnosis pancreatitis, L arm cellulitis , arterial thrombosis Current Diet Cardiac Labs/Tests POC glu 196 HgbA1c 11.2 Pertinent Medications Humulin Height 5 ft 4.5 in Weight 84.6 kg [place] Body Weight (kg) 55.68 BMI 31.5 Subjective/Other Information Pt not in room at time of visit. Pt's diet advanced to cardiac. Noticed pt with high A1c. Nutrition Intervention Follow-Up By: 08/12/19 Additional Comments F/U for kev, DM diet education needs
[2019-08-11] MEDS: HYDROmorphone 1 MG/1 ML INJ IV PRN (16:11)
--- NOTE | 2019-08-11 16:32 | Progress Note ---
Assessment and Plan Patient with some complaints of numbness of the skin and numbness and tingling of the fingers with shooting pain. This is likely secondary to previous compression of the nerve however the fascia in open and the hematoma has been evacuated and there in no further compression. She does have contracture of her elbow from maintaining her arm in that position for several weeks. She will need aggressive PT/OT to resolve this to prevent permanent limited range of motion that may require surgical intervention. I discussed this with the lilia bahena who expressed understanding. Subjective Date of service: 08/11/19 Principal diagnosis: Left arm hematoma Interval history: Patient complains of numbness to the skin in the forearm and some numbness in the tips of the fingers. She also complains of occasional shooting pain down the arm. No additional complaints. Objective - Constitutional Vitals: Vital Signs - 12hr 08/11/19 08/11/19 08/11/19 09:30 16:09 16:11 Temperature 98.0 F Pulse Rate 87 Respiratory 20 20 20 Rate Blood Pressure 128/83 [Left] O2 Sat by Pulse 99 Oximetry - Cardiovascular Rhythm: regular Extremities: pulses intact (left radial pulse intact, left fingers with brisk capillary refill, left arm unable to fully straighten at the elbow), normal temperature, abnormal (wound vac in place with adequate seal left arm. ) - Labs CBC & Chem 7: 08/10/19 05:46 08/10/19 05:46 Labs: Abnormal lab results 08/10/19 08/10/19 08/11/19 Range/Units 17:34 22:43 05:33 PT 19.2 H (12.2-14.9) Sec. INR 1.59 H (0.87-1.13) POC Glucose 164 H 244 H (70-105) 08/11/19 08/11/19 Range/Units 08:32 12:11 PT (12.2-14.9) Sec. INR (0.87-1.13) POC Glucose 196 H 169 H (70-105) Medications & Allergies - Medications Allergies/Adverse Reactions: Allergies No Known Allergies Allergy (Unverified 09/18/16 23:27) Home Medications: Home Medications Medication Instructions Recorded Confirmed Last Taken Type Ferrous Sulfate [Feosol 325 MG tab] 325 mg PO TID 12/12/16 08/08/19 08/07/19 History Folic Acid [Folvite] 1 mg PO QDAY 12/12/16 08/08/19 08/07/19 History Lipase/Protease/Amylase [Robinson Arndt 1 cap PO QAC #60 cap 07/15/19 08/08/1908/07 Rx 12,000 Units] Ondansetron [Zofran ODT TAB] 4 mg PO Q8HR #15 tab.rapdis 07/15/19 08/08/19 08/08/19 Rx Warfarin [Coumadin] 7.5 mg PO DAILY@1700 #30 tablet 07/28/19 08/08/19 08/07/19 Rx oxyCODONE [roxiCODONE] 10 mg PO TID PRN 08/08/19 08/08/19 08/07/19 History Active Medications: Generic Name Dose Route Start Last Admin Trade Name Freq PRN Reason Stop Dose Admin Acetaminophen 650 mg 08/08/19 04:28 Tylenol PO Q4H PRN Fever >101 Lipase/Protease/Amylase 1 each 08/08/19 07:30 08/11/19 12:54 Robinson Arndt 12,000 Units PO 1 each QAC [facility]ARHAN Administration Dextrose 50 ml 08/08/19 04:30 D50w (25gm) Syringe IV Q30MIN PRN Hypoglycemia Protocol Enoxaparin Sodium 80 mg 08/10/19 22:00 08/11/19 12:53 Enoxaparin SUB-Q 80 mg Q12HR FARHAN Administration Ferrous Sulfate 325 mg 08/08/19 20:00 08/11/19 12:59 Feosol PO 325 mg TID FARHAN Administration Folic Acid 1 mg 08/08/19 10:00 08/11/19 09:23 Folvite PO 1 mg QDAY FARHAN Administration Hydromorphone HCl 0.5 mg 08/11/19 13:58 08/11/19 16:11 Dilaudid IV 0.5 mg Q3H PRN Administration Pain , Severe (7-10) Piperacillin Sod/Tazobactam Sod 4.5 gm in 100 mls @ 200 mls/hr 08/08/19 06:00 08/11/19 12:59 Zosyn/Ns 4.5gm/100ml IV 200 mls/hr Q8HR FAR[facility]AN Administration Protocol Insulin Human Regular 0 units 08/08/19 07:30 08/11/19 14:35 Humulin R SUB-Q 1 units AC FARHAN Administration Protocol Insulin Human Regular 0 units 08/08/19 22:00 08/10/19 23:49 Humulin R SUB-Q 2 units QHS [facility] Administration Protocol Morphine Sulfate 2 mg 08/08/19 04:28 08/10/19 16:31 Morphine IV 2 mg Q3H PRN Administration Pain , Severe (7-10) Ondansetron HCl 4 mg 08/08/19 04:28 Zofran IV Q8H PRN Nausea And Vomiting Ondansetron HCl 4 mg 08/08/19 18:03 08/11/19 12:59 Zofran Odt PO 4 mg Q8HR FARHAN Administration Oxycodone HCl 10 mg 08/08/19 18:03 08/11/19 09:30 Roxicodone PO 10 mg TID PRN Administration Pain, Moderate (4-6) Warfarin Sodium 7.5 mg 08/09/19 17:00 08/10/19 16:31 Coumadin PO 7.5 mg DAILY@1700 FARHAN Administration
[2019-08-11] MEDS: WARFARIN 7.5 MG TAB PO SCH (16:46)
--- NOTE | 2019-08-11 17:11 | Consultation ---
History of Present Illness - Reason for Consult Consult date: 08/11/19 - History of Present Illness 39-year-old female with past medical history of left arm pseudoaneurysm admitted to the hospital due to increased pain and swelling at the site of the pseudoaneurysm previously. The injury was sustained after IV insertion on the floor during her last hospitalization. At that time she had exploration of the brachial artery and there was no signs of extravasation at that time. After being restarted on anticoagulation she complained of increased swelling and tenderness in the left upper arm, and breakdown of the wound. She denied any fevers, sweats, chills at the time. CT was performed which showed a fluid collection in the left upper arm that extended to the bicep muscle. She under went evacuation of the hematoma during this admission. Cultures from the evacuation have returned with MRSA. Afebrile since admission with a white count of 9. Currently receiving Zosyn. Blood cultures are negative so far. Imaging personally reviewed: Upper extremity CT: Fluid collection in the left arm extending to the bicep muscle. Review of Systems: Bold if positive, otherwise negative General: fevers, chills, rigors HEENT: visual disturbance, diplopia, eye pain Respiratory: cough, sputum, hemoptysis, shortness of breath Cardiovascular: chest pain, syncope Gastrointestinal: nausea, vomiting, diarrhea, abdominal pain Genitourinary: dysuria, hematuria, flank pain Musculoskeletal: neck pain, back pain, joint pain, edema Neurologic: headaches, seizures Hematologic: easy bruising or bleeding Endocrine: night sweats, acute weight loss Skin: rash, jaundice, redness Psychiatric: suicidal, homicidal ideation Past History Past Medical History: No medical history Past Surgical History: Other (Angiogram) Social history: no significant social history Family history: no significant family history Medications and Allergies Allergies Allergy/AdvReac Type Severity Reaction Status Date / Time No Known Allergies Allergy Unverified 09/18/16 23:27 Home Medications Medication Instructions Recorded Confirmed Last Taken Type Ferrous Sulfate [Feosol 325 MG tab] 325 mg PO TID 12/12/16 08/08/19 08/07/19 History Folic Acid [Folvite] 1 mg PO QDAY 12/12/16 08/08/19 08/07/19 History Lipase/Protease/Amylase [Creon Dr 1 cap PO QAC #60 cap 07/15/19 08/08/1920 Rx 12,000 Units] Ondansetron [Zofran ODT TAB] 4 mg PO Q8HR #15 tab.rapdis 07/15/19 08/08/19 08/08/19 Rx Warfarin [Coumadin] 7.5 mg PO DAILY@1700 #30 tablet 07/28/19 08/08/19 08/07/19 Rx oxyCODONE [roxiCODONE] 10 mg PO TID PRN 08/08/19 08/08/19 08/07/19 History Active Meds: Active Medications Acetaminophen (Tylenol) 650 mg PO Q4H PRN PRN Reason: Fever >101 Lipase/Protease/Amylase (Creon Dr 12,000 Units) 1 each PO QAC [facility] Last Admin: 08/11/19 16:46 Dose: 1 each Documented by: Dextrose (D50w (25gm) Syringe) 50 ml IV Q30MIN PRN; Protocol PRN Reason: Hypoglycemia Enoxaparin Sodium (Enoxaparin) 80 mg SUB-Q Q12HR [facility] Last Admin: 08/11/19 12:53 Dose: 80 mg Documented by: Ferrous Sulfate (Feosol) 325 mg PO TID [facility] Last Admin: 08/11/19 12:59 Dose: 325 mg Documented by: Folic Acid (Folvite) 1 mg PO QDAY [facility] Last Admin: 08/11/19 09:23 Dose: 1 mg Documented by: Hydromorphone HCl (Dilaudid) 0.5 mg IV Q3H PRN PRN Reason: Pain , Severe (7-10) Last Admin: 08/11/19 16:11 Dose: 0.5 mg Documented by: Piperacillin Sod/Tazobactam Sod (Zosyn/Ns 4.5gm/100ml) 4.5 gm in 100 mls @ 200 mls/hr IV Q8HR [facility]; Protocol Last Admin: 08/11/19 12:59 Dose: 200 mls/hr Documented by: Insulin Human Regular (Humulin R) 0 units SUB-Q AC [facility]; Protocol Last Admin: 08/11/19 16:47 Dose: 2 units Documented by: Insulin Human Regular (Humulin R) 0 units SUB-Q QHS [facility]; Protocol Last Admin: 08/10/19 23:49 Dose: 2 units Documented by: Morphine Sulfate (Morphine) 2 mg IV Q3H PRN PRN Reason: Pain , Severe (7-10) Last Admin: 08/10/19 16:31 Dose: 2 mg Documented by: Ondansetron HCl (Zofran) 4 mg IV Q8H PRN PRN Reason: Nausea And Vomiting Ondansetron HCl (Zofran Odt) 4 mg PO Q8HR [facility] Last Admin: 08/11/19 12:59 Dose: 4 mg Documented by: Oxycodone HCl (Roxicodone) 10 mg PO TID PRN PRN Reason: Pain, Moderate (4-6) Last Admin: 08/11/19 09:30 Dose: 10 mg Documented by: Warfarin Sodium (Coumadin) 7.5 mg PO DAILY@1700 [facility] Last Admin: 08/11/19 16:46 Dose: 7.5 mg Documented by: Physical Examination - Physical Exam Narrative exam: Physical Exam: Constitutional: Alert, cooperative. No acute distress Head, Ears, Nose: Normocephalic, atraumatic. External ears, nose normal Eyes: Conjunctivae/corneas clear. No icterus. No ptosis. Neck: Supple, no meningeal signs Oral: dentition fair, no thrush Cardiovascular: S1, S2 normal. Respiratory: Good air entry, clear to auscultation bilaterally GI: Soft, non-tender; bowel sounds normal. No peritoneal signs. Musculoskeletal: No pedal edema, no cyanosis. Woundvac LUE Skin: No rash or abscess Hem/Lymphatic: No palpable cervical or supraclavicular nodes. No lymphangitis Psych: Mood ok. Affect normal Neurological: Awake, alert, oriented. LUe weakness - Constitutional Vitals: Vital Signs Temp Pulse Resp BP Pulse Ox 98.0 F 87 20 128/83 99 08/11/19 16:09 08/11/19 16:09 08/11/19 16:11 08/11/19 16:09 08/11/19 16:09 Temperature -Last 24 Hours Temperature 98.0 F Temperature 98.4 F Temperature 98.6 F Results - Labs CBC & Chem 7: 08/10/19 05:46 08/10/19 05:46 Labs: Abnormal lab results 08/10/19 08/10/19 08/11/19 Range/Units 17:34 22:43 05:33 PT 19.2 H (12.2-14.9) Sec. INR 1.59 H (0.87-1.13) POC Glucose 164 H 244 H (70-105) 08/11/19 08/11/19 08/11/19 Range/Units 08:32 12:11 16:13 PT (12.2-14.9) Sec. INR (0.87-1.13) POC Glucose 196 H 169 H 214 H (70-105) Assessment and Plan Cultures: 08/09/2019 surgical culture: MRSA 08/08/2019 blood culture: No growth to date A&P: 39-year-old female past medical history left upper arm pseudoaneurysm admitted with hematoma formation with positive cultures for MRSA. #Left upper arm abscess: Status post drainage of the abscess. Cultures have grown MRSA. Since abscess is been evacuated, no need for extended course of antibiotics. Recommend changing from Zosyn to clindamycin to complete 5 days post drainage. Recommendations: Stop Zosyn Start clindamycin 450 mg every 6 hours. To complete 15 doses. Thank you for the consult, will continue to follow Keri Summers MD [facility], [place] M: [phone] O: [phone] F: [phone]
--- NOTE | 2019-08-11 17:38 | Consultation ---
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 She initially presented to the hospital at the end of June, for abdominal pain. That time she was found to have a right common iliac artery thrombus, which was likely causing her abdominal pain. The patient reportedly had an IV placed for CT scan with contrast, however immediately after the CT scan patient states that she had swelling in the left arm. It was felt that there was likely extravasation of contrast into the left upper extremity, as well as hematoma formation. Patient then had to undergo hematoma evacuation. Since that time, the patient states that she has had left upper extremity pain, mostly in the upper arm, related with tenderness. She also states that she has been experiencing some mild numbness in the left upper extremity, involving the proximal and distal portion of the arm as well as the hand. Patient was readmitted due to improper healing of surgical wound. Past History Past Medical History: No medical history Past Surgical History: Other (Angiogram) Social history: no significant social history Family history: no significant family history Medications and Allergies Allergies Allergy/AdvReac Type Severity Reaction Status Date / Time No Known Allergies Allergy Unverified 09/18/16 23:27 Home Medications Medication Instructions Recorded Confirmed Last Taken Type Ferrous Sulfate [Feosol 325 MG tab] 325 mg PO TID 12/12/16 08/08/19 08/07/19 His tory Folic Acid [Folvite] 1 mg PO QDAY 12/12/16 08/08/19 08/07/19 History Lipase/Protease/Amylase [Robinson Arndt 1 cap PO QAC #60 cap 07/15/19 08/08/19 08/07/19 Rx 12,000 Units] Ondansetron [Zofran ODT TAB] 4 mg PO Q8HR #15 tab.rapdis 07/15/19 08/08/19 08/08/19 Rx Warfarin [Coumadin] 7.5 mg PO DAILY@1700 #30 tablet 07/28/19 08/08/19 08/07/19 Rx oxyCODONE [roxiCODONE] 10 mg PO TID PRN 08/08/19 08/08/19 08/07/19 History Active Meds: Active Medications Acetaminophen (Tylenol) 650 mg PO Q4H PRN PRN Reason: Fever >101 Lipase/Protease/Amylase (Robinson Arndt 12,000 Units) 1 each PO QAC [facility] Last Admin: 08/11/19 16:46 Dose: 1 each Documented by: Dextrose (D50w (25gm) Syringe) 50 ml IV Q30MIN PRN; Protocol PRN Reason: Hypoglycemia Enoxaparin Sodium (Enoxaparin) 80 mg SUB-Q Q12HR [facility] Last Admin: 08/11/19 12:53 Dose: 80 mg Documented by: Ferrous Sulfate (Feosol) 325 mg PO TID [facility] Last Admin: 08/11/19 12:59 Dose: 325 mg Documented by: Folic Acid (Folvite) 1 mg PO QDAY [facility] Last Admin: 08/11/19 09:23 Dose: 1 mg Documented by: Hydromorphone HCl (Dilaudid) 0.5 mg IV Q3H PRN PRN Reason: Pain , Severe (7-10) Last Admin: 08/11/19 16:11 Dose: 0.5 mg Documented by: Piperacillin Sod/Tazobactam Sod (Zosyn/Ns 4.5gm/100ml) 4.5 gm in 100 mls @ 200 mls/hr IV Q8HR [facility]; Protocol Last Admin: 08/11/19 12:59 Dose: 200 mls/hr Documented by: Insulin Human Regular (Humulin R) 0 units SUB-Q [facility]; Protocol Last Admin: 08/11/19 16:47 Dose: 2 units Documented by: [facility]ulin Human Regular ([facility] R) [facility]; [facility] Last Admin: 08/10/19 23:49 Dose: 2 units Documented by: Morphine Sulfate (Morphine) 2 mg IV Q3H PRN PRN Reason: Pain , Severe (7-10) Last Admin: 08/10/19 16:31 Dose: 2 mg Documented by: Ondansetron HCl (Zofran) 4 mg IV Q8H PRN PRN Reason: Nausea And Vomiting Ondansetron HCl (Zofran Odt) 4 mg PO Q8HR [facility] Last Admin: 08/11/19 12:59 Dose: 4 mg Documented by: Oxycodone HCl (Roxicodone) 10 mg PO TID PRN PRN Reason: Pain, Moderate (4-6) Last Admin: 08/11/19 09:30 Dose: 10 mg Documented by: Warfarin Sodium (Coumadin) 7.5 mg PO DAILY@1700 [facility] Last Admin: 08/11/19 16:46 Dose: 7.5 mg Documented by: Review of Systems All systems: negative Musculoskeletal: other (Pain and tenderness in left upper extremity) Neurological: weakness, numbness Physical Examination - Vital Signs Vital Signs: Vital Signs Temp Pulse Resp BP Pulse Ox 98.7 F 106 H 16 120/81 99 08/07/19 14:27 08/07/19 14:27 08/07/19 14:27 08/07/19 14:27 08/07/19 14:27 - Physical Exam Narrative exam: Patient is alert, awake, oriented x4, follows complex commands. No dysarthria or aphasia noted. PERRL, EOMI, VFF, tongue midline, bilaterally intact to LT, no facial weakness noted. 5/5 strength in RUE/RLE/LLE, LUE proximally 3/5 limited due to significant pain, distally 3/5 limidted due to significant pain. Decreased in LUE proximally and distally to light touch. Bilaterally intact to FTN and HTS. 2+ reflexes throughout. - Constitutional General appearance: comfortable - EENT EENT: Present: ATNC, PERRL, mucous membranes moist, hearing intact, vision intact - Respiratory Respiratory: Present: lungs clear, normal breath sounds - Cardiovascular Cardiovascular: Present: regular rate, normal S1, normal S2 Extremities: Present: other (Significant tenderness noted in left upper extremity) - Gastrointestinal Gastrointestinal: Present: normoactive bowel sounds, soft, non-tender - Musculoskeletal Musculoskeletal: Present: fluid collection (Left upper extremity) - Psychiatric Psychiatric: Present: mood/affect appropriate Results - Laboratory Findings CBC and BMP: 08/10/19 05:46 08/10/19 05:46 Abnormal Lab Findings: Abnormal Labs 08/08/19 08/08/19 08/08/19 00:19 00:19 00:19 Hgb MCV 72 L MCH 23 L RDW 23.7 H PT INR Carbon Dioxide BUN 5 L Creatinine 0.5 L Glucose 441 H POC Glucose Hemoglobin A1c Lactate Dehydrogenase 181 H 08/08/19 08/08/19 08/08/19 10:54 16:39 19:58 Hgb MCV MCH RDW PT 22.2 H INR 1.91 H Carbon Dioxide BUN Creatinine Glucose POC Glucose 375 H 287 H Hemoglobin A1c Lactate Dehydrogenase 08/08/19 08/09/19 08/09/19 22:21 04:49 08:21 Hgb MCV MCH RDW PT 20.7 H INR 1.75 H Carbon Dioxide BUN Creatinine Glucose POC Glucose 330 H 217 H Hemoglobin A1c Lactate Dehydrogenase 08/09/19 08/09/19 08/09/19 12:47 15:54 16:44 Hgb MCV MCH RDW PT INR Carbon Dioxide BUN Creatinine Glucose POC Glucose 180 H 204 H 199 H Hemoglobin A1c Lactate Dehydrogenase 08/09/19 08/09/19 08/10/19 22:39 23:24 05:46 Hgb MCV MCH RDW PT 17.3 H INR 1.39 H Carbon Dioxide BUN Creatinine Glucose POC Glucose 285 H Hemoglobin A1c 11.2 H Lactate Dehydrogenase 08/10/19 08/10/19 08/10/19 05:46 05:46 08:35 Hgb 9.3 L MCV 70 L MCH 21 L RDW 22.6 H PT INR Carbon Dioxide 21 L BUN 4 L Creatinine 0.5 L Glucose 211 H POC Glucose 173 H Hemoglobin A1c Lactate Dehydrogenase 08/10/19 08/10/19 08/10/19 12:08 17:34 22:43 Hgb MCV MCH RDW PT INR Carbon Dioxide BUN Creatinine Glucose POC Glucose 242 H 164 H 244 H Hemoglobin A1c Lactate Dehydrogenase 08/11/19 08/11/19 08/11/19 05:33 08:32 12:11 Hgb MCV MCH RDW PT 19.2 H INR 1.59 H Carbon Dioxide BUN Creatinine Glucose POC Glucose 196 H 169 H Hemoglobin A1c Lactate Dehydrogenase 08/11/19 16:13 Hgb MCV MCH RDW PT INR Carbon Dioxide BUN Creatinine Glucose POC Glucose 214 H Hemoglobin A1c Lactate Dehydrogenase Assessment and Plan Patient is a 39-year-old woman with a 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 During that admission, patient reportedly developed venous injury during IV placement, as well as extravasation of contrast in blood into the proximal left upper extremity. Patient had undergone hematoma evacuation of the left upper extremity. She is complained of pain limited weakness and numbness in the left upper extremity since that time. According the patient's clinical findings, it is likely that she has had peripheral nerve injury in the proximal left upper extremity, most likely due to compartment syndrome in setting of hematoma as well as extravasation of blood and contrast into that area. Plan: 1. LUE weakness/numbness: -Likely due to peripheral nerve injury secondary to compartment syndrome due to extravasation of blood and contrast in the left upper extremity which caused likely compartment syndrome. -Given that there is significant pain limited weakness, recommend for patient to continue physical therapy and Occupational Therapy. -Discussed possibility of starting medications for neuropathic pain such as gabapentin, however would consider this at a later time, once postoperative pain has improved. If patient continues to have neuropathic pain once postoperative pain has improved, this can be started at that time. -Recommend EMG/NCS, which can be done outpatient with neurology. -Recommend follow-up with neurology in 3 to 4 weeks. -We will sign off. Please call with any questions. Thank you for allowing me to take part in the care of this patient. Elkin Redding MD Neurology
[2019-08-11] MEDS: CLINDAMYCIN 150 MG CAP PO SCH (20:27)
[2019-08-12] MEDS: ONDANSETRON 4 MG ODT TAB PO SCH ×4 (00:27→22:47)
[2019-08-12] MEDS: INSULIN REGULAR, HUMAN 100 UNITS/1 ML SUB-Q SCH ×5 (00:27→22:48)
[2019-08-12] MEDS: ENOXAPARIN 80 MG/0.8 ML INJ SUB-Q SCH ×3 (00:27→22:49)
[2019-08-12] MEDS: oxyCODONE 5 MG TAB PO PRN ×3 (05:35→22:47)
--- NOTE | 2019-08-12 09:31 | Progress Note ---
Assessment and Plan Patient with a history of posttraumatic pseudoaneurysm formation following inadvertent IV needle placement by nursing. Patient has experienced left arm weakness and numbness since that event and it is likely that her neurologic symptoms are the result of nerve injury at that time. It is unlikely that her symptoms are related to compartment syndrome given the location of the hematoma. The patient is feeling better following re-evacuation of her hematoma and placement of wound VAC. She has been seen by neurology. The patient will need further neurologic evaluation. Given the nature of the patient's injury, she has splinted her arm and she will need aggressive physical therapy to regain full range of motion. From a vascular standpoint, the patient may be discharged home however, she will need wound VAC home health, physical therapy and follow- up with neurology as well as vascular surgery. Subjective Date of service: 08/12/19 Principal diagnosis: Left arm hematoma Interval history: Patient with a history of left upper arm pseudoaneurysm followed by repeated attempted IV placement by nursing on floor during patient's last hospi talization. Patient subsequently developed a hematoma which required evacuation. The patient was then discharged home and developed recurrent hematoma following placement on anticoagulation. She has had left arm weakness and numbness since her the initial IV needle placement and subsequent contrast bolus for CT scan. During this hospitalization, the patient underwent surgical evacuation of her hematoma as well as angiogram in an attempt to find a small area of arterial bleeding likely coming from a branch within the biceps. Objective - Constitutional Vitals: Vital Signs - 12hr 08/11/19 08/12/19 08/12/19 21:40 05:14 05:38 Temperature 98.5 F 99.0 F Pulse Rate 75 74 82 Respiratory 16 20 18 Rate Blood Pressure 105/61 93/55 107/64 O2 Sat by Pulse 97 98 97 Oximetry General appearance: Present: no acute distress - EENT Eyes: EOM intact ENT: hearing intact - Neck Neck: supple - Respiratory Respiratory effort: normal - Breasts Breasts: deferred Extremities: abnormal - Gastrointestinal General gastrointestinal: Present: deferred Rectal Exam: deferred - Genitourinary Female genitourinary: deferred - Neurologic Neurologic: other (Left arm weakness below the level of IV insertion) - Psychiatric Psychiatric: cooperative - Labs CBC & Chem 7: 08/10/19 05:46 08/10/19 05:46 Labs: Abnormal lab results 08/11/19 08/11/19 08/11/19 Range/Units 12:11 16:13 20:56 POC Glucose 169 H 214 H 118 H (70-105) 08/12/19 Range/Units 07:54 POC Glucose 173 H (70-105) Medications & Allergies - Medications Allergies/Adverse Reactions: Allergies No Known Allergies Allergy (Unverified 09/18/16 23:27) Home Medications: Home Medications Medication Instructions Recorded Confirmed Last Taken Type Ferrous Sulfate [Feosol 325 MG tab] 325 mg PO TID 12/12/16 08/08/19 08/07/19 History Folic Acid [Folvite] 1 mg PO QDAY 12/12/16 08/08/19 08/07/19 History Lipase/Protease/Amylase [Robinson Arndt 1 cap PO QAC #60 cap 07/15/19 08/08/19 08/07/19 Rx 12,000 Units] Ondansetron [Zofran ODT TAB] 4 mg PO Q8HR #15 tab.rapdis 07/15/19 08/08/19 08/08/19 Rx Warfarin [Coumadin] 7.5 mg PO DAILY@1700 #30 tablet 07/28/19 08/08/19 08/07/19 Rx oxyCODONE [roxiCODONE] 10 mg PO TID PRN 08/08/19 08/08/19 08/07/19 History Active Medications: Generic Name Dose Route Start Last Admin Trade Name Freq PRN Reason Stop Dose Admin Acetaminophen 650 mg 08/08/19 04:28 Tylenol PO Q4H PRN Fever >101 Lipase/Protease/Amylase 1 each 08/08/19 07:30 08/11/19 16:46 Robinson Arndt 12,000 Units PO 1 each QAC [facility] Administration Clindamycin HCl 450 mg 08/11/19 20:00 08/11/19 20:27 Cleocin PO 450 mg TID [facility] Administration Dextrose 50 ml 08/08/19 04:30 D50w (25gm) Syringe IV Q30MIN PRN Hypoglycemia Protocol Enoxaparin Sodium 80 mg 08/10/19 22:00 08/12/19 00:27 Enoxaparin SUB-Q 80 mg Q12HR [facility] Administration Ferrous Sulfate 325 mg 08/08/19 20:00 08/11/19 20:27 Feosol PO 325 mg TID [facility] Administration Folic Acid 1 mg 08/08/19 10:00 08/11/19 09:23 Folvite PO 1 mg QDAY [facility] Administration Hydromorphone HCl 0.5 mg 08/11/19 13:58 08/11/19 16:11 Dilaudid IV 0.5 mg Q3H PRN Administration Pain , Severe (7-10) Insulin Human Regular 0 units 08/08/19 07:30 08/11/19 16:47 Humulin R SUB-Q 2 units AC [facility] Administration Protocol Insulin Human Regular 0 units 08/08/19 22:00 08/12/19 00:27 Humulin R SUB-Q Not Given QHS [facility] Protocol Morphine Sulfate 2 mg 08/08/19 04:28 08/10/19 16:31 Morphine IV 2 mg Q3H PRN Administration Pain , Severe (7-10) Ondansetron HCl 4 mg 08/08/19 04:28 Zofran IV Q8H PRN Nausea And Vomiting Ondansetron HCl 4 mg 08/08/19 18:03 08/12/19 05:35 Zofran Odt PO 4 mg Q8HR [facility] Administration Oxycodone HCl 10 mg 08/08/19 18:03 08/12/19 05:35 Roxicodone PO 10 mg TID PRN Administration Pain, Moderate (4-6) Warfarin Sodium 7.5 mg 08/09/19 17:00 08/11/19 16:46 Coumadin PO 7.5 mg DAILY@1700 [facility] Administration
[2019-08-12] MEDS: LIPASE 12,000/PROTEASE 38,000/AMYLASE 60,000 (UNITS) DR CAP PO SCH ×3 (10:30→17:59)
[2019-08-12] MEDS: FERROUS SULFATE 325 MG TAB PO SCH ×3 (11:08→22:47)
[2019-08-12 11:09] LABS: INR 1.62 (0.87-1.13)
[2019-08-12] MEDS: CLINDAMYCIN 150 MG CAP PO SCH ×3 (11:09→22:47)
[2019-08-12] MEDS: FOLIC ACID 1 MG TAB PO SCH (11:09)
[2019-08-12] MEDS: HYDROmorphone 1 MG/1 ML INJ IV PRN (12:55)
--- NOTE | 2019-08-12 16:50 | Progress Note ---
Assessment and Plan Assessment and plan: 39-year-old -[place] female presents to the emergency room for left arm swelling pain and dehiscence of wound. Patient states that she had had a left arm IV that was started when she was here at her last admission on 07/28/2019 and vessel was injured. 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 During that admission, patient reportedly developed venous injury during IV placement, as well as extravasation of contrast in blood into the proximal left upper extremity. ) Patient states that she had to have vascular surgery repair. Patient denies any fever but reports pain is 8 out of 10. Patient has no known drug allergies. Patient is currently on warfarin for a clot that was found in her stomach. Doppler ultrasound: IMPRESSION: 1. Negative for DVT. 2. Hematoma formation, intramuscular hyperemia after injury, and prominent recurrent radial/ulnar arterial branches. Per Vascular 08/09 Patient with reaccumulation left arm hematoma following iatrogenic injury Patient undergo left arm diagnostic angiogram with potential coil embolization This morning patient noted to have left arm numbness and mild weakness paula rning for nerve compression We will plan for hematoma evacuation in the operating room following diagnostic angiogram 08/10 patient continued on warfarin with Lovenox. To obtain therapeutic INR prior to discharge. Evaluation of wound VAC and wound dressing done by wound care. Occupational Therapy consulted to assist as patient does have significant contracture of the left forearm. Discussed with Case management, at this point working on wound vac for discharge and wound care clinic. 08/11/19: Continues with occupational therapy evaluation. Awaiting INR to be therapeutic prior to discharge. Vascular reviewing recent Doppler ultrasound. 08/12/19: Evaluated by Neurology- Likely due to peripheral nerve injury secondary to compartment syndrome due to extravasation of blood and contrast in the left upper extremity which caused likely compartment syndrome. Given the nature of the patient's injury, she has splinted her arm and she will need aggressive physical therapy to regain full range of motion PER VASCULAR SURGEON Left Arm Hematoma status post angiogram and evacuation Possible Nerve Compression syndrome Posttraumatic pseudoaneurysm formation Left Upper weakness Diabetes Mellitus With hyperglycemia Secondary Hypercoagulable state Cellulitis left arm unable to strengthen at the elbow, ?compression injury. Contract since the last one month. Plan Continue plan per vascular Await therapeutic INR Wound care inputs noted Occupational Therapy consult She is non septic, will continue antibiotics and monitor Cultures growing gram-positive cocci ID consult Neuro Checks every shift Discussed possibility of starting medications for neuropathic pain such as gabapentin, however would consider this at a later time, once postoperative pain has improved. If patient continues to have neuropathic pain once postoperative pain has improved, this can be started at that time. -Recommend EMG/NCS, which can be done outpatient with neurology. -Recommend follow-up with neurology in 3 to 4 weeks. DVT/GI Anticipate discharge in am if INR therapeutic History Interval history: Patient seen and examined, wound vac still in place. Left hand, refining still operator and still with pain on extension, wound vac in place. Hospitalist Physical - Physical exam Narrative exam: VITAL SIGNS: Reviewed. GENERAL: The patient appears normally developed, reports better pin control. vital signs as documented. HEAD: No signs of head trauma. EYES: Pupils are equal. Extraocular motions intact. EARS: Hearing grossly intact. MOUTH: Oropharynx is normal. NECK: No adenopathy, no JVD. CHEST: Chest with clear breath sounds bilaterally. No wheezes, rales, or r honchi. CARDIAC: Regular rate and rhythm. S1 and S2, without murmurs, gallops, or rubs. VASCULAR: No Edema. Peripheral pulses normal and equal in all extremities. ABDOMEN: Soft, non tender and non distended. No rebound or guarding, and no masses palpated. Bowel Sounds normal. MUSCULOSKELETAL: Contracted Left upper ext. Extremities without clubbing, cyanosis or edema. Except noted dressing of the left upper extremity with Wound VAC. NEUROLOGIC EXAM: Alert and oriented x 3. some sensory deficit and motor deficit noted.. Speech normal. Follows commands. PSYCHIATRIC: Mood normal. SKIN: Wound VAC to left upper extremity detail exam as documented in skin assessment - Constitutional Vitals: Temp Pulse Resp BP Pulse Ox 97.9 F 79 14 96/62 99 08/12/19 11:34 08/12/19 11:34 08/12/19 11:34 08/12/19 11:34 08/12/19 11:34 General appearance: Present: no acute distress Results - Labs CBC & Chem 7: 08/10/19 05:46 08/10/19 05:46 Labs: Laboratory Last Values WBC 9.4 K/mm3 (4.5-11.0) 08/10/19 05:46 RBC 4.44 M/mm3 (3.65-5.03) 08/10/19 05:46 Hgb 9.3 gm/dl (10.1-14.3) L 08/10/19 05:46 Hct 31.2 % (30.3-42.9) 08/10/19 05:46 MCV 70 fl (79-97) L 08/10/19 05:46 MCH 21 pg (28-32) L 08/10/19 05:46 MCHC 30 % (30-34) 08/10/19 05:46 RDW 22.6 % (13.2-15.2) H 08/10/19 05:46 Plt Count 421 K/mm3 (140-440) 08/10/19 05:46 Lymph % (Auto) 27.6 % (13.4-35.0) 08/08/19 00:19 Delta % (Auto) 5.6 % (0.0-7.3) 08/08/19 00:19 Eos % (Auto) 1.7 % (0.0-4.3) 08/08/19 00:19 Baso % (Auto) 0.6 % (0.0-1.8) 08/08/19 00:19 Lymph # 2.5 K/mm3 (1.2-5.4) 08/08/19 00:19 Delta # 0.5 K/mm3 (0.0-0.8) 08/08/19 00:19 Eos # 0.1 K/mm3 (0.0-0.4) 08/08/19 00:19 Baso # 0.1 K/mm3 (0.0-0.1) 08/08/19 00:19 Seg Neutrophils % 64.5 % (40.0-70.0) 08/08/19 00:19 Seg Neutrophils # 5.9 K/mm3 (1.8-7.7) 08/08/19 00:19 ESR 29 mm/Hr (0-20) 08/08/19 00:19 PT 19.5 Sec. (12.2-14.9) H 08/12/19 10:22 INR 1.62 (0.87-1.13) H 08/12/19 10:22 Sodium 139 mmol/L (137-145) 08/10/19 05:46 Potassium 4.3 mmol/L (3.6-5.0) 08/10/19 05:46 Chloride 103.2 mmol/L (98-107) 08/10/19 05:46 Carbon Dioxide 21 mmol/L (22-30) L 08/10/19 05:46 Anion Gap 19 mmol/L 08/10/19 05:46 BUN 4 mg/dL (7-17) L 08/10/19 05:46 Creatinine 0.5 mg/dL (0.7-1.2) L 08/10/19 05:46 Estimated GFR > 60 ml/min 08/10/19 05:46 BUN/Creatinine Ratio 8 % 08/10/19 05:46 Glucose 211 mg/dL (65-100) H 08/10/19 05:46 POC Glucose 206 (70-105) H 08/12/19 11:30 Hemoglobin A1c 11.2 % (4-6) H 08/09/19 23:24 Lactic Acid 1.40 mmol/L (0.7-2.0) 08/08/19 00:19 Calcium 9.3 mg/dL (8.4-10.2) 08/10/19 05:46 Total Bilirubin 0.20 mg/dL (0.1-1.2) 08/08/19 00:19 AST 24 units/L (5-40) 08/08/19 00:19 ALT 23 units/L (7-56) 08/08/19 00:19 Alkaline Phosphatase 95 units/L (35-129) 08/08/19 00:19 Lactate Dehydrogenase 181 units/L (91-180) H 08/08/19 00:19 Total Protein 8.2 g/dL (6.3-8.2) 08/08/19 00:19 Albumin 4.4 g/dL (3.9-5) 08/08/19 00:19 Albumin/Globulin Ratio 1.2 % 08/08/19 00:19 Active Medications - Current Medications Current Medications: Generic Name Dose Route Start Last Admin Trade Name Freq PRN Reason Stop Dose Admin Acetaminophen 650 mg 08/08/19 04:28 Tylenol PO Q4H PRN Fever >101 Lipase/Protease/Amylase 1 each 08/08/19 07:30 08/12/19 12:54 Creon 12,000 Units PO 1 each QAC [facility] Administration Clindamycin HCl 450 mg 08/11/19 20:00 08/12/19 15:14 Cleocin PO 08/16/19 14:01 450 mg TID [facility] Administration Dextrose 50 ml 08/08/19 04:30 D50w (25gm) Syringe IV Q30MIN PRN Hypoglycemia Protocol Enoxaparin Sodium 80 mg 08/10/19 22:00 08/12/19 11:08 Enoxaparin SUB-Q 80 mg Q12HR [facility] Administration Ferrous Sulfate 325 mg 08/08/19 20:00 08/12/19 15:14 Feosol PO 325 mg TID [facility] Administration Folic Acid 1 mg 08/08/19 10:00 08/12/19 11:09 Folvite PO 1 mg QDAY [facility] Administration Hydromorphone HCl 0.5 mg 08/11/19 13:58 08/12/19 12:55 Dilaudid IV 0.5 mg Q3H PRN Administration Pain , Severe (7-10) Insulin Human Regular 0 units 08/08/19 07:30 08/12/19 12:53 Humulin R SUB-Q 2 units AC [facility] Administration Protocol Insulin Human Regular 0 units 08/08/19 22:00 08/12/19 00:27 Humulin R SUB-Q Not Given QHS [facility] Protocol Morphine Sulfate 2 mg 08/08/19 04:28 08/10/19 16:31 Morphine IV 2 mg Q3H PRN Administration Pain , Severe (7-10) Ondansetron HCl 4 mg 08/08/19 04:28 Zofran IV Q8H PRN Nausea And Vomiting Ondansetron HCl 4 mg 08/08/19 18:03 08/12/19 15:14 Zofran Odt PO 4 mg Q8HR [facility] Administration Oxycodone HCl 10 mg 08/08/19 18:03 08/12/19 05:35 Roxicodone PO 10 mg TID PRN Administration Pain, Moderate (4-6) Warfarin Sodium 7.5 mg 08/09/19 17:00 08/11/19 16:46 Coumadin PO 7.5 mg DAILY@1700 [facility] Administration Nutrition/Malnutrition Assess - Dietary Evaluation Nutrition/Malnutrition Findings: Nutrition Notes Start: 08/09/19 14:02 Freq: Status: Active Protocol: Document 08/12/19 10:42 CC (Rec: 08/12/19 10:58 CC [id number]) Co-Sign 08/12/19 10:42 KH Nutrition Notes Initial or Follow up Reassessment Current Diagnosis Diabetes Other Pertinent Diagnosis pancreatitis, L arm cellulitis , arterial thrombosis Current Diet Cardiac Labs/Tests HgbA1c 11.2 Pertinent Medications Coumadin Feosol Height 5 ft 4.5 in Weight 95.6 kg [place] Body Weight (kg) 55.68 BMI 35.6 Weight change and time frame Wt change noted Weight Status Obese Subjective/Other Information Pt reported she did not recieve meal tray this morning and was very hungry. Went to kitchen to bring tray and it was past time for bfast tray. Pt will receive tray for lunch . Pt reported she ate yesterday. Pt reported she does not eat a lot and stated her diabetes is probably d/t pancreatitis. Went over DM education with patient. Percent of energy/protein needs met: 86%/ 100% Burn Absent Trauma Absent GI Symptoms None Current % PO Good (75-100%) Minimum of two criteria No #2 Nutrition Diagnosis Food and nutrition-related knowledge deficit Etiology No previous DM diet education As Evidenced by Signs and Symptoms pt recently diagnosed with DM, A1c 11.2 #1 Nutrition Diagnosis Inadequate oral intake As Evidenced by Signs and Symptoms pt eating most of meals 08/11 Diagnosis Progress(for reassessment Improved documentation) Is patient on ventilator? No Is Patient Ambulatory and/or Out of Bed Yes REE-([facility]-ambulatory/OOB) [ 2098.122 NUTR.MSJOOB] Kcal/Kg value to use for calculation 17 Approximate Energy Requirements Using 1625 kcal/Kg Calculation Used for Recommendations Kcal/kg Additional Notes Protein: 56-70g (0.8-1g/kg AdjBW 70kg) Fluid: 1 ml/kcal Nutrition Intervention Change Diet Order: consistent CHO Teaching Recipient Patient Learning Readiness Good Teaching Methods Discussion,Handout Response to Teaching Verbalize understanding Education Handouts Provided Type 2 DM nutrition Barriers to Learning No Barriers RD phone number provided Yes Patient aware of follow up options Yes Goal #1 Meet at least 80% of energy and protein needs Anticipated Discharge Needs: consisntent CHO diet Follow-Up By: 08/17/19 Additional Comments F/U for intakes
--- NOTE | 2019-08-12 17:44 | Progress Note ---
Assessment and Plan Cultures: 08/09/2019 surgical culture: MRSA 08/08/2019 blood culture: No growth to date A&P: 39-year-old female past medical history left upper arm pseudoaneurysm admitted with hematoma formation with positive cultures for MRSA. #Left upper arm abscess: Status post drainage of the abscess. Cultures have grown MRSA. Since abscess is been evacuated, no need for extended course of antibiotics. Recommend changing from Zosyn to clindamycin to complete 5 days post drainage. Recommendations: Start clindamycin 450 mg every 6 hours. To complete 15 doses. Thank you for the consult, will sign off. Please call with questions. Keri Summers MD [facility] ([facility]) M: [phone] O: [phone] F: [phone] Subjective Date of service: 08/12/19 Principal diagnosis: Left arm hematoma Interval history: No new issues, wants to go home. Objective - Exam Narrative Exam: Physical Exam: Constitutional: Alert, cooperative. No acute distress Oral: dentition fair, no thrush Cardiovascular: S1, S2 normal. Respiratory: Good air entry, clear to auscultation bilaterally GI: Soft, non-tender; bowel sounds normal. No peritoneal signs. Musculoskeletal: No pedal edema, no cyanosis. Woundvac LUE Skin: No rash or abscess Hem/Lymphatic: No palpable cervical or supraclavicular nodes. No lymphangitis Psych: Mood ok. Affect normal Neurological: Awake, alert, oriented. LUe weakness - Constitutional Vitals: Vital Signs Temp Pulse Resp BP Pulse Ox 97.9 F 79 14 96/62 99 08/12/19 11:34 08/12/19 11:34 08/12/19 11:34 08/12/19 11:34 08/12/19 11:34 Temperature -Last 24 Hours Temperature 97.9 F Temperature 99.0 F Temperature 98.5 F - Labs CBC & Chem 7: 08/10/19 05:46 08/10/19 05:46 Labs: Abnormal lab results 08/11/19 08/12/19 08/12/19 Range/Units 20:56 07:54 10:22 PT 19.5 H (12.2-14.9) Sec. INR 1.62 H (0.87-1.13) POC Glucose 118 H 173 H (70-105) 08/12/19 Range/Units 11:30 PT (12.2-14.9) Sec. INR (0.87-1.13) POC Glucose 206 H (70-105)
[2019-08-12] MEDS: WARFARIN 7.5 MG TAB PO SCH (17:59)
[2019-08-13] MEDS: ONDANSETRON 4 MG ODT TAB PO SCH (06:04)
[2019-08-13] MEDS: oxyCODONE 5 MG TAB PO PRN ×2 (06:12→13:27)
[2019-08-13 06:29] LABS: INR 1.67 (0.87-1.13)
--- NOTE | 2019-08-13 07:57 | Discharge Summary ---
Providers - Providers Date of Admission: 08/09/19 15:58 Attending physician: ALEXANDRO JACOBS MD 08/08/19 06:00 Consult to Physician [CONS] Routine Comment: Consulting Provider: ENEDELIA AHUJA Physician Instructions: Reason For Exam: WOUND DEHISCENSE LEFT ARM 08/09/19 15:57 Consult to Wound/ET Nurse [CONS] Routine Reason For Exam: wound eval 08/10/19 16:34 Occupational Therapy Evaluate and Treat [CONS] Routine Comment: Reason For Exam: left arm decreased ROM 08/10/19 16:49 Consult to Physician [CONS] Routine Comment: Consulting Provider: NOEMI ALLEN Physician Instructions: Reason For Exam: left upper ext weakness 08/11/19 07:42 Consult to Physician [CONS] Routine Comment: Consulting Provider: TONO GO Physician Instructions: Reason For Exam: DARYL YOUNG Primary care physician: [employer] Hospitalization Reason for admission: LEFT FORE ARM HEMATOMA Condition: Stable Hospital course: 39-year-old -[place] female presents to the emergency room for left arm swelling pain and dehiscence of wound. Patient states that she had had a left arm IV that was started when she was here at her last admission on 07/28/2019 and vessel was injured. 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 During that admission, patient reportedly developed venous injury during IV placement, as well as extravasation of contrast in blood into the proximal left upper extremity. ) Patient states that she had to have vascular surgery repair. Patient denies any fever but reports pain is 8 out of 10. Patient has no known drug allergies. Patient is currently on warfarin for a clot that was found in her stomach. Doppler ultrasound: IMPRESSION: 1. Negative for DVT. 2. Hematoma formation, intramuscular hyperemia after injury, and prominent recurrent radial/ulnar arterial branches. Per Vascular 08/09 Patient with reaccumulation left arm hematoma following iatrogenic injury Patient undergo left arm diagnostic angiogram with potential coil embolization This morning patient noted to have left arm numbness and mild weakness concerning for nerve compression We will plan for hematoma evacuation in the operating room following diagnostic angiogram 08/10 patient continued on warfarin with Lovenox. To obtain therapeutic INR prior to discharge. Evaluation of wound VAC and wound dressing done by wound care. Occupational Therapy consulted to assist as patient does have significant contracture of the left forearm. Discussed with Case management, at this point working on wound vac for discharge and wound care clinic. 08/11/19: Continues with occupational therapy evaluation. Awaiting INR to be therapeutic prior to discharge. Vascular reviewing recent Doppler ultrasound. 08/12/19: Evaluated by Neurology- Likely due to peripheral nerve injury secondary to compartment syndrome due to extravasation of blood and contrast in the left upper extremity which caused likely compartment syndrome. Given the nature of the patient's injury, she has splinted her arm and she will need aggressive physical therapy to regain full range of motion PER VASCULAR SURGEON 08/13: Patient cleared by vascular recommended to be on levonx until INR therapeutic. CM arranged home health, wound care clinic visit, wound vac, pcp following up. Patient understands need to follow with orthopedic therapy outpatient for her left arm. It was more excited today. Antibiotics recommend for Clindamycin. Culture showed MRSA. Neurology recommended EMG outpatient with neurology Left Arm Hematoma status post angiogram and evacuation Possible Nerve Compression syndrome Posttraumatic pseudoaneurysm OF THE LEFT ARM Left Upper weakness Diabetes Mellitus With hyperglycemia Secondary Hypercoagulable state Cellulitis Without SEPSIS left arm unable to strengthen at the elbow, ?compression injury. Contract since the last one month. Disposition: [id number]-06 HOME UNDER HOME [facility] Time spent for discharge: 35 MINS Core Measure Documentation - Palliative Care Palliative Care/ Comfort Measures: Not Applicable - Core Measures Any of the following diagnoses?: DVT/PE, none - VTE Discharge Requirements Deep Vein Thrombosis/Pulmonary Embolism Present on Admission: Yes Has pt received <5 days of overlap therapy or INR<2.0: No Anticoagulant overlap therapy prescribed at discharge: Yes Exam - Physical Exam Narrative exam: VITAL SIGNS: Reviewed. GENERAL: The patient appears normally developed, reports better pin control. vital signs as documented. HEAD: No signs of head trauma. EYES: Pupils are equal. Extraocular motions intact. EARS: Hearing grossly intact. MOUTH: Oropharynx is normal. NECK: No adenopathy, no JVD. CHEST: Chest with clear breath sounds bilaterally. No wheezes, rales, or rhonchi. CARDIAC: Regular rate and rhythm. S1 and S2, without murmurs, gallops, or rubs. VASCULAR: No Edema. Peripheral pulses normal and equal in all extremities. ABDOMEN: Soft, non tender and non distended. No rebound or guarding, and no masses palpated. Bowel Sounds normal. MUSCULOSKELETAL: Contracted Left upper ext. Extremities without clubbing, cyanosis or edema. Except noted dressing of the left upper extremity with Wound VAC. NEUROLOGIC EXAM: Alert and oriented x 3. some sensory deficit left upper ext with some motor regidity improving. Speech normal. Follows commands. PSYCHIATRIC: Mood normal. SKIN: Wound VAC to left upper extremity detail exam as documented in skin assessment - Constitutional Vitals: Temp Pulse Resp BP Pulse Ox 97.9 F 78 18 105/66 99 08/12/19 22:16 08/13/19 06:13 08/12/19 22:16 08/13/19 06:13 08/12/19 22:16 Plan Activity: advance as tolerated, fall precautions Diet: low fat, diabetic Special Instructions: record daily weights, record daily BP diary, record blood sugar diary, smoking cessation Follow up with: FINESSE CURTIS MD [Staff Physician] - 7 Days PRIMARY CARE, [Primary Care Provider] - 3-5 Days PRAKASH MCBRIDE MD [Staff Physician] - 7 Days Forms: Warfarin Discharge Instruction, Work/School Release Form Prescriptions: Clindamycin [Clindamycin CAP] 450 mg PO TID #14 capsule Warfarin [Coumadin] 7.5 mg PO DAILY@1700 #30 tablet Enoxaparin 80 mg SUB-Q Q12HR #10 syringe oxyCODONE [roxiCODONE] 10 mg PO BID PRN #14 tablet PRN Reason: Pain, Moderate (4-6) Other Discharge Orders: Occupational Therapy (Amb) Location: None Selected
[2019-08-13] MEDS: LIPASE 12,000/PROTEASE 38,000/AMYLASE 60,000 (UNITS) DR CAP PO SCH ×2 (08:46→13:29)
[2019-08-13] MEDS: INSULIN REGULAR, HUMAN 100 UNITS/1 ML SUB-Q SCH ×2 (08:46→13:29)
[2019-08-13] MEDS: CLINDAMYCIN 150 MG CAP PO SCH ×2 (08:50→13:30)
[2019-08-13] MEDS: FERROUS SULFATE 325 MG TAB PO SCH ×2 (08:51→13:30)
[2019-08-13] MEDS: HYDROmorphone 1 MG/1 ML INJ IV PRN (09:49)
[2019-08-13 12:21] VITALS: BP 108/62
[2019-08-13] MEDS: ENOXAPARIN 80 MG/0.8 ML INJ SUB-Q SCH (13:29)
[2019-08-13] MEDS: FOLIC ACID 1 MG TAB PO SCH (13:29)
[2019-08-13] MEDS ORDERED: WARFARIN 10 MG TAB PO SCH (17:00)
== END 2019-08-13 14:45 | disposition home health service (06) | DRG 919 ==
LOC: ED 14:17 → 3A 08-08 04:24 → INTOOBSV 08-08 04:24 → 3A 08-08 09:43 → OBSVTOIN 08-09 15:58
PROVIDERS: ADMIT Internal Medicine; ATTEND Internal Medicine
PROC: B3121ZZ Fluoroscopy of Left Subclavian Artery using Low Osmolar Contrast (ICD-10-PCS; principal; 2019-08-09)
PROC: B44LZZZ Ultrasonography of Femoral Artery (ICD-10-PCS; 2019-08-09)
PROC: B31N1ZZ Fluoroscopy of Other Upper Arteries using Low Osmolar Contrast (ICD-10-PCS; 2019-08-09)
PROC: B4101ZZ Fluoroscopy of Abdominal Aorta using Low Osmolar Contrast (ICD-10-PCS; 2019-08-09)
PROC: B41G1ZZ Fluoroscopy of Left Lower Extremity Arteries using Low Osmolar Contrast (ICD-10-PCS; 2019-08-09)
PROC: 0X990ZZ Drainage of Left Upper Arm, Open Approach (ICD-10-PCS; 2019-08-09)
DX: T81.30XA Disruption of wound, unspecified, initial encounter (principal); T79.5XXA Traumatic anuria, initial encounter; L03.114 Cellulitis of left upper limb; D68.69 Other thrombophilia; L02.414 Cutaneous abscess of left upper limb; I72.1 Aneurysm of artery of upper extremity; E11.65 Type 2 diabetes mellitus with hyperglycemia; Y83.8 Other surgical procedures as the cause of abnormal reaction of the patient, or of later complication, without mention of misadventure at the time of the procedure; Z79.899 Other long term (current) drug therapy; Y92.89 Other specified places as the place of occurrence of the external cause
CPT/HCPCS: 36216; 36415; 75710; 76937; 80048; 80053; 82140; 82962; 83036; 83615; 85025; 85027; 85610; 85652; 87040; 87075; 87076; 87116; 87186; 96361; 96374; 99406; G0378; A4649; C1760; C1769; C1887; J0690; J1170; J1644; J1650; J1815; J2250; J2270; J2405; J2543; J2704; J3010; J7030; J7050; J7120; Q0162; Q9967